=== PATIENT | female | born 1965 | race Caucasian/White ===

== ENCOUNTER 2019-12-19 21:11 | Emergency (ER) | payer OTHER, SELFPAY ==
[2019-12-19 21:19] VITALS: BP 116/69; PULSE 107; RESP 16; TEMP 36.9; O2SAT 98; BMI 31.2
--- NOTE | 2019-12-19 21:39 | CT_ITS ---
EXAMINATION: CT ABDOMEN AND PELVIS WITH CONTRAST CLINICAL INFORMATION: Diffuse abdominal pain, history of laparoscopic cholecystectomy and bariatric surgery COMPARISON: 08/03/2019 TECHNIQUE: Multidetector volumetric images were obtained from the superior aspect of the liver through the pubic symphysis following administration 85 mL of Omnipaque 350 intravenous contrast. Sagittal and coronal reformatted images were obtained on the technologist's workstation. Oral contrast: No This CT examination was performed using dose optimization techniques as appropriate, variously including the following: *Automated exposure control *Adjustment of mA and/or kV according to patient size (this includes techniques or standardized protocols for targeted exams where dose is matched to indication/reason for exam; i.e. extremities or head) *Use of iterative reconstruction technique DLP: 658 mGy-cm FINDINGS: LUNG BASES: The visualized lung bases demonstrate mild atelectasis. LIVER, GALLBLADDER, AND BILIARY TREE: The liver is normal in size, shape, and attenuation. No focal hepatic lesion identified. Patient is status post cholecystectomy. There is mild hepatic biliary ductal prominence which may be physiologic in this setting. Small amount of perihepatic fluid. PANCREAS: Unremarkable. SPLEEN: Trace perisplenic fluid. ADRENAL GLANDS: Unremarkable. KIDNEYS AND URETERS: The kidneys are normal in size, shape, and attenuation. A few tiny bilateral renal hypodensities are most suggestive of cysts. No hydronephrosis, hydroureter, or nonobstructing calculi seen. No perinephric stranding. BLADDER: Unremarkable. GASTROINTESTINAL TRACT: Suture line is present along the stomach. There is a thick-walled appearance of several small bowel loops in the left abdomen with adjacent fluid and mesenteric edema, most suspicious for an enteritis. No evidence of bowel obstruction. Much of the colon is collapsed which limits evaluation. The appendix is unremarkable. No free air is seen. ABDOMINAL WALL: No significant hernia is appreciated. LYMPH NODES: Normal. VASCULAR: Unremarkable. PELVIC VISCERA: Pessary is noted. Trace pelvic free fluid. OSSEOUS STRUCTURES: Mild scattered degenerative changes in the spine. IMPRESSION: 1. Thick-walled small bowel loops in the left abdomen with adjacent free fluid and mesenteric edema, most suspicious for an enteritis. 2. Small amount of additional free fluid in the abdomen and pelvis. 3. Status post cholecystectomy. Mild biliary ductal dilatation may be physiologic in this setting.
--- NOTE | 2019-12-19 21:41 | ED_ITS ---
HPI - Abdominal Pain General Chief Complaint: Abdominal Pain Stated Complaint: abdominal pain Time Seen by Provider: 12/19/19 21:31 Source: patient Mode of arrival: ambulatory Limitations: no limitations History of Present Illness HPI narrative: Patient comes to emergency room complaining of diffuse abdominal pain that started this morning. Patient also complaining of nausea vomiting, no diarrhea. Patient states she is in too much pain and can not talk MD elicited complaint: abdominal pain Related Data Previous Rx's Medication Instructions Recorded hyoscyamine sulfate 0.25 mg PO QID PRN #14 tab 12/20/19 ondansetron HCl [Zofran] 4 mg PO Q6H PRN #14 tab 12/20/19 Allergies Allergy/AdvReac Type Severity Reaction Status Date / Time aspirin [ASA] Allergy Intermediate RASH Unverified 11/17/19 17:24 Penicillins [PENICILLINS] Allergy Intermediate RASH Unverified 11/17/19 17:24 penicillin V AdvReac Unknown rash Verified 06/16/18 00:00 Penicillin Allergy Unknown Uncoded 10/27/19 00:00 Review of Systems Review of Systems Constitutional : No Weight loss, No Fever, No Chills, No Night Sweats, No Fatigue, No Malaise ENT/Mouth : No Hearing loss, No Ear Pain, No Nasal Congestion, No Sinus Pain, No Hoarseness, No sore throat, No Rhinorrhea, No Swallowing Difficulty Eyes: No Eye Pain, No Swelling, No Redness, No Foreign Body, No Discharge, No Vision Changes Cardiovascular : No Chest Pain, No SOB, No Dyspnea on Exertion, No Orthopnea, No Edema, No Palpitations Respiratory : No Cough, No Sputum, No Wheezing, No Smoke Exposure, No Dyspnea Gastrointestinal : complaining of nausea, vomiting, and diffuse abdominal pain, No Diarrhea, No Constipation Genitourinary : no irregular bleeding, No Dysuria, No Urinary Frequency, No Hematuria, No Urinary Incontinence, No Urgency, No Flank Pain, No Urinary Flow Changes, No Hesitancy Musculoskeletal : No joint pain, No Myalgias, No Joint Swelling Skin : No Skin Lesions, No rash Neuro : No Weakness, No Numbness, No Paresthesias, No Loss of Consciousness, No Dizziness, No Headache Psych : No Anxiety/Panic, No Depression, No SI/HI/AH/VH, No Social Issues, Heme/Lymph: No Bruising, No Bleeding,No Lymphadenopathy Endocrine : No Polyuria, No Polydipsia, No Temperature Intolerance Physical Exam Vital Signs: Vital Signs: Vital Signs Temp Pulse Resp BP Pulse Ox 12/20/19 01:02 98 16 117/71 97 12/19/19 22:00 98.4 F 110 H 18 102/69 12/19/19 21:19 98.4 F 107 H 16 116/69 98 Body Mass Index 31.2 Appearance: Alert. Oriented X3. moderate distress, actively vomiting Eyes: Pupils equal, round and reactive to light. ENT: Pharynx normal. Neck: Normal inspection. Neck supple. No lymph nodes noted. No crepitus CVS: Normal heart rate and rhythm. Pulses normal. Normal S1 and S2 Respiratory: No respiratory distress. Breath sounds normal. No Wheezing. No rales Abdomen: Soft , No rigidity. No distention. good BS x4 Skin: Skin warm , clammy Extremities: No lower extremity edema. No lower extremity edema. No Lacerations. No Rash Neuro: Oriented X 3. No motor deficit. No sensory deficit. Moving all extermities. No slurred speech. Course Course Course Narrative: patient feeling better, still nauseous but the pain improved. I discussed with the patient her labs and imaging. Patient likely having enteritis. White blood cell count within normal limits MDM - Abdominal Pain MDM Narrative Medical decision making narrative: patient's symptoms likely enteritis, most likely from viral etiology. Antibiotics are not recommended at this time Differential Diagnosis Differential diagnosis: Likely abdominal pain, diverticulitis, gastroenteritis and ovarian cyst Lab Data Result diagrams: 12/19/19 22:15 12/19/19 22:19 Labs: Lab Results 12/19/19 12/19/19 Range/Units 22:15 22:19 WBC 7.4 (4.8-10.8) X10*3/uL RBC 4.55 (4.20-5.50) X10*6/uL Hgb 14.1 (12.0-16.0) g/dl Hct 43.6 (37-47) % MCV 95.8 (80-98) fL MCH 31.0 (27.0-33.0) pg MCHC 32.3 (31.0-35.0) g/dl RDW 12.9 (11.0-16.0) % Plt Count 275 (160-400) X10*3/uL MPV 10.5 (9.4-12.3) fL Immature Gran % (Auto) 0.3 (0.0-0.4) % Neut % (Auto) 65.3 (45-73) % Lymph % (Auto) 28.8 (20-40) % [place] % (Auto) 3.9 (2-11) % Eos % (Auto) 1.6 (0-4) % Baso % (Auto) 0.1 (0-2) % Lymph # (Auto) 2.1 (1.2-4.9) X10*3/uL [place] # (Auto) 0.3 (0.1-1.2) X10*3/uL Eos # (Auto) 0.1 (0.0-0.4) X10*3/uL Baso # (Auto) 0.0 (0.0-0.2) X10*3/uL Abs Immat Gran (auto) 0.02 (0.00-0.03) X10*3/uL Absolute Neuts (auto) 4.8 (2.0-8.3) X10*3/uL Absolute Nucleated RBC 0.000 (0.0-0.012) X10*3/uL Nucleated RBC % (auto) 0.0 (0.0-0.2) /100WBC Sodium 140 (135-145) mmol/L Potassium 4.0 (3.3-5.1) mmol/l Chloride 106 (96-108) mmol/L Carbon Dioxide 22 (22-29) mmol/L Anion Gap 16 (12-20) BUN 17 H (9-16) mg/dL Creatinine 0.87 (0.5-1.4) mg/dL Estim Creat Clear Calc 74.0 Estimated GFR > 60 Random Glucose 183 H (60-115) mg/dL Calcium 8.8 (8.4-10.2) mg/dL Total Bilirubin 0.3 (0.0-1.0) mg/dL Direct Bilirubin 0.2 (0.0-0.5) mg/dL AST 19 (5-31) U/L ALT 20 (0-31) U/L Alkaline Phosphatase 79 (39-117) U/L Total Protein 6.7 (6.5-8.0) g/dL Albumin 4.1 (3.5-5.0) g/dL Lipase 41 (8-78) U/L Imaging Data CT scan - abdomen: Radiologist's impression: 1. Thick-walled small bowel loops in the left abdomen with adjacent free fluid and mesenteric edema, most suspicious for an enteritis. 2. Small amount of additional free fluid in the abdomen and pelvis. 3. Status post cholecystectomy. Mild biliary ductal dilatation may be physiologic in this setting. Discharge Plan Discharge Clinical Impression: Enteritis Abdominal pain Qualifiers: Abdominal location: generalized Qualified Code(s): R10.84 - Generalized abdomi nal pain Patient Disposition: Home, Self-Care Instructions: Colitis (ED) Additional Instructions: please drink plenty of fluids. Please follow-up with your primary care physician tomorrow. If you have any worsening or new symptoms, please return to the emergency room or call 911 Prescriptions: New hyoscyamine sulfate 0.125 mg tablet 0.25 mg PO QID PRN (Reason: abdominal pain) Qty: 14 RF: 0 ondansetron HCl [Zofran] 4 mg tablet 4 mg PO Q6H PRN (Reason: nausea and vomiting) Qty: 14 RF: 0 PMFSH Past Medical History Medical History (Updated 12/20/19 @ 01:22 by Susan Tirado MD) Bariatric surg stat-del Surgical History (Updated 12/19/19 @ 21:42 by Susan Tirado MD) History of cholecystectomy Social History Social History Smoked in Last 30 Days: No Use of substances other than those prescribed or required for medical reasons: No Advance Directives: No Advance Directives Information Provided: Yes
[2019-12-19 22:00] VITALS: BP 102/69; PULSE 110; RESP 18; TEMP 36.9
[2019-12-19] MEDS: Morphine Sulfate 4 MG/ML CARTRIDGE IVPUSH (22:13)
[2019-12-19] MEDS: ondansetron HCL 4 MG/2 ML VIAL IVPUSH (22:13)
[2019-12-19] MEDS: 0.9 % Sodium Chloride 1,000 ML 999 ML IVCONT (22:14)
[2019-12-19 22:23] LABS: Basophils Percent Auto 0.1 % (0-2); Eosinophils Absolute Auto 0.1 X10*3/uL (0.0-0.4); Eosinophils Percent Auto 1.6 % (0-4); Hematocrit 43.6 % (37-47); Hemoglobin 14.1 g/dl (12.0-16.0); Imm Gran Abs Auto 0.02 X10*3/uL (0.00-0.03); Imm Gran Pct Auto 0.3 % (0.0-0.4); Lymphocytes Absolute Auto 2.1 X10*3/uL (1.2-4.9); Lymphocytes Percent Auto 28.8 % (20-40); Mean Corpuscular HGB Conc 32.3 g/dl (31.0-35.0); Mean Corpuscular Volume 95.8 fL (80-98); Mean Platelet Volume 10.5 fL (9.4-12.3); Monocytes Absolute Auto 0.3 X10*3/uL (0.1-1.2); Monocytes Percent Auto 3.9 % (2-11); Neutrophils Absolute Auto 4.8 X10*3/uL (2.0-8.3); Neutrophils Percent Auto 65.3 % (45-73); Platelet Count 275 X10*3/uL (160-400); Red Blood Count 4.55 X10*6/uL (4.20-5.50); Red Cell Distribution Width 12.9 % (11.0-16.0); White Blood Count 7.4 X10*3/uL (4.8-10.8)
[2019-12-19 22:24] LABS: MANUAL DIFF FLAG NO
--- NOTE | 2019-12-19 22:47 | PC.NURSE ---
Pt c/o mid abd pain which started this afternoon. pt crying in pain and is nauseated w/o active vomiting. HL placed to RAC, labs drawn to lab. Pt medicated as per orders for pain and nausea. Pt A&Ox3, skin warm and diaphoretic. respirations easy, n/l. Pt awaiting for lab results.
[2019-12-19 23:03] LABS: Alanine Aminotransferase 20 U/L (0-31); Albumin Level 4.1 g/dL (3.5-5.0); Alkaline Phosphatase 79 U/L (39-117); Anion Gap 16 (12-20); Aspartate Amino Transferase 19 U/L (5-31); Bilirubin Direct 0.2 mg/dL (0.0-0.5); Bilirubin Total 0.3 mg/dL (0.0-1.0); Blood Urea Nitrogen 17 mg/dL (9-16); Calcium 8.8 mg/dL (8.4-10.2); Carbon Dioxide 22 mmol/L (22-29); Chloride 106 mmol/L (96-108); Estimated Glomerular Filt Rate > 60; Glucose Random 183 mg/dL (60-115); Lipase 41 U/L (8-78); Sodium 140 mmol/L (135-145); Total Protein 6.7 g/dL (6.5-8.0)
[2019-12-20] MEDS: iohexoL 350 MG/ML 100 ML INFUS..BTL 85 ML IV (00:01)
[2019-12-20] MEDS: Ketorolac Tromethamine 30 MG/ML VIAL IVPUSH (00:20)
[2019-12-20 01:02] VITALS: BP 117/71; PULSE 98; RESP 16; O2SAT 97
[2019-12-20] MEDS: Prochlorperazine Edisylate 10 MG/2 ML VIAL IVPUSH (02:01)
== END 2019-12-20 02:51 | disposition home or self-care (01) ==
PROVIDERS: Emergency Provider Emergency Medicine
DX: R10.84 Generalized abdominal pain (principal); K52.9 Noninfective gastroenteritis and colitis, unspecified; Z79.899 Other long term (current) drug therapy
CPT/HCPCS: 36415; 74177; 80048; 80076; 83690; 85025; 96361; 96374; 96375; 99284; J1885; J2270; J2405

== ENCOUNTER 2020-01-11 13:51 | Outpatient (REF) | payer OTHER, SELFPAY ==
--- NOTE | 2020-01-11 | MM_ITS ---
EXAMINATION: MM SCREENING DIGITAL BREAST TOMOSYNTHESIS, BILATERAL CLINICAL INFORMATION: Screening. Asymptomatic. The lifetime risk of breast cancer based on the Tyrer-Cuzick Model is 7%. COMPARISON: Mammography: 08/30/2018, outside mammography 08/03/2017, 07/25/2016 ([facility]) TECHNIQUE: Digital breast tomosynthesis is performed in both the craniocaudal and mediolateral oblique views along with computer-aided detection (CAD). Synthesized 2D images are generated from the tomosynthesis. FINDINGS: The breasts are heterogeneously dense, which may obscure small masses (ACR BI-RADS breast composition Category c). There are no significant masses, abnormal calcifications, or other abnormalities. No significant changes. MM/MM tomosynthesis screening BI IMPRESSION: No significant changes from prior studies. ASSESSMENT: BI-RADS 1: Negative RECOMMENDATION: Routine annual mammography screening. This patient's information was entered into a reminder system with a target due date for their next mammogram.
== END 2020-01-11 13:52 | disposition home or self-care (01) ==
LOC: HO.MAMMO 13:51
PROVIDERS: PCP Internal Medicine; Visit Provider Internal Medicine
DX: Z12.31 Encounter for screening mammogram for malignant neoplasm of breast (principal)
CPT/HCPCS: 77063; 77067

== ENCOUNTER → 2020-05-03 07:44 | Outpatient (BNVA) | payer OTHER, SELFPAY | PROVIDERS: PCP Internal Medicine; Visit Provider Internal Medicine Gastroenterology | DX: K29.60 Other gastritis without bleeding (principal); K29.80 Duodenitis without bleeding; K63.89 Other specified diseases of intestine | CPT/HCPCS: 91110 ==

== ENCOUNTER → 2020-05-17 13:29 | Outpatient (BNVA) | payer OTHER, SELFPAY | PROVIDERS: PCP Internal Medicine; Visit Provider Nurse Practitioner Gerontology | DX: Z13.89 Encounter for screening for other disorder (principal) | CPT/HCPCS: Q3014 ==

== ENCOUNTER 2020-05-30 10:49 | Outpatient (REF) | payer OTHER, SELFPAY ==
[2020-05-30 14:41] LABS: Estimated Average Glucose 114 mg/dL; Hemoglobin A1c % 5.6 %
[2020-05-30 14:46] LABS: Alanine Aminotransferase 22 U/L (0-31); Albumin Level 4.1 g/dL (3.5-5.0); Alkaline Phosphatase 67 U/L (39-117); Anion Gap 15 (12-20); Aspartate Amino Transferase 22 U/L (5-31); Bilirubin Total 0.3 mg/dL (0.0-1.0); Blood Urea Nitrogen 13 mg/dL (9-16); Calcium 8.6 mg/dL (8.4-10.2); Carbon Dioxide 25 mmol/L (22-29); Chloride 104 mmol/L (96-108); Cholesterol 169 mg/dL; Estimated Glomerular Filt Rate > 60; Glucose Fasting 102 mg/dL (60-99); HDL Cholesterol 65 mg/dL; LDL Cholesterol Calculated 85 mg/dl; Potassium 4.5 mmol/L (3.3-5.1); Sodium 139 mmol/L (135-145); Total Protein 6.6 g/dL (6.5-8.0); Triglycerides 96 mg/dL
[2020-05-30 14:57] LABS: Creatinine Urine 133.38 mg/dL; Microalbumin Urine < 5.0 mg/L
[2020-05-31 05:01] LABS: LDL Cholesterol Direct 83 mg/dL (<100)
== END 2020-05-30 10:50 | disposition home or self-care (01) ==
LOC: HO.10HDL 10:49
PROVIDERS: Visit Provider Nurse Practitioner Gerontology
DX: E11.65 Type 2 diabetes mellitus with hyperglycemia (principal)
CPT/HCPCS: 36415; 80053; 80061; 82043; 83036; 83721

== ENCOUNTER → 2020-06-05 14:49 | Outpatient (BNVA) | payer OTHER, SELFPAY | PROVIDERS: PCP Internal Medicine; Visit Provider Internal Medicine Gastroenterology | DX: R10.11 Right upper quadrant pain (principal); K59.00 Constipation, unspecified; T78.3XXA Angioneurotic edema, initial encounter; E11.9 Type 2 diabetes mellitus without complications; I10 Essential (primary) hypertension; E78.00 Pure hypercholesterolemia, unspecified; E78.5 Hyperlipidemia, unspecified; E66.01 Morbid (severe) obesity due to excess calories; Z88.6 Allergy status to analgesic agent; Z88.0 Allergy status to penicillin; Z90.3 Acquired absence of stomach [part of] | CPT/HCPCS: Q3014 ==

== ENCOUNTER → 2020-08-23 13:43 | Outpatient (BNVA) | payer OTHER, SELFPAY | PROVIDERS: PCP Internal Medicine; Visit Provider Nurse Practitioner Gerontology | DX: E11.42 Type 2 diabetes mellitus with diabetic polyneuropathy (principal); E78.5 Hyperlipidemia, unspecified; E66.09 Other obesity due to excess calories; I10 Essential (primary) hypertension; R00.0 Tachycardia, unspecified; Z68.30 Body mass index [BMI] 30.0-30.9, adult | CPT/HCPCS: 82947; 99212 ==

== ENCOUNTER → 2020-11-01 10:42 | Outpatient (BNVA) | payer OTHER, SELFPAY | PROVIDERS: PCP Internal Medicine; Visit Provider Internal Medicine | DX: R00.0 Tachycardia, unspecified (principal); E11.8 Type 2 diabetes mellitus with unspecified complications | CPT/HCPCS: 93005; 99212 ==

== ENCOUNTER → 2021-01-22 14:27 | Outpatient (BNVA) | payer OTHER, SELFPAY | PROVIDERS: PCP Internal Medicine; Visit Provider Internal Medicine Gastroenterology | DX: Z13.89 Encounter for screening for other disorder (principal) | CPT/HCPCS: Q3014 ==

== ENCOUNTER 2022-02-13 07:34 | Emergency (ER) | payer OTHER, SELFPAY ==
[2022-02-13 07:45] VITALS: BP 126/105; PULSE 94; RESP 14; TEMP 36.4; O2SAT 100; BMI 31.7
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
[2022-02-13 09:00] VITALS: BP 109/72; PULSE 91; RESP 12; TEMP 36.7; O2SAT 98
== END 2022-02-13 09:19 | disposition home or self-care (01) ==
PROVIDERS: Emergency Provider Student in an Organized Health Care Education/Training Program; PCP Internal Medicine
DX: T25.121A Burn of first degree of right foot, initial encounter (principal); T31.0 Burns involving less than 10% of body surface; X12.XXXA Contact with other hot fluids, initial encounter; Y93.9 Activity, unspecified; Y92.009 Unspecified place in unspecified non-institutional (private) residence as the place of occurrence of the external cause; Y99.9 Unspecified external cause status
CPT/HCPCS: 16020; 99283

== ENCOUNTER 2022-04-14 14:21 | Inpatient (IN) | payer OTHER, SELFPAY ==
--- NOTE | 2022-04-14 | ECG_ITS ---
Test Reason : MED CLEARANCE Blood Pressure : / mmHG Vent. Rate : 085 BPM Atrial Rate : 085 BPM P-R Int : 174 ms QRS Dur : 082 ms QT Int : 372 ms P-R-T Axes : 034 021 027 degrees QTc Int : 442 ms Normal sinus rhythm Normal ECG When compared with ECG of 15-JUL-2009 11:17, No significant change was found Referred By: Susan Tirado Electronically Signed By:Mike Serrato
[2022-04-14 14:43] VITALS: BP 127/85; PULSE 94; RESP 18; TEMP 36.8; O2SAT 96; BMI 28.3
[2022-04-14 15:20] LABS: UPreg QC Valid YES; Urine Pregnancy NEGATIVE (NEGATIVE)
[2022-04-14 15:27] LABS: COVID-19 Test Negative (Negative); IDNOW Serial# 16C4AD1C
[2022-04-14 15:36] LABS: MANUAL DIFF FLAG NO
[2022-04-14 15:43] LABS: Basophils Percent Auto 0.8 % (0-2); Eosinophils Absolute Auto 0.2 X10*3/uL (0.0-0.4); Eosinophils Percent Auto 4.3 % (0-4); Hematocrit 37.2 % (37.0-47.0); Hemoglobin 11.9 g/dl (12.0-16.0); Lymphocytes Absolute Auto 2.1 X10*3/uL (1.2-4.9); Mean Corpuscular Hemoglobin 30.7 pg (27.0-33.0); Mean Corpuscular Volume 96.1 fL (80.0-98.0); Mean Platelet Volume 10.1 fL (9.4-12.3); Monocytes Absolute Auto 0.3 X10*3/uL (0.1-1.2); Monocytes Percent Auto 7.8 % (2-11); Neutrophils Absolute Auto 1.3 x10*3/uL (2.0-8.3); Neutrophils Percent Auto 33.1 % (45-73); Platelet Count 243 X10*3/uL (160-400); Red Blood Count 3.87 X10*6/uL (4.20-5.50); Red Cell Distribution Width 13.5 % (11.0-16.0)
[2022-04-14 16:00] LABS: Alanine Aminotransferase 38 U/L (0-31); Alkaline Phosphatase 81 U/L (39-117); Anion Gap 13 (12-20); Aspartate Amino Transferase 27 U/L (5-31); Bilirubin Total 0.2 mg/dL (0.0-1.0); Blood Urea Nitrogen 10 mg/dL (9-16); Calcium 8.9 mg/dL (8.4-10.2); Carbon Dioxide 27 mmol/L (22-29); Chloride 108 mmol/L (96-108); Estimated Glomerular Filt Rate > 60; Glucose Fasting 80 mg/dL (60-99); Potassium 4.4 mmol/L (3.3-5.1); Sodium 144 mmol/L (135-145); Total Protein 6.2 g/dL (6.5-8.0)
[2022-04-14 16:46] LABS: Amphetamine Screen Urine Not Detected (Not Detect); Barbiturates, Urine Not Detected (Not Detect); Benzodiazepines Screen Urine POSITIVE (Not Detect); Cannabinoid Screen Urine POSITIVE (Not Detect); Cocaine Screen Urine Not Detected (Not Detect); Opiate Screen Urine Not Detected (Not Detect); Phencyclidine Screen Urine Not Detected (Not Detect)
[2022-04-14 17:03] LABS: Fentanyl, urine Not Detected (Not Detect)
--- NOTE | 2022-04-14 21:37 | ED.PSYCH ---
HPI - Psych General Chief Complaint: Psychiatric Symptoms Stated Complaint: SI w/ plan, SEC 12 per EMS Time Seen by Provider: 04/14/22 14:26 Source: patient and EMS Mode of arrival: EMS Limitations: no limitations History of Present Illness HPI Narrative: Patient comes in the emergency room from behavioral at work. Patient states that her clinician convince her to come to the emergency room. Patient states that if her clinician wound have insisted to come to the hospital, she would have hunger self. Patient history of 2 suicide attempts. Years ago, patient attempted suicide by ingesting pills. Patient states that she ingested the pills, went to sleep, woke up 24 hours later. Patient also states that she has had multiple lacerations to her forearms. This time, patient was contemplating hanging herself. Patient denies drug use. Patient states that she hears voices daily telling her to hurt herself. Patient states that she is chronically depressed. Patient denies suicidal ideation the patient came on a Section 12 from the community. Related Data Home Medications Medication Instructions Recorded Confirmed atorvastatin 20 mg tablet 20 mg PO DAILY 06/05/20 04/14/22 albuterol sulfate 90 mcg/actuation 2 puff inhalation Q4-6H PRN 04/14/22 04/14/22 aerosol inhaler Shortness Of Breath Or Wheezing amitriptyline 75 mg tablet 1 tab PO BEDTIME 04/14/22 04/14/22 bupropion HCl 300 mg 24 hr tablet, 1 tab PO DAILY 04/14/22 04/14/22 extended release cholecalciferol (vitamin D3) 25 1 cap PO DAILY 04/14/22 04/14/22 mcg (1,000 unit) capsule (Vitamin D3) clonazepam 0.5 mg tablet 1 tab PO TID 04/14/22 04/14/22 docusate sodium 100 mg capsule 1 cap PO BID 04/14/22 04/14/22 dulaglutide 1.5 mg/0.5 mL 1.5 mg subcut QWEEK 04/14/22 04/14/22 subcutaneous pen injector (Trulicity) duloxetine 60 mg capsule,delayed 1 cap PO BID 04/14/22 04/14/22 release haloperidol 0.5 mg tablet 1 tab PO QPM 04/14/22 04/14/22 lisinopril 5 mg tablet 1 tab PO QAM 04/14/22 04/14/22 loratadine 10 mg tablet 1 tab PO DAILY 04/14/22 04/14/22 metformin 500 mg tablet 1 tab PO BID 04/14/22 04/14/22 omeprazole 20 mg capsule,delayed 1 cap PO DAILY 04/14/22 04/14/22 release pioglitazone 15 mg tablet 1 tab PO DAILY 04/14/22 04/14/22 quetiapine 400 mg tablet,extended 1 tab PO BEDTIME 04/14/22 04/14/22 release 24 hr sennosides 8.6 mg tablet (senna) 2 tab DAILY PRN constipation 04/14/22 04/14/22 Allergies Allergy/AdvReac Type Severity Reaction Status Date / Time aspirin [ASA] Allergy Intermediate RASH Verified 11/01/20 10:57 Penicillins [PENICILLINS] Allergy Intermediate RASH Verified 11/01/20 10:57 Review of Systems Review of Systems: Constitutional : No Weight loss, No Fever, No Chills, No Night Sweats, No Fatigue, No Malaise ENT/Mouth : No Hearing loss, No Ear Pain, No Nasal Congestion, No Sinus Pain, No Hoarseness, No sore throat, No Rhinorrhea, No Swallowing Difficulty Eyes: No Eye Pain, No Swelling, No Redness, No Foreign Body, No Discharge, No Vision Changes Cardiovascular : No Chest Pain, No SOB, No Dyspnea on Exertion, No Orthopnea, No Edema, No Palpitations Respiratory : No Cough, No Sputum, No Wheezing, No Smoke Exposure, No Dyspnea Gastrointestinal : No Nausea, No Vomiting, No Diarrhea, No Constipation, No abdominal Pain, No Hematochezia, No Melena Genitourinary : no irregular bleeding, No Dysuria, No Urinary Frequency, No Hematuria, No Urinary Incontinence, No Urgency, No Flank Pain, No Urinary Flow Changes, No Hesitancy Musculoskeletal : No joint pain, No Myalgias, No Joint Swelling Skin : No Skin Lesions, No rash Neuro : No Weakness, No Numbness, No Paresthesias, No Loss of Consciousness, No Dizziness, No Headache Psych : Patient complaining of depression, suicidal ideation, no homicidal ideation Heme/Lymph: No Bruising, No Bleeding,No Lymphadenopathy Endocrine : No Polyuria, No Polydipsia, No Temperature Intolerance PMFSH Past Medical History Medical History Anxiety Bariatric surg stat-del Depression Diabetes type 2, uncontrolled DM2 (diabetes mellitus, type 2) Essential hypertension Hyperlipidemia LDL goal <100 Obesity due to excess calories Schizophrenia Tachycardia Type 2 diabetes mellitus without complications Surgical History H/O: History of cholecystectomy Family History Family History Family/Other Breast cancer Social History Social History Household Members: None Alcohol intake: current Alcohol intake frequency: does not drink Patient Tobacco Use Status: Never used Tobacco Advance Directives: No Advance Directives Information Provided: No Physical Exam Vital Signs: Vital Signs: Last Vital Signs Temp 98.2 F 04/14/22 14:43 Pulse 94 04/14/22 14:43 Resp 18 04/14/22 14:43 BP 127/85 04/14/22 14:43 Pulse Ox 96 04/14/22 14:43 O2 Del Method 04/14/22 14:43 BMI result Body Mass Index 28.3 Const: Other: Appearance: Alert. Oriented X3. No acute distress. Eyes: Pupils equal, round and reactive to light. ENT: Pharynx normal. Neck: Normal inspection. Neck supple. No lymph nodes noted. No crepitus CVS: Normal heart rate and rhythm. Pulses normal. Normal S1 and S2 Respiratory: No respiratory distress. Breath sounds normal. No Wheezing. No rales Abdomen: Soft and nontender. No rigidity. No distention. Skin: Skin warm and dry. Normal skin color. Normal skin turgor. Extremities: No lower extremity edema. No Lacerations. No Rash Neuro: Oriented X 3. No motor deficit. No sensory deficit. Moving all extremities. No slurred speech. CN 2 through 12 grossly intact Psych: calm, cooperative, normal affect -basic labs obtained -acute and consult obtained Medical Decision Making Medical Decision Making [facility] Narrative: -patient's labs positive for benzodiazepines and marijuana -patient was accepted to 3 Differential Diagnosis Differential Diagnoses: The differential diagnosis associated with the presentation includes (Anxiety, depression, schizophrenia) Admission/Observation Consideration of admission/observation: Escalation of care including admission/observation considered Lab Data [facility] Lab Attestation statement: I reviewed the patient's lab results. 04/14/22 15:28 04/14/22 15:28 Labs: Lab Results 04/14/22 04/14/22 04/14/22 Range/Units 15:01 15:01 15:01 WBC (4.8-10.8) X10*3/uL RBC (4.20-5.50) X10*6/uL Hgb (12.0-16.0) g/dl Hct (37.0-47.0) % MCV (80.0-98.0) fL MCH (27.0-33.0) pg MCHC (31.0-35.0) g/dl RDW (11.0-16.0) % Plt Count (160-400) X10*3/uL MPV (9.4-12.3) fL Immature Gran % (Auto) (0.0-0.4) % Neut % (Auto) (45-73) % Lymph % (Auto) (20-40) % [place] % (Auto) (2-11) % Eos % (Auto) (0-4) % Baso % (Auto) (0-2) % Lymph # (Auto) (1.2-4.9) X10*3/uL [place] # (Auto) (0.1-1.2) X10*3/uL Eos # (Auto) (0.0-0.4) X10*3/uL Baso # (Auto) (0.0-0.2) X10*3/uL Abs Immat Gran (auto) (0.00-0.03) X10*3/uL Absolute Neuts (auto) (2.0-8.3) x10*3/uL Absolute Nucleated RBC (0.0-0.012) X10*3/uL Nucleated RBC % (auto) (0.0-0.2) /100WBC Sodium (135-145) mmol/L Potassium (3.3-5.1) mmol/L Chloride (96-108) mmol/L Carbon Dioxide (22-29) mmol/L Anion Gap (12-20) BUN (9-16) mg/dL Creatinine (0.5-1.4) mg/dL Estim Creat Clear Calc Estimated GFR Fasting Glucose (60-99) mg/dL Calcium (8.4-10.2) mg/dL Total Bilirubin (0.0-1.0) mg/dL AST (5-31) U/L ALT (0-31) U/L Alkaline Phosphatase (39-117) U/L Total Protein (6.5-8.0) g/dL Albumin (3.5-5.0) g/dL Urine Test NEGATIVE (NEGATIVE) Urine Opiates Screen Not Detected (Not Detect) Urine Fentanyl Screen Not Detected (Not Detect) Ur Barbiturates Screen Not Detected (Not Detect) Ur Phencyclidine Scrn Not Detected (Not Detect) Ur Amphetamines Screen Not Detected (Not Detect) U Benzodiazepines Scrn POSITIVE H (Not Detect) Urine Cocaine Screen Not Detected (Not Detect) U Marijuana (THC) Screen POSITIVE H (Not Detect) COVID-19 (DUNG) Negative (Negative) COVID-19 Clin Com See Note 04/14/22 04/14/22 Range/Units 15:28 15:28 WBC 4.0 L (4.8-10.8) X10*3/uL RBC 3.87 L (4.20-5.50) X10*6/uL Hgb 11.9 L (12.0-16.0) g/dl Hct 37.2 (37.0-47.0) % MCV 96.1 (80.0-98.0) fL MCH 30.7 (27.0-33.0) pg MCHC 32.0 (31.0-35.0) g/dl RDW 13.5 (11.0-16.0) % Plt Count 243 (160-400) X10*3/uL MPV 10.1 (9.4-12.3) fL Immature Gran % (Auto) 0.0 (0.0-0.4) % Neut % (Auto) 33.1 L (45-73) % Lymph % (Auto) 54.0 H (20-40) % [place] % (Auto) 7.8 (2-11) % Eos % (Auto) 4.3 H (0-4) % Baso % (Auto) 0.8 (0-2) % Lymph # (Auto) 2.1 (1.2-4.9) X10*3/uL [place] # (Auto) 0.3 (0.1-1.2) X10*3/uL Eos # (Auto) 0.2 (0.0-0.4) X10*3/uL Baso # (Auto) 0.0 (0.0-0.2) X10*3/uL Abs Immat Gran (auto) 0.00 (0.00-0.03) X10*3/uL Absolute Neuts (auto) 1.3 L (2.0-8.3) x10*3/uL Absolute Nucleated RBC 0.000 (0.0-0.012) X10*3/uL Nucleated RBC % (auto) 0.0 (0.0-0.2) /100WBC Sodium 144 (135-145) mmol/L Potassium 4.4 (3.3-5.1) mmol/L Chloride 108 (96-108) mmol/L Carbon Dioxide 27 (22-29) mmol/L Anion Gap 13 (12-20) BUN 10 (9-16) mg/dL Creatinine 0.81 (0.5-1.4) mg/dL Estim Creat Clear Calc 74.0 Estimated GFR > 60 Fasting Glucose 80 (60-99) mg/dL Calcium 8.9 (8.4-10.2) mg/dL Total Bilirubin 0.2 (0.0-1.0) mg/dL AST 27 (5-31) U/L ALT 38 H (0-31) U/L Alkaline Phosphatase 81 (39-117) U/L Total Protein 6.2 L (6.5-8.0) g/dL Albumin 4.0 (3.5-5.0) g/dL Urine Test (NEGATIVE) Urine Opiates Screen (Not Detect) Urine Fentanyl Screen (Not Detect) Ur Barbiturates Screen (Not Detect) Ur Phencyclidine Scrn (Not Detect) Ur Amphetamines Screen (Not Detect) U Benzodiazepines Scrn (Not Detect) Urine Cocaine Screen (Not Detect) U Marijuana (THC) Screen (Not Detect) COVID-19 (DUNG) (Negative) COVID-19 Clin Com Discharge Plan Discharge Clinical Impression: Auditory hallucination, Suicidal ideation, Depression Patient Disposition: Admitted As Inpatient
[2022-04-14] MEDS: HaloperidoL 0.5 MG TABLET PO (23:47)
[2022-04-14] MEDS: DULoxetine HCl 60 MG CAPSULE.DR PO (23:47)
[2022-04-14] MEDS: clonazePAM 0.5 MG TABLET PO (23:47)
[2022-04-14] MEDS: QUEtiapine Fumarate 200 MG TABLET PO (23:47)
[2022-04-14] MEDS: Docusate Sodium 100 MG CAPSULE PO (23:48)
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
[2022-04-15 08:30] VITALS: BP 108/77; PULSE 96; RESP 18; TEMP 36.7; O2SAT 97
[2022-04-15] MEDS: QUEtiapine Fumarate 200 MG TABLET PO ×2 (08:47→20:55)
[2022-04-15] MEDS: buPROPion HCl XL 300 MG TAB.ER.24H PO (08:47)
[2022-04-15] MEDS: Docusate Sodium 100 MG CAPSULE PO ×2 (08:48→20:54)
[2022-04-15] MEDS: Cholecalciferol (Vitamin D3) 25 MCG TABLET PO (08:48)
[2022-04-15] MEDS: DULoxetine HCl 60 MG CAPSULE.DR PO (08:48)
[2022-04-15] MEDS: Loratadine 10 MG TABLET PO (08:48)
[2022-04-15] MEDS: Atorvastatin Calcium 20 MG TABLET PO (08:48)
[2022-04-15] MEDS: Omeprazole 20 MG CAPSULE.DR PO (08:48)
[2022-04-15] MEDS: metFORMIN HCl 500 MG TABLET PO ×2 (08:48→18:01)
[2022-04-15] MEDS: clonazePAM 0.5 MG TABLET PO ×3 (08:49→20:55)
[2022-04-15] MEDS: lisinopriL 5 MG TABLET PO (08:49)
[2022-04-15] MEDS: Milk of Magnesia 30 ML ORAL.SUSP PO (08:52)
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
[2022-04-15 08:56] LABS: Glucose, Whole Blood 82 mg/dL (60-115)
[2022-04-15 09:36] LABS: Alanine Aminotransferase 45 U/L (0-31); Albumin Level 4.7 g/dL (3.5-5.0); Alkaline Phosphatase 90 U/L (39-117); Anion Gap 15 (12-20); Aspartate Amino Transferase 34 U/L (5-31); Bilirubin Total 0.5 mg/dL (0.0-1.0); Blood Urea Nitrogen 8 mg/dL (9-16); Carbon Dioxide 28 mmol/L (22-29); Chloride 103 mmol/L (96-108); Cholesterol 145 mg/dL; Creatinine Clr Calc Pharmacy 65.9; Estimated Glomerular Filt Rate > 60; Glucose Fasting 95 mg/dL (60-99); HDL Cholesterol 61 mg/dL; LDL Cholesterol Calculated 65 mg/dl; Potassium 4.8 mmol/L (3.3-5.1); Sodium 141 mmol/L (135-145); Total Protein 7.3 g/dL (6.5-8.0); Triglycerides 98 mg/dL
[2022-04-15 09:44] LABS: Calcium 9.9 mg/dL (8.4-10.2)
[2022-04-15] MEDS: Sennosides 8.6 MG TABLET 17.2 MG PO (12:34)
[2022-04-15 20:49] VITALS: BP 105/66; PULSE 104; RESP 18; TEMP 36.6; O2SAT 98
[2022-04-15] MEDS: HaloperidoL 0.5 MG TABLET PO (20:54)
[2022-04-15] MEDS: Amitriptyline HCl 25 MG TABLET 75 MG PO (20:55)
[2022-04-16] MEDS: QUEtiapine Fumarate 200 MG TABLET PO ×2 (08:57→20:53)
[2022-04-16] MEDS: buPROPion HCl XL 300 MG TAB.ER.24H PO (08:57)
[2022-04-16] MEDS: Cholecalciferol (Vitamin D3) 25 MCG TABLET PO (08:57)
[2022-04-16] MEDS: Atorvastatin Calcium 20 MG TABLET PO (08:57)
[2022-04-16 08:58] VITALS: BP 151/102; PULSE 97; RESP 18; TEMP 36.6; O2SAT 97
[2022-04-16] MEDS: lisinopriL 5 MG TABLET PO (08:58)
[2022-04-16] MEDS: clonazePAM 0.5 MG TABLET PO ×3 (08:58→20:53)
[2022-04-16] MEDS: Sennosides 8.6 MG TABLET 17.2 MG PO (08:58)
[2022-04-16] MEDS: Loratadine 10 MG TABLET PO (08:59)
[2022-04-16] MEDS: metFORMIN HCl 500 MG TABLET PO ×2 (08:59→16:46)
[2022-04-16] MEDS: DULoxetine HCl 60 MG CAPSULE.DR PO (08:59)
[2022-04-16] MEDS: Omeprazole 20 MG CAPSULE.DR PO (08:59)
[2022-04-16] MEDS: Docusate Sodium 100 MG CAPSULE PO ×2 (09:00→20:54)
--- NOTE | 2022-04-16 09:09 | HO.PSYCHPN ---
Subjective Subjective Date of Service: 04/16/22 Reason For Visit: Psychosis, SI Subjective Notes: Conditional Voluntary Interim History: Pt reports feeling less depressed, less overwhelmed. She reports intermittent suicidal ideation but no plan or intent. Pt sleeping through the night, visible and social with select peers. No behavioral concerns. Medication Compliance: Yes Review of Systems Review of Systems Constitutional : No Weight loss, No Fever, No Chills, No Night Sweats, No Fatigue, No Malaise ENT/Mouth : No Hearing loss, No Ear Pain, No Nasal Congestion, No Sinus Pain, No Hoarseness, No sore throat, No Rhinorrhea, No Swallowing Difficulty Eyes: No Eye Pain, No Swelling, No Redness, No Foreign Body, No Discharge, No Vision Changes Cardiovascular : No Chest Pain, No SOB, No Dyspnea on Exertion, No Orthopnea, No Edema, No Palpitations Respiratory : No Cough, No Sputum, No Wheezing, No Smoke Exposure, No Dyspnea Gastrointestinal : No Nausea, No Vomiting, No Diarrhea, No Constipation, No abdominal Pain, No Hematochezia, No Melena Genitourinary : no irregular bleeding, No Dysuria, No Urinary Frequency, No Hematuria, No Urinary Incontinence, No Urgency, No Flank Pain, No Urinary Flow Changes, No Hesitancy Musculoskeletal : No joint pain, No Myalgias, No Joint Swelling Skin : No Skin Lesions, No rash Neuro : No Weakness, No Numbness, No Paresthesias, No Loss of Consciousness, No Dizziness, No Headache Psych : Patient complaining of depression, suicidal ideation, no homicidal ideation Heme/Lymph: No Bruising, No Bleeding,No Lymphadenopathy Endocrine : No Polyuria, No Polydipsia, No Temperature Intolerance Mental Status Exam Mental Status Exam Narrative: Appearance: casually groomed, fair hygiene, in NAD Behavior: cooperative Speech: clear, normal rate/rhythm/volume, spontaneous TP: linear TC: no overt psychosis, feeling depressed Mood: better Affect: congruent SI: passive, chronic in nature, no plan or intent VH/AH: less AH derogatory comments Delusions: none Insight/judgment: fair x 2. Memory/cog: alert, oriented x 3. seems to have difficulty recalling information, may benefit from MOCA. Diagnostics Vital Signs (24Hr): Vital Signs - 24 hr 04/17/22 18:00 04/18/22 09:00 Temperature 97.8 F 98.4 F Pulse Rate 100 76 Respiratory Rate 18 16 Blood Pressure 103/65 138/73 Pulse Oximetry 96 99 Oxygen Delivery Method Room Air Room Air BMI result Body Mass Index 27.6 Labs 04/14/22 15:28 04/15/22 08:54 Labs: Laboratory Results - last 48 hr 04/16/22 04/17/22 04/18/22 09:32 08:48 08:55 POC Glucose 91 84 76 Medications Medications Current Medications Acetaminophen (Acetaminophen 325 Mg Tablet) 650 mg PO Q6H PRN PRN Reason: Headache/Pain Mild Scale (1-3) Last Admin: 04/17/22 08:41 Dose: 650 mg Al Hydroxide/Mg Hydroxide (Magnesium Hydrox/Alum Hydrox 30 Ml Oral.Susp) 30 ml PO Q6H PRN PRN Reason: Heartburn/Nausea Albuterol Sulfate (Albuterol Sulfate 90 Mcg 8 Gm Inhaler) 2 puff INHALE Q4H PRN PRN Reason: Shortness Of Breath Or Wheezing Amitriptyline HCl (Amitriptyline Hcl 25 Mg Tablet) 75 mg PO BEDTIME [facility] Last Admin: 04/17/22 21:23 Dose: 75 mg Atorvastatin Calcium (Atorvastatin Calcium 20 Mg Tablet) 20 mg PO DAILY [facility] Last Admin: 04/17/22 08:30 Dose: 20 mg Bupropion HCl (Bupropion Hcl Xl 300 Mg Tab.Er.24h) 300 mg PO DAILY [facility] Last Admin: 04/17/22 08:30 Dose: 300 mg Clonazepam (Clonazepam 0.5 Mg Tablet) 0.5 mg PO TID [facility] Last Admin: 04/17/22 21:22 Dose: 0.5 mg Docusate Sodium (Docusate Sodium 100 Mg Capsule) 100 mg PO BID [facility] Last Admin: 04/17/22 21:22 Dose: 100 mg Duloxetine HCl (Duloxetine Hcl 60 Mg Capsule.Dr) 60 mg PO DAILY [facility] Last Admin: 04/17/22 08:32 Dose: 60 mg Haloperidol (Haloperidol 0.5 Mg Tablet) 0.5 mg PO BEDTIME [facility] Last Admin: 04/17/22 21:22 Dose: 0.5 mg Hydroxyzine HCl (Hydroxyzine Hcl 25 Mg Tablet) 25 mg PO Q6H PRN PRN Reason: Anxiety Last Admin: 04/16/22 17:37 Dose: 25 mg Lisinopril (Lisinopril 5 Mg Tablet) 5 mg PO DAILY [facility]; Protocol Last Admin: 04/17/22 08:31 Dose: 5 mg Loratadine (Loratadine 10 Mg Tablet) 10 mg PO DAILY [facility] Last Admin: 04/17/22 08:32 Dose: 10 mg Magnesium Hydroxide (Milk Of Magnesia 30 Ml Oral.Susp) 30 ml PO DAILY PRN PRN Reason: Constipation Last Admin: 04/17/22 08:41 Dose: 30 ml Metformin HCl (Metformin Hcl 500 Mg Tablet) 500 mg PO BIDWM [facility] Last Admin: 04/17/22 18:23 Dose: 500 mg Non-Formulary Medication (Dulaglutide [Trulicity]) 1.5 mg SUBCUT Q7D [facility] Omeprazole (Omeprazole 20 Mg Capsule.Dr) 20 mg PO DAILY [facility] Last Admin: 04/17/22 08:30 Dose: 20 mg Pioglitazone HCl (Pioglitazone Hcl 15 Mg Tablet) 15 mg PO DAILY [facility] Last Admin: 04/17/22 08:31 Dose: 15 mg Quetiapine Fumarate (Quetiapine Fumarate 200 Mg Tablet) 200 mg PO BID [facility] Last Admin: 04/17/22 21:22 Dose: 200 mg Senna (Sennosides 8.6 Mg Tablet) 17.2 mg PO DAILY [facility] Last Admin: 04/17/22 08:32 Dose: 17.2 mg Trazodone HCl (Trazodone Hcl 50 Mg Tablet) 50 mg PO BEDTIME PRN PRN Reason: Insomnia Last Admin: 04/17/22 21:23 Dose: 50 mg Vitamin D (Cholecalciferol (Vitamin D3) 25 Mcg Tablet) 25 mcg PO DAILY [facility] Last Admin: 04/17/22 08:31 Dose: 25 mcg Allergies Allergies Allergy/AdvReac Type Severity Reaction Status Date / Time aspirin [ASA] Allergy Intermediate RASH Verified 11/01/20 10:57 Penicillins [PENICILLINS] Allergy Intermediate RASH Verified 11/01/20 10:57 Assessment & Plan Assessment & Plan (1) MDD (major depressive disorder), recurrent, severe, with psychosis: Status: Acute Code(s): F33.3 - Major depressive disorder, recurrent, severe with psychotic symptoms Plan Mrs. Wall is a 56 year-old woman with hx of MDD with psychosis. She self presented to [facility] reporting increased depression, SI with plan to hang herself. She reports no specific trigger. She reports SI has been chronic with or without plan. She reports AH get worse when she is depressed and they do tend to go down. Pt seemed to have some memory problems. Will complete MOCA once mood more stable. We discussed risks, benefits and alternative treatment options. Pt on 3 different antidepressant including amitriptyline, wellbutrin and cymbalta. Both cyambalta and amitriptyline offer neuropathic pain along with antidepressant effect. However, combination of both may be polypharmacy. We discussed tapering off cymbalta, considering increasing amitriptyline. continue wellbutrin. Continue seroquel. PLAN 1. Admit to M3, CV, 15 minutes checks for safety 2. lower cymbalta from 60mg po BID to 60mg po daily, increase amitrityline from 75mg po to 100mg po qhs. 3. aftercare planning. 04/16 continue tx. will plan to taper off cymbalta Reason for contiued inpatient stay Substantial Risk for: harm to self Time Spent With Patient Time: Total time managing care of this patient today ____ minutes.
[2022-04-16 09:37] LABS: Glucose, Whole Blood 91 mg/dL (60-115)
[2022-04-16 10:39] VITALS: BP 97/51; PULSE 117
--- NOTE | 2022-04-16 14:23 | MHC.CLN ---
RE: CONSULT HT 63 WT 160# IBW 115#+/-10% PT IS 139% IBW INDICATES OBESE FOR HT PREVIOUS WT HX: 72.6KG (04/14/22) 81.2KG (01/2022) 81.8KG (11/01/20) 75.8KG (05/03/20) 80KG (12/19/2019) PT'S WT TENDS TO FLUCTUATE. PT WITH 10% SIGNIFICANT WT LOSS X 2 MONTHS (JAN TO APR) ENN: 1353KCALS, 60G PROTEIN, 1770ML FLUID DIET RX: 1800DM-APPROPRIATE LABS UNREMARKABLE RECOMMEND ADDING GLUCERNA BID TO INCREASE CALORIES SUPP TO PROVIDE 474KCALS, 20G PROTEIN MONITOR PO INTAKE CLOSELY
[2022-04-16] MEDS: hydrOXYzine HCL 25 MG TABLET PO (17:37)
[2022-04-16 20:50] VITALS: BP 106/64; PULSE 95; TEMP 36.4; O2SAT 97
[2022-04-16] MEDS: Amitriptyline HCl 25 MG TABLET 75 MG PO (20:53)
[2022-04-16] MEDS: HaloperidoL 0.5 MG TABLET PO (20:54)
[2022-04-16] MEDS: Milk of Magnesia 30 ML ORAL.SUSP PO (20:54)
[2022-04-16] MEDS: traZODone HCL 50 MG TABLET PO ×2 (22:18→23:24)
[2022-04-17 07:00] VITALS: BMI 27.6
[2022-04-17] MEDS: metFORMIN HCl 500 MG TABLET PO ×2 (08:29→18:23)
[2022-04-17] MEDS: buPROPion HCl XL 300 MG TAB.ER.24H PO (08:30)
[2022-04-17] MEDS: Omeprazole 20 MG CAPSULE.DR PO (08:30)
[2022-04-17] MEDS: Atorvastatin Calcium 20 MG TABLET PO (08:30)
[2022-04-17] MEDS: clonazePAM 0.5 MG TABLET PO ×3 (08:30→21:22)
[2022-04-17] MEDS: QUEtiapine Fumarate 200 MG TABLET PO ×2 (08:30→21:22)
[2022-04-17] MEDS: Cholecalciferol (Vitamin D3) 25 MCG TABLET PO (08:31)
[2022-04-17] MEDS: lisinopriL 5 MG TABLET PO (08:31)
[2022-04-17] MEDS: Loratadine 10 MG TABLET PO (08:32)
[2022-04-17] MEDS: Sennosides 8.6 MG TABLET 17.2 MG PO (08:32)
[2022-04-17] MEDS: DULoxetine HCl 60 MG CAPSULE.DR PO (08:32)
[2022-04-17] MEDS: Docusate Sodium 100 MG CAPSULE PO ×2 (08:32→21:22)
[2022-04-17 08:40] VITALS: BP 98/67; PULSE 92; RESP 16; TEMP 36.6; O2SAT 95
[2022-04-17] MEDS: Milk of Magnesia 30 ML ORAL.SUSP PO (08:41)
[2022-04-17] MEDS: Acetaminophen 325 MG TABLET 650 MG PO (08:41)
[2022-04-17 08:52] LABS: Glucose, Whole Blood 84 mg/dL (60-115)
--- NOTE | 2022-04-17 13:11 | P.PNPSI_ITS ---
Subjective Subjective Date of Service: 04/17/22 Reason For Visit: Psychosis, SI Subjective Notes: Conditional Voluntary Interim History: Pt continues to report feeling less depressed, less overwhelmed. She reports less intermittent suicidal ideation but no plan or intent. Pt sleeping through the night, visible and social with select peers. No behavioral concerns. She asks about discharge. Medication Compliance: Yes Review of Systems Review of Systems Constitutional : No Weight loss, No Fever, No Chills, No Night Sweats, No Fatigue, No Malaise ENT/Mouth : No Hearing loss, No Ear Pain, No Nasal Congestion, No Sinus Pain, No Hoarseness, No sore throat, No Rhinorrhea, No Swallowing Difficulty Eyes: No Eye Pain, No Swelling, No Redness, No Foreign Body, No Discharge, No Vision Changes Cardiovascular : No Chest Pain, No SOB, No Dyspnea on Exertion, No Orthopnea, No Edema, No Palpitations Respiratory : No Cough, No Sputum, No Wheezing, No Smoke Exposure, No Dyspnea Gastrointestinal : No Nausea, No Vomiting, No Diarrhea, No Constipation, No abdominal Pain, No Hematochezia, No Melena Genitourinary : no irregular bleeding, No Dysuria, No Urinary Frequency, No Hematuria, No Urinary Incontinence, No Urgency, No Flank Pain, No Urinary Flow Changes, No Hesitancy Musculoskeletal : No joint pain, No Myalgias, No Joint Swelling Skin : No Skin Lesions, No rash Neuro : No Weakness, No Numbness, No Paresthesias, No Loss of Consciousness, No Dizziness, No Headache Psych : Patient complaining of depression, suicidal ideation, no homicidal ideation Heme/Lymph: No Bruising, No Bleeding,No Lymphadenopathy Endocrine : No Polyuria, No Polydipsia, No Temperature Intolerance Mental Status Exam Mental Status Exam Narrative: Appearance: casually groomed, fair hygiene, in NAD Behavior: cooperative Speech: clear, normal rate/rhythm/volume, spontaneous TP: linear TC: no overt psychosis, feeling depressed Mood: better Affect: congruent SI: passive, chronic in nature, no plan or intent VH/AH: less AH derogatory comments Delusions: none Insight/judgment: fair x 2. Memory/cog: alert, oriented x 3. seems to have difficulty recalling information, may benefit from MOCA. Diagnostics Vital Signs (24Hr): Vital Signs - 24 hr 04/17/22 18:00 04/18/22 09:00 Temperature 97.8 F 98.4 F Pulse Rate 100 76 Respiratory Rate 18 16 Blood Pressure 103/65 138/73 Pulse Oximetry 96 99 Oxygen Delivery Method Room Air Room Air BMI result Body Mass Index 27.6 Labs 04/14/22 15:28 04/15/22 08:54 Labs: Laboratory Results - last 48 hr 04/16/22 04/17/22 04/18/22 09:32 08:48 08:55 POC Glucose 91 84 76 Medications Medications Current Medications Acetaminophen (Acetaminophen 325 Mg Tablet) 650 mg PO Q6H PRN PRN Reason: Headache/Pain Mild Scale (1-3) Last Admin: 04/17/22 08:41 Dose: 650 mg Al Hydroxide/Mg Hydroxide (Magnesium Hydrox/Alum Hydrox 30 Ml Oral.Susp) 30 ml PO Q6H PRN PRN Reason: Heartburn/Nausea Albuterol Sulfate (Albuterol Sulfate 90 Mcg 8 Gm Inhaler) 2 puff INHALE Q4H PRN PRN Reason: Shortness Of Breath Or Wheezing Amitriptyline HCl (Amitriptyline Hcl 25 Mg Tablet) 75 mg PO BEDTIME [facility] Last Admin: 04/17/22 21:23 Dose: 75 mg Atorvastatin Calcium (Atorvastatin Calcium 20 Mg Tablet) 20 mg PO DAILY [facility] Last Admin: 04/17/22 08:30 Dose: 20 mg Bupropion HCl (Bupropion Hcl Xl 300 Mg Tab.Er.24h) 300 mg PO DAILY [facility] Last Admin: 04/17/22 08:30 Dose: 300 mg Clonazepam (Clonazepam 0.5 Mg Tablet) 0.5 mg PO TID [facility] Last Admin: 04/17/22 21:22 Dose: 0.5 mg Docusate Sodium (Docusate Sodium 100 Mg Capsule) 100 mg PO BID [facility] Last Admin: 04/17/22 21:22 Dose: 100 mg Duloxetine HCl (Duloxetine Hcl 60 Mg Capsule.Dr) 60 mg PO DAILY [facility] Last Admin: 04/17/22 08:32 Dose: 60 mg Haloperidol (Haloperidol 0.5 Mg Tablet) 0.5 mg PO BEDTIME [facility] Last Admin: 04/17/22 21:22 Dose: 0.5 mg Hydroxyzine HCl (Hydroxyzine Hcl 25 Mg Tablet) 25 mg PO Q6H PRN PRN Reason: Anxiety Last Admin: 04/16/22 17:37 Dose: 25 mg Lisinopril (Lisinopril 5 Mg Tablet) 5 mg PO DAILY [facility]; Protocol Last Admin: 04/17/22 08:31 Dose: 5 mg Loratadine (Loratadine 10 Mg Tablet) 10 mg PO DAILY [facility] Last Admin: 04/17/22 08:32 Dose: 10 mg Magnesium Hydroxide (Milk Of Magnesia 30 Ml Oral.Susp) 30 ml PO DAILY PRN PRN Reason: Constipation Last Admin: 04/17/22 08:41 Dose: 30 ml Metformin HCl (Metformin Hcl 500 Mg Tablet) 500 mg PO BIDWM [facility] Last Admin: 04/17/22 18:23 Dose: 500 mg Non-Formulary Medication (Dulaglutide [Trulicity]) 1.5 mg SUBCUT Q7D [facility] Omeprazole (Omeprazole 20 Mg Capsule.Dr) 20 mg PO DAILY [facility] Last Admin: 04/17/22 08:30 Dose: 20 mg Pioglitazone HCl (Pioglitazone Hcl 15 Mg Tablet) 15 mg PO DAILY [facility] Last Admin: 04/17/22 08:31 Dose: 15 mg Quetiapine Fumarate (Quetiapine Fumarate 200 Mg Tablet) 200 mg PO BID [facility] Last Admin: 04/17/22 21:22 Dose: 200 mg Senna (Sennosides 8.6 Mg Tablet) 17.2 mg PO DAILY [facility] Last Admin: 04/17/22 08:32 Dose: 17.2 mg Trazodone HCl (Trazodone Hcl 50 Mg Tablet) 50 mg PO BEDTIME PRN PRN Reason: Insomnia Last Admin: 04/17/22 21:23 Dose: 50 mg Vitamin D (Cholecalciferol (Vitamin D3) 25 Mcg Tablet) 25 mcg PO DAILY [facility] Last Admin: 04/17/22 08:31 Dose: 25 mcg Allergies Allergies Allergy/AdvReac Type Severity Reaction Status Date / Time aspirin [ASA] Allergy Intermediate RASH Verified 11/01/20 10:57 Penicillins [PENICILLINS] Allergy Intermediate RASH Verified 11/01/20 10:57 Assessment & Plan Assessment & Plan (1) MDD (major depressive disorder), recurrent, severe, with psychosis: Status: Acute Code(s): F33.3 - Major depressive disorder, recurrent, severe with psychotic symptoms Plan Mrs. Wlal is a 56 year-old woman with hx of MDD with psychosis. She self presented to [facility] reporting increased depression, SI with plan to hang herself. She reports no specific trigger. She reports SI has been chronic with or without plan. She reports AH get worse when she is depressed and they do tend to go down. Pt seemed to have some memory problems. Will complete MOCA once mood more stable. We discussed risks, benefits and alternative treatment options. Pt on 3 different antidepressant including amitriptyline, wellbutrin and cymbalta. Both cyambalta and amitriptyline offer neuropathic pain along with antidepressant effect. However, combination of both may be polypharmacy. We discussed tapering off cymbalta, considering increasing amitriptyline. continue wellbutrin. Continue seroquel. PLAN 1. Admit to M3, CV, 15 minutes checks for safety 2. lower cymbalta from 60mg po BID to 60mg po daily, increase amitrityline from 75mg po to 100mg po qhs. 3. aftercare planning. 04/16 continue tx. will plan to taper off cymbalta 04/17 continue tx. Reason for contiued inpatient stay Substantial Risk for: inability to function Time Spent With Patient Time: Total time managing care of this patient today ____ minutes.
[2022-04-17 18:00] VITALS: BP 103/65; PULSE 100; RESP 18; TEMP 36.6; O2SAT 96
[2022-04-17] MEDS: HaloperidoL 0.5 MG TABLET PO (21:22)
[2022-04-17] MEDS: Amitriptyline HCl 25 MG TABLET 75 MG PO (21:23)
[2022-04-17] MEDS: traZODone HCL 50 MG TABLET PO (21:23)
[2022-04-18 08:59] LABS: Glucose, Whole Blood 76 mg/dL (60-115)
[2022-04-18 09:00] VITALS: BP 138/73; PULSE 76; RESP 16; TEMP 36.9; O2SAT 99
[2022-04-18] MEDS: lisinopriL 5 MG TABLET PO (09:44)
[2022-04-18] MEDS: DULoxetine HCl 60 MG CAPSULE.DR PO (09:44)
[2022-04-18] MEDS: Sennosides 8.6 MG TABLET 17.2 MG PO (09:44)
[2022-04-18] MEDS: Atorvastatin Calcium 20 MG TABLET PO (09:44)
[2022-04-18] MEDS: metFORMIN HCl 500 MG TABLET PO ×2 (09:44→18:12)
[2022-04-18] MEDS: clonazePAM 0.5 MG TABLET PO ×3 (09:44→21:48)
[2022-04-18] MEDS: Omeprazole 20 MG CAPSULE.DR PO (09:44)
[2022-04-18] MEDS: buPROPion HCl XL 300 MG TAB.ER.24H PO (09:44)
[2022-04-18] MEDS: Loratadine 10 MG TABLET PO (09:44)
[2022-04-18] MEDS: Docusate Sodium 100 MG CAPSULE PO ×2 (09:45→21:49)
[2022-04-18] MEDS: Cholecalciferol (Vitamin D3) 25 MCG TABLET PO (09:45)
[2022-04-18] MEDS: QUEtiapine Fumarate 200 MG TABLET PO ×2 (09:45→21:48)
--- NOTE | 2022-04-18 11:32 | HO.PSYCHPN ---
Subjective Subjective Date of Service: 04/18/22 Reason For Visit: Psychosis, SI Subjective Notes: Conditional Voluntary Interim History: Pt with improved hygiene and brighter affect. She reports feeling much better, less depressed, no voices. She denies SI/HI. She reports sleep better but feels cold in the night. No behavioral concerns. visible on the unit and social with select peers. d/c Thursday at 10am. Medication Compliance: Yes Review of Systems Review of Systems Constitutional : No Weight loss, No Fever, No Chills, No Night Sweats, No Fatigue, No Malaise ENT/Mouth : No Hearing loss, No Ear Pain, No Nasal Congestion, No Sinus Pain, No Hoarseness, No sore throat, No Rhinorrhea, No Swallowing Difficulty Eyes: No Eye Pain, No Swelling, No Redness, No Foreign Body, No Discharge, No Vision Changes Cardiovascular : No Chest Pain, No SOB, No Dyspnea on Exertion, No Orthopnea, No Edema, No Palpitations Respiratory : No Cough, No Sputum, No Wheezing, No Smoke Exposure, No Dyspnea Gastrointestinal : No Nausea, No Vomiting, No Diarrhea, No Constipation, No abdominal Pain, No Hematochezia, No Melena Genitourinary : no irregular bleeding, No Dysuria, No Urinary Frequency, No Hematuria, No Urinary Incontinence, No Urgency, No Flank Pain, No Urinary Flow Changes, No Hesitancy Musculoskeletal : No joint pain, No Myalgias, No Joint Swelling Skin : No Skin Lesions, No rash Neuro : No Weakness, No Numbness, No Paresthesias, No Loss of Consciousness, No Dizziness, No Headache Psych : Patient complaining of depression, suicidal ideation, no homicidal ideation Heme/Lymph: No Bruising, No Bleeding,No Lymphadenopathy Endocrine : No Polyuria, No Polydipsia, No Temperature Intolerance Mental Status Exam Mental Status Exam Narrative: Appearance: casually groomed, fair hygiene, in NAD Behavior: cooperative Speech: clear, normal rate/rhythm/volume, spontaneous TP: linear TC: no overt psychosis, feeling depressed Mood: better Affect: congruent SI: passive, chronic in nature, no plan or intent VH/AH: less AH derogatory comments Delusions: none Insight/judgment: fair x 2. Memory/cog: alert, oriented x 3. seems to have difficulty recalling information, may benefit from MOCA. Diagnostics Vital Signs (24Hr): Vital Signs - 24 hr 04/17/22 18:00 04/18/22 09:00 Temperature 97.8 F 98.4 F Pulse Rate 100 76 Respiratory Rate 18 16 Blood Pressure 103/65 138/73 Pulse Oximetry 96 99 Oxygen Delivery Method Room Air Room Air BMI result Body Mass Index 27.6 Labs 04/14/22 15:28 04/15/22 08:54 Labs: Laboratory Results - last 48 hr 04/17/22 04/18/22 08:48 08:55 POC Glucose 84 76 Medications Medications Current Medications Acetaminophen (Acetaminophen 325 Mg Tablet) 650 mg PO Q6H PRN PRN Reason: Headache/Pain Mild Scale (1-3) Last Admin: 04/17/22 08:41 Dose: 650 mg Al Hydroxide/Mg Hydroxide (Magnesium Hydrox/Alum Hydrox 30 Ml Oral.Susp) 30 ml PO Q6H PRN PRN Reason: Heartburn/Nausea Albuterol Sulfate (Albuterol Sulfate 90 Mcg 8 Gm Inhaler) 2 puff INHALE Q4H PRN PRN Reason: Shortness Of Breath Or Wheezing Amitriptyline HCl (Amitriptyline Hcl 50 Mg Tablet) 100 mg PO BEDTIME [facility] Atorvastatin Calcium (Atorvastatin Calcium 20 Mg Tablet) 20 mg PO DAILY [facility] Last Admin: 04/18/22 09:44 Dose: 20 mg Bupropion HCl (Bupropion Hcl Xl 300 Mg Tab.Er.24h) 300 mg PO DAILY [facility] Last Admin: 04/18/22 09:44 Dose: 300 mg Clonazepam (Clonazepam 0.5 Mg Tablet) 0.5 mg PO TID [facility] Last Admin: 04/18/22 09:44 Dose: 0.5 mg Docusate Sodium (Docusate Sodium 100 Mg Capsule) 100 mg PO BID [facility] Last Admin: 04/18/22 09:45 Dose: 100 mg Duloxetine HCl (Duloxetine Hcl 30 Mg Capsule.Dr) 30 mg PO DAILY [facility] Haloperidol (Haloperidol 0.5 Mg Tablet) 0.5 mg PO BEDTIME [facility] Last Admin: 04/17/22 21:22 Dose: 0.5 mg Hydroxyzine HCl (Hydroxyzine Hcl 25 Mg Tablet) 25 mg PO Q6H PRN PRN Reason: Anxiety Last Admin: 04/16/22 17:37 Dose: 25 mg Lisinopril (Lisinopril 5 Mg Tablet) 5 mg PO DAILY [facility]; Protocol Last Admin: 04/18/22 09:44 Dose: 5 mg Loratadine (Loratadine 10 Mg Tablet) 10 mg PO DAILY [facility] Last Admin: 04/18/22 09:44 Dose: 10 mg Magnesium Hydroxide (Milk Of Magnesia 30 Ml Oral.Susp) 30 ml PO DAILY PRN PRN Reason: Constipation Last Admin: 04/18/22 12:19 Dose: 30 ml Metformin HCl (Metformin Hcl 500 Mg Tablet) 500 mg PO BIDWM [facility] Last Admin: 04/18/22 09:44 Dose: 500 mg Non-Formulary Medication (Dulaglutide [Trulicity]) 1.5 mg SUBCUT Q7D [facility] Omeprazole (Omeprazole 20 Mg Capsule.Dr) 20 mg PO DAILY [facility] Last Admin: 04/18/22 09:44 Dose: 20 mg Pioglitazone HCl (Pioglitazone Hcl 15 Mg Tablet) 15 mg PO DAILY [facility] Last Admin: 04/18/22 09:45 Dose: 15 mg Quetiapine Fumarate (Quetiapine Fumarate 200 Mg Tablet) 200 mg PO BID [facility] Last Admin: 04/18/22 09:45 Dose: 200 mg Senna (Sennosides 8.6 Mg Tablet) 17.2 mg PO DAILY [facility] Last Admin: 04/18/22 09:44 Dose: 17.2 mg Trazodone HCl (Trazodone Hcl 50 Mg Tablet) 50 mg PO BEDTIME PRN PRN Reason: Insomnia Last Admin: 04/17/22 21:23 Dose: 50 mg Vitamin D (Cholecalciferol (Vitamin D3) 25 Mcg Tablet) 25 mcg PO DAILY [facility] Last Admin: 04/18/22 09:45 Dose: 25 mcg Allergies Allergies Allergy/AdvReac Type Severity Reaction Status Date / Time aspirin [ASA] Allergy Intermediate RASH Verified 11/01/20 10:57 Penicillins [PENICILLINS] Allergy Intermediate RASH Verified 11/01/20 10:57 Assessment & Plan Assessment & Plan (1) MDD (major depressive disorder), recurrent, severe, with psychosis: Status: Acute Code(s): F33.3 - Major depressive disorder, recurrent, severe with psychotic symptoms Plan Mrs. Wall is a 56 year-old woman with hx of MDD with psychosis. She self presented to [facility] [facility] reporting increased depression, SI with plan to hang herself. She reports no specific trigger. She reports SI has been chronic with or without plan. She reports AH get worse when she is depressed and they do tend to go down. Pt seemed to have some memory problems. Will complete MOCA once mood more stable. We discussed risks, benefits and alternative treatment options. Pt on 3 different antidepressant including amitriptyline, wellbutrin and cymbalta. Both cyambalta and amitriptyline offer neuropathic pain along with antidepressant effect. However, combination of both may be polypharmacy. We discussed tapering off cymbalta, considering increasing amitriptyline. continue wellbutrin. Continue seroquel. PLAN 1. Admit to M3, CV, 15 minutes checks for safety 2. lower cymbalta from 60mg po BID to 60mg po daily, increase amitrityline from 75mg po to 100mg po qhs. 3. aftercare planning. 04/16 continue tx. will plan to taper off cymbalta 04/17 continue tx. 04/18 continue tx. Patient educated on: diagnosis Informed Consent: understands Reason for contiued inpatient stay Substantial Risk for: stable for discharge Time Spent With Patient Time: Total time managing care of this patient today ____ minutes.
--- NOTE | 2022-04-18 11:56 | MHC.CLN ---
F/U PATIENT REPORTS THAT EATING WELL. GLUCERNA BID DISCONTINUED PER CONVERSATION WITH PATIENT.
[2022-04-18] MEDS: Milk of Magnesia 30 ML ORAL.SUSP PO (12:19)
[2022-04-18] MEDS: Magnesium Hydrox/Alum Hydrox 30 ML ORAL.SUSP PO (15:03)
[2022-04-18 21:48] VITALS: BP 125/72; PULSE 103; RESP 18; TEMP 36.2; O2SAT 97
[2022-04-18] MEDS: traZODone HCL 50 MG TABLET PO (21:48)
[2022-04-18] MEDS: hydrOXYzine HCL 25 MG TABLET PO (21:48)
[2022-04-18] MEDS: HaloperidoL 0.5 MG TABLET PO (21:48)
[2022-04-18] MEDS: Acetaminophen 325 MG TABLET 650 MG PO (21:48)
[2022-04-18] MEDS: Amitriptyline HCl 50 MG TABLET 100 MG PO (21:49)
[2022-04-19 06:00] VITALS: BP 118/68; PULSE 107; RESP 17; TEMP 36.8; O2SAT 98
[2022-04-19 09:08] LABS: Glucose, Whole Blood 90 mg/dL (60-115)
[2022-04-19] MEDS: Cholecalciferol (Vitamin D3) 25 MCG TABLET PO (09:36)
[2022-04-19] MEDS: metFORMIN HCl 500 MG TABLET PO ×2 (09:36→17:20)
[2022-04-19] MEDS: lisinopriL 5 MG TABLET PO (09:36)
[2022-04-19] MEDS: Sennosides 8.6 MG TABLET 17.2 MG PO ×2 (09:36→21:34)
[2022-04-19] MEDS: Atorvastatin Calcium 20 MG TABLET PO (09:36)
[2022-04-19] MEDS: DULoxetine HCl 30 MG CAPSULE.DR PO (09:36)
[2022-04-19] MEDS: clonazePAM 0.5 MG TABLET PO ×3 (09:37→21:33)
[2022-04-19] MEDS: QUEtiapine Fumarate 200 MG TABLET PO ×2 (09:37→21:33)
[2022-04-19] MEDS: Loratadine 10 MG TABLET PO (09:37)
[2022-04-19] MEDS: Omeprazole 20 MG CAPSULE.DR PO (09:37)
[2022-04-19] MEDS: buPROPion HCl XL 300 MG TAB.ER.24H PO (09:37)
[2022-04-19] MEDS: Docusate Sodium 100 MG CAPSULE PO ×2 (09:38→21:33)
--- NOTE | 2022-04-19 11:20 | P.PNPSI_ITS ---
Subjective Subjective Date of Service: 04/19/22 Reason For Visit: Psychosis, SI Subjective Notes: Conditional Voluntary Interim History: Pt continues to report feeling less depressed. No SI/HI. No VH/AH. She reports constipation, received dulcolax with good effect. No behavioral concerns. Medication Compliance: Yes Review of Systems Review of Systems Constitutional : No Weight loss, No Fever, No Chills, No Night Sweats, No Fatigue, No Malaise ENT/Mouth : No Hearing loss, No Ear Pain, No Nasal Congestion, No Sinus Pain, No Hoarseness, No sore throat, No Rhinorrhea, No Swallowing Difficulty Eyes: No Eye Pain, No Swelling, No Redness, No Foreign Body, No Discharge, No Vision Changes Cardiovascular : No Chest Pain, No SOB, No Dyspnea on Exertion, No Orthopnea, No Edema, No Palpitations Respiratory : No Cough, No Sputum, No Wheezing, No Smoke Exposure, No Dyspnea Gastrointestinal : No Nausea, No Vomiting, No Diarrhea, No Constipation, No abdominal Pain, No Hematochezia, No Melena Genitourinary : no irregular bleeding, No Dysuria, No Urinary Frequency, No Hematuria, No Urinary Incontinence, No Urgency, No Flank Pain, No Urinary Flow Changes, No Hesitancy Musculoskeletal : No joint pain, No Myalgias, No Joint Swelling Skin : No Skin Lesions, No rash Neuro : No Weakness, No Numbness, No Paresthesias, No Loss of Consciousness, No Dizziness, No Headache Psych : Patient complaining of depression, suicidal ideation, no homicidal ideation Heme/Lymph: No Bruising, No Bleeding,No Lymphadenopathy Endocrine : No Polyuria, No Polydipsia, No Temperature Intolerance Mental Status Exam Mental Status Exam Narrative: Appearance: casually groomed, fair hygiene, in NAD Behavior: cooperative Speech: clear, normal rate/rhythm/volume, spontaneous TP: linear TC: no overt psychosis, feeling depressed Mood: better Affect: congruent SI: passive, chronic in nature, no plan or intent VH/AH: less AH derogatory comments Delusions: none Insight/judgment: fair x 2. Memory/cog: alert, oriented x 3. seems to have difficulty recalling information, may benefit from MOCA. Diagnostics Vital Signs (24Hr): Vital Signs - 24 hr 04/20/22 08:57 04/20/22 20:55 Temperature 98.3 F 97.5 F Pulse Rate 104 H 88 Respiratory Rate 16 18 Blood Pressure 125/72 100/64 Pulse Oximetry 97 94 Oxygen Delivery Method Room Air Room Air BMI result Body Mass Index 27.6 Labs 04/14/22 15:28 04/15/22 08:54 Labs: Laboratory Results - last 48 hr 04/19/22 04/20/22 09:05 08:46 POC Glucose 90 98 Medications Medications Current Medications Acetaminophen (Acetaminophen 325 Mg Tablet) 650 mg PO Q6H PRN PRN Reason: Headache/Pain Mild Scale (1-3) Last Admin: 04/20/22 21:00 Dose: 650 mg Al Hydroxide/Mg Hydroxide (Magnesium Hydrox/Alum Hydrox 30 Ml Oral.Susp) 30 ml PO Q6H PRN PRN Reason: Heartburn/Nausea Last Admin: 04/20/22 19:25 Dose: 30 ml Albuterol Sulfate (Albuterol Sulfate 90 Mcg 8 Gm Inhaler) 2 puff INHALE Q4H PRN PRN Reason: Shortness Of Breath Or Wheezing Amitriptyline HCl (Amitriptyline Hcl 50 Mg Tablet) 100 mg PO BEDTIME [facility] Last Admin: 04/20/22 20:59 Dose: 100 mg Atorvastatin Calcium (Atorvastatin Calcium 20 Mg Tablet) 20 mg PO DAILY [facility] Last Admin: 04/20/22 09:51 Dose: 20 mg Bupropion HCl (Bupropion Hcl Xl 300 Mg Tab.Er.24h) 300 mg PO DAILY [facility] Last Admin: 04/20/22 09:49 Dose: 300 mg Clonazepam (Clonazepam 0.5 Mg Tablet) 0.5 mg PO TID [facility] Last Admin: 04/20/22 20:59 Dose: 0.5 mg Docusate Sodium (Docusate Sodium 100 Mg Capsule) 100 mg PO BID [facility] Last Admin: 04/20/22 21:00 Dose: 100 mg Duloxetine HCl (Duloxetine Hcl 30 Mg Capsule.Dr) 30 mg PO DAILY [facility] Last Admin: 04/20/22 09:49 Dose: 30 mg Haloperidol (Haloperidol 0.5 Mg Tablet) 0.5 mg PO BEDTIME [facility] Last Admin: 04/20/22 20:59 Dose: 0.5 mg Hydroxyzine HCl (Hydroxyzine Hcl 25 Mg Tablet) 25 mg PO Q6H PRN PRN Reason: Anxiety Last Admin: 04/20/22 20:59 Dose: 25 mg Lisinopril (Lisinopril 5 Mg Tablet) 5 mg PO DAILY [facility]; Protocol Last Admin: 04/20/22 09:51 Dose: 5 mg Loratadine (Loratadine 10 Mg Tablet) 10 mg PO DAILY [facility] Last Admin: 04/20/22 09:51 Dose: 10 mg Magnesium Hydroxide (Milk Of Magnesia 30 Ml Oral.Susp) 30 ml PO DAILY PRN PRN Reason: Constipation Last Admin: 04/18/22 12:19 Dose: 30 ml Metformin HCl (Metformin Hcl 500 Mg Tablet) 500 mg PO BIDWM [facility] Last Admin: 04/20/22 17:11 Dose: 500 mg Omeprazole (Omeprazole 20 Mg Capsule.Dr) 20 mg PO DAILY [facility] Last Admin: 04/20/22 09:51 Dose: 20 mg Pioglitazone HCl (Pioglitazone Hcl 15 Mg Tablet) 15 mg PO DAILY [facility] Last Admin: 04/20/22 09:50 Dose: 15 mg Polyethylene Glycol (Polyethylene Glycol 3350 17 Gm Powd.Pack) 17 gm PO DAILY [facility] Last Admin: 04/20/22 09:55 Dose: Not Given Quetiapine Fumarate (Quetiapine Fumarate 200 Mg Tablet) 200 mg PO BID [facility] Last Admin: 04/20/22 20:59 Dose: 200 mg Senna (Sennosides 8.6 Mg Tablet) 17.2 mg PO BID [facility] Last Admin: 04/20/22 20:59 Dose: 17.2 mg Trazodone HCl (Trazodone Hcl 50 Mg Tablet) 50 mg PO BEDTIME PRN PRN Reason: Insomnia Last Admin: 04/21/22 00:01 Dose: 50 mg Vitamin D (Cholecalciferol (Vitamin D3) 25 Mcg Tablet) 25 mcg PO DAILY [facility] Last Admin: 04/20/22 09:51 Dose: 25 mcg Allergies Allergies Allergy/AdvReac Type Severity Reaction Status Date / Time aspirin [ASA] Allergy Intermediate RASH Verified 11/01/20 10:57 Penicillins [PENICILLINS] Allergy Intermediate RASH Verified 11/01/20 10:57 Assessment & Plan Assessment & Plan (1) MDD (major depressive disorder), recurrent, severe, with psychosis: Status: Acute Code(s): F33.3 - Major depressive disorder, recurrent, severe with psychotic symptoms Plan Mrs. Wall is a 56 year-old woman with hx of MDD with psychosis. She self presented to [facility] reporting increased depression, SI with plan to hang herself. She reports no specific trigger. She reports SI has been chronic with or without plan. She reports AH get worse when she is depressed and they do tend to go down. Pt seemed to have some memory problems. Will complete MOCA once mo od more stable. We discussed risks, benefits and alternative treatment options. Pt on 3 different antidepressant including amitriptyline, wellbutrin and cymbalta. Both cyambalta and amitriptyline offer neuropathic pain along with antidepressant effect. However, combination of both may be polypharmacy. We discussed tapering off cymbalta, considering increasing amitriptyline. continue wellbutrin. Continue seroquel. PLAN 1. Admit to M3, CV, 15 minutes checks for safety 2. lower cymbalta from 60mg po BID to 60mg po daily, increase amitrityline from 75mg po to 100mg po qhs. 3. aftercare planning. 04/16 continue tx. will plan to taper off cymbalta 04/17 continue tx. 04/18 continue tx. 04/19 continue tx. Reason for contiued inpatient stay Substantial Risk for: stable for discharge Time Spent With Patient Time: Total time managing care of this patient today ____ minutes.
[2022-04-19] MEDS: bisacodyL 5 MG TABLET.DR 10 MG PO (15:29)
[2022-04-19 21:30] VITALS: BP 97/62; PULSE 91; RESP 18; TEMP 36.6; O2SAT 95
[2022-04-19] MEDS: traZODone HCL 50 MG TABLET PO (21:33)
[2022-04-19] MEDS: hydrOXYzine HCL 25 MG TABLET PO (21:33)
[2022-04-19] MEDS: HaloperidoL 0.5 MG TABLET PO (21:33)
[2022-04-19] MEDS: Amitriptyline HCl 50 MG TABLET 100 MG PO (21:33)
[2022-04-19] MEDS: Acetaminophen 325 MG TABLET 650 MG PO (21:34)
[2022-04-20 08:53] LABS: Glucose, Whole Blood 98 mg/dL (60-115)
[2022-04-20 08:57] VITALS: BP 125/72; PULSE 104; RESP 16; TEMP 36.8; O2SAT 97
[2022-04-20] MEDS: DULoxetine HCl 30 MG CAPSULE.DR PO (09:49)
[2022-04-20] MEDS: QUEtiapine Fumarate 200 MG TABLET PO ×2 (09:49→20:59)
[2022-04-20] MEDS: buPROPion HCl XL 300 MG TAB.ER.24H PO (09:49)
[2022-04-20] MEDS: metFORMIN HCl 500 MG TABLET PO ×2 (09:50→17:11)
[2022-04-20] MEDS: Sennosides 8.6 MG TABLET 17.2 MG PO ×2 (09:50→20:59)
[2022-04-20] MEDS: Docusate Sodium 100 MG CAPSULE PO ×2 (09:50→21:00)
[2022-04-20] MEDS: Cholecalciferol (Vitamin D3) 25 MCG TABLET PO (09:51)
[2022-04-20] MEDS: lisinopriL 5 MG TABLET PO (09:51)
[2022-04-20] MEDS: Omeprazole 20 MG CAPSULE.DR PO (09:51)
[2022-04-20] MEDS: Loratadine 10 MG TABLET PO (09:51)
[2022-04-20] MEDS: Atorvastatin Calcium 20 MG TABLET PO (09:51)
[2022-04-20] MEDS: clonazePAM 0.5 MG TABLET PO ×3 (10:23→20:59)
--- NOTE | 2022-04-20 12:22 | P.PNPSI_ITS ---
Subjective Subjective Date of Service: 04/20/22 Reason For Visit: Psychosis, SI Subjective Notes: Conditional Voluntary Interim History: Pt continues to report feeling less depressed. No SI/HI. No VH/AH. She reports constipation, received dulcolax with good effect. No behavioral concerns. Looking forward to d/c tomorrow. Medication Compliance: Yes Side effects from medications: No Review of Systems Review of Systems Constitutional : No Weight loss, No Fever, No Chills, No Night Sweats, No Fatigue, No Malaise ENT/Mouth : No Hearing loss, No Ear Pain, No Nasal Congestion, No Sinus Pain, No Hoarseness, No sore throat, No Rhinorrhea, No Swallowing Difficulty Eyes: No Eye Pain, No Swelling, No Redness, No Foreign Body, No Discharge, No V ision Changes Cardiovascular : No Chest Pain, No SOB, No Dyspnea on Exertion, No Orthopnea, No Edema, No Palpitations Respiratory : No Cough, No Sputum, No Wheezing, No Smoke Exposure, No Dyspnea Gastrointestinal : No Nausea, No Vomiting, No Diarrhea, No Constipation, No abdominal Pain, No Hematochezia, No Melena Genitourinary : no irregular bleeding, No Dysuria, No Urinary Frequency, No Hematuria, No Urinary Incontinence, No Urgency, No Flank Pain, No Urinary Flow Changes, No Hesitancy Musculoskeletal : No joint pain, No Myalgias, No Joint Swelling Skin : No Skin Lesions, No rash Neuro : No Weakness, No Numbness, No Paresthesias, No Loss of Consciousness, No Dizziness, No Headache Psych : Patient complaining of depression, suicidal ideation, no homicidal ideation Heme/Lymph: No Bruising, No Bleeding,No Lymphadenopathy Endocrine : No Polyuria, No Polydipsia, No Temperature Intolerance Mental Status Exam Mental Status Exam Narrative: Appearance: casually groomed, fair hygiene, in NAD Behavior: cooperative Speech: clear, normal rate/rhythm/volume, spontaneous TP: linear TC: no overt psychosis, feeling depressed Mood: better Affect: congruent SI: passive, chronic in nature, no plan or intent VH/AH: less AH derogatory comments Delusions: none Insight/judgment: fair x 2. Memory/cog: alert, oriented x 3. seems to have difficulty recalling information, may benefit from MOCA. Diagnostics Vital Signs (24Hr): Vital Signs - 24 hr 04/20/22 08:57 04/20/22 20:55 Temperature 98.3 F 97.5 F Pulse Rate 104 H 88 Respiratory Rate 16 18 Blood Pressure 125/72 100/64 Pulse Oximetry 97 94 Oxygen Delivery Method Room Air Room Air BMI result Body Mass Index 27.6 Labs 04/14/22 15:28 04/15/22 08:54 Labs: Laboratory Results - last 48 hr 04/19/22 04/20/22 09:05 08:46 POC Glucose 90 98 Medications Medications Current Medications Acetaminophen (Acetaminophen 325 Mg Tablet) 650 mg PO Q6H PRN PRN Reason: Headache/Pain Mild Scale (1-3) Last Admin: 04/20/22 21:00 Dose: 650 mg Al Hydroxide/Mg Hydroxide (Magnesium Hydrox/Alum Hydrox 30 Ml Oral.Susp) 30 ml PO Q6H PRN PRN Reason: Heartburn/Nausea Last Admin: 04/20/22 19:25 Dose: 30 ml Albuterol Sulfate (Albuterol Sulfate 90 Mcg 8 Gm Inhaler) 2 puff INHALE Q4H PRN PRN Reason: Shortness Of Breath Or Wheezing Amitriptyline HCl (Amitriptyline Hcl 50 Mg Tablet) 100 mg PO BEDTIME [facility] Last Admin: 04/20/22 20:59 Dose: 100 mg Atorvastatin Calcium (Atorvastatin Calcium 20 Mg Tablet) 20 mg PO DAILY [facility] Last Admin: 04/20/22 09:51 Dose: 20 mg Bupropion HCl (Bupropion Hcl Xl 300 Mg Tab.Er.24h) 300 mg PO DAILY [facility] Last Admin: 04/20/22 09:49 Dose: 300 mg Clonazepam (Clonazepam 0.5 Mg Tablet) 0.5 mg PO TID [facility] Last Admin: 04/20/22 20:59 Dose: 0.5 mg Docusate Sodium (Docusate Sodium 100 Mg Capsule) 100 mg PO BID [facility] Last Admin: 04/20/22 21:00 Dose: 100 mg Duloxetine HCl (Duloxetine Hcl 30 Mg Capsule.Dr) 30 mg PO DAILY [facility] Last Admin: 04/20/22 09:49 Dose: 30 mg Haloperidol (Haloperidol 0.5 Mg Tablet) 0.5 mg PO BEDTIME [facility] Last Admin: 04/20/22 20:59 Dose: 0.5 mg Hydroxyzine HCl (Hydroxyzine Hcl 25 Mg Tablet) 25 mg PO Q6H PRN PRN Reason: Anxiety Last Admin: 04/20/22 20:59 Dose: 25 mg Lisinopril (Lisinopril 5 Mg Tablet) 5 mg PO DAILY [facility]; Protocol Last Admin: 04/20/22 09:51 Dose: 5 mg Loratadine (Loratadine 10 Mg Tablet) 10 mg PO DAILY [facility] Last Admin: 04/20/22 09:51 Dose: 10 mg Magnesium Hydroxide (Milk Of Magnesia 30 Ml Oral.Susp) 30 ml PO DAILY PRN PRN Reason: Constipation Last Admin: 04/18/22 12:19 Dose: 30 ml Metformin HCl (Metformin Hcl 500 Mg Tablet) 500 mg PO BIDWM [facility] Last Admin: 04/20/22 17:11 Dose: 500 mg Omeprazole (Omeprazole 20 Mg Capsule.Dr) 20 mg PO DAILY [facility] Last Admin: 04/20/22 09:51 Dose: 20 mg Pioglitazone HCl (Pioglitazone Hcl 15 Mg Tablet) 15 mg PO DAILY [facility] Last Admin: 04/20/22 09:50 Dose: 15 mg Polyethylene Glycol (Polyethylene Glycol 3350 17 Gm Powd.Pack) 17 gm PO DAILY [facility] Last Admin: 04/20/22 09:55 Dose: Not Given Quetiapine Fumarate (Quetiapine Fumarate 200 Mg Tablet) 200 mg PO BID [facility] Last Admin: 04/20/22 20:59 Dose: 200 mg Senna (Sennosides 8.6 Mg Tablet) 17.2 mg PO BID [facility] Last Admin: 04/20/22 20:59 Dose: 17.2 mg Trazodone HCl (Trazodone Hcl 50 Mg Tablet) 50 mg PO BEDTIME PRN PRN Reason: Insomnia Last Admin: 04/21/22 00:01 Dose: 50 mg Vitamin D (Cholecalciferol (Vitamin D3) 25 Mcg Tablet) 25 mcg PO DAILY [facility] Last Admin: 04/20/22 09:51 Dose: 25 mcg Allergies Allergies Allergy/AdvReac Type Severity Reaction Status Date / Time aspirin [ASA] Allergy Intermediate RASH Verified 11/01/20 10:57 Penicillins [PENICILLINS] Allergy Intermediate RASH Verified 11/01/20 10:57 Assessment & Plan Assessment & Plan (1) MDD (major depressive disorder), recurrent, severe, with psychosis: Status: Acute Code(s): F33.3 - Major depressive disorder, recurrent, severe with psychotic symptoms Plan Mrs. Wall is a 56 year-old woman with hx of MDD with psychosis. She self presented to [facility] ED reporting increased depression, SI with plan to hang herself. She reports no specific trigger. She reports SI has been chronic with or without plan. She reports AH get worse when she is depressed and they do tend to go down. Pt seemed to have some memory problems. Will complete MOCA once mood more stable. We discussed risks, benefits and alternative treatment options. Pt on 3 different antidepressant including amitriptyline, wellbutrin and cymbalta. Both cyambalta and amitriptyline offer neuropathic pain along with antidepressant effect. However, combination of both may be polypharmacy. We dis cussed tapering off cymbalta, considering increasing amitriptyline. continue wellbutrin. Continue seroquel. PLAN 1. Admit to M3, CV, 15 minutes checks for safety 2. lower cymbalta from 60mg po BID to 60mg po daily, increase amitrityline from 75mg po to 100mg po qhs. 3. aftercare planning. 04/16 continue tx. will plan to taper off cymbalta 04/17 continue tx. 04/18 continue tx. 04/19 continue tx. 04/20 continue tx Reason for contiued inpatient stay Substantial Risk for: stable for discharge Time Spent With Patient Time: Total time managing care of this patient today ____ minutes.
[2022-04-20] MEDS: Magnesium Hydrox/Alum Hydrox 30 ML ORAL.SUSP PO (19:25)
[2022-04-20 20:55] VITALS: BP 100/64; PULSE 88; RESP 18; TEMP 36.4; O2SAT 94
[2022-04-20] MEDS: Amitriptyline HCl 50 MG TABLET 100 MG PO (20:59)
[2022-04-20] MEDS: hydrOXYzine HCL 25 MG TABLET PO (20:59)
[2022-04-20] MEDS: traZODone HCL 50 MG TABLET PO (20:59)
[2022-04-20] MEDS: HaloperidoL 0.5 MG TABLET PO (20:59)
[2022-04-20] MEDS: Acetaminophen 325 MG TABLET 650 MG PO (21:00)
[2022-04-21] MEDS: traZODone HCL 50 MG TABLET PO (00:01)
--- NOTE | 2022-04-21 08:38 | P.DS_ITS ---
DS: Providers Provider Date of Service: 04/21/22 Date of admission: 04/14/22 18:25 Primary care physician: Bere Dolan MD DS: Diagnosis Discharge Diagnosis (1) MDD (major depressive disorder), recurrent, severe, with psychosis: Status: Acute DS: Medications Discharge Medications Home Medications: Home Medications Medication Instructions Recorded Confirmed cholecalciferol (vitamin D3) 25 1 cap PO DAILY 04/14/22 04/14/22 mcg (1,000 unit) capsule (Vitamin D3) dulaglutide 1.5 mg/0.5 mL 1.5 mg subcut QWEEK 04/14/22 04/14/22 subcutaneous pen injector (Trulicity) metformin 500 mg tablet 1 tab PO BID 04/14/22 04/14/22 pioglitazone 15 mg tablet 1 tab PO DAILY 04/14/22 04/14/22 Previous Rx's Medication Instructions Recorded albuterol sulfate 90 mcg/actuation 2 puff inhalation Q4H PRN 04/21/22 aerosol inhaler (Ventolin HFA) Shortness Of Breath Or Wheezing #6.7 grams amitriptyline 100 mg tablet 100 mg PO BEDTIME #30 tabs 04/21/22 atorvastatin 20 mg tablet 20 mg PO DAILY #30 tabs 04/21/22 bupropion HCl 300 mg 24 hr tablet, 300 mg PO DAILY #30 tabs 04/21/22 extended release clonazepam 0.5 mg tablet 0.5 mg PO TID #90 tabs 04/21/22 docusate sodium 100 mg capsule 100 mg PO BID #60 caps 04/21/22 haloperidol 0.5 mg tablet 0.5 mg PO BEDTIME #30 tabs 04/21/22 lisinopril 5 mg tablet 5 mg PO DAILY #30 tabs 04/21/22 loratadine 10 mg tablet 10 mg PO DAILY #30 tabs 04/21/22 omeprazole 20 mg capsule,delayed 20 mg PO DAILY #30 caps 04/21/22 release quetiapine 200 mg tablet 200 mg PO BID #60 tabs 04/21/22 sennosides 8.6 mg tablet (Senna 17.2 mg PO BID #60 tabs 04/21/22 Lax) trazodone 50 mg tablet 50 mg PO BEDTIME PRN Insomnia #30 04/21/22 tabs Mental Status Exam Mental Status Exam Narrative: Appearance: casually groomed, fair hygiene, in NAD Behavior: cooperative Speech: clear, normal rate/rhythm/volume, spontaneous TP: linear TC: no overt psychosis, feeling depressed Mood: better Affect: congruent SI: passive, chronic in nature, no plan or intent VH/AH: less AH derogatory comments Delusions: none Insight/judgment: fair x 2. Memory/cog: alert, oriented x 3. seems to have difficulty recalling information, may benefit from MOCA. Data Data Completed and Pending Completed studies during hospitalization [Text1]: 04/14/22 04/14/22 04/14/22 15:01 15:01 15:01 WBC RBC Hgb Hct MCV MCH MCHC RDW Plt Count MPV Immature Gran % (Auto) Neut % (Auto) Lymph % (Auto) Collier % (Auto) Eos % (Auto) Baso % (Auto) Lymph # (Auto) Collier # (Auto) Eos # (Auto) Baso # (Auto) Abs Immat Gran (auto) Absolute Neuts (auto) Absolute Nucleated RBC Nucleated RBC % (auto) Sodium Potassium Chloride Carbon Dioxide Anion Gap BUN Creatinine Estim Creat Clear Calc Estimated GFR POC Glucose Fasting Glucose Calcium Total Bilirubin AST ALT Alkaline Phosphatase Total Protein Albumin Triglycerides Cholesterol LDL Cholesterol, Calc HDL Cholesterol Urine Test NEGATIVE Urine Opiates Screen Not Detected Urine Fentanyl Screen Not Detected Ur Barbiturates Screen Not Detected Ur Phencyclidine Scrn Not Detected Ur Amphetamines Screen Not Detected U Benzodiazepines Scrn POSITIVE H Urine Cocaine Screen Not Detected U Marijuana (THC) Screen POSITIVE H COVID-19 (DUNG) Negative COVID-19 Clin Com See Note 04/14/22 04/14/22 04/15/22 15:28 15:28 08:52 WBC 4.0 L RBC 3.87 L Hgb 11.9 L Hct 37.2 MCV 96.1 MCH 30.7 MCHC 32.0 RDW 13.5 Plt Count 243 MPV 10.1 Immature Gran % (Auto) 0.0 Neut % (Auto) 33.1 L Lymph % (Auto) 54.0 H Collier % (Auto) 7.8 Eos % (Auto) 4.3 H Baso % (Auto) 0.8 Lymph # (Auto) 2.1 Collier # (Auto) 0.3 Eos # (Auto) 0.2 Baso # (Auto) 0.0 Abs Immat Gran (auto) 0.00 Absolute Neuts (auto) 1.3 L Absolute Nucleated RBC 0.000 Nucleated RBC % (auto) 0.0 Sodium 144 Potassium 4.4 Chloride 108 Carbon Dioxide 27 Anion Gap 13 BUN 10 Creatinine 0.81 Estim Creat Clear Calc 74.0 Estimated GFR > 60 POC Glucose 82 Fasting Glucose 80 Calcium 8.9 Total Bilirubin 0.2 AST 27 ALT 38 H Alkaline Phosphatase 81 Total Protein 6.2 L Albumin 4.0 Triglycerides Cholesterol LDL Cholesterol, Calc HDL Cholesterol Urine Test Urine Opiates Screen Urine Fentanyl Screen Ur Barbiturates Screen Ur Phencyclidine Scrn Ur Amphetamines Screen U Benzodiazepines Scrn Urine Cocaine Screen U Marijuana (THC) Screen COVID-19 (DUNG) COVID-19 iiko 04/15/22 04/16/22 04/17/22 08:54 09:32 08:48 WBC RBC Hgb Hct MCV MCH MCHC RDW Plt Count MPV Immature Gran % (Auto) Neut % (Auto) Lymph % (Auto) Collier % (Auto) Eos % (Auto) Baso % (Auto) Lymph # (Auto) Collier # (Auto) Eos # (Auto) Baso # (Auto) Abs Immat Gran (auto) Absolute Neuts (auto) Absolute Nucleated RBC Nucleated RBC % (auto) Sodium 141 Potassium 4.8 Chloride 103 Carbon Dioxide 28 Anion Gap 15 BUN 8 L Creatinine 0.91 Estim Creat Clear Calc 65.9 Estimated GFR > 60 POC Glucose 91 84 Fasting Glucose 95 Calcium 9.9 D Total Bilirubin 0.5 AST 34 H ALT 45 H Alkaline Phosphatase 90 Total Protein 7.3 Albumin 4.7 Triglycerides 98 Cholesterol 145 LDL Cholesterol, Calc 65 HDL Cholesterol 61 Urine Test Urine Opiates Screen Urine Fentanyl Screen Ur Barbiturates Screen Ur Phencyclidine Scrn Ur Amphetamines Screen U Benzodiazepines Scrn Urine Cocaine Screen U Marijuana (THC) Screen COVID-19 (DUNG) COVID-19 iiko 04/18/22 04/19/22 04/20/22 08:55 09:05 08:46 WBC RBC Hgb Hct MCV MCH MCHC RDW Plt Count MPV Immature Gran % (Auto) Neut % (Auto) Lymph % (Auto) Collier % (Auto) Eos % (Auto) Baso % (Auto) Lymph # (Auto) Collier # (Auto) Eos # (Auto) Baso # (Auto) Abs Immat Gran (auto) Absolute Neuts (auto) Absolute Nucleated RBC Nucleated RBC % (auto) Sodium Potassium Chloride Carbon Dioxide Anion Gap BUN Creatinine Estim Creat Clear Calc Estimated GFR POC Glucose 76 90 98 Fasting Glucose Calcium Total Bilirubin AST ALT Alkaline Phosphatase Total Protein Albumin Triglycerides Cholesterol LDL Cholesterol, Calc HDL Cholesterol Urine Test Urine Opiates Screen Urine Fentanyl Screen Ur Barbiturates Screen Ur Phencyclidine Scrn Ur Amphetamines Screen U Benzodiazepines Scrn Urine Cocaine Screen U Marijuana (THC) Screen COVID-19 (DUNG) COVID-19 Clin Com DS: Summary Hospital Course Hospital Course: HPI: Mrs. Wall is a 56 year-old woman with hx of MDD with psychosis and PTSD. Pt self presented to [facility] reporting increase suicidal ideation, AH, depressed mood. No clear trigger as pt reports such symptoms have been chronic since she was a teen. IN the ED, utox positive for cannabinoids, benzodiazepines which she is prescribed. On the unit, pt reports feeling more depressed in the past 2 weeks. She reports on and off hearing voices telling her derogatory things. She reports feeling less overwhelmed today and with less SI. She reports fair sleep. She reports she lives alone. She reports hx of 2 prior suicide attempts 7 years ago- one she OD and the other she cut her wrist. She appeared to have some memory problems recalling medications she states she has been for years. Past Psychiatric History: Inpt: one previous one about 2-3 years ago in [place] OP: [facility] Dr. Moises Cortes. Past medication trial: cymbalta, amitriptyline, clonazepam, wellbutrin Medical Evaluation Reviewed: Yes HOSPITAL COURSE On the unit, pt was admitted on a CV and placed on 15 minutes checks for safety. Pt reported increased depression, AH, suicidal ideation without clear trigger. We discussed risks, benefits and alternative treatment options. Pt agreed to taper off cymbalta, continue amitriptyline for both neuropathic pain and depression, and continue wellbutrin. She was continued on low dose of haldol. Her affect gradually presented as brighter. She reported less depression and denied SI/HI. She reported no VH/AH. She was visible on the unit, future idalia fitzgerald. There were no incidences of disruptive behaviors nor need for discharge. Status at Discharge Cognitive/behavioral status at discharge: Pt with brighter affect. NO SI/HI. No VH/AH. Sleeping through the night. No signs of aggression towards self or others. She is future oriented. Functional status at discharge: independent ambulation Overall status at discharge: patient is progressing back to baseline Time Spent with Patient Time attestation: Total time managing care of this patient today _30___ minutes. Discharge Plan Discharge Anticipated Discharge Date/Time: 04/21/22 08:25 Patient Disposition: Home, Self-Care Discharge Diagnosis: MDD with psychosis Referrals: Maura Billings (Therapy) [Other] - 04/25/22 3:00 pm (Your appointment will take place over the phone) Moises Cortes (Psychiatry) [Other] - 04/30/22 2:20 pm (Your appointment will take place over the phone) A services - [facility] [Other] - 1 Week (Fax - [phone]. Services t to resume Thursday04.22.22.) [facility] [Provider Group] - 1 Week Bere Dolan MD [Primary Care Provider] - 1 Week Discharge Medications: New loratadine 10 mg Tablet 10 mg PO DAILY Qty: 30 0RF atorvastatin 20 mg Tablet 20 mg PO DAILY Qty: 30 0RF lisinopril 5 mg Tablet 5 mg PO DAILY Qty: 30 0RF Protocol: Hold for SBP< HOLD for SBP < : 90 albuterol sulfate [Ventolin HFA] 90 mcg/actuation Hfa Aerosol Inhaler 2 puff inhalation Q4H PRN (Reason: Shortness Of Breath Or Wheezing) Qty: 6.7 0RF amitriptyline 100 mg tablet 100 mg PO BEDTIME Qty: 30 0RF haloperidol 0.5 mg Tablet 0.5 mg PO BEDTIME Qty: 30 0RF trazodone 50 mg Tablet 50 mg PO BEDTIME PRN (Reason: Insomnia) Qty: 30 0RF clonazepam 0.5 mg Tablet 0.5 mg PO TID Qty: 90 0RF quetiapine 200 mg Tablet 200 mg PO BID Qty: 60 0RF docusate sodium 100 mg Capsule 100 mg PO BID Qty: 60 0RF bupropion HCl 300 mg Tablet Extended Release 24 Hr 300 mg PO DAILY Qty: 30 0RF sennosides [Senna Lax] 8.6 mg Tablet 17.2 mg PO BID Qty: 60 0RF omeprazole 20 mg Capsule,Delayed Release(Dr/Ec) 20 mg PO DAILY Qty: 30 0RF Continued metformin 500 mg tablet 1 tab PO BID pioglitazone 15 mg tablet 1 tab PO DAILY cholecalciferol (vitamin D3) [Vitamin D3] 25 mcg (1,000 unit) capsule 1 cap PO DAILY Trulicity 1.5 mg/0.5 mL pen injector 1.5 mg subcut QWEEK Discontinued omeprazole 20 mg capsule,delayed release(DR/EC) 1 cap PO DAILY haloperidol 0.5 mg tablet 1 tab PO QPM duloxetine 60 mg capsule,delayed release(DR/EC) 1 cap PO BID docusate sodium 100 mg capsule 1 cap PO BID amitriptyline 75 mg tablet 1 tab PO BEDTIME clonazepam 0.5 mg tablet 1 tab PO TID albuterol sulfate 90 mcg/actuation HFA aerosol inhaler 2 puff inhalation Q4-6H PRN (Reason: Shortness Of Breath Or Wheezing) bupropion HCl 300 mg tablet extended release 24 hr 1 tab PO DAILY sennosides [senna] 8.6 mg tablet 2 tab DAILY PRN (Reason: constipation) lisinopril 5 mg tablet 1 tab PO QAM loratadine 10 mg tablet 1 tab PO DAILY quetiapine 400 mg tablet extended release 24 hr 1 tab PO BEDTIME atorvastatin 20 mg tablet 20 mg PO DAILY Discharge Orders: Discharge Order (Routine); Ordered 04/21/22 Ordered By: Danica Mota Diet: Regular diet Activity on Discharge: As tolerated Stand Alone Forms: Patient Portal Discharge page Care Plan Goals: 1. Maintain mood 2. No SI/HI 3. Less AH Health Concerns: Follow up with PCP Plan of Treatment: 1. Take medications as prescribed 2. Go to nearest ED or call 911 in event of emergency Assessment: Pt with brighter affect. No SI/HI. No VH/AH. Future oriented. No signs of aggression towards self or others.
[2022-04-21 09:25] VITALS: BP 110/66; PULSE 106; RESP 16; TEMP 36.4; O2SAT 98
[2022-04-21] MEDS: Sennosides 8.6 MG TABLET 17.2 MG PO (09:27)
[2022-04-21] MEDS: Loratadine 10 MG TABLET PO (09:27)
[2022-04-21] MEDS: DULoxetine HCl 30 MG CAPSULE.DR PO (09:28)
[2022-04-21] MEDS: Docusate Sodium 100 MG CAPSULE PO (09:28)
[2022-04-21] MEDS: Atorvastatin Calcium 20 MG TABLET PO (09:28)
[2022-04-21] MEDS: Cholecalciferol (Vitamin D3) 25 MCG TABLET PO (09:28)
[2022-04-21] MEDS: lisinopriL 5 MG TABLET PO (09:28)
[2022-04-21] MEDS: Omeprazole 20 MG CAPSULE.DR PO (09:28)
[2022-04-21] MEDS: QUEtiapine Fumarate 200 MG TABLET PO (09:28)
[2022-04-21] MEDS: buPROPion HCl XL 300 MG TAB.ER.24H PO (09:28)
[2022-04-21] MEDS: clonazePAM 0.5 MG TABLET PO (09:28)
[2022-04-21] MEDS: metFORMIN HCl 500 MG TABLET PO (09:28)
[2022-04-22 01:31] LABS: Glucose, Whole Blood 84 mg/dL (60-115)
== END 2022-04-21 10:45 | disposition home or self-care (01) | DRG 885 ==
LOC: HO.ED 15:07 → HO.PADLT16 18:36
PROVIDERS: Admitting Provider Psychiatry & Neurology Psychiatry; Emergency Provider Emergency Medicine; PCP Internal Medicine; Visit Provider Psychiatry & Neurology Psychiatry
DX: F33.3 Major depressive disorder, recurrent, severe with psychotic symptoms (principal); R45.851 Suicidal ideations; E78.5 Hyperlipidemia, unspecified; Z20.822 Contact with and (suspected) exposure to COVID-19; Z87.891 Personal history of nicotine dependence; Z91.51 Personal history of suicidal behavior; Z88.0 Allergy status to penicillin; Z88.6 Allergy status to analgesic agent; Z79.84 Long term (current) use of oral hypoglycemic drugs; Z79.899 Other long term (current) drug therapy
CPT/HCPCS: 36415; 80053; 80061; 80307; 81025; 82947; 85025; 87635; 93005; 99285

== ENCOUNTER → 2022-05-01 11:06 | Outpatient (BNVA) | payer OTHER, SELFPAY | PROVIDERS: PCP Internal Medicine; Visit Provider Internal Medicine | DX: R00.0 Tachycardia, unspecified (principal); E11.8 Type 2 diabetes mellitus with unspecified complications | CPT/HCPCS: 93005; 99212 ==

== ENCOUNTER 2022-06-02 10:28 | Outpatient (REF) | payer OTHER, SELFPAY ==
[2022-06-02 11:51] LABS: MANUAL DIFF FLAG NO
[2022-06-02 12:05] LABS: Basophils Percent Auto 0.7 % (0-2); Eosinophils Absolute Auto 0.1 X10*3/uL (0.0-0.4); Eosinophils Percent Auto 2.3 % (0-4); Hemoglobin 11.8 g/dl (12.0-16.0); Imm Gran Abs Auto 0.01 X10*3/uL (0.00-0.03); Imm Gran Pct Auto 0.2 % (0.0-0.4); Lymphocytes Absolute Auto 1.8 X10*3/uL (1.2-4.9); Lymphocytes Percent Auto 40.5 % (20-40); Mean Corpuscular HGB Conc 31.9 g/dl (31.0-35.0); Mean Corpuscular Hemoglobin 31.1 pg (27.0-33.0); Mean Corpuscular Volume 97.6 fL (80.0-98.0); Monocytes Absolute Auto 0.2 X10*3/uL (0.1-1.2); Monocytes Percent Auto 4.8 % (2-11); Neutrophils Absolute Auto 2.3 x10*3/uL (2.0-8.3); Neutrophils Percent Auto 51.5 % (45-73); Platelet Count 262 X10*3/uL (160-400); Red Blood Count 3.79 X10*6/uL (4.20-5.50); Red Cell Distribution Width 13.5 % (11.0-16.0); White Blood Count 4.4 X10*3/uL (4.8-10.8)
[2022-06-02 12:55] LABS: Erythrocyte Sedimentation Rate 16 MM/HR (0-20)
[2022-06-02 14:49] LABS: Alanine Aminotransferase 32 U/L (0-31); Albumin Level 4.4 g/dL (3.5-5.0); Alkaline Phosphatase 69 U/L (39-117); Anion Gap 16 (12-20); Aspartate Amino Transferase 26 U/L (5-31); Bilirubin Total 0.3 mg/dL (0.0-1.0); Blood Urea Nitrogen 15 mg/dL (9-16); C Reactive Protein < 0.10 mg/dL (< or = 0.50); Calcium 9.1 mg/dL (8.4-10.2); Carbon Dioxide 24 mmol/L (22-29); Chloride 105 mmol/L (96-108); Estimated Glomerular Filt Rate > 60; Glucose Random 74 mg/dL (60-115); Magnesium 1.7 mg/dL (1.6-2.6); Potassium 4.1 mmol/L (3.3-5.1); Sodium 141 mmol/L (135-145); Total Protein 6.6 g/dL (6.5-8.0)
[2022-06-02 14:59] LABS: Ferritin 14 ng/mL (10-250); Folate 10.3 ng/mL (> or = 4.0); Vitamin B12 613 pg/mL (200-900); Vitamin D 25-OH Total 52.5 ng/mL (>30)
[2022-06-03 15:18] LABS: Immunoglobulin G 784 mg/dL (600-1640)
[2022-06-03 19:48] LABS: Transglutaminase Ab IgG <1.0 U/mL; Transglutaminase IgA <1.0 U/mL
[2022-06-04 07:39] LABS: HBS Num1 187.47 mIU/mL (0-7.99); HBc Num1 0.03 S/CO (0.00-0.79); HBsAGNum1 0.32 S/CO (0.00-0.99); Hepatitis A Antibody IgM 0.19 Index (0-0.79); Hepatitis B Core Antibody Nonreactive (Nonreactive); Hepatitis B Surface Antigen Negative (Negative); ~HepC Num1 0.06 S/CO (0.00-0.79); ~Hepatitis A Antibody IgM Nonreactive (Nonreactive); ~Hepatitis B Surface Antibody REACTIVE (Nonreactive); ~Hepatitis C Antibody Nonreactive (Nonreactive)
[2022-06-05 06:13] LABS: Zinc 87 mcg/dL (60-130)
[2022-06-06 17:44] LABS: Alpha-Tocopherol 7.6 mg/L (5.7-19.9); Beta-Gamma Tocopherol <1.0 mg/L (<=4.3)
[2022-06-07 17:07] LABS: Vitamin A 67 mcg/dL (38-98)
[2022-06-07 20:14] LABS: C1 Esterase Inhibitor >100 % (>=68)
[2022-06-07 22:48] LABS: Nicotinamide <20 ng/mL; Vit B3 - Nicotinic Acid <20 ng/mL; Vitamin B5 (Pantothenic Acid) <40 ng/mL (<275)
[2022-06-08 16:03] LABS: Vitamin B6 7.3 ng/mL (2.1-21.7)
[2022-06-08 21:03] LABS: Complement Total CH50 >60 U/mL (31-60)
[2022-06-09 17:13] LABS: Vitamin C 0.8 mg/dL (0.3-2.7)
[2022-06-11 05:59] LABS: Vitamin B1 <6 nmol/L (8-30)
[2022-06-11 18:04] LABS: C1Q Complement Component 5.1 mg/dL (5.0-8.6)
[2022-06-13 15:54] LABS: Vitamin K1 115 pg/mL (130-1500)
== END 2022-06-02 10:29 | disposition home or self-care (01) ==
LOC: HO.LAB 10:28
PROVIDERS: PCP Internal Medicine; Visit Provider Internal Medicine Gastroenterology
DX: R10.33 Periumbilical pain (principal); K52.839 Microscopic colitis, unspecified; K75.81 Nonalcoholic steatohepatitis (NASH); R19.7 Diarrhea, unspecified; T78.3XXA Angioneurotic edema, initial encounter; R10.84 Generalized abdominal pain
CPT/HCPCS: 36415; 80053; 82180; 82306; 82607; 82728; 82746; 82784; 83520; 83735; 84207; 84425; 84446; 84590; 84591; 84597; 84630; 85025; 85652; 86140; 86160; 86161; 86162; 86364; 86704; 86706; 86709; 86803; 87340; 99212

== ENCOUNTER 2022-06-23 10:11 | Outpatient (REF) | payer OTHER, SELFPAY ==
[2022-06-25 14:43] LABS: H Pylori Breath Test Negative (Negative)
== END 2022-06-23 10:12 | disposition home or self-care (01) ==
LOC: HO.LNP 10:11
PROVIDERS: PCP Internal Medicine; Visit Provider Internal Medicine Gastroenterology
DX: R10.9 Unspecified abdominal pain (principal); T78.3XXA Angioneurotic edema, initial encounter
CPT/HCPCS: 83013; 99211

== ENCOUNTER 2022-06-24 12:35 | Outpatient (REF) | payer OTHER, SELFPAY ==
[2022-07-05 17:18] LABS: Lactoferrin, Fecal, Quant. <6.25 mcg/mL (<7.25)
== END 2022-06-24 12:36 | disposition home or self-care (01) ==
LOC: HO.LNP 12:35
PROVIDERS: Visit Provider Internal Medicine Gastroenterology
DX: R10.9 Unspecified abdominal pain (principal); K51.50 Left sided colitis without complications; T78.3XXA Angioneurotic edema, initial encounter
CPT/HCPCS: 83631

== ENCOUNTER 2022-06-26 10:15 | Outpatient (REF) | payer OTHER, SELFPAY ==
--- NOTE | ~2022-06-26 | US_ITS ---
EXAMINATION: US COMPLETE ABDOMEN WITH LIVER ELASTOGRAPHY CLINICAL INFORMATION: Upper abdominal pain COMPARISON: Previous CT of the abdomen and pelvis December 2019 and abdominal ultrasound November 2015 TECHNIQUE: Real-time imaging of the abdominal viscera. Noninvasive ultrasound liver fibrosis assessment is performed using Clint ElastPQ point quantification shear wave elastography (2D-SWE) with a C5-2 MHz transducer. Multiple elastography samples are obtained. FINDINGS: PANCREAS: Normal. ABDOMINAL AORTA: The proximal, middle, and distal aortic segments are normal in caliber. INFERIOR VENA CAVA: Visualized portions are normal. LIVER: Liver echotexture is slightly increased. The liver is normal in size and contour. There is mild intrahepatic biliary duct dilatation. No focal lesion The right lobe measures 13 cm in length. The left lobe measures 6 cm in length. Portal flow is normal/hepatopedal Shear wave liver elastography median stiffness is 2 m/s (reference: normal median stiffness is 1.3 m/s or less). IQR/median stiffness to assess sampling precision is 0.1 (reference: good quality data set is IQR/median stiffness of 0.15 or less). GALLBLADDER: Surgically removed COMMON BILE DUCT: Slightly dilated measuring 1.2 cm in diameter. RIGHT KIDNEY: 1 cm cyst in the lower pole. No hydronephrosis. No renal calculi or mass. The kidney measures 10 cm in maximum dimension. LEFT KIDNEY: Normal. No hydronephrosis. No renal calculi or focal parenchymal lesions. The kidney measures 10 cm in maximum dimension. SPLEEN: Normal. The spleen measures 9.2 cm in maximum dimension. FREE FLUID: None. US/US abdomen comp w elastography IMPRESSION: 1. Impression: Slightly echogenic liver. Mild intrahepatic and extrahepatic biliary duct dilatation. The common bile duct measures 1.2 cm. This may be normal postcholecystectomy. Small right renal cyst. 2. Liver elastography: Adequate liver sampling. Increased liver stiffness suggestive of compensated advanced chronic liver disease but need further test for confirmation. REFERENCE: Society of Radiologists in Ultrasound Liver Stiffness Thresholds (2019): LIVER STIFFNESS THRESHOLDS: *Liver Stiffness equal or less than 1.3 m/s: High probability of being normal. *Liver Stiffness less than 1.7 m/s: In the absence of other known clinical signs, rules out compensated advanced chronic liver disease. *Liver Stiffness 1.7-2.1 m/s: Suggestive of compensated advanced chronic liver disease but need further test for confirmation. *Liver Stiffness over 2.1 m/s: Rules in compensated advanced chronic liver disease. *Liver Stiffness over 2.4 m/s: Suggestive of clinically significant portal hypertension. QUALITY OF DATA SET: *IQR/Median value equal or less than 0.15 implies a quality data set. *IQR/Median value over 0.15 implies a poor quality data set. SIGNIFICANT CHANGE FROM PRIOR EXAM: Significant change if liver stiffness measurement is 10% or greater from prior exam. OTHER CONSIDERATIONS: The stage of liver fibrosis may be overestimated in the setting of acute hepatitis, liver inflammation, elevated liver function tests, hepatic vascular congestion, obstructive cholestasis, non-fasting state, and infiltrative diseases such as amyloidosis and lymphoma. In some patients with NAFLD, the liver stiffness thresholds for compensated advanced chronic liver disease may be lower. In causes other than viral hepatitis and NAFLD, liver stiffness thresholds are not well established.
== END 2022-06-26 10:16 | disposition home or self-care (01) ==
LOC: HO.US 10:15
PROVIDERS: PCP Internal Medicine; Visit Provider Internal Medicine Gastroenterology
DX: R10.10 Upper abdominal pain, unspecified (principal); R79.89 Other specified abnormal findings of blood chemistry
CPT/HCPCS: 76705; 76981

== ENCOUNTER 2022-10-13 09:34 | Outpatient (AMB) | payer OTHER, SELFPAY ==
[2022-10-13 10:14] VITALS: BP 95/56; PULSE 89; BMI 24.2
--- NOTE | 2022-10-13 10:14 | A.OFFVIS_ITS ---
Intake Vital Signs 10/13/22 10:14 Height 5 ft 3 in Weight 136 lb 10.986 oz BMI 24.2 BP 95/56 L Blood Pressure Location Lt brachial Position Sitting Pulse 89 Intake Visit Reasons: 4 month follow up Intake Note: Lindy presents in office as a est.patient for a 4month f/u PT CC: pt reports having abdominal pain , w/ GAS pt denies any other GI Issues Director Of Speech Pathology Required: Yes Director Of Speech Pathology Language: Iraqi Accompanied by: Self / Same As Patient Allergies aspirin [ASA] Allergy (Intermediate, Verified 10/13/22 10:15) RASH Penicillins [PENICILLINS] Allergy (Intermediate, Verified 10/13/22 10:15) RASH HPI 4 month follow up 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 Ct imaging with inflammed loops of jejunum, circumferential thickening and mild ascites ? she was d/c'ed home on PPI ? LABS: ? nml CBC, BMP, LFT ? ? ? Push enteroscopy and colonoscopy-10/2019-nml, adenoma removed She had further assessment in Ed for abdo pain 12/2019--again labs nml and CT imaging with enteritis, thick walled small bowel loops capsule endo 2020---erosive gastritis, duodenitis, melanosis coli she gets the attacks 10-12 times a year thinks attacks on and off for 3-4 yrs no swollen tongue or lips I ordered tests for c1 estersae--normal I ordered an US due to post prandial pain, and revealed dilated CBD 12 mm, no stones seen , GB absent --fatty liver Labs with anemia, low nml ferritin, ?INTERIM: she has more issues with gas in the stomach, she still has episodes of upper abdominal pain after food she is unsure if she is getting omeprazole, given to her by a visiting nurse? appetite is good sometimes nausea or vomiting denies rectal bleeding, or melena she is taking laxatives for constipation which helps she takes ibuprofen few times/week for headaches EXAM: GENERAL: The patient is well developed and nontoxic. VITAL SIGNS:see workflow HEENT: Nonicteric sclerae, PERRLA, EOMI. Oropharynx clear. Moist mucous membranes. Conjunctivae appear well perfused. No thyroid mass. CHEST: Chest wall is nontender. HEART: Regular rate and rhythm without murmurs. LUNGS: Clear to auscultation bilaterally. ABDOMEN: Soft, positive bowel sounds, tender upper abdomen and jessica umbilical area, no organomegaly.no flank tenderness SKIN: No rash, no excessive bruising, petechiae, or purpura. NEUROLOGIC: Cranial nerves II-XII intact without motor/sensory deficit. ? Assessments ? 1. Enteritis - episodic attacks, possible crohns maybe worse due to nsaid use 2/ dilated CBD -no stones seen, likely due to post cholecystectomy state ?3/ anemia, maybe related to 1/ above 4/ thiamine def plan: 1/ labs incl repeat b1 level 2/ CT enterogram, if poss then budeosnide trial may need biologics, if neg then MRCP to r/o retained stones 3/ check with pharmacy if on omeprazole or not ? PFSH Medical History Anxiety Bariatric surg stat-del Depression Diabetes type 2, uncontrolled DM2 (diabetes mellitus, type 2) Essential hypertension Hyperlipidemia LDL goal <100 Obesity due to excess calories Schizophrenia Tachycardia Type 2 diabetes mellitus without complications Surgical History H/O: History of cholecystectomy Family History Family/Other Breast cancer Social History Household Members: None Housing: Apartment Do you presently have visiting nurse or other home services: Yes Alcohol intake: current Alcohol intake frequency: does not drink Patient Tobacco Use Status: Former Tobacco user e-Cigarette/Vaping Use: Never Used Second Hand Smoke Exposure: No Substance Use Type: Marijuana service: No Sexual orientation: Straight/Heterosexual Physical Exam Vital Signs: Last Vital Signs Pulse 89 10/13/22 10:14 BP 95/56 L 10/13/22 10:14 BMI result Body Mass Index 24.2 Assessment & Plan Assessment & Plan (1) Upper abdominal pain: Code(s): R10.10 - Upper abdominal pain, unspecified (2) Enteritis: Code(s): K52.9 - Noninfective gastroenteritis and colitis, unspecified Orders: Orders Vitamin B12 and Folate Today K52.9 - Noninfective gastroenteritis and colitis, unspecified, R10.10 - Upper abdominal pain, unspecified Comprehensive Met. Panel Today K52.9 - Noninfective gastroenteritis and colitis, unspecified, K75.81 - Nonalcoholic steatohepatitis (CORDOVA), R10.10 - Upper abdominal pain, unspecified C Reactive Protein Today K52.9 - Noninfective gastroenteritis and colitis, unspecified, R10.10 - Upper abdominal pain, unspecified Vitamin B1 Today K52.9 - Noninfective gastroenteritis and colitis, unspecified, R10.10 - Upper abdominal pain, unspecified CT enterography Today K52.9 - Noninfective gastroenteritis and colitis, unspecified, R10.10 - Upper abdominal pain, unspecified, R10.33 - Periumbilical pain Complete Blood Count Auto Diff Today K52.9 - Noninfective gastroenteritis and colitis, unspecified, R10.10 - Upper abdominal pain, unspecified Coding Level of Care Code Est Pt Level 3 (87973) Diagnoses Upper abdominal pain R10.10 Enteritis K52.9
== END 2022-10-13 10:51 | disposition home or self-care (01) ==
PROVIDERS: Visit Provider Internal Medicine Gastroenterology
DX: R10.10 Upper abdominal pain, unspecified (principal); K52.9 Noninfective gastroenteritis and colitis, unspecified
CPT/HCPCS: 99213

== ENCOUNTER → 2022-10-13 09:34 | Outpatient (BNVA) | payer OTHER, SELFPAY | PROVIDERS: Visit Provider Internal Medicine Gastroenterology | DX: R10.10 Upper abdominal pain, unspecified (principal); K52.9 Noninfective gastroenteritis and colitis, unspecified | CPT/HCPCS: 99212 ==

== ENCOUNTER 2022-12-01 22:44 | Inpatient (IN) | payer OTHER, SELFPAY ==
[2022-12-01 23:15] VITALS: BP 134/78; PULSE 74; RESP 18; TEMP 36.7; O2SAT 98
[2022-12-02 00:24] VITALS: BMI 21.8
--- NOTE | 2022-12-02 02:04 | PC.ADMIT ---
Patient admitted to [facility] from [facility] on 12/01/2022 on a CV for SI with plan to stab herself. Patient was admitted to [facility] on 11/28/22 for increased abdominal pain and nausea/vomiting.? As discharge approached, patient began reporting increased SI with plan to stab herself when she went home. 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 Upon admission, patient is alert and oriented x 4, reporting abdominal pain and nausea. Skin/contraband check completed and patient oriented to unit. She endorses passive SI, reports that she feels better knowing that she is here. She feels comfortable coming to staff if needed. Denies HI/AH/VH. She reports having inpatient hospitalizations in the past, she reports that she was admitted at [facility] a few years ago. She also reports having attempted suicide in the past but declined to elaborate further. Patient has a history of anxiety, depression, diabetes mellitus, HTN and GERD. She also has a history of gastric sleeve surgery. Patient denies tobacco use and drinking alcohol. She reports the only substance that she uses is marijuana weekly. Her toxicology report came back positive for opiates, benzo?s and cannabinoids. Patient was drowsy, but participated in admission process, releases of information signed. She asked to go to sleep prior to safety tool being completed.
[2022-12-02 08:31] LABS: Glucose, Whole Blood 145 mg/dL (60-115)
[2022-12-02 08:45] VITALS: BP 124/80; PULSE 56; RESP 16; TEMP 36.7; O2SAT 95
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
[2022-12-02 09:36] LABS: Cholesterol 217 mg/dL (<200); HDL Cholesterol 43 mg/dL (>40); LDL Cholesterol Calculated 153 mg/dL (<100); Triglycerides 108 mg/dL (<150)
[2022-12-02 09:40] LABS: Estimated Average Glucose 105 mg/dL; Hemoglobin A1c % 5.3 % (<6.0)
[2022-12-02] MEDS: metFORMIN HCl 500 MG TABLET PO ×2 (10:16→20:11)
[2022-12-02] MEDS: lisinopriL 5 MG TABLET PO (10:16)
[2022-12-02] MEDS: Docusate Sodium 100 MG CAPSULE PO ×2 (10:16→20:12)
[2022-12-02] MEDS: Loratadine 10 MG TABLET PO (10:17)
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
[2022-12-02] MEDS: clonazePAM 0.5 MG TABLET PO ×3 (12:54→20:12)
[2022-12-02] MEDS: Thiamine HCL 100 MG TABLET PO (12:54)
[2022-12-02] MEDS: Magnesium Hydrox/Alum Hydrox 30 ML ORAL.SUSP PO (14:21)
[2022-12-02] MEDS: Metoclopramide HCl 10 MG TABLET PO (16:22)
[2022-12-02] MEDS: Acetaminophen 325 MG TABLET 650 MG PO (16:52)
[2022-12-02] MEDS: Ondansetron ODT 4 MG TAB.RAPDIS TRANSLINGU ×2 (16:53→20:51)
[2022-12-02] MEDS: Omeprazole 20 MG CAPSULE.DR PO (16:53)
[2022-12-02] MEDS: Lidocaine 4 % Patch ADH..PATCH 1 PATCH TRANSDERMA (16:54)
[2022-12-02] MEDS: HaloperidoL 0.5 MG TABLET PO (20:11)
[2022-12-02] MEDS: QUEtiapine Fumarate 400 MG TABLET PO (20:11)
[2022-12-02 20:12] VITALS: BP 162/78; PULSE 92; RESP 16; TEMP 37.8; O2SAT 100
[2022-12-02] MEDS: hydrOXYzine HCL 25 MG TABLET PO (20:51)
[2022-12-03] MEDS: Omeprazole 20 MG CAPSULE.DR PO ×2 (06:47→17:51)
[2022-12-03 07:26] VITALS: BP 135/86; PULSE 120; RESP 16; TEMP 36.7; O2SAT 98
[2022-12-03 08:18] LABS: Glucose, Whole Blood 111 mg/dL (60-115)
[2022-12-03] MEDS: clonazePAM 0.5 MG TABLET PO ×3 (08:30→20:40)
[2022-12-03] MEDS: Docusate Sodium 100 MG CAPSULE PO ×2 (08:30→20:39)
[2022-12-03] MEDS: Cholecalciferol (Vitamin D3) 25 MCG TABLET PO (08:31)
[2022-12-03] MEDS: Multivitamin TABLET 1 TAB PO (08:31)
[2022-12-03] MEDS: lisinopriL 5 MG TABLET PO (08:31)
[2022-12-03] MEDS: metFORMIN HCl 500 MG TABLET PO (08:31)
[2022-12-03] MEDS: Loratadine 10 MG TABLET PO (08:31)
[2022-12-03] MEDS: Magnesium Hydrox/Alum Hydrox 30 ML ORAL.SUSP PO (08:39)
[2022-12-03 09:04] LABS: Creatinine Clr Calc Pharmacy 75.4; Estimated Glomerular Filt Rate > 60
--- NOTE | 2022-12-03 09:25 | HO.PSYCHPN ---
Subjective Subjective Date of Service: 12/03/22 Reason For Visit: Major Depressive Disorder Interim History: met with patient; discussed with team pt seen with spanish interpreter/translator Pt focused on chronic abdominal pain and little else discussed; reviewed hospitalist PA notes. Pt agrees abdominal discomfort is chronic but says it continues to feel worse than usual. She says she feels gassy but that Zofran helped her and is asking for it again. Pt had pen and paper with her and asked if typewriter aligner could write it down but became upset when typewriter aligner offered to spell it for her and walked out of the room. She came back and accepted apology. Mental Status Exam Mental Status Exam Narrative: Appearance: casually groomed, fair hygiene, in NAD Behavior: cooperative Speech: clear, normal rate/rhythm/volume, spontaneous TP: linear TC: focused on abdominal discomfort; feeling depressed Mood: depressed. Affect: congruent, downcast SI: denies VH/AH: CAH to hurt self. VH of shadows. Delusions: none Insight/judgment: impaired x 2. Memory/cog: alert, oriented x 3. seems to have difficulty recalling information, may benefit from MOCA. Diagnostics Vital Signs (24Hr): Vital Signs - 24 hr 12/02/22 20:12 12/03/22 07:26 Temperature 100.0 F 98.1 F Pulse Rate 92 120 H Respiratory Rate 16 16 Blood Pressure 162/78 H 135/86 Pulse Oximetry 100 98 Oxygen Delivery Method Room Air BMI result Body Mass Index 21.8 Labs 12/03/22 08:18 Labs: Laboratory Results - last 48 hr 12/02/22 12/02/22 12/03/22 08:27 08:31 08:12 Creatinine Estim Creat Clear Calc Estimated GFR POC Glucose 145 H 111 Estimat Average Glucose 105 Hemoglobin A1c % 5.3 Triglycerides 108 Cholesterol 217 H LDL Cholesterol, Calc 153 H HDL Cholesterol 43 12/03/22 08:18 Creatinine 0.77 Estim Creat Clear Calc 75.4 Estimated GFR > 60 POC Glucose Estimat Average Glucose Hemoglobin A1c % Triglycerides Cholesterol LDL Cholesterol, Calc HDL Cholesterol Medications Medications Current Medications Acetaminophen (Acetaminophen 325 Mg Tablet) 650 mg PO Q6H PRN PRN Reason: Headache/Pain Mild Scale (1-3) Last Admin: 12/02/22 16:52 Dose: 650 mg Al Hydroxide/Mg Hydroxide (Magnesium Hydrox/Alum Hydrox 30 Ml Oral.Susp) 30 ml PO Q6H PRN PRN Reason: Heartburn/Nausea Last Admin: 12/03/22 08:39 Dose: 30 ml Albuterol Sulfate (Albuterol Sulfate 90 Mcg 8 Gm Inhaler) 2 puff INHALE RQ4H PRN PRN Reason: shortness of breath or wheeze Clonazepam (Clonazepam 0.5 Mg Tablet) 0.5 mg PO TID [facility] Last Admin: 12/03/22 08:30 Dose: 0.5 mg Docusate Sodium (Docusate Sodium 100 Mg Capsule) 100 mg PO BID [facility] Last Admin: 12/03/22 08:30 Dose: 100 mg Haloperidol (Haloperidol 0.5 Mg Tablet) 0.5 mg PO BEDTIME [facility] Last Admin: 12/02/22 20:11 Dose: 0.5 mg Hydroxyzine HCl (Hydroxyzine Hcl 25 Mg Tablet) 25 mg PO Q6H PRN PRN Reason: Anxiety Last Admin: 12/02/22 20:51 Dose: 25 mg Lidocaine (Lidocaine 4 % Patch Adh..Patch) 1 patch TRANSDERMA DAILY PRN; Protocol PRN Reason: Pain, Moderate(Pain Scale 4-6) Last Admin: 12/02/22 16:54 Dose: 1 patch Lisinopril (Lisinopril 5 Mg Tablet) 5 mg PO DAILY [facility]; Protocol Last Admin: 12/03/22 08:31 Dose: 5 mg Loratadine (Loratadine 10 Mg Tablet) 10 mg PO DAILY [facility] Last Admin: 12/03/22 08:31 Dose: 10 mg Magnesium Hydroxide (Milk Of Magnesia 30 Ml Oral.Susp) 30 ml PO DAILY PRN PRN Reason: Constipation Metformin HCl (Metformin Hcl 500 Mg Tablet) 500 mg PO BID [facility] Last Admin: 12/03/22 08:31 Dose: 500 mg Metoclopramide HCl (Metoclopramide Hcl 10 Mg Tablet) 10 mg PO Q4H PRN PRN Reason: nausea Last Admin: 12/02/22 16:22 Dose: 10 mg Multivitamins/Vitamin C (Multivitamin Tablet) 1 tab PO DAILY [facility] Last Admin: 12/03/22 08:31 Dose: 1 tab Nicotine Polacrilex (Nicotine Polacrilex 2 Mg Gum) 4 mg BUCCAL Q2H PRN PRN Reason: Nicotine Cravings Non-Formulary Medication (Dulaglutide [Trulicity]) 1.5 mg SUBCUT QWEEK [facility] Olanzapine (Olanzapine 5 Mg Tablet) 5 mg PO TID PRN PRN Reason: agitation Omeprazole (Omeprazole 20 Mg Hardik.) 20 mg PO BID@0630,1630 [facility] Last Admin: 12/03/22 06:47 Dose: 20 mg Ondansetron HCl (Ondansetron Odt 4 Mg Tab.Rapdis) 4 mg TRANSLINGU Q6H PRN PRN Reason: Nausea And Vomiting Last Admin: 12/02/22 20:51 Dose: 4 mg Quetiapine Fumarate (Quetiapine Fumarate 400 Mg Tablet) 400 mg PO BEDTIME [facility] Last Admin: 12/02/22 20:11 Dose: 400 mg Trazodone HCl (Trazodone Hcl 50 Mg Tablet) 50 mg PO BEDTIME MRX1 PRN PRN Reason: Insomnia Vitamin D (Cholecalciferol (Vitamin D3) 25 Mcg Tablet) 25 mcg PO DAILY [facility] Last Admin: 12/03/22 08:31 Dose: 25 mcg Allergies Allergies Allergy/AdvReac Type Severity Reaction Status Date / Time aspirin [ASA] Allergy Intermediate RASH Verified 10/13/22 10:15 Penicillins [PENICILLINS] Allergy Intermediate RASH Verified 10/13/22 10:15 Assessment & Plan Assessment & Plan (1) Medical clearance for psychiatric admission: Status: Acute Code(s): Z00.8 - Encounter for other general examination Plan Pt is a Azeri speaking 57-year-old female with a PMH significant for?recurrent gastritis, HTN, [id number] diabetes type 2, GERD, and anxiety and depression who is admitted to psychiatry unit for increasing depression and SI with plan to stab herself. Patient initially presented to [facility] ED complaining of abdominal pain that began 3-4 days ago. Patient reported associated symptoms of fatigue, generalized weakness, decreased appetite with poor p.o. intake, SOB, and constipation. Workup at [facility] included CT of abdomen and pelvis that was negative for acute abdomen. Psychiatric Plan CV Q 15 minute checks Continue outpatient medication regimen Gave now dose of Zofran which continues to remain as p.r.n. Defer abdominal pain issues to hospitalist EPIFANIO exam; will monitor and If patient's symptoms persist, please consult GI, patient is followed by Dr. Wills Hospitalist PA: Epigastric pain Abdominal exam relatively benign, abd nontender, CT of abd/pelvis at [facility] negative for acute abdomen Associated with nausea/vomiting/gassiness/bloating Appears likely related to GERD Patient apparently has not been taking her PPI or metoclopramide for the past few days Will increase her PPI to omeprazole 20 mg p.o. b.i.d. Continue metoclopramide Ondansetron and for nausea If patient's symptoms persist, please consult GI, patient is followed by Dr. Wills Recurrent gastritis Patient with a hx of gastritis attacks with severe abdominal pain on and off for the past 3-4 years States attacks occur 10-12 times each year Patient has had extensive workup by GI in the past Patient does not appear to be undergoing an acute exacerbation at this time: CT of abdomen and pelvis negative for acute abdomen Continue omeprazole, ondansetron [id number] diabetes type 2 Diet-controlled Continue metformin Diabetic diet HTN Continue lisinopril Thank you for allowing us to participate in the care of this patient. Signing off at this time. If pt's GI symptoms persist or worsen, please consult GI. Please let us know if there are any other acute complaints or questions. Patient educated on: diagnosis and medication risk/benefits Informed Consent: understands and further education needed Reason for continued inpatient stay Substantial Risk for: rapid decompensation Time Spent With Patient Time: Total time managing care of this patient today ____ minutes.
[2022-12-03] MEDS: Ondansetron ODT 4 MG TAB.RAPDIS TRANSLINGU ×2 (14:31→20:04)
[2022-12-03 20:05] VITALS: BP 167/91; PULSE 94; RESP 18; TEMP 36.5; O2SAT 100
[2022-12-03] MEDS: HaloperidoL 0.5 MG TABLET PO (20:40)
[2022-12-03] MEDS: QUEtiapine Fumarate 400 MG TABLET PO (20:40)
[2022-12-03] MEDS: Acetaminophen 325 MG TABLET 650 MG PO (20:40)
[2022-12-03] MEDS: hydrOXYzine HCL 25 MG TABLET PO (20:40)
[2022-12-04] MEDS: Omeprazole 20 MG CAPSULE.DR PO (06:29)
[2022-12-04 07:00] VITALS: BMI 20.8
[2022-12-04] MEDS: Ondansetron ODT 4 MG TAB.RAPDIS TRANSLINGU (08:01)
[2022-12-04] MEDS: Acetaminophen 325 MG TABLET 650 MG PO (08:14)
[2022-12-04] MEDS: clonazePAM 0.5 MG TABLET PO ×3 (08:15→21:30)
[2022-12-04] MEDS: Cholecalciferol (Vitamin D3) 25 MCG TABLET PO (08:15)
[2022-12-04] MEDS: Multivitamin TABLET 1 TAB PO (08:15)
[2022-12-04 08:20] VITALS: BP 118/73; PULSE 120; RESP 18; TEMP 38; O2SAT 96
[2022-12-04 10:52] VITALS: PULSE 86; RESP 16; TEMP 36.9; O2SAT 98
--- NOTE | 2022-12-04 15:04 | HO.PSYCHPN ---
Subjective Subjective Date of Service: 12/04/22 Reason For Visit: Major Depressive Disorder Interim History: calm, cooperative. seen with cartography technician. c/o nausea and vomiting. talking about wanting to go home soon. asking about her antidepressant medication. says she has a lot to do at home, considering discharge tomorrow if she is feeling OK and if aftercare has been scheduled. per staff, calm, cooperative, pleasant. vomited overnight. refusing metformin. COVID/flu NEG. Mental Status Exam Mental Status Exam Narrative: Appearance: casually groomed, fair hygiene, in NAD Behavior: cooperative Speech: clear, normal rate/rhythm/volume, spontaneous TP: linear TC: focused on abdominal discomfort Mood: not assessed Affect: congruent, downcast SI: none expressed VH/AH: none expressed Delusions: none expressed Insight/judgment: impaired x 2. Memory/cog: alert, oriented x 3. seems to have difficulty recalling information, may benefit from MOCA. Diagnostics Vital Signs (24Hr): Vital Signs - 24 hr 12/03/22 20:05 12/04/22 08:20 12/04/22 10:52 Temperature 97.7 F 100.4 F 98.4 F Pulse Rate 94 120 H 86 Respiratory Rate 18 18 16 Blood Pressure 167/91 H 118/73 Pulse Oximetry 100 96 98 Oxygen Delivery Method Room Air Room Air Room Air BMI result Body Mass Index 20.8 Labs 12/03/22 08:18 Labs: Laboratory Results - last 48 hr 12/03/22 12/03/22 12/04/22 08:12 08:18 08:03 Creatinine 0.77 Estim Creat Clear Calc 75.4 Estimated GFR > 60 POC Glucose 111 113 COVID-19 (DUNG) COVID-19 Clin Com Influenza Type A (MARTÍNEZ) Influenza Type B (MARTÍNEZ) Influenza A & B Note 12/04/22 08:35 Creatinine Estim Creat Clear Calc Estimated GFR POC Glucose COVID-19 (DUNG) Negative COVID-19 Clin Com See Note Influenza Type A (MARTÍNEZ) Negative Influenza Type B (MARTÍNEZ) Negative Influenza A & B Note See Note Medications Medications Current Medications Acetaminophen (Acetaminophen 325 Mg Tablet) 650 mg PO Q6H PRN PRN Reason: Pain, Mild (Pain Scale 1-3) Last Admin: 12/04/22 08:14 Dose: 650 mg Al Hydroxide/Mg Hydroxide (Magnesium Hydrox/Alum Hydrox 30 Ml Oral.Susp) 30 ml PO Q6H PRN PRN Reason: Heartburn/Nausea Last Admin: 12/03/22 08:39 Dose: 30 ml Albuterol Sulfate (Albuterol Sulfate 90 Mcg 8 Gm Inhaler) 2 puff INHALE RQ4H PRN PRN Reason: shortness of breath or wheeze Bupropion HCl (Bupropion Hcl Xl 150 Mg Tab.Er.24h) 150 mg PO DAILY [facility] Clonazepam (Clonazepam 0.5 Mg Tablet) 0.5 mg PO TID [facility] Last Admin: 12/04/22 08:15 Dose: 0.5 mg Docusate Sodium (Docusate Sodium 100 Mg Capsule) 100 mg PO BID [facility] Last Admin: 12/04/22 08:14 Dose: 100 mg Haloperidol (Haloperidol 0.5 Mg Tablet) 0.5 mg PO BEDTIME [facility] Last Admin: 12/03/22 20:40 Dose: 0.5 mg Hydroxyzine HCl (Hydroxyzine Hcl 25 Mg Tablet) 25 mg PO Q6H PRN PRN Reason: Anxiety Last Admin: 12/03/22 20:40 Dose: 25 mg Lidocaine (Lidocaine 4 % Patch Adh..Patch) 1 patch TRANSDERMA DAILY PRN; Protocol PRN Reason: Pain, Moderate(Pain Scale 4-6) Last Admin: 12/02/22 16:54 Dose: 1 patch Lisinopril (Lisinopril 5 Mg Tablet) 5 mg PO DAILY [facility]; Protocol Last Admin: 12/04/22 08:15 Dose: 5 mg Loratadine (Loratadine 10 Mg Tablet) 10 mg PO DAILY [facility] Last Admin: 12/04/22 08:15 Dose: 10 mg Magnesium Hydroxide (Milk Of Magnesia 30 Ml Oral.Susp) 30 ml PO DAILY PRN PRN Reason: Constipation Metformin HCl (Metformin Hcl 500 Mg Tablet) 500 mg PO BID [facility] Last Admin: 12/04/22 08:15 Dose: 500 mg Metoclopramide HCl (Metoclopramide Hcl 10 Mg Tablet) 10 mg PO Q4H PRN PRN Reason: nausea Last Admin: 12/02/22 16:22 Dose: 10 mg Multivitamins/Vitamin C (Multivitamin Tablet) 1 tab PO DAILY [facility] Last Admin: 12/04/22 08:15 Dose: 1 tab Nicotine Polacrilex (Nicotine Polacrilex 2 Mg Gum) 4 mg BUCCAL Q2H PRN PRN Reason: Nicotine Cravings Non-Formulary Medication (Dulaglutide [Trulicity]) 1.5 mg SUBCUT QWEEK [facility] Olanzapine (Olanzapine 5 Mg Tablet) 5 mg PO TID PRN PRN Reason: agitation Omeprazole (Omeprazole 20 Mg Capsule.Dr) 20 mg PO BID@0630,1630 [facility] Last Admin: 12/04/22 06:29 Dose: 20 mg Ondansetron HCl (Ondansetron Odt 4 Mg Tab.Rapdis) 4 mg TRANSLINGU Q6H PRN PRN Reason: Nausea And Vomiting Last Admin: 12/04/22 08:01 Dose: 4 mg Quetiapine Fumarate (Quetiapine Fumarate 400 Mg Tablet) 400 mg PO BEDTIME [facility] Last Admin: 12/03/22 20:40 Dose: 400 mg Trazodone HCl (Trazodone Hcl 50 Mg Tablet) 50 mg PO BEDTIME MRX1 PRN PRN Reason: Insomnia Vitamin D (Cholecalciferol (Vitamin D3) 25 Mcg Tablet) 25 mcg PO DAILY [facility] Last Admin: 12/04/22 08:15 Dose: 25 mcg Allergies Allergies Allergy/AdvReac Type Severity Reaction Status Date / Time aspirin [ASA] Allergy Intermediate RASH Verified 10/13/22 10:15 Penicillins [PENICILLINS] Allergy Intermediate RASH Verified 10/13/22 10:15 Assessment & Plan Assessment & Plan (1) Medical clearance for psychiatric admission: Status: Acute Code(s): Z00.8 - Encounter for other general examination (2) Schizophrenia: Status: Acute Code(s): F20.9 - Schizophrenia, unspecified Assessment and Plan: continue outpt regimen and observe for stability. Plan Pt is a Swiss speaking 57-year-old female with a PMH significant for?recurrent gastritis, HTN, [id number] diabetes type 2, GERD, and anxiety and depression who is admitted to psychiatry unit for increasing depression and SI with plan to stab herself. Patient initially presented to [facility] ED complaining of abdominal pain that began 3-4 days ago. Patient reported associated symptoms of fatigue, generalized weakness, decreased appetite with poor p.o. intake, SOB, and constipation. Workup at [facility] included CT of abdomen and pelvis that was negative for acute abdomen. Psychiatric Plan CV Q 15 minute checks Continue outpatient medication regimen Gave now dose of Zofran which continues to remain as p.r.n. Defer abdominal pain issues to hospitalist PA exam; will monitor and If patient's symptoms persist, please consult GI, patient is followed by Dr. Wills Hospitalist PA: Epigastric pain Abdominal exam relatively benign, abd nontender, CT of abd/pelvis at [facility] negative for acute abdomen Associated with nausea/vomiting/gassiness/bloating Appears likely related to GERD Patient apparently has not been taking her PPI or metoclopramide for the past few days Will increase her PPI to omeprazole 20 mg p.o. b.i.d. Continue metoclopramide Ondansetron and for nausea If patient's symptoms persist, please consult GI, patient is followed by Dr. Wills Recurrent gastritis Patient with a hx of gastritis attacks with severe abdominal pain on and off for the past 3-4 years States attacks occur 10-12 times each year Patient has had extensive workup by GI in the past Patient does not appear to be undergoing an acute exacerbation at this time: CT of abdomen and pelvis negative for acute abdomen Continue omeprazole, ondansetron Eza-xyapshw-auvjqwxhd diabetes type 2 Diet-controlled Continue metformin Diabetic diet HTN Continue lisinopril Thank you for allowing us to participate in the care of this patient. Signing off at this time. If pt's GI symptoms persist or worsen, please consult GI. Please let us know if there are any other acute complaints or questions. Reason for continued inpatient stay Substantial Risk for: inability to function and rapid decompensation Time Spent With Patient Time: Total time managing care of this patient today _25___ minutes.
[2022-12-04 20:15] VITALS: BP 154/104; PULSE 103; TEMP 37.6; O2SAT 94
[2022-12-04] MEDS: Metoclopramide HCl 10 MG TABLET PO (20:26)
[2022-12-04] MEDS: HaloperidoL 0.5 MG TABLET PO (21:30)
[2022-12-05 06:00] VITALS: BP 110/60; PULSE 90; RESP 18; TEMP 37.5; O2SAT 96
[2022-12-05] MEDS: Acetaminophen 325 MG TABLET 650 MG PO (09:20)
[2022-12-05] MEDS: Cholecalciferol (Vitamin D3) 25 MCG TABLET PO (09:20)
[2022-12-05] MEDS: Multivitamin TABLET 1 TAB PO (09:20)
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
== END 2022-12-05 11:55 | disposition home or self-care (01) | DRG 885 ==
PROVIDERS: Psychiatry & Neurology Psychiatry; Admitting Provider Psychiatry & Neurology Psychiatry; Visit Provider Psychiatry & Neurology Psychiatry
DX: F20.9 Schizophrenia, unspecified (principal); R45.851 Suicidal ideations; K29.70 Gastritis, unspecified, without bleeding; E11.9 Type 2 diabetes mellitus without complications; Z20.822 Contact with and (suspected) exposure to COVID-19; Z91.52 Personal history of nonsuicidal self-harm; Z91.51 Personal history of suicidal behavior; Z23 Encounter for immunization; Z79.84 Long term (current) use of oral hypoglycemic drugs; Z79.899 Other long term (current) drug therapy
CPT/HCPCS: 36415; 80048; 80061; 82565; 82947; 83036; 87502; 87635; 90686

== ENCOUNTER → 2022-12-01 22:44 | Outpatient (BNV) | payer OTHER, SELFPAY | PROVIDERS: Admitting Provider Psychiatry & Neurology Psychiatry; Visit Provider Psychiatry & Neurology Psychiatry | DX: F20.89 Other schizophrenia (principal) | CPT/HCPCS: 90792; 99231; 99232; 99239 ==

== ENCOUNTER → 2022-12-01 22:44 | Outpatient (BNV) | payer OTHER, SELFPAY | PROVIDERS: Admitting Provider Psychiatry & Neurology Psychiatry; Visit Provider Student in an Organized Health Care Education/Training Program | DX: R10.13 Epigastric pain (principal); E11.9 Type 2 diabetes mellitus without complications; I10 Essential (primary) hypertension | CPT/HCPCS: 99222 ==

== ENCOUNTER 2023-01-05 09:39 | Outpatient (REF) | payer OTHER, SELFPAY ==
[2023-01-05 10:53] LABS: Eosinophils Absolute Auto 0.1 X10*3/uL (0.0-0.4); Eosinophils Percent Auto 2.4 % (0-4); Hematocrit 35.7 % (37.0-47.0); Hemoglobin 11.4 g/dl (12.0-16.0); Imm Gran Abs Auto 0.01 X10*3/uL (0.00-0.03); Imm Gran Pct Auto 0.3 % (0.0-0.4); Lymphocytes Absolute Auto 1.7 X10*3/uL (1.2-4.9); Lymphocytes Percent Auto 60.8 % (20-40); MANUAL DIFF FLAG SCAN; Mean Corpuscular HGB Conc 31.9 g/dl (31.0-35.0); Mean Corpuscular Hemoglobin 31.1 pg (27.0-33.0); Mean Corpuscular Volume 97.5 fL (80.0-98.0); Mean Platelet Volume 10.2 fL (9.4-12.3); Monocytes Absolute Auto 0.2 X10*3/uL (0.1-1.2); Neutrophils Absolute Auto 0.8 x10*3/uL (2.0-8.3); Neutrophils Percent Auto 28.5 % (45-73); Platelet Count 294 X10*3/uL (160-400); Red Blood Count 3.66 X10*6/uL (4.20-5.50); Red Cell Distribution Width 13.7 % (11.0-16.0); SCAN SMEAR FLAG 1; White Blood Count 2.9 X10*3/uL (4.8-10.8)
[2023-01-05 11:21] LABS: SLIDE REVIEW VERIFIED
[2023-01-05 11:25] LABS: Alanine Aminotransferase 17 U/L (0-31); Alkaline Phosphatase 58 U/L (39-117); Anion Gap 12 (12-20); Aspartate Amino Transferase 20 U/L (5-31); Bilirubin Total 0.3 mg/dL (0.0-1.0); Blood Urea Nitrogen 15 mg/dL (9-16); C Reactive Protein < 0.10 mg/dL (< or = 0.50); Carbon Dioxide 29 mmol/L (22-29); Chloride 104 mmol/L (96-108); Estimated Glomerular Filt Rate > 60; Glucose Random 84 mg/dL (60-115); Potassium 4.7 mmol/L (3.3-5.1); Sodium 140 mmol/L (135-145); Total Protein 6.5 g/dL (6.5-8.0)
[2023-01-05 11:50] LABS: Folate 12.2 ng/mL (> or = 4.0); Vitamin B12 677 pg/mL (200-900)
[2023-01-05 13:42] LABS: Appearance Urine Clear; Color Urine Yellow; Glucose Urine UA Negative (Negative); Leukocyte Esterase Urine Negative (Negative); Nitrite Urine Negative (Negative); PH 6.5 (5.0-9.0); Specific Gravity - Urine 1.025 (1.005-1.025); Urine Blood Negative (Negative); Urine Ketones Negative (Negative); Urine Protein Negative (Neg-Trace)
[2023-01-10 16:54] LABS: Vitamin B1 190 nmol/L (8-30)
== END 2023-01-05 09:40 | disposition home or self-care (01) ==
LOC: HO.LAB 09:39
PROVIDERS: PCP Internal Medicine; Visit Provider Internal Medicine Gastroenterology
DX: R10.10 Upper abdominal pain, unspecified (principal); K52.9 Noninfective gastroenteritis and colitis, unspecified; K75.81 Nonalcoholic steatohepatitis (NASH); R30.0 Dysuria
CPT/HCPCS: 36415; 80053; 81003; 82607; 82746; 84425; 85025; 86140; 99212

== ENCOUNTER 2023-01-05 09:39 | Outpatient (AMB) | payer OTHER, SELFPAY ==
--- NOTE | 2023-01-05 09:43 | MHC.OFFVIS ---
Intake Vital Signs 01/05/23 09:45 Height 5 ft 3 in Weight 127 lb 13.89 oz BMI 22.6 BP 97/56 L Blood Pressure Location Lt brachial Position Sitting Pulse 90 Intake Visit Reasons: 3 month follow up Intake Note: Lindy presents in the office as a 3 month follow up. CC: She states that a nurse does her meds so she is not sure what she takes. She states that she has lots of gas in her stomach with pains. She states her bowels have been okay. Operations Staff Specialist Security Required: Yes Operations Staff Specialist Security Name: [id number] Jed Allergies aspirin [ASA] Allergy (Intermediate, Verified 01/05/23 09:45) RASH Penicillins [PENICILLINS] Allergy (Intermediate, Verified 01/05/23 09:45) RASH HPI 3 month follow up HPI Details 57 yr old f here for f/u RECAP She presented to the ED with epigastric and RUQ pain 08/03/2019 ? Ct imaging with inflammed loops of jejunum, circumferential thickening and mild ascites ? she was d/c'ed home on PPI ? LABS: ? nml CBC, BMP, LFT ? ? ? Push enteroscopy and colonoscopy-10/2019-nml, adenoma removed She had further assessment in Ed for abdo pain 12/2019--again labs nml and CT imaging with enteritis, thick walled small bowel loops capsule endo 2020---erosive gastritis, duodenitis, melanosis coli she gets the attacks 10-12 times a year thinks attacks on and off for 3-4 yrs no swollen tongue or lips I ordered tests for c1 estersae--normal I ordered an US due to post prandial pain, and revealed dilated CBD 12 mm, no stones seen , GB absent --fatty liver Labs with anemia, low nml ferritin, ?INTERIM: I ordered CTe and labs for her but not done these yet symptoms are the same as last time gas, epigastric pain and nausea at times burning urine as well now appetite is good EXAM: GENERAL: The patient is well developed and nontoxic. VITAL SIGNS:see workflow HEENT: Nonicteric sclerae, PERRLA, EOMI. Oropharynx clear. Moist mucous membranes. Conjunctivae appear well perfused. No thyroid mass. CHEST: Chest wall is nontender. HEART: Regular rate and rhythm without murmurs. LUNGS: Clear to auscultation bilaterally. ABDOMEN: Soft, positive bowel sounds, tender upper abdomen and jessica umbilical area, no organomegaly.no flank tenderness SKIN: No rash, no excessive bruising, petechiae, or purpura. NEUROLOGIC: Cranial nerves II-XII intact without motor/sensory deficit. ? Assessments ? 1. Enteritis - episodic attacks, possible crohns maybe worse due to nsaid use 2/ dilated CBD -no stones seen, likely due to post cholecystectomy state ?3/ anemia, maybe related to 1/ above 4/ thiamine def plan: 1/ get labs incl repeat b1 level as ordered last time as well as UA 2/ CT enterogram as ordered last time, if poss then budeosnide trial may need biologics, if neg then MRCP to r/o retained stones 3/ ctrial of simethcione [facility] Medical History Tachycardia Obesity due to excess calories DM2 (diabetes mellitus, type 2) Anxiety Depression Schizophrenia Diabetes type 2, uncontrolled Essential hypertension Hyperlipidemia LDL goal <100 Type 2 diabetes mellitus without complications Bariatric surg stat-del Surgical History H/O: History of cholecystectomy Family History Family/Other Breast cancer Social History Household Members: None Housing: Apartment Do you presently have visiting nurse or other home services: Yes Alcohol intake: current Alcohol intake frequency: does not drink Patient Tobacco Use Status: Former Tobacco user e-Cigarette/Vaping Use: Never Used Second Hand Smoke Exposure: No Substance Use Type: Marijuana service: No Sexual orientation: Straight/Heterosexual Physical Exam Vital Signs: Last Vital Signs Pulse 90 01/05/23 09:45 BP 97/56 L 01/05/23 09:45 BMI result Body Mass Index 22.6 Assessment & Plan Assessment & Plan (1) Upper abdominal pain: Code(s): R10.10 - Upper abdominal pain, unspecified Orders: Orders UA CC w/rflx Micro + Cult Today R30.0 - Dysuria Medications: New simethicone (Gas Relief (simethicone)) 125 mg PO TID PRN 90 tabs 2RF abdominal distention Coding Level of Care Code Est Pt Level 3 (17636) Diagnoses Upper abdominal pain R10.10
[2023-01-05 09:45] VITALS: BP 97/56; PULSE 90; BMI 22.6
== END 2023-01-05 10:02 | disposition home or self-care (01) ==
PROVIDERS: PCP Internal Medicine; Visit Provider Internal Medicine Gastroenterology
DX: R10.10 Upper abdominal pain, unspecified (principal)
CPT/HCPCS: 99213

== ENCOUNTER 2023-01-29 11:28 | Outpatient (REF) | payer OTHER, SELFPAY ==
[2023-01-29 15:06] LABS: Creatinine Urine 130.46 mg/dL; Microalbum/Creatinine Ratio Ur 4.5 ug/mg cr (<30)
== END 2023-01-29 11:29 | disposition home or self-care (01) ==
LOC: HO.CHCLNP 11:28
PROVIDERS: Visit Provider Internal Medicine
DX: E11.9 Type 2 diabetes mellitus without complications (principal)
CPT/HCPCS: 82043; 82570

== ENCOUNTER 2023-02-18 13:59 | Outpatient (REF) | payer OTHER, SELFPAY ==
[2023-02-18] MEDS: Sorbitol/Mannit/Xanth Imaging 500 ML LIQUID 1500 ML PO (15:17)
[2023-02-18] MEDS: iohexoL 350 MG/ML 100 ML INFUS..BTL IV (15:18)
[2023-02-20 06:20] LABS: Creatinine POC 0.9 mg/dL (0.5-1.4); GFR POC 60
== END 2023-02-18 14:00 | disposition home or self-care (01) ==
LOC: HO.CT 13:59
PROVIDERS: PCP Internal Medicine; Visit Provider Internal Medicine Gastroenterology
DX: R10.33 Periumbilical pain (principal); R10.10 Upper abdominal pain, unspecified; K52.9 Noninfective gastroenteritis and colitis, unspecified
CPT/HCPCS: 74177; 82565; Q9967

== ENCOUNTER 2023-06-29 12:21 | Outpatient (AMB) | payer OTHER, SELFPAY ==
--- NOTE | 2023-06-29 12:30 | MHC.OFFVIS ---
Vital Signs 06/29/23 12:34 Height 5 ft 3 in Weight 138 lb 14.259 oz BMI 24.6 BP 109/69 Blood Pressure Location Lt brachial Position Sitting Pulse 100 Intake Visit Reasons: 4 MONTH FOLLOW UP Intake Note: Lindy presents in the office as a 4 month follow up CC: She states that she is having lots of gas. Pains in the stomach due to the gas, no irregular bowel movements. Merchandise Flow Manager Required: Yes Merchandise Flow Manager Name: [id number] Jessica Allergies aspirin [ASA] Allergy (Intermediate, Verified 06/29/23 12:31) RASH Penicillins [PENICILLINS] Allergy (Intermediate, Verified 06/29/23 12:31) RASH HPI HPI 4 MONTH FOLLOW UP: Details: 57 yr old f here for f/u RECAP She presented to the ED with epigastric and RUQ pain 08/03/2019 Ct imaging with inflammed loops of jejunum, circumferential thickening and mild ascites she was d/c'ed home on PPI LABS: nml CBC, BMP, LFT Push enteroscopy and colonoscopy-10/2019-nml, adenoma removed She had further assessment in Ed for abdo pain 12/2019--again labs nml and CT imaging with enteritis, thick walled small bowel loops capsule endo 2020---erosive gastritis, duodenitis, melanosis coli she gets the attacks 10-12 times a year thinks attacks on and off for 3-4 yrs no swollen tongue or lips I ordered tests for c1 estersae--normal I ordered an US due to post prandial pain, and revealed dilated CBD 12 mm, no stones seen , GB absent --fatty liver Labs with anemia, low nml ferritin, CTe: 02/21-- no acute findings, no evidence of IBD INTERIM: gas, epigastric pain and nausea feels like something twisting, stabbing notes distention sometimes food can make sx worse, rice and beans and salad appetite is variable EXAM: GENERAL: The patient is well developed and nontoxic. VITAL SIGNS:see workflow HEENT: Nonicteric sclerae, PERRLA, EOMI. Oropharynx clear. Moist mucous membranes. Conjunctivae appear well perfused. No thyroid mass. CHEST: Chest wall is nontender. HEART: Regular rate and rhythm without murmurs. LUNGS: Clear to auscultation bilaterally. ABDOMEN: Soft, positive bowel sounds, tender upper abdomen and jessica umbilical area, no organomegaly.no flank tenderness SKIN: No rash, no excessive bruising, petechiae, or purpura. NEUROLOGIC: Cranial nerves II-XII intact without motor/sensory deficit. Assessments 1. EPigastric pain and nausea, dilated CBD on imaging, neg CTe, ddx: retained stone in CBD< mesenteric insuff, fn dyspepsia plan: 1/ MRCP for further analysis, might need HIDA 2/ if neg then maybe mesenteric doppler vs capsule 3/ bentyl trial PFSH Medical History Medical clearance for psychiatric admission Tachycardia Obesity due to excess calories DM2 (diabetes mellitus, type 2) Anxiety Depression Schizophrenia Diabetes type 2, uncontrolled Essential hypertension Hyperlipidemia LDL goal <100 Type 2 diabetes mellitus without complications Bariatric surg stat-del Surgical History H/O: History of cholecystectomy Family History Family/Other Breast cancer Social History Household Members: None Housing: Apartment Do you presently have visiting nurse or other home services: Yes Alcohol intake: current Alcohol intake frequency: does not drink Patient Tobacco Use Status: Former Tobacco user e-Cigarette/Vaping Use: Never Used Second Hand Smoke Exposure: No Substance Use Type: Marijuana service: No Sexual orientation: Straight/Heterosexual Physical Exam Vital Signs: Last Vital Signs Pulse 100 06/29/23 12:34 BP 109/69 06/29/23 12:34 BMI result Body Mass Index 24.6 Assessment & Plan Assessment & Plan (1) Upper abdominal pain: Code(s): R10.10 - Upper abdominal pain, unspecified Category: Medical Plan: see above Orders: Orders MR MRCP Today R10.10 - Upper abdominal pain, unspecified Medications: New hyoscyamine sulfate (Levsin/SL) 0.125 mg sublingual BID-QID PRN 30 tabs 0RF dyspepsia Coding Level of Care Code Est Pt Level 3 (05149) Diagnoses Upper abdominal pain R10.10
[2023-06-29 12:34] VITALS: BP 109/69; PULSE 100; BMI 24.6
== END 2023-06-29 13:16 | disposition home or self-care (01) ==
PROVIDERS: PCP Internal Medicine; Visit Provider Internal Medicine Gastroenterology
DX: R10.10 Upper abdominal pain, unspecified (principal)
CPT/HCPCS: 99213

== ENCOUNTER → 2023-06-29 12:21 | Outpatient (BNVA) | payer OTHER, SELFPAY | PROVIDERS: PCP Internal Medicine; Visit Provider Internal Medicine Gastroenterology | DX: R10.10 Upper abdominal pain, unspecified (principal) | CPT/HCPCS: 99212 ==

== ENCOUNTER 2023-09-28 07:49 | Outpatient (REF) | payer OTHER, SELFPAY ==
--- NOTE | ~2023-09-28 | MR_ITS ---
EXAMINATION: MR ABDOMEN WITHOUT CONTRAST CLINICAL INFORMATION: Upper abdominal pain, dilated CBD COMPARISON: CT enterography 02/18/2023, and 12/19/2019 TECHNIQUE: MRI of the abdomen without contrast was obtained using routine sequences. Heavily T2 weighted MRCP sequences were also obtained. FINDINGS: LUNG BASES: The visualized lung bases are unremarkable. KIDNEYS AND URETERS: Bosniak 1 cysts, no follow-up imaging recommended. GALLBLADDER: Status post cholecystectomy. LIVER AND BILIARY TREE: The liver is normal in signal and morphology. Common bile duct measures 1 cm which is within upper limits of normal for the postcholecystectomy state. There is mild intrahepatic biliary duct dilatation possibly related to the postcholecystectomy state, unchanged from 2019. No intraluminal filling defect to suggest choledocholithiasis. PANCREAS: Unremarkable SPLEEN: Unremarkable ADRENAL GLANDS: Unremarkable GASTROINTESTINAL TRACT: Unremarkable. LYMPH NODES: No lymphadenopathy. VASCULAR: Unremarkable ABDOMINAL WALL: Unremarkable. OSSEOUS STRUCTURES: Unremarkable. MR/MR MRCP IMPRESSION: Common bile duct measures 1 cm which is within upper limits of normal for the postcholecystectomy state. There is mild intrahepatic biliary duct dilatation possibly related to the postcholecystectomy state, unchanged from 2020. No intraluminal filling defect to suggest choledocholithiasis. Electronically signed by: Domitila Blevins MD 10/22/2023 11:26 AM EDT
== END 2023-09-28 07:50 | disposition home or self-care (01) ==
LOC: HO.MRI 07:49
PROVIDERS: PCP Internal Medicine; Visit Provider Internal Medicine Gastroenterology
DX: R10.10 Upper abdominal pain, unspecified (principal)
CPT/HCPCS: 74181

== ENCOUNTER 2024-07-28 13:38 | Outpatient (REF) | payer OTHER, SELFPAY ==
--- OUTSIDE RECORDS SUMMARY | 2024-07-28 13:44 | XMS_ITS | Encounter Summary ---
Author Organization [employer] Address [address] [address] [place] [address] Care Team Providers Care Manager Net Name Role Phone Bere Dolan MD Primary Care Provider [phone] Reason for Visit * Reason Comments Med Change Request Encounter Details Date Type Department Care Team (Late st Contact Info) Description 11/14/2022 Refill [facility] [address], [place] [phone] Bere Dolan MD [address], [place] [phone] Social History Tobacco Use Types Packs/Day Years Used Date Smoking Tobacco: Never Passive Smoke Exposure: Never Smokeless Tobacco: Never Alcohol Use Standard Drinks/Week Comments Never 0 (1 standard drink = 0.6 oz pur e alcohol) PHQ-2 Answer Date Recorded Patient Health Questionnaire-2 Score 6 10/23/2022 Depression Answer Date Recorded Patient Health Questionnaire-9 Score 18 10/23/2022 Comments Unknown Sex and Gender Information Value Date Recorded Sex Assigned at Female 12/30/2021 10:17 AM EDT Legal Sex Female 10:17 AM EDT Gender Identity Female 12/30/2021 10:17 AM EDT Sexual Orientation Straight 12/30/2021 10 :17 AM EDT documented as of this encounter Plan of Treatment Upcoming Encounters Date Type Department Care Team (Late st Contact Info) Description 09/15/2024 11:00 AM EDT Office Visit [facility] [address], [place] [phone] Maddie Abbasi, RODDY [address] [place], [place] [phone] 01/20/2025 10:00 AM EST Office Visit [facility] [address] [place] [address] Jimena Nielson documented as of this encounter Visit Diagnoses Not on filedocumented in this encounter Additional Health Concerns Assessment Noted Time PHQ-9 Depression Total Score: 18 10/23/ 023 1:28 PM EDT documented as of this encounter Care Teams Manager Net Relationship Specialty Start Date End Date Bere Dolan MD [address] [place] [address] PCP - General Internal Medicine 04/01/13 [facility] 10/30/14 documented as of this encounter
[2024-07-28 14:18] LABS: MANUAL DIFF FLAG NO
[2024-07-28 14:24] LABS: Basophils Absolute Auto 0.1 X10*3/uL (0.0-0.2); Basophils Percent Auto 0.9 % (0-2); Eosinophils Absolute Auto 0.3 X10*3/uL (0.0-0.4); Eosinophils Percent Auto 4.4 % (0-4); Hematocrit 38.9 % (37.0-47.0); Hemoglobin 12.7 g/dl (12.0-16.0); Imm Gran Abs Auto 0.01 X10*3/uL (0.00-0.03); Imm Gran Pct Auto 0.2 % (0.0-0.4); Lymphocytes Absolute Auto 2.5 X10*3/uL (1.2-4.9); Lymphocytes Percent Auto 43.4 % (20-40); Mean Corpuscular HGB Conc 32.6 g/dl (31.0-35.0); Mean Corpuscular Hemoglobin 31.2 pg (27.0-33.0); Mean Corpuscular Volume 95.6 fL (80.0-98.0); Mean Platelet Volume 10.2 fL (9.4-12.3); Monocytes Absolute Auto 0.4 X10*3/uL (0.1-1.2); Monocytes Percent Auto 6.1 % (2-11); Neutrophils Absolute Auto 2.6 x10*3/uL (2.0-8.3); Platelet Count 311 X10*3/uL (160-400); Red Blood Count 4.07 X10*6/uL (4.20-5.50); Red Cell Distribution Width 14.7 % (11.0-16.0); White Blood Count 5.7 X10*3/uL (4.8-10.8)
[2024-07-28 14:55] LABS: Creatinine Urine 163.23 mg/dL; Microalbum/Creatinine Ratio Ur 4.2 ug/mg cr (<30)
[2024-07-28 15:01] LABS: Alanine Aminotransferase 12 U/L (0-31); Albumin Level 4.3 g/dL (3.5-5.0); Alkaline Phosphatase 74 U/L (39-117); Anion Gap 10 (12-20); Aspartate Amino Transferase 20 U/L (5-31); Bilirubin Total 0.1 mg/dL (0.0-1.0); Blood Urea Nitrogen 10 mg/dL (9-16); Calcium 8.9 mg/dL (8.4-10.2); Carbon Dioxide 28 mmol/L (22-29); Chloride 107 mmol/L (96-108); Cholesterol 212 mg/dL (<200); Estimated Glomerular Filt Rate > 60; Glucose Random 74 mg/dL (60-115); HDL Cholesterol 52 mg/dL (>40); LDL Cholesterol Calculated 130 mg/dL (<100); Potassium 4.2 mmol/L (3.3-5.1); Sodium 141 mmol/L (135-145); Total Protein 6.9 g/dL (6.5-8.0); Triglycerides 150 mg/dL (<150)
[2024-07-28 15:15] LABS: TSH reflex Free T4 1.13 uIU/mL (0.32-4.0)
[2024-07-29 08:16] LABS: ~HepC Num1 0.08 S/CO (0.00-0.79); ~Hepatitis C Antibody Nonreactive (Nonreactive)
== END 2024-07-28 13:39 | disposition home or self-care (01) ==
LOC: HO.CHCLDS 13:38
PROVIDERS: Visit Provider Internal Medicine
DX: E11.9 Type 2 diabetes mellitus without complications (principal); E78.00 Pure hypercholesterolemia, unspecified
CPT/HCPCS: 36415; 80053; 80061; 82043; 82570; 84443; 85025; 86803

== ENCOUNTER 2024-11-03 14:27 | Inpatient (IN) | payer OTHER, SELFPAY ==
--- OUTSIDE RECORDS SUMMARY | 2024-11-02 17:00 | XMS_ITS | Encounter Summary ---
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 daily with meals, First dose on Thu11/03/24 at 0800 Given 11/03/2024 8:22 AM EDT 500 mg pantoprazole (PROTONIX) EC tablet 40 mg 40 mg, oral, Every morning before breakfast, First dose on Thu11/03/24 at 0700, Do not crush, chew, or split. Given 11/03/2024 6:35 AM EDT 40 mg QUEtiapine (SEROquel) tablet 200 mg 200 mg, oral, 2 times daily, First dose on Thu11/02/24 at 2148 Given 11/03/2024 8:21 AM EDT 200 mg Given 11/02/2024 9:53 PM EDT 200 mg venlafaxine XR (EFFEXOR-XR) 24 hr capsule 37.5 mg 37.5 mg, oral, Daily with breakfast, First dose on Danelle 11/03/24 at 0800, Do not crush or chew. Given 11/03/2024 8:44 AM EDT 37.5 mg documented in this encounter Historical Medications * This list may reflect changes made after this encounter. Gas Relief Extra Strength 125 mg chewable tablet Chew 1 tablet (125 mg total) 3 (three) times a day if needed. dicyclomine (BENTYL) 10 mg capsule take 1 tablet orally 3 times a day losartan (COZAAR) 25 mg tablet take 1 tablet (25 mg) by mouth once per day. diclofenac (VOLTAREN) 1 % topical gel APPLY TO AFFECTED AREA ON LOWER BACK 4 TIMES A DAY 06/23/2024 thiamine 100 mg tablet take 1/2 tablet by mouth once per day. 10/18/2024 desvenlafaxine succinate (PRISTIQ) 50 mg 24 hr tablet Take 1 tablet (50 mg total) by mouth 1 (one) time each day. Vitamin D3 25 mcg (1,000 unit) capsule Take 1 capsule (1,000 Units total) by mouth 1 (one) time each day. clonazePAM (KlonoPIN) 0.5 mg tablet Take 1 tablet (0.5 mg total) by mouth. atorvastatin (LIPITOR) 40 mg tablet take 1 tablet (40 mg) by mouth once per day. loratadine (CLARITIN) 10 mg tablet Take 1 tablet (10 mg total) by mouth 1 (one) time each day. 10/17/2024 metFORMIN (GLUCOPHAGE) 500 mg tablet TAKE 1 TABLET (500 MG) BY MOUTH WITH BREAKFAST AND WITH EVENING MEAL QUEtiapine (SEROquel) 200 mg tablet Take 1 tablet (200 mg total) by mouth 2 (two) times a day. 10/14/2024 omeprazole (PriLOSEC) [address] capsule Take 1 capsule (20 mg total) by mouth 1 (one) time each day. haloperidoL (HALDOL) 0.5 mg tablet Take 1 tablet (0.5 mg total) by mouth 1 (one) time each day in the evening. dulaglutide (Trulicity) 1.5 mg/0.5 mL pen injector injection INJECT 1 PEN SUBCUTANEOUSLY ONCE WEEKLY IN ABDOMEN, THIGH OR UPPER ARM. ROTATE SITES 09/25/2022 buPROPion XL (WELLBUTRIN XL) 150 mg 24 hr tablet Take 1 tablet (150 mg total) by mouth 1 (one) time each day in the morning. added in this encounter Active and Recently Administered Medications Times are shown in EDT. Scheduled Medication Order 11/01/2024 11/02/2024 11/03/2024 atorvastatin (LIPITOR) tablet 40 mg 40 mg, oral, Nightly, First dose on Thu11/02/24 at 2148 2153 (Given - Provider: Marine Mcbride RN) 2100 (Due) buPROPion XL (WELLBUTRIN XL) 24 hr tablet 150 mg 150 mg, oral, Every morning, First dose on Thu11/03/24 at 0700, Do not crush, chew, or split. 0635 (Given - Provid er: Ally Baez RN) dicyclomine (BENTYL) capsule 10 mg 10 mg, oral, 4 times daily before meals and nightly, First dose on Thu11/02/24 at 2148 2153 (Given - Provider: Marine Mcbride RN) 0822 (Given - Provider: Kayce Gonzalez RN)1207 (Given - Provider: Kayce Gonzalez RN)1630 (Due)2100 (Due) haloperidoL (HALDOL) tablet 0.5 mg 0.5 mg, oral, Every evening, First dose on Thu11/02/24 at 2148 2153 (Given - Provider: Marine Mcbride RN) 1800 (Due) loratadine (CLARITIN) tablet 10 mg 10 mg, oral, Daily, First dose on Thu11/03/24 at 0900 0822 (Given - Provid er: Kayce Gonzalez RN) losartan (COZAAR) tablet 25 mg 25 mg, oral, Daily, First dose on Thu11/03/24 at 0900 0822 (Given - Provid er: Kayce Gonzalez RN) metFORMIN (GLUCOPHAGE) tablet 500 mg 500 mg, oral, 2 times daily with meals, First dose on Thu11/03/24 at 0800 0822 (Given - Provid er: Kayce Gonzalez RN)1700 (Due) pantoprazole (PROTONIX) EC tablet 40 mg 40 mg, oral, Every morning before breakfast, First dose on Thu11/03/24 at 0700, Do not crush, chew, or split. 0635 (Given - Provid er: Ally Baez RN) QUEtiapine (SEROquel) tablet 200 mg 200 mg, oral, 2 times daily, First dose on Thu11/02/24 at 2148 2153 (Given - Provider: Marine Mcbride RN) 0821 (Given - Provider: Kayce Gonzalez RN)2100 (Due) venlafaxine XR (EFFEXOR-XR) 24 hr capsule 37.5 mg 37.5 mg, oral, Daily with breakfast, First dose on Thu11/03/24 at 0800, Do not crush or chew. 0844 (Given - Provid er: Kayce Gonzalez RN) PRN Medication Order 11/01/2024 11/02/2024 11/03/2024 clonazePAM (KlonoPIN) tablet 0.5 mg 0.5 mg, oral, Daily PRN, seizures, Starting on Thu11/02/24 at 2144, Hazardous Medication Intact: - Single pair of ASTM standard D6978 certified gloves - Eye/face protection if vomit or potential to spit up Manipulated: - Double pair of ASTM standard D6978 certified gloves - Eye/face protection if vomit or potential to spit up - Staff at reproductive risk must also wear a hazardous gown - Crushing must be performed in sealed closed pouch - Splitting/cutting should be performed by pharmacy, if possible documented in this encounter Orders Medications Ordered That Romero ht Not Have Been Administered Count Last Ordered Date First Ordered Date clonazePAM (KlonoPIN) tablet 0.5 mg 1 11/02 Diet Count Last Ordered Date First Orde red Date ADULT DIET 1 11/03/2024 Consult Count Last Ordered Date First Orde red Date IP CONSULT TO INTERNET SALES MANAGER 1 11/02/2024 Precaution Count Last Ordered Date First Orde red Date SUICIDE PRECAUTIONS 1 11/02/2024 Privilege Level Count Last Ordered Date First O rdered Date PATIENT VIDEO GAME SCRIPT WRITER 1 11/02/2024 documented in this encounter Care Teams Boiler Welder Relationship Specialty Start Date End Date Bere Dolan MD [address] [place] [address] PCP - General Internal Medicine 05/17/24 documented as of this encounter
[2024-11-03 14:56] VITALS: BP 112/68; PULSE 88; RESP 15; TEMP 36.9; O2SAT 99
[2024-11-03 15:03] VITALS: BMI 25.3
--- OUTSIDE RECORDS SUMMARY | 2024-11-03 15:48 | XMS_ITS | Encounter Summary ---
Author Organization [employer] Address [address] [facility] 7[address] [place] [address] Care Team Providers Care Software Applications Specialist Name Role Phone Bere Dolan MD Primary Care Provider [phone] Reason for Visit * Reason Onset Date Comments FYI 12/10/2022 Encounter Details Date Type Department Care Team ([facility] Contact Info) Description 12/10/2022 Telephone [facility] MED & PEDS [address] [place] [address] Bere Dolan MD [address] [place] [address] FYI Social History Tobacco Use Types Packs/Day Years Used Date Smoking Tobacco: Never Passive Smoke Exposure: Never Smokeless Tobacco: Never Alcohol Use Standard Drinks/Week Comments Never 0 (1 standard drink = 0.6 oz pur e alcohol) PHQ-2 Answer Date Recorded Patient Health Questionnaire-2 Score 6 10/23/2022 Depression Answer Date Recorded Patient Health Questionnaire-9 Score 18 10/23/2022 Housing Stability Answer Date Recorded What is your housing situation today? I have gus boyd 12/09/[address] you li ve. Do you have problems with any of the following? None of the above 12/09/2022 Food Insecurity Answer Date Recorded Within the past 12 months, y ou worried that your food would run out before you got money to buy more: Never True 12/09/2022 Within the past 12 months,th e food you bought just didn't last and you didn't have enough money to get more: Never True 11/2022 Transportation Answer Date Recorded In the past 12 months, has l ack of transportation kept you from medical appts, meetings, work or from getting things needed for daily living? No 12/09/2022 Utilities Answer Date Recorded In the past 12 months, has t he electric, gas, oil or water company threatened to shut off services in your home? No 12/09/2022 Comments Unknown Sex and Gender Information Value Date Recorded Sex Assigned at Female 12/30/2021 10:17 AM EDT Legal Sex Female 10:17 AM EDT Gender Identity Female 12/30/2021 10:17 AM EDT Sexual Orientation Straight 12/30/2021 10 :17 AM EDT documented as of this encounter Miscellaneous Notes * Telephone Encounter - Taylor Tellez - 12/10/2022 10:02 AM EDT Tc from Leah at [facility] calling to inform provider pt was admitted at [facility] but is unsure of dates and diagnosis. Leah will see patient within 48 hours. If any question contact Leah at [phone] documented in this encounter Plan of Treatment Upcoming Encounters Date Type Department Care Team (Late st Contact Info) Description 11/29/2024 1:30 PM EDT Office Visit [facility] MED & PEDS [address] [place] [address] Bere Dolan MD [address] [place] [address] 01/20/2025 10:00 AM EST Office Visit [facility] ADULT DENTAL [address] [place] [address] Jimena Nielson documented as of this encounter Visit Diagnoses Not on filedocumented in this encounter Additional Health Concerns Assessment Noted Time PHQ-9 Depression Total Score: 18 10/23/2 023 1:28 PM EDT documented as of this encounter Care Teams Software Applications Specialist Relationship Specialty Start Date End Date Bere Dolan MD [address] [place] [address] PCP - General Internal Medicine 04/01/13 [facility] 10/30/14 documented as of this encounter
--- OUTSIDE RECORDS SUMMARY | 2024-11-03 15:48 | XMS_ITS | Encounter Summary ---
Author Organization [employer] Address [address] [place] [address] Care Team Providers Care Air Traffic Controller Center Name Role Phone Bere Dolan MD Primary Care Provider [phone] Encounter Details Date Type Department Care Team (Late st Contact Info) Description 12/26/2022 Abstract [facility] MEDICINE [address] [place] [address] Bere Dolan MD [address] [place] [address] Social History Tobacco Use Types Packs/Day Years Used Date Smoking Tobacco: Never Passive Smoke Exposure: Never Smokeless Tobacco: Never Alcohol Use Standard Drinks/Week Comments Never 0 (1 standard drink = 0.6 oz pur e alcohol) Depression Answer Date Recorded Patient Health Questionnaire-9 Score 13 12/15/2022 Patient Health Questionnaire-9 Score 13 12/15/2022 Last PHQ-9: Questionnaire Data Not on file 1 Housing Stability Answer Date Recorded What is your housing situation today? I have gus boyd 12/15/[address] you li ve. Do you have problems with any of the following? None of the above 12/15/2022 Food Insecurity Answer Date Recorded Within the past 12 months, y ou worried that your food would run out before you got money to buy more: Never True 12/15/2022 Within the past 12 months,th e food you bought just didn't last and you didn't have enough money to get more: Never True Transportation Answer Date Recorded In the past 12 months, has l ack of transportation kept you from medical appts, meetings, work or from getting things needed for daily living? No 12/15/2022 Utilities Answer Date Recorded In the past 12 months, has t he electric, gas, oil or water company threatened to shut off services in your home? No 12/15/2022 Depression Answer Date Recorded Patient Health Questionnaire-2 Score 4 12/15/2022 Comments Unknown Sex and Gender Information Value [...] Description 11/29/2024 1:30 PM EDT Office Visit [facility] MED & PEDS [address] [place] [address] Bere Dolan MD [address] [place] [address] 01/20/2025 10:00 AM EST Office Visit [facility] ADULT DENTAL [address] [place] [address] Jimena Nielson documented as of this encounter Visit Diagnoses Not on filedocumented in this encounter Additional Health Concerns Assessment Noted Time PHQ-9 Depression Total Score: 13 023 9:35 AM EDT documented as of this encounter Care Teams Air Traffic Controller Center Relationship Specialty Start Date End Date Bere Dolan MD [address] [place] [address] PCP - General Internal Medicine 04/01/13 [facility] 10/30/14 documented as of this encounter
--- OUTSIDE RECORDS SUMMARY | 2024-11-03 15:48 | XMS_ITS | Encounter Summary ---
Author Organization [employer] Address [address] [facility] [address] [place] [address] Care Team Providers Care Manager Social Responsibility Name Role Phone Bere Dolan MD Primary Care Provider [phone] Reason for Visit * Reason Comments Med Change Request Encounter Details Date Type Department Care Team ([facility] Contact Info) Description 11/14/2022 Refill [facility] MED & PEDS [address] [place] [address] Bere Dolan MD [address] [place] [address] Social History Tobacco Use Types Packs/Day Years [...] Upcoming Encounters Date Type Department Care Team ([facility] Contact Info) Description 11/29/2024 1:30 PM EDT Office Visit [facility] CHC MED & PEDS [address] [place] [address] Bere Dolan MD [address] [place] [address] 01/20/2025 10:00 AM EST Office Visit [facility] CHC ADULT DENTAL [address] [place] [address] Jimena Nielson documented as of this encounter Visit Diagnoses Not on filedocumented in this encounter Additional Health Concerns Assessment Noted Time PHQ-9 Depression Total Score: 18 023 1:28 PM EDT documented as of this encounter Care Teams Manager Social Responsibility Relationship Specialty Start Date End Date Bere Dolan MD [address] [place] [address] PCP - General Internal Medicine 04/01/13 [facility] 10/30/14 documented as of this encounter
--- OUTSIDE RECORDS SUMMARY | 2024-11-03 15:49 | XMS_ITS | Encounter Summary ---
Author Organization [employer] Address [address] [facility] [address] [place] [address] Care Team Providers Care Intensive Care Ambulance Paramedic Name Role Phone Bere Dolan MD Primary Care Provider [phone] Encounter Details Date Type Department Care Team (Late st Contact Info) Description 08/11/2024 Orders Only [facility] [address] [place] [address] ProviderRasheed MD Social History Tobacco Use Types Packs/Day Years Used Date Smoking Tobacco: Never Passive Smoke Exposure: Never Smokeless Tobacco: Never Alcohol Use Standard Drinks/Week Comments Never 0 (1 standard drink = 0.6 oz pur e alcohol) Alcohol Answer Date Recorded Frequency of Alcohol Consumption Not on file 04/09/2023 Average Number of Drinks Not on file 024 Frequency of Binge Drinking Not on file 10/2023 Score 0 04/09/2023 Depression Answer Date Recorded Patient Health Questionnaire-9 Score 18 04/28/2024 Patient Health Questionnaire-9 Score 18 04/28/2024 Last PHQ-9: Questionnaire Data Not on file 0 04/28/2024 Housing Stability Answer Date Recorded What is your housing situation today? I have gus boyd 04/28/[address] you li ve. Do you have problems with any of the following? None of the above 04/28/2024 Food Insecurity Answer Date Recorded Within the past 12 months, y ou worried that your food would run out before you got money to buy more: Sometimes True 2024 Within the past 12 months,th e food you bought just didn't last and you didn't have enough money to get more: Sometimes True 04/28/2024 Transportation Answer Date Recorded In the past 12 months, has l ack of transportation kept you from medical appts, meetings, work or from getting things needed for daily living? No 12/15/2022 Utilities Answer Date Recorded In the past 12 months, has t he electric, gas, oil or water company threatened to shut off services in your home? No 04/28/2024 Depression Answer Date Recorded Patient Health Questionnaire-2 Score 4 04/28/2024 Internet Access Answer Date Recorded Internet Access Q1 Yes 04/28/2024 Internet Access Q2 Not on file 04/28/2024 Comments Unknown Sex and Gender Information Value [...] Description 11/29/2024 1:30 PM EDT Office Visit [facility] MED & PEDS [address] [place] [address] Bere Dolan MD [address] [place] [address] 01/20/2025 10:00 AM EST Office Visit [facility] ADULT DENTAL [address] [place] [address] Jimena Nielson documented as of this encounter Procedures Procedure Name Priority Date/Time Associated Diagnosis Comments XR SHOULDER 2 OR MORE VIEWS LEFT Routine 08/11/2024 2:09 PM EDT documented in this encounter Results * XR SHOULDER 2 OR MORE VIEWS LEFT (08/11/2024 2:09 PM EDT) Anatomical Region Laterality Modality Radiographic Lilia ging us Historical Provider MD [facility] XR PROCEDURES Final R esult documented in this encounter Visit Diagnoses Not on filedocumented in this encounter Additional Health Concerns Assessment Noted Time PHQ-9 Depression Total Score: 18 025 1:50 PM EST documented as of this encounter Care Teams Intensive Care Ambulance Paramedic Relationship Specialty Start Date End Date Bere Dolan MD [address] [place] [address] PCP - General Internal Medicine 04/01/13 [facility] 10/30/14 documented as of this encounter
--- OUTSIDE RECORDS SUMMARY | 2024-11-03 15:49 | XMS_ITS | Clinical Summary ---
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 Trichomonas vaginalis, QL, TMA, PAP Vial NOT DETECTED NOT DETECTED [facility] [place] [facility] Comment: The analytical performance characteristics of this assay have been determined by [facility]. The modifications have not been cleared or approved by the FDA. This assay has been validated pursuant to the CLIA regulations and is used for clinical purposes. For additional information, please refer to http://DotAlign.Watch-Sites/ faq/Trichomonastma (This link is being provided for information/ educational purposes only.) 04/08/2022 04/09/2022 9:4 5 AM EST Narrative [facility] - 04/16/2022 1:14 PM EST FASTING: UNKNOWN us Katerina Lund [facility] LAB CYTOLOGY ORDERABLES F inal Result [facility] [address], [place] [address] [facility] [place] [id number] [facility], [address] [place] [phone] [facility] [place] [facility] 200 [facility], (Nl2) [place] [address] * HIV 1/2 ANTIGEN/ANTIBODY,FOURTH GENERATION W/RFL (12/26/2021 9:21 AM EDT) HIV-1/2 ANTIGEN AND ANTIBODIES, 4TH GENERATION W/ REFLEX NON-REACT AUBRIE NON-REACT AUBRIE CONVERTED LEGACY LABS Comment: HIV-1 antigen and HIV-1/HIV-2 antibodies were not detected. There is no laboratory evidence of HIV infection. PLEASE NOTE: This information has been disclosed to you from records whose confidentiality may be protected by state law. If your state requires such protection, then the state law prohibits you from making any further disclosure of the information without the specific written consent of the person to whom it pertains, or as otherwise permitted by law. A general authorization for the release of medical or other information is NOT sufficient for this purpose. For additional information please refer to http://education.Watch-Sites/faq/YEJ110 (This link is being provided for informational/ educational purposes only.) The performance of this assay has not been clinically validated in patients less than 2 years old. 12/26/2021 9:21 AM EDT us Vane iLu MD LAB BLOOD ORDERABLES Final Resul t CONVERTED LEGACY LABS from Last 3 Months or Most Recently Relevant to Health Maintenance Insurance [facility] ONE CARE < 65 EP[place]IO SALAZAR [id number] DENTAL - [facility] Care Teams Airplane Pilot Supervisor Relationship Specialty Start Date End Date Bere Dolan MD [address] [place] [id number] PCP - General Internal Medicine 04/01/13 [facility] 10/30/14
--- OUTSIDE RECORDS SUMMARY | 2024-11-03 15:49 | XMS_ITS | Encounter Summary ---
Author Organization [employer] Address 75 [facility] 7t [place] [address] Care Team Providers Care Film Examiner Name Role Phone Bere Dolan MD Primary Care Provider [phone] Reason for Visit * Reason Comments Med Refill Encounter Details Date Type Department Care Team ([facility] st Contact Info) Description 08/28/2023 Refill [facility] MED & PEDS [address] [place], [place] [phone] Bere Dolan MD [address] [place] [address] Pruritus of vulva Social History Tobacco Use Types Packs/Day Years [...] Date Recorded Patient Health Questionnaire-9 Score 18 04/09/2023 Patient Health Questionnaire-9 Score 18 04/09/2023 Last PHQ-9: Questionnaire Data Not on file 0 04/09/2023 Housing Stability Answer Date Recorded What is [...] Date Recorded Patient Health Questionnaire-2 Score 4 04/09/2023 Comments Unknown Sex and Gender Information Value Date Recorded Sex Assigned at Female 12/30/2021 10:17 AM EDT Legal Sex Female 10:17 AM EDT Gender Identity Female 12/30/2021 10:17 AM EDT Sexual Orientation Straight 12/30/2021 10 :17 AM EDT documented as of this encounter Miscellaneous Notes * Telephone Encounter - Bere Dolan MD - 08/28/2023 3:45 PM EDT Approving, but needs appt for additional refills. documented in this encounter Plan of Treatment Upcoming Encounters Date Type Department Care Team (Late st Contact Info) Description 11/29/2024 1:30 PM EDT Office Visit [facility] MED & PEDS [address] [place] [address] Bere Dolan MD [address] [place] [address] 01/20/2025 10:00 AM EST Office Visit [facility] ADULT DENTAL [address] [place] [address] Jimena Nielson documented as of this encounter Visit Diagnoses Diagnosis Pruritus of vulva Pruritus of genital organs documented in this encounter Additional Health Concerns Assessment Noted Time PHQ-9 Depression Total Score: 18 024 1:23 PM EST documented as of this encounter Care Teams Film Examiner Relationship Specialty Start Date End Date Bere Dolan MD [address] [place] [address] [place] [address] PCP - General Internal Medicine 04/01/13 [facility] 10/30/14 documented as of this encounter
--- OUTSIDE RECORDS SUMMARY | 2024-11-03 15:49 | XMS_ITS | Encounter Summary ---
Author Organization [employer] Address 75 [facility] 7t [place] [address] Care Team Providers Care Sports Management Professor Name Role Phone Bere Dolan MD Primary Care Provider [phone] Reason for Visit * Reason Onset Date Comments Med Refill 07/26/2024 Encounter Details Date Type Department Care Team ([facility] st Contact Info) Description 07/26/2024 Telephone [facility] MED[facility]INE [address] [place] [address] Bere Dolan MD [address] [place] [address] Med Refill Social History Tobacco Use Types Packs/Day Years [...] encounter Miscellaneous Notes * Telephone Encounter - Pam Turpin LPN - 07/26/2024 1:54 PM EDT Medications not prescribed by PCP. * Telephone Encounter - Donta Bob - 07/26/2024 1:45 PM EDT TC from pt requesting medication refill. Medications needing refill : thiamine (Vitamin B-1) 100 MG tablet eszopiclone (Lunesta) 1 MG tablet To be sent to: [facility]/pharmacy #[id number] documented in this encounter Plan of Treatment Upcoming Encounters Date Type Department Care Team (Late st Contact Info) Description 11/29/2024 1:30 PM EDT Office Visit [facility] MED & PEDS [address] [place] [address] Bere Dloan MD [address] [place] [address] 01/20/2025 10:00 AM EST Office Visit [facility] ADULT DENTAL [address] [place] [address] Jimena Nielson documented as of this encounter Visit Diagnoses Not on filedocumented in this encounter Additional Health Concerns Assessment Noted Time PHQ-9 Depression Total Score: 18 025 1:50 PM EST documented as of this encounter Care Teams Sports Management Professor Relationship Specialty Start Date End Date Bere Dolan MD [address] [place] [address] PCP - General Internal Medicine 04/01/13 [facility] 10/30/14 documented as of this encounter
--- OUTSIDE RECORDS SUMMARY | 2024-11-03 15:49 | XMS_ITS | Encounter Summary ---
Author Organization [employer] Address 75 [facility] 7t [place] [address] Care Team Providers Care Automation Clerk Name Role Phone Bere Dolan MD Primary Care Provider [phone] Encounter Details Date Type Department Care Team (Late Contact Info) Description 04/14/2022 Orders Only [facility] MEDICINE [address] [place], [place] [phone] Bere Dolan MD [address] [place], [place] [phone] Social History Tobacco Use Types Packs/Day Years Used Date Smoking Tobacco: Never Passive Smoke Exposure: Never Smokeless Tobacco: Never Alcohol Use Standard Drinks/Week Comments Never 0 (1 standard drink = 0.6 oz pur e alcohol) PHQ-2 Answer Date Recorded Patient Health Questionnaire-2 Score 2 02/20/2022 Comments Unknown Sex and Gender Information Value Date Recorded Sex Assigned at Female 12/30/2021 10:17 AM EDT Legal Sex Female 10:17 AM EDT Gender Identity Female 12/30/2021 10:17 AM EDT Sexual Orientation Straight 12/30/2021 10 :17 AM EDT COVID-19 Exposure Response Date Recorded In the last 10 days, have yo u been in contact with someone who was confirmed or suspected to have Coronavirus/COVID-19? No / Unsure 04/07/2022 2:34 PM EST documented as of this encounter Plan of Treatment Upcoming Encounters Date Type Department Care Team (Late Contact Info) Description 11/29/2024 1:30 PM EDT Office Visit [facility] MED & PEDS [address] [place], [place] [phone] Bere Dolan MD [address] [place] [address] 01/20/2025 10:00 AM EST Office Visit [facility] ADULT DENTAL [address] [place] [address] Jimena Nielson documented as of this encounter Visit Diagnoses Not on filedocumented in this encounter Additional Health Concerns Assessment Noted Time PHQ-9 Depression Total Score: 9 02/21/20 22 1:59 PM EST documented as of this encounter Care Teams Automation Clerk Relationship Specialty Start Date End Date Bere Dolan MD [address] [place] [address] PCP - General Internal Medicine 04/01/13 [facility] 10/30/14 documented as of this encounter
--- OUTSIDE RECORDS SUMMARY | 2024-11-03 15:49 | XMS_ITS | Encounter Summary ---
Author Organization [employer] Address 75 [facility] 7t [place] [address] Care Team Providers Care Special Agent Secret Service Name Role Phone Bere Dolan MD Primary Care Provider [phone] Reason for Visit * Reason Comments Med Refill Encounter Details Date Type Department Care Team (Late Contact Info) Description 03/31/2022 Refill [facility] MED & PEDS [address] [place] [address] Bere Dolan MD [address] [place] [address] Seasonal allergic rhinitis due to other allergic trigger (Primary Dx) Social History Tobacco Use Types Packs/Day Years Used Date Smoking Tobacco: Never Smokeless Tobacco: Never PHQ-2 Answer Date Recorded Patient Health Questionnaire-2 [...] Description 11/29/2024 1:30 PM EDT Office Visit [facility] MED & PEDS [address] [place] [address] Bere Dolan MD [address] [place] [address] 01/20/2025 10:00 AM EST Office Visit [facility] ADULT DENTAL [address] [place] [address] Jimena Nielson documented as of this encounter Visit Diagnoses Diagnosis Seasonal allergic rhinitis due to other allergic trigger- Primary documented in this encounter Additional Health Concerns Assessment Noted Time PHQ-9 Depression Total Score: 9 02/20/ 22 1:59 PM EST documented as of this encounter Care Teams Special Agent Secret Service Relationship Specialty Start Date End Date Bere Dolan MD [address] [place] [address] PCP - General Internal Medicine 04/01/13 [facility] 10/30/14 documented as of this encounter
--- OUTSIDE RECORDS SUMMARY | 2024-11-03 15:49 | XMS_ITS | Encounter Summary ---
Author Organization [employer] Address 75 [facility] 7t [place] [address] Care Team Providers Care Strategic Planning Director Name Role Phone Bere Dolan MD Primary Care Provider [phone] Encounter Details Date Type Department Care Team (Latest Contact Info) Description 07/29/2024 Orders Only [facility] MED & PEDS [address] [place], [place] [phone] Bere Dolan MD [address] [place] [address] Hypercholesterolemia (Primary Dx); Primary hypertension Social History Tobacco Use Types Packs/Day Years [...] Description 11/29/2024 1:30 PM EDT Office Visit [facility] MED & PEDS [address] [place] [address] Bere Dolan MD [address] [place] [address] 01/20/2025 10:00 AM EST Office Visit [facility] ADULT D[facility]AL [address] [place] [address] Jimena Nielson documented as of this encounter Visit Diagnoses Diagnosis Hypercholesterolemia- Primary Pure hypercholesterolemia Primary hypertension Unspecified essential hypertension documented in this encounter Additional Health Concerns Assessment Noted Time PHQ-9 Depression Total Score: 18 025 1:50 PM EST documented as of this encounter Care Teams Strategic Planning Director Relationship Specialty Start Date End Date Bere Dolan MD [address] [place] [address] PCP - General Internal Medicine 04/01/13 [facility] 10/30/14 documented as of this encounter
--- OUTSIDE RECORDS SUMMARY | 2024-11-03 15:49 | XMS_ITS | Encounter Summary ---
Author Organization [employer] Address 75 [facility] 7t [place] [address] Care Team Providers Care Mushroom Picker Name Role Phone Bere Dolan MD Primary Care Provider [phone] Reason for Visit * Reason Comments Med Refill Encounter Details Date Type Department Care Team ([facility] st Contact Info) Description 08/27/2023 Refill [facility] [address] [place], [place] [phone] Bere Dolan MD [address] [place] [address] Social History Tobacco Use Types Packs/Day Years [...] 1:30 PM EDT Office Visit [facility] MED & PEDS [address] [place] [address] Bere Dolan MD [address] [place] [address] 01/20/2025 10:00 AM EST Office Visit [facility] ADULT DENTAL [address] [place] [address] Jimena Nielson documented as of this encounter Visit Diagnoses Not on filedocumented in this encounter Additional Health Concerns Assessment Noted Time PHQ-9 Depression Total Score: 18 024 1:23 PM EST documented as of this encounter Care Teams Mushroom Picker Relationship Specialty Start Date End Date Bere Dolan MD [address] [place] [id number] PCP - General Internal Medicine 04/01/13 [facility] 10/30/14 documented as of this encounter
--- OUTSIDE RECORDS SUMMARY | 2024-11-03 15:49 | XMS_ITS | Clinical Summary ---
Author Organization [facility] Address [address] [place] [address] Phone Care Team Providers Care Bereavement Coordinator Name Role Phone Bere Dolan MD Primary Care Pr ovider Allergies Active Allergy Reactions Criticality Noted Date Comments Aspirin 08/09/2015 Penicillins Rash Low 11/21/2014 Medications SENNA 8.6 mg tablet 10/16/19 23 Active phenazopyridine (PYRIDIUM) 100 MG tablet 100 mg 3 times a day x 2 days 02/21/20 22 Active clonazePAM (KLONOPIN) 0.5 MG tablet Take 0.5 mg by mouth 3 (three) times a day. 10/12/19 23 Active omeprazole (PRILOSEC) 20 MG capsule Take 1 capsule by mouth every morning. 10/07/19 23 Active QUEtiapine (SEROQUEL) 200 MG tablet Take 1 tablet by mouth 2 (two) times a day. 09/28/19 23 Active amitriptyline (ELAVIL) 100 MG tablet Take 100 mg by mouth. 09/29/19 23 Active TRULICITY 1.5 mg/0.5 mL subcutaneous injection INJECT 1 PEN SUBCUTANEOUSLY ONCE WEEKLY IN ABDOMEN, THIGH OR UPPER ARM. ROTATE SITES 09/26/19 23 Active metFORMIN (GLUCOPHAGE) 500 MG tablet TAKE 1 TABLET BY MOUTH TWICE A DAY WITH MORNING AND EVENING MEALS 09/24/19 23 Active buPROPion (WELLBUTRIN XL) 300 MG ER 24 hr tablet TAKE 1 TABLET ONCE A DAY TAKE WITH 150MG TABLET. TOTAL DOSE 450MG. 04/21/19 23 Active albuterol 90 mcg/actuation inhaler INHALE 2 PUFF BY INHALATION ROUTE EVERY 4 TO 6 HOURS NEEDED Active cholecalciferol, vitamin D3, 25 mcg (1,000 unit) capsule Take 1 tablet by mouth daily. 08/26/19 Active desvenlafaxine succinate (PRISTIQ) 50 MG 24 hr tablet Take 1 tablet by mouth every morning. 10/02/19 Active docusate sodium (COLACE) 100 MG capsule Take 1 capsule by mouth 2 (two) times a day. 10/06/19 Active lisinopril (PRINIVIL,ZESTRI L) 5 MG tablet Take 5 mg by mouth every morning. 10/07/19 Active loratadine (CLARITIN) 10 mg tablet Take 1 tablet by mouth every morning. 09/21/19 Active DAILY-GIOVANNI, WITH FOLIC ACID, 400 mcg tablet Take 1 tablet by mouth every morning. 09/09/19 Active traZODone (DESYREL) 50 MG tablet Take 50 mg by mouth nightly at bedtime as needed. 09/22/19 Active thiamine (VITAMIN B-1) 100 MG tablet Take 100 mg by mouth 3 (three) times a day. 10/14/19 Active Active Problems Problem Noted Date Diagnosed Date Suicidal ideation 10/18/2022 Social History Tobacco Use Types Packs/Day Years Used Date Smoking Tobacco: Never Assessed Education Answer Date Recorded Are you interested in more education? Not on rama e 10/18/2022 Are you concerned about learning? Not on file 10/18/2022 No 10/18/2022 No 10/18/2022 Digital Access Answer Date Recorded No 10/18/2022 No 10/18/2022 Reliable internet access at home? Not on file 10/18/2022 Device with a working camera? Not on file Intimate Partner Violence Answer Date R ecorded Are you denied basic needs s uch as food, clothing, or medical care? No 10/18/2022 In the past 12 months have y ou been in a relationship with a person who hurts, threatens, or tries to control you? No 10/18/2022 Are you denied basic needs s uch as food, clothing, or medical care? No 10/18/2022 In the past 12 months have y ou been in a relationship with a person who hurts, threatens, or tries to control you? No 10/18/2022 Comments Unknown Sex and Gender Information Value Date Recorded Sex Assigned at Not on file Legal Sex Female 12:13 PM EDT Gender Identity Not on file Sexual Orientation Not on file Last Filed Vital Signs Vital Sign Reading Time Taken Comments Blood Pressure 109/68 10/19/2022 11:54 AM EDT Pulse 76 10/19/2022 11:54 AM EDT Temperature 37 C (98.6 F) 10/19/2022 11:54 AM EDT Respiratory Rate 18 10/19/2022 11:54 AM EDT Oxygen Saturation 99% 10/19/2022 11:54 AM EDT Inhaled Oxygen Concentration - - Weight 61.7 kg (136 lb) 10/19/2022 10:34 AM EDT Height 160 cm (5' 3 ) 10/19/2022 10:34 AM EDT Body Mass Index 24.09 10/19/2022 10:34 AM EDT Plan of Treatment Health Maintenance Due Date Last Done Comments LIPID PANEL 1965 DEPRESSION SCREENING 1977 SMOKING Hx and SMOKELESS TOBACCO SCREENING 1978 HEPATITIS C SCREENING 05/07/1983 HIV ONE-TIME SCREENING (18-6 5 YEARS) 05/07/1983 PAP SMEAR 1986 COLOGUARD 2010 COLONOSCOPY 2010 COLORECTAL CANCER SCREENING 2010 FIT TEST 2010 FOBT 2010 SIGMOIDOSCOPY 2010 VIRTUAL COLONOSCOPY 2010 ZOSTER VACCINES (1 of 2) 05/07/2015 PNEUMOCOCCAL VACCINES (50+ years) (2 of 2 - PCV) 04/29/2020 04/29/2019 MAMMOGRAM 08/31/2020 08/31/2018, 03/23/2018 CREATININE LEVEL 10/19/2023 10/18/2022 POTASSIUM LEVEL 10/19/2023 10/18/2022 INFLUENZA VACCINE (#1) 2024 COVID-19 VACCINE (1 - 2023-2 5 season) 2024 Adult Td,Tdap Booster 12/10/2025 12/11/2015 HEPATITIS A VACCINES Aged Out No long er eligible based on patient's age to complete this topic HIB VACCINES Aged Out No longer eligi ble based on patient's age to complete this topic MENINGOCOCCAL VACCINES (ACWY) Aged Out No longer eligible based on patient's age to complete this topic MENINGOCOCCAL VACCINES (B) Aged Out N o longer eligible based on patient's age to complete this topic Medical Devices Not on file Procedures Procedure Name Priority Date/Time Associated Diagnosis Comments BASIC METABOLIC PANEL STAT 10/18/2022 1:57 PM EDT from Last 3 Months or Most Recently Relevant to Health Maintenance Results * Basic metabolic panel (10/18/2022 1:57 PM EDT) SODIUM 144 133 - 146 mmol/L [facility] CHLORIDE 108 96 - 108 mmol/L [facility] POTASSIUM 4.0 3.3 - 5.1 mmol/L [facility] CO2 27 21 - 35 mmol/L [facility] BUN 9 6 - 19 mg/dL [facility] CREATININE 0.80 0.5 - 1.5 mg/dL [facility] GLUCOSE 98 70 - 99 mg/dL [facility] CALCIUM 9.4 8.4 - 10.3 mg/dL [facility] EGFR 86 >59 mL/min/1.7 3m2 [facility] Comment:Estimated glomerular filtration rate calculated using the CKD-EPI refit equation. ANION GAP 13 10 - 20 mmol/L [facility] Blood 10/18/2022 1:57 PM EDT 10/18/2022 2:01 PM EDT Connie Zayas PA-C LAB BLOOD ORDERABLES Final Result [facility] [address] [place] [address] from Last 3 Months or Most Recently Relevant to Health Maintenance Insurance [facility] ONE CARE MEDICARE REPLACEMENT [facility] MEDICARE REPLACEMENT [facility] [place] [place] [id number] [facility] ONE CARE MEDICARE REPLACEMENT [place] [address] ONE CARE MEDICARE [place] [place] [address] CARE MEDICARE REPLACEMENT Care Teams Bereavement Coordinator Relationship Specialty Start Date End Date Bere Dolan MD PCP - General Internal Medicine 10/18/22 Additional Source Comments The information contained in this document represents components of the legal health record. It is not the complete legal health record.[facility]
--- OUTSIDE RECORDS SUMMARY | 2024-11-03 15:49 | XMS_ITS | Encounter Summary ---
Author Organization [employer] Address 75 [facility] 7t [place] [address] Care Team Providers Care Commissioner Of Internal Revenue Name Role Phone Bere Dolan MD Primary Care Provider [phone] Encounter Details Date Type Department Care Team (Latest Contact Info) Description 03/22/2020 Abstract [facility] CONVERSIONS Dental, Provider, DDS Social History Tobacco Use Types Packs/Day Years [...] 11/29/2024 1:30 PM EDT Office Visit [facility] & [facility]EDS [address] [place] [address] Bere Dolan MD [address] [place] [address] 01/20/2025 10:00 AM EST Office Visit [facility] [address] [place] [address] Jimena Nielson documented as of this encounter Visit Diagnoses Not on filedocumented in this encounter Care Teams Commissioner Of Internal Revenue Relationship Specialty Start Date End Date Bere Dolan MD [address] [place] [address] PCP - General Internal Medicine 04/01/13 [facility] 10/30/14 documented as of this encounter
--- OUTSIDE RECORDS SUMMARY | 2024-11-03 15:49 | XMS_ITS | Encounter Summary ---
Author Organization [employer] Address [address] [facility] [address] [place] [address] Care Team Providers Care Regional Cra Name Role Phone Bere Dolan MD Primary Care Provider [phone] Encounter Details Date Type Department Care Team (Late st Contact Info) Description 03/20/2022 Orders Only [facility] [address] [place] [address] Pam Turpin LPN Social History Tobacco Use Types Packs/Day Years [...] suspected to have Coronavirus/COVID-19? No / Unsure 02/20/2022 1:36 PM EST documented as of this encounter Plan of Treatment Upcoming Encounters Date Type Department Care Team (Late st Contact Info) Description 11/29/2024 1:30 PM EDT Office Visit [facility] [address] [place] [address] Bere Dolan MD [address] [place] [address] 01/20/2025 10:00 AM EST Office Visit [facility] [address] [place] [address] Jimena Nielson documented as of this encounter Visit Diagnoses Not on filedocumented in this encounter Additional Health Concerns Assessment Noted Time PHQ-9 Depression Total Score: 9 02/21/20 22 1:59 PM EST documented as of this encounter Care Teams Regional Cra Relationship Specialty Start Date End Date Bere Dolan MD [address] [place] [address] PCP - General Internal Medicine 04/01/13 [facility] 10/30/14 documented as of this encounter
--- OUTSIDE RECORDS SUMMARY | 2024-11-03 15:49 | XMS_ITS | Clinical Summary ---
Author Organization [address] [facility] Address [address] [place] [address] Phone Care Team Providers Care Healthcare Associate Name Role Phone Bere Dolan MD Primary Care Provider [phone] Allergies Active Allergy Reactions Criticality Noted Date Comments Aspirin 08/02/2024 Penicillins 08/02/2024 Medications buPROPion XL (WELLBUTRIN XL) 150 mg 24 hr tablet Take 1 tablet (150 mg total) by mouth 1 (one) time each day in the morning. Active dulaglutide (Trulicity) 1.5 mg/0.5 mL pen injector injection INJECT 1 PEN SUBCUTANEOUSLY ONCE WEEKLY IN ABDOMEN, THIGH OR UPPER ARM. ROTATE SITES 09/26/19 23 Active haloperidoL (HALDOL) 0.5 mg tablet Take 1 tablet (0.5 mg total) by mouth 1 (one) time each day in the evening. Active omeprazole (PriLOSEC) [address] capsule Take 1 capsule (20 mg total) by mouth 1 (one) time each day. Active QUEtiapine (SEROquel) 200 mg tablet Take 1 tablet (200 mg total) by mouth 2 (two) times a day. 10/15/19 25 Active metFORMIN (GLUCOPHAGE) 500 mg tablet TAKE 1 TABLET (500 MG) BY MOUTH WITH BREAKFAST AND WITH EVENING MEAL Active loratadine (CLARITIN) 10 mg tablet Take 1 tablet (10 mg total) by mouth 1 (one) time each day. 10/18/19 25 Active atorvastatin (LIPITOR) 40 mg tablet take 1 tablet (40 mg) by mouth once per day. Active clonazePAM (KlonoPIN) 0.5 mg tablet Take 1 tablet (0.5 mg total) by mouth. Active Vitamin D3 25 mcg (1,000 unit) capsule Take 1 capsule (1,000 Units total) by mouth 1 (one) time each day. Active desvenlafaxine succinate (PRISTIQ) 50 mg 24 hr tablet Take 1 tablet (50 mg total) by mouth 1 (one) time each day. Active thiamine 100 mg tablet take 1/2 tablet by mouth once per day. 10/19/19 25 Active diclofenac (VOLTAREN) 1 % topical gel APPLY TO AFFECTED AREA ON LOWER BACK 4 TIMES A DAY 06/24/19 25 Active losartan (COZAAR) 25 mg tablet take 1 tablet (25 mg) by mouth once per day. Active dicyclomine (BENTYL) 10 mg capsule take 1 tablet orally 3 times a day Active Gas Relief Extra Strength 125 mg chewable tablet Chew 1 tablet (125 mg total) 3 (three) times a day if needed. Active ammonium lactate (AMLACTIN) 12 % cream Apply topically if needed for dry skin. 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 ([facility] V24, [facility] V28) 11/03/2024 per [facility] report PTSD (post-traumatic stress disorder) per N report Hyperlipidemia GERD (gastroesophageal reflux disease) per EMR BILL (generalized anxiety disorder) per EMR Schizophrenia ([facility] V24, [facility] V28) per EMR on [facility] visit Irritable bowel syndrome H/O gastric sleeve per record bs , pt unsure date many years Social History Tobacco Use Types Packs/Day Years Used Date Smoking Tobacco: Never Assessed Comments Unknown Sex and Gender Information Value Date Recorded Sex Assigned at Not on file Legal Sex Female 3:49 AM EST Gender Identity Not on file Sexual Orientation Not on file Obstetrics History Last Filed Vital Signs Vital Sign Reading [...] Mass Index 25.69 11/02/2024 5:14 PM EDT Plan of Treatment Health Maintenance Due Date Last Done Comments Breast Cancer Screening 1965 Diabetes: Annual Foot Exam 05/07/1975 Diabetes: Annual Retina Eye Exam 05/07/1975 Cervical Cancer Screening: Pap Smear 1986 Medicare Annual Wellness Visit 03/31/2023 Social Influencers of Health Screening 03/31/2023 Depression Screening 03/02/2024 Diabetes: Annual Urine Albumin-Creatinine Ratio (uACR) 05/17/2024 COVID-19 Vaccine ( season) 2024 09/19/2020, 08/30/2020 Influenza Vaccine (#1) 2024 , 11/28/2021, 12/27/2019, Additional history exists Diabetes: Blood Sugar Control Test (HGBA1C) 01/28/2025 07/28/2024, 04/28/2024 Diabetes: Annual GFR (Glomerular Filtration Rate) 11/02/2025 11/02/2024, 07/28/2024 Hypertension/CHF/CAD Annual BMP Blood Test 11/02/2025 11/02/2024, 07/28/2024 DTaP,Tdap,and Td Vaccines (2 - Td or Tdap) 12/10/2025 12/11/2015 Colorectal Cancer Screening: FIT-DNA (Cologuard) 12/22/2025 12/22/2022 Cholesterol Screening (Lipid Panel) 07/28/2029 07/28/2024 RSV Immunization Adult Patients (1 - 1-dose 75+ series) 2040 Hepatitis B Vaccines Completed 12/21/2017, 12/11/2015, 11/06/2015 HIV Screening Completed 12/26/2021 Zoster Vaccines Completed 12/16/2022, 08/04/2018 Pneumococcal Vaccine: 50+ Years Completed 04/09/2023, 04/29/2019 Hepatitis C Screening Completed 07/28/2024 HIB Vaccines Aged Out No longer eligi [...] on patient's age to complete this topic MMR Vaccines Aged Out No longer eligi ble based on patient's age to complete this topic Meningococcal ACWY Vaccine Aged Out N o longer eligible based on patient's age to complete this topic Meningococcal B Vaccine Aged Out No l onger eligible based on patient's age to complete this topic RSV Immunization Patients Under 20 months Aged Out No longer eligible based on patient's age to complete this topic Varicella Vaccines Aged Out No longer eligible based on patient's age to complete this topic Procedures Procedure Name Priority Date/Time Associated Diagnosis Comments ECG 12-LEAD STAT 11/03/2024 10:03 AM EDT POCT GLUCOSE BLOOD Routine 11/03/2024 8: 14 AM EDT METHADONE SCREEN, URINE STAT 11/02/2024 6:40 PM EDT PHENCYCLIDINE, URINE STAT 11/02/2024 6:40 PM EDT BUPRENORPHINE SCREEN, URINE STAT 11/02/2024 6:40 PM EDT DRUG ABUSE SCREEN 8A PANEL, URINE STAT 11/02/2024 6:40 PM EDT CBC WITH AUTO DIFFERENTIAL STAT 11/02/2024 6:32 PM EDT SALICYLATE LEVEL STAT 11/02/2024 6:32 PM EDT ACETAMINOPHEN LEVEL STAT 11/02/2024 6 :32 PM EDT ETHANOL STAT 11/02/2024 6:32 PM EDT COMPREHENSIVE METABOLIC PANEL STAT 11/02/2024 6:32 PM EDT CBC AND DIFFERENTIAL STAT 11/02/2024 6:32 PM EDT from Last 3 Months Results * ECG 12 lead (11/03/2024 10:03 AM EDT) Ventricular Rate ECG 90 BPM GEMUSE Atrial Rate 90 BPM GEMUSE P-R Interval 144 ms GEMUSE QRS Duration 78 ms GEMUSE Q-T Interval 370 ms GEMUSE QTc 452 ms GEMUSE P Wave [place] 44 degrees GEMUSE R [place] 31 degrees GEMUSE T [place] 36 degrees GEMUSE ECG Interpretation Normal sinus rhythm Normal ECG When compared with ECG of 28-NOV-2022 11:59, No significant change was found Confirmed by Sis CAVANAUGH JAMES ([id number]) on 11/03/2024 12:53:02 PM GEMUSE 11/03/2024 10:0 3 AM EDT 11/03/2024 12:53 PM EDT us Genevieve Dotson DO ECG ORDERABLES Final Result Performing Organization Address City/[facility]/ZIP Co de Phone Number GEMUSE * POCT Glucose, blood (11/03/2024 8:14 AM EDT) Pathologist [facility] Glucose POCT 87 70 - 100 mg/dL 11/03/2024 8:15 AM EDT [facility] Blood Capillary blood specimen / Unknown 11/03/2024 8:14 AM EDT 11/03/2024 8:16 AM EDT Danica Medina MD LAB POINT OF CARE TE ST DOCKED DEVICE UNSOLICITED RESULTS Final Result [facility] [address] [place] [address], * (ABNORMAL) Drug abuse screen 8a panel, urine (11/02/2024 6:40 PM EDT) Amphetamine Screen, Ur Negative Negative LAB CHEMISTRY METHOD 5 7:20 PM EDT [facility] Comment:Certain OTC medicati ons containing ephedrine, phenylephrine, pseudoephedrine and phenylpropanolamine can cause false positive results. Barbiturate Screen, Ur Negative Negative LAB CHEMISTRY METHOD 5 7:20 PM EDT [facility] Benzodiazepine Screen, Ur Negative Negative LAB CHEMISTRY METHOD 5 7:20 PM EDT [facility] Cocaine Screen, Ur Negative Negative LAB CHEMISTRY METHOD 5 7:20 PM EDT [facility] Opiate Screen, Ur Negative Negative LAB CHEMISTRY METHOD 5 7:20 PM EDT [facility] Cannabinoid (THC) Screen, Ur Positive(A ) Negative LAB CHEMISTRY METHOD 5 7:20 PM EDT [facility] Comment:Specimens from patie nts taking pantoprazole sodium (Protonix) have been shown to produce false positive results. Oxycodone Screen, Ur Negative Negative LAB CHEMISTRY METHOD 5 7:20 PM EDT [facility] Fentanyl, Ur Negative Negative LAB CHEMISTRY METHOD 5 7:20 PM EDT [facility] Urine Urine specimen obtained by clean catch procedure / Unknown Non-blood Collection / Unknown 11/02/2024 6:40 PM EDT 11/02/2024 6:43 PM EDT Narrative [facility] - 11/02/2024 7:20 PM EDT Assay cutoffs: Amphetamines 1000 ng/mL Barbiturates 200 ng/mL Benzodiazepines 200 ng/mL Cocaine 300 ng/mL Fentanyl 1 ng/mL Opiates 300 ng/mL Oxycodone 100 ng/mL THC 50 ng/mL Semi-quantitative assay for screening purposes only. Unconfirmed screening result should not be used for non-medical purposes. *ALTERNATE METHOD CONFIRMATION DONE UPON REQUEST ONLY* Kassandra Lorenz MD LAB URINE ORDERABLES Final Res ult Performing Organization Address [place]/[facility]/ZIP Co de Phone Number [facility] [address] [place] [address], [place] [phone] * Buprenorphine screen, urine (11/02/2024 6:40 PM EDT) Buprenorphine Screen Urine Negative Negative LAB CHEMISTRY METHOD 11/02/2024 7:15 PM EDT [facility] Urine Urine specimen obtained by clean catch procedure / Unknown Non-blood Collection / Unknown 11/02/2024 6:40 PM EDT 11/02/2024 6:43 PM EDT Narrative [facility] - 11/02/2024 7:15 PM EDT Assay cutoff 5 ng/mL Semi-quantitative assay for screening purposes only. Unconfirmed screening result should not be used for non-medical purposes. *ALTERNATE METHOD CONFIRMATION DONE UPON REQUEST ONLY* Kassandra Lorenz MD LAB URINE ORDERABLES Final Res ult Performing Organization Address [place]/[facility]/ZIP Co de Phone Number [facility] [address] [place] [address], [place] [phone] * Methadone, urine (11/02/2024 6:40 PM EDT) Methadone Screen, Urine Negative Negative LAB CHEMISTRY METHOD 11/02/2024 7:15 PM EDT [facility] Comment: Assay cutoff 300 ng/mL Semi-quantitative [...] ORDERABLES Final Res ult Performing Organization Address [place]/[facility] Co de Phone Number [facility] [address] [place] [address], [place] [phone] * Phencyclidine, urine (11/02/2024 6:40 PM EDT) Pathologist [facility] PCP Scrn, Ur Negative Negative LAB CHEMISTRY METHOD 11/02/2024 7:15 PM EDT [facility] Comment: Assay cutoff 25 ng/mL Semi-quantitative [...] ORDERABLES Final Res ult Performing Organization Address [place]/[facility] Co de Phone Number [facility] [address] [place] [address], [place] [phone] * CBC auto differential (11/02/2024 6:32 PM EDT) WBC 6.4 4.8 - 10.8 K/mcL LAB HEMETOLOGY METHOD 11/02/2024 6:55 PM EDT [facility] RBC 3.80 3.80 - 4.80 M/mcL LAB HEMETOLOGY METHOD 11/02/2024 6:55 PM EDT [facility] Hemoglobin 12.1 11.5 - 16.0 g/dL LAB HEMETOLOGY METHOD 11/02/2024 6:55 PM EDT [facility] Hematocrit 36.8 35.0 - 47.0 % LAB HEMETOLOGY METHOD 11/02/2024 6:55 PM EDT [facility] MCV 96.1 79.0 - 98.0 FL LAB HEMETOLOGY METHOD 11/02/2024 6:55 PM EDT [facility] MCH 31.6 27.0 - 32.0 pcg LAB HEMETOLOGY METHOD 11/02/2024 6:55 PM EDT [facility] MCHC 32.9 32.0 - 37.0 g/dL LAB HEMETOLOGY METHOD 11/02/2024 6:55 PM EDT [facility] RDW 14.2 11.0 - 15.0 % LAB HEMETOLOGY METHOD 11/02/2024 6:55 PM EDT [facility] Platelets 263 130 - 400 K/mcL LAB HEMETOLOGY METHOD 11/02/2024 6:55 PM EDT [facility] MPV 10.0 7.0 - 11.0 FL LAB HEMETOLOGY METHOD 11/02/2024 6:55 PM EDT [facility] NRBC 0.0 <1.0 % LAB HEMETOLOGY METHOD 11/02/2024 6[facility] NR[facility] Absolute 0.00 <0.10 K/mcL LAB HEMETOLOGY METHOD 11/02/2024 6:55 [facility] Neutrophils Relative 53.0 % LAB HEMETOLOGY METHOD 11/02/2024 6:55 PM EDT [facility] Lymphocytes Relative 36.4 % LAB HEMETOLOGY METHOD 11/02/2024 6:55 PM EDT [facility] Monocytes Relative 5.6 % LAB HEMETOLOGY METHOD 11/02/2024 6:55 [facility] Eosinophils Relative 4.2 % LAB HEMETOLOGY METHOD 11/02/2024 6:55 PM EDT [facility] Basophils Relative 0.5 % LAB HEMETOLOGY METHOD 11/02/2024 6:55 PM EDT [facility] Immature Granulocytes Relative 0.3 % LAB HEMETOLOGY METHOD 11/02/2024 6:55 PM EDT [facility] Neutrophils Absolute 3.39 1.50 - 7.00 K/mcL LAB HEMETOLOGY METHOD 11/02/2024 6:55 PM EDT [facility] Lymphocytes Absolute 2.33 1.00 - 5.00 K/mcL LAB HEMETOLOGY METHOD 11/02/2024 6:55 PM EDT [facility] Monocytes Absolute 0.36 0.20 - 1.00 K/mcL LAB HEMETOLOGY METHOD 11/02/2024 6:55 PM EDT [facility] Eosinophils Absolute 0.27 0.00 - 0.50 K/mcL LAB HEMETOLOGY METHOD 11/02/2024 6:55 PM EDT [facility] Basophils Absolute 0.03 0.00 - 0.20 K/mcL LAB HEMETOLOGY METHOD 11/02/2024 6:55 PM EDT [facility] Immature Granulocytes Absolute 0.02 0.00 - 0.03 K/mcL LAB HEMETOLOGY METHOD 11/02/2024 6:55 PM EDT [facility] Blood Venous blood specimen / Unknown Venipuncture / Unknown 11/02/2024 6:32 PM EDT 11/02/2024 6:43 PM EDT us Kassandra Lorenz MD LAB BLOOD ORDERABLES Final Res ult [facility] [address] [place] [address], * Ethanol (11/02/2024 6:32 PM EDT) Ethanol Level 5 0 - 10 mg/dL LAB CHEMISTRY METHOD 11/02/2024 7:10 PM EDT [facility] Blood Venous blood specimen / Unknown Venipuncture / Unknown 11/02/2024 6:32 PM EDT 11/02/2024 6:43 PM EDT us Kassandra Lorenz MD LAB BLOOD ORDERABLES Final Res ult Performing Organization Address [place]/[facility]/ZIP Co de Phone Number [facility] [address] [place] [address], [place] [phone] * (ABNORMAL) Acetaminophen level (11/02/2024 6:32 PM EDT) Acetaminophen Level <2.0(L) 10.0 - 30.0 mcg/mL LAB CHEMISTRY METHOD 11/02/2024 7:10 PM EDT [facility] Blood Venous blood specimen / Unknown Venipuncture / Unknown 11/02/2024 6:32 PM EDT 11/02/2024 6:43 PM EDT us Kassandra Lorenz MD LAB BLOOD ORDERABLES Final Res ult Performing Organization Address [place]/[facility] Co de Phone Number [facility] [address] [place] [address], [place] [phone] * Salicylate level (11/02/2024 6:32 PM EDT) Salicylate Level 4.3 2.0 - 29.0 mg/dL LAB CHEMISTRY METHOD 11/02/2024 7:10 PM EDT [facility] Blood Venous blood specimen / Unknown Venipuncture / Unknown 11/02/2024 6:32 PM EDT 11/02/2024 6:43 PM EDT us Kassandra Lorenz MD LAB BLOOD ORDERABLES Final Res ult Performing Organization Address City/[facility]/ZIP Co de Phone Number [facility] [address] [place] [address], * (ABNORMAL) Comprehensive metabolic panel (11/02/2024 6:32 PM EDT) Sodium 140 133 - 145 mmol/L LAB CHEMISTRY METHOD 11/02/2024 7:55 PM [facility] Potassium 4.4 3.5 - 5.5 mmol/L LAB CHEMISTRY METHOD 11/02/2024 7:55 PM [facility] Chloride 109 96 - 110 mmol/L LAB CHEMISTRY METHOD 11/02/2024 7:55 PM [facility] CO2 28 21 - 32 mmol/L LAB CHEMISTRY METHOD 11/02/2024 7:55 PM [facility] Anion Gap 3 3 - 11 LAB CHEMISTRY METHOD 11/02/2024 7:55 PM [facility] Glucose 107(H) 70 - 100 mg/dL LAB CHEMISTRY METHOD 11/02/2024 7:55 PM [facility] BUN 11 5 - 25 mg/dL LAB CHEMISTRY METHOD 11/02/2024 7:55 PM [facility] Creatinine 0.94 0.50 - 1.10 mg/dL LAB CHEMISTRY METHOD 11/02/2024 7:55 PM [facility] eGFR 70 >=60 mL/min/1. 73m2 LAB CHEMISTRY METHOD 11/02/2024 7:55 PM [facility] Comment:Calculation based on the Chronic Kidney Disease Epidemiology Collaboration (CKD-EPI) equation refit without adjustment for race. BUN/Creatinine Ratio 11.7 LAB CHEMISTRY METHOD 11/02/2024 7:55 PM [facility] Calcium 8.8 8.5 - 10.5 mg/dL LAB CHEMISTRY METHOD 11/02/2024 7:55 PM [facility] AST (SGOT) 31 10 - 42 unit/L LAB CHEMISTRY METHOD 11/02/2024 7:55 PM [facility] ALT (SGPT) 40 10 - 60 unit/L LAB CHEMISTRY METHOD 11/02/2024 7:55 PM EDT [facility] Alkaline Phosphatase 85 42 - 121 unit/L LAB CHEMISTRY METHOD 11/02/2024 7:55 PM EDT [facility] Total Protein 6.6 6.0 - 8.0 g/dL LAB CHEMISTRY METHOD 11/02/2024 7:55 PM EDT [facility] Albumin 3.8 3.2 - 5.0 g/dL LAB CHEMISTRY METHOD 11/02/2024 7:55 PM EDT [facility] Total Bilirubin 0.3 0.0 - 1.4 mg/dL LAB CHEMISTRY METHOD 11/02/2024 7:55 PM EDT [facility] Blood Venous blood specimen / Unknown Venipuncture / Unknown 11/02/2024 6:32 PM EDT 11/02/2024 6:43 PM EDT us Kassandra Lorenz MD LAB BLOOD ORDERABLES Final Res ult [facility] [address] [place] [address], from Last 3 Months Insurance [facility] MEDICARE Member Subscriber Plan / Payer (Ef fective 2013-Present) Name:BINU WALL Relation to Subscriber:Self Name:Binu Wall Payer ID:[id number] Group ID:[id number] Type:Not on file Address: [place] [address] [address] [id number] Care Teams Healthcare Associate Relationship Specialty Start Date End Date Bere Dolan MD [address] [place] [address] PCP - General Internal Medicine 05/17/24
--- OUTSIDE RECORDS SUMMARY | 2024-11-03 15:49 | XMS_ITS | Encounter Summary ---
Author Organization [employer] Address [address] [facility] [address] [place] [address] Care Team Providers Care Transmission Repairer Name Role Phone Bere Dolan MD Primary Care Provider [phone] Encounter Details Date Type Department Care Team (Late st Contact Info) Description 06/29/2024 Orders Only [facility] [address] [place] [address] ProviderRasheed MD Social History Tobacco Use Types [...] 1:30 PM EDT Office Visit [facility] [address] [place] [address] Bere Dolan MD [address] [place] [address] 01/20/2025 10:00 AM EST Office Visit [facility] ADULT DENTAL [address] [place] [address] Jimnea Nielson documented as of this encounter Procedures Procedure Name Priority Date/Time Associated Diagnosis Comments HM MAMMOGRAPHY Routine 06/29/2024 12:44 PM EDT documented in this encounter Results * Hm Mammography (06/29/2024 12:44 PM EDT) Anatomical Region Laterality Modality Other us Historical Provider HEALTH MAINTENANCE Final Result documented in this encounter Visit Diagnoses Not on filedocumented in this encounter Additional Health Concerns Assessment Noted Time PHQ-9 Depression Total Score: 18 025 1:50 PM EST documented as of this encounter Care Teams Transmission Repairer Relationship Specialty Start Date End Date Bere Dolan MD [address] [place] [address] PCP - General Internal Medicine 04/01/13 [facility] 10/30/14 documented as of this encounter
--- OUTSIDE RECORDS SUMMARY | 2024-11-03 15:49 | XMS_ITS | Encounter Summary ---
Author Organization [employer] Address [address] [place] [address] Care Team Providers Care Latex Spooler Name Role Phone Bere Dolan MD Primary Care Provider [phone] Encounter Details Date Type Department Care Team ([facility] st Contact Info) Description 11/13/2023 Orders Only [facility] [address] [place] [address] ProviderRasheed MD Social History Tobacco Use Types [...] Description 11/29/2024 1:30 PM EDT Office Visit [facility] PED[facility] [address] [place] [address] Bere Dolan MD [address] [place] [address] 01/20/2025 10:00 AM EST Office Visit [facility] ADULT DENTAL [address] [place] [address] Jimena Nielson documented as of this encounter Procedures Procedure Name Priority Date/Time Associated Diagnosis Comments HM MAMMOGRAPHY Routine 06/19/2022 2:26 PM EDT documented in this encounter Results * Hm Mammography (06/19/2022 2:26 PM EDT) Anatomical Region Laterality Modality Other Historical Provider HEALTH MAINTENANCE Final Result documented in this encounter Visit Diagnoses Not on filedocumented in this encounter Additional Health Concerns Assessment Noted Time PHQ-9 Depression Total Score: 18 024 1:23 PM EST documented as of this encounter Care Teams Latex Spooler Relationship Specialty Start Date End Date Bere Dolan MD [address] [place] [address] PCP - General Internal Medicine 04/01/13 [facility] 8/31/15 documented as of this encounter
--- OUTSIDE RECORDS SUMMARY | 2024-11-03 15:49 | XMS_ITS | Encounter Summary ---
Author Organization [employer] Address 75 [facility] 7t [place] [address] Care Team Providers Care Nutritional Services Cook Name Role Phone Bere Dolan MD Primary Care Provider [phone] Encounter Details Date Type Department Care Team ([facility] st Contact Info) Description 09/30/2023 Orders Only [facility] CHC MED & PEDS [address] [place], [place] [phone] Bere Dolan MD [address] [place] [address] Social History Tobacco Use Types Packs/Day Years [...] [facility] MED & PEDS [address] [place] [address] Bere Dolan MD [address] [place] [address] 01/20/2025 10:00 AM EST Office Visit [facility] ADULT DENTAL [address] [place] [address] Jimena Nielson documented as of this encounter Visit Diagnoses Not on filedocumented in this encounter Additional Health Concerns Assessment Noted Time PHQ-9 Depression Total Score: 18 024 1:23 PM EST documented as of this encounter Care Teams Nutritional Services Cook Relationship Specialty Start Date End Date Bere Dolan MD [address] [place] [address] PCP - General Internal Medicine 04/01/13 [facility] 10/30/14 documented as of this encounter
--- OUTSIDE RECORDS SUMMARY | 2024-11-03 15:49 | XMS_ITS | Encounter Summary ---
Author Organization [employer] Address 75 [facility] 7t [place] [address] Care Team Providers Care Crop Farmers Name Role Phone Bere Dolan MD Primary Care Provider [phone] Reason for Visit * Reason Onset Date Comments Re fax order 08/11/2024 Encounter Details Date Type Department Care Team (Late st Contact Info) Description 08/11/2024 Telephone [facility] MEDICINE [address] [place] [address] Bere Dolan MD [address] [place] [phone] Re fax order Social History Tobacco Use Types Packs/Day Years [...] encounter Miscellaneous Notes * Telephone Encounter - Mer Castillo - 08/11/2024 11:22 AM EDT Tc from pt stating she's at [facility] right know doing a Shoulder CT. Pt states needs to be added for an evaluation: humerus and forearm. F. [phone] * Telephone Encounter - Za Engel - 08/11/2024 10:04 AM EDT Tc from pt stating that XR was send wrong and need to be fax again with new information listed below. - Shoulder pain - humerus - Forearm Pt is in the clinic at the moment and the nurse is asking to fax it over at the moment, if possible. documented in this encounter Plan of Treatment Upcoming Encounters Date Type Department Care Team (Late st Contact Info) Description 11/29/2024 1:30 PM EDT Office Visit [facility] MED & PEDS [address] [place] [address] Bere Dolan MD [address] [place] [address] 01/20/2025 10:00 AM EST Office Visit [facility] ADULT DENTAL [address] [place] [address] Jimena Nielson documented as of this encounter Visit Diagnoses Not on filedocumented in this encounter Additional Health Concerns Assessment Noted Time PHQ-9 Depression Total Score: 18 025 1:50 PM EST documented as of this encounter Care Teams Crop Farmers Relationship Specialty Start Date End Date Bere Dolan MD [address] [place] [address] PCP - General Internal Medicine 04/01/13 [facility] 10/30/14 documented as of this encounter
--- OUTSIDE RECORDS SUMMARY | 2024-11-03 15:49 | XMS_ITS | Encounter Summary ---
Author Organization [employer] Address 75 [facility] 7t [place] [address] Care Team Providers Care Crm Technical Lead Name Role Phone Bere Dolan MD Primary Care Provider [phone] Encounter Details Date Type Department Care Team (Latest Contact Info) Description 09/21/2018 Abstract [facility] CONVERSIONS Dental, Provider, DDS Social History Tobacco [...] PM EDT Office Visit [facility] MED & PEDS [address] [place] [address] Bere Dolan MD [address] [place] [address] 01/20/2025 10:00 AM EST Office Visit [facility] ADULT DENTAL [address] [place] [address] Jimena Nielson documented as of this encounter Visit Diagnoses Not on filedocumented in this encounter Care Teams Crm Technical Lead Relationship Specialty Start Date End Date Bere Dolan MD [address] [place] [address] PCP - General Internal Medicine 1/31/14 [facility] 10/30/14 documented as of this encounter
--- OUTSIDE RECORDS SUMMARY | 2024-11-03 15:49 | XMS_ITS | Encounter Summary ---
Author Organization [employer] Address [address] [facility] 7t [place] [address] Care Team Providers Care Cutter Grinder Name Role Phone Bere Dolan MD Primary Care Provider [phone] Reason for Visit * Reason Comments Med Change Request Encounter Details Date Type Department Care Team (Late Contact Info) Description 06/25/2022 Refill [facility] MEDICINE [address] [place], [place] [phone] Bere Dolan MD [address] [place] [address] Type 2 diabetes mellitus without complications (CMS/[facility]) Social History Tobacco Use Types Packs/Day Years Used Date Smoking Tobacco: Never Passive Smoke Exposure: Never Smokeless Tobacco: Never Alcohol Use Standard Drinks/Week Comments Never 0 (1 standard drink = 0.6 oz pur e alcohol) PHQ-2 Answer Date Recorded Patient Health Questionnaire-2 Score 6 2022 Comments Unknown Sex and Gender Information Value Date Recorded Sex Assigned at Female 12/30/2021 10:17 AM EDT Legal Sex Female 10:17 AM EDT Gender Identity Female 12/30/2021 10:17 AM EDT Sexual Orientation Straight 12/30/2021 10 :17 AM EDT documented as of this encounter Plan of Treatment Upcoming Encounters Date Type Department Care Team (Late Contact Info) Description 11/29/2024 1:30 PM EDT Office Visit [facility] CHC MED & PEDS [address] [place] [address] Bere Dolan MD [address] [place] [address] 01/20/2025 10:00 AM EST Office Visit [facility] ADULT DENTAL [address] [place] [address] Jimena Nielson documented as of this encounter Visit Diagnoses Diagnosis Type 2 diabetes mellitus without complications (CMS/HCC) documented in this encounter Additional Health Concerns Assessment Noted Time PHQ-9 Depression Total Score: 17 03/2 023 1:12 PM EST documented as of this encounter Care Teams Cutter Grinder Relationship Specialty Start Date End Date Bere Dolan MD [address] [place] [address] PCP - General Internal Medicine 04/01/13 [facility] 10/30/14 documented as of this encounter
--- OUTSIDE RECORDS SUMMARY | 2024-11-03 15:49 | XMS_ITS | Encounter Summary ---
Author Organization [employer] Address 75 [facility] 7t [place] [address] Care Team Providers Care Information Security Systems Instructor Name Role Phone Bere Dolan MD Primary Care Provider [phone] Encounter Details Date Type Department Care Team (Latest Contact Info) Description 05/09/2021 Abstract [facility] CONVERSIONS Dental, Provider, DDS Social History Tobacco [...] Description 11/29/2024 1:30 PM EDT Office Visit [facility] MED & PEDS [address] [place] [address] Bere Dolan MD [address] [place] [address] 01/20/2025 10:00 AM EST Office Visit [facility] ADULT DENTAL [address] [place] [address] Jimena Nielson documented as of this encounter Visit Diagnoses Not on filedocumented in this encounter Care Teams Information Security Systems Instructor Relationship Specialty Start Date End Date Bere Dolan MD [address] [place] [address] PCP - General Internal Medicine 04/01/13 [facility] 10/30/14 documented as of this encounter
--- OUTSIDE RECORDS SUMMARY | 2024-11-03 15:49 | XMS_ITS | Encounter Summary ---
Author Organization [employer] Address 75 [facility] 7t [place] [address] Care Team Providers Care Decision Analyst Name Role Phone Bere Dolan MD Primary Care Provider [phone] Encounter Details Date Type Department Care Team ([facility] Contact Info) Description 02/02/2023 Telephone [facility] CHC MED & PEDS [address] [place], [place] [phone] Bere Dolan MD [address] [place] [address] Social History Tobacco Use Types Packs/Day Years [...] encounter Miscellaneous Notes * Telephone Encounter - Jaci Cordero RN - 02/03/2023 3:02 PM EST Placed call to pt regarding message below and advised on OTC eye drops and return call if no improvement. Pt verbalized understanding and agrees with plan. * Telephone Encounter - Jaci Cordero RN - 02/02/2023 12:52 PM EST Please review message below and advise. No mention of this on last OV note. * Telephone Encounter - Karo Phillips - 02/02/2023 11:23 AM EST Tc from pt requesting status on eye drops for irritation. States she discussed with provider on 01/29 and was told will be prescribed eye drops. Customer Success Director does not see any documentation. Please contact pt at [phone] (Lao) documented in this encounter Plan of Treatment Upcoming Encounters Date Type Department Care Team ([facility] st Contact Info) Description 11/29/2024 1:30 PM EDT Office Visit [facility] MED & PEDS [address] [place] [address] Bere Dolan MD [address] [place], [place] [phone] 01/20/2025 10:00 AM EST Office Visit [facility] ADULT DENTAL [address] [place] [address] Jimena Nielson documented as of this encounter Visit Diagnoses Not on filedocumented in this encounter Additional Health Concerns Assessment Noted Time PHQ-9 Depression Total Score: 13 10 023 9:35 AM EDT documented as of this encounter Care Teams Decision Analyst Relationship Specialty Start Date End Date Bere Dolan MD [address] [place] [address] PCP - General Internal Medicine 04/01/13 [facility] 10/30/14 documented as of this encounter
--- OUTSIDE RECORDS SUMMARY | 2024-11-03 15:49 | XMS_ITS | Encounter Summary ---
Author Organization [employer] Address 75 [facility] 7t [place] [address] Care Team Providers Care Rinkman Name Role Phone Bere Dolan MD Primary Care Provider [phone] Reason for Visit * Reason Onset Date Comments Hospital Follow-up 04/22/2022 Encounter Details Date Type Department Care Team ([facility] st Contact Info) Description 04/22/2022 Telephone [facility] CHC MED & PEDS [address] [place], [place] [phone] Bere Dolan MD [address] [place] [address] Hospital Follow-up Social History Tobacco Use Types Packs/Day Years [...] PM EST documented as of this encounter Miscellaneous Notes * Telephone Encounter - Natalia Stubbs - 04/22/2022 1:12 PM EST Patient calling for HDF follow up appointment. Patient hospitalized at [facility] crisis 04/14/22 and discharged on 04/21/22. Patient advised will forward to team nurse for follow up and appointment scheduling. Pt would also like to speak about new medications. documented in this encounter Plan of Treatment Upcoming Encounters Date Type Department Care Team (Late st Contact Info) Description 11/29/2024 1:30 PM EDT Office Visit [facility] MED & PEDS [address] [place] [address] Bere Dolna MD [address] [place] [address] 01/20/2025 10:00 AM EST Office Visit [facility] ADULT DENTAL [address] [place] [address] Jimena Nielson documented as of this encounter Visit Diagnoses Not on filedocumented in this encounter Additional Health Concerns Assessment Noted Time PHQ-9 Depression Total Score: 9 02/21/20 22 1:59 PM EST documented as of this encounter Care Teams Rinkman Relationship Specialty Start Date End Date Bere Dolan MD [address] [place] [address] PCP - General Internal Medicine 04/01/13 [facility] 10/30/14 documented as of this encounter
--- OUTSIDE RECORDS SUMMARY | 2024-11-03 15:49 | XMS_ITS | Encounter Summary ---
Author Organization [email or web address] Address 75 [facility] 7t [place] [address] Care Team Providers Care Frame Runner Name Role Phone Bere Dolan MD Primary Care Provider [phone] Reason for Visit * Reason Comments Med Change Request Encounter Details Date Type Department Care Team ([facility] st Contact Info) Description 07/09/2023 Refill C CHC MED & PEDS [address] [place], [place] [phone] Bere Dolan MD [address] [place] [address] Dry skin Social History Tobacco Use Types Packs/Day Years [...] 1:30 PM EDT Office Visit [facility] MED & PEDS [address] [place] [address] Bere Dolan MD [address] [place] [address] 01/20/2025 10:00 AM EST Office Visit [facility] ADULT DENTAL [address] [place] [address] Jimena Nielson documented as of this encounter Visit Diagnoses Diagnosis Dry skin Other symptoms involving skin and integumentary tissues documented in this encounter Additional Health Concerns Assessment Noted Time PHQ-9 Depression Total Score: 18 024 1:23 PM EST documented as of this encounter Care Teams Frame Runner Relationship Specialty Start Date End Date Bere Dolan MD [address] [place] [address] PCP - General Internal Medicine 04/01/13 [facility] 10/30/14 documented as of this encounter
--- OUTSIDE RECORDS SUMMARY | 2024-11-03 15:50 | XMS_ITS | Encounter Summary ---
Author Organization [employer] Address 75 [facility] 7t [place] [address] Care Team Providers Care Fire Sprinkler Installer Name Role Phone Bere Dolan MD Primary Care Provider [phone] Encounter Details Date Type Department Care Team ([facility] st Contact Info) Description 08/30/2024 Orders Only [facility] CHC MED & PEDS [address] [place], [place] [phone] Bere Dolan MD [address] [place] [address] Social History Tobacco Use Types Packs/Day Years [...] Description 11/29/2024 1:30 PM EDT Office Visit [facility] MED & PEDS [address] [place] [address] Bere Dolan MD [address] [place] [address] 01/20/2025 10:00 AM EST Office Visit [facility] ADULT DENTAL [address] [place] [address] Jimena Nielson documented as of this encounter Visit Diagnoses Not on filedocumented in this encounter Additional Health Concerns Assessment Noted Time PHQ-9 Depression Total Score: 18 025 1:50 PM EST documented as of this encounter Care Teams Fire Sprinkler Installer Relationship Specialty Start Date End Date Bere Dolan MD [address] [place] [address] PCP - General Internal Medicine 04/01/13 [facility] 10/30/14 documented as of this encounter
--- OUTSIDE RECORDS SUMMARY | 2024-11-03 15:50 | XMS_ITS | Encounter Summary ---
Author Organization [employer] Address [address] [facility] 7t [place] [address] Care Team Providers Care Defensive Driving Instructor Name Role Phone Bere Dolan MD Primary Care Provider [phone] Reason for Visit * Reason Onset Date Comments Medication Question 08/26/2024 Encounter Details Date Type Department Care Team ([facility] Contact Info) Description 08/26/2024 Telephone [facility] CHC MED & PEDS [address] [place] [address] Bere Dolan MD [address] [place] [address] Medication Question Social History Tobacco Use Types Packs/Day Years [...] encounter Miscellaneous Notes * Telephone Encounter - Kayce Cantrell RN - 08/29/2024 12:22 PM EDT TC call to patient via childcare director. NO answer x2. Voicemail left for patient to return callto office. * Telephone Encounter - Donta Bob - 08/26/2024 2:09 PM EDT Tc from pt requesting a call back to discuss medication question. Contact pt at [phone] (ivorian) documented in this encounter Plan of Treatment Upcoming Encounters Date Type Department Care Team ([facility] st Contact Info) Description 11/29/2024 1:30 PM EDT Office Visit [facility] MED & PEDS [address] [place] [address] Bere Dolan MD [address] [place] [address] 01/20/2025 10:00 AM EST Office Visit [facility] CHC ADULT DENTAL [address] [place] [address] Jimena Nielson documented as of this encounter Visit Diagnoses Not on filedocumented in this encounter Additional Health Concerns Assessment Noted Time PHQ-9 Depression Total Score: 18 04/28/ 025 1:50 PM EST documented as of this encounter Care Teams Defensive Driving Instructor Relationship Specialty Start Date End Date Bere Dolan MD [address] [place] [address] PCP - General Internal Medicine 04/01/13 [facility] 10/30/14 documented as of this encounter
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
[2024-11-03 20:00] VITALS: BP 116/67; PULSE 87; RESP 16; TEMP 36.9; O2SAT 96
[2024-11-04 08:21] VITALS: BP 100/59; PULSE 79; TEMP 36.8; O2SAT 94
[2024-11-04 08:23] LABS: Hemoglobin A1C 140.3844 umol/L; Total Hemoglobin (HGBA1C) 3265.1644 umol/L
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
[2024-11-04 08:41] LABS: Glucose, Whole Blood 118 mg/dL (60-115)
[2024-11-04] MEDS: Venlafaxine HCl ER 75 MG CAP.ER.24H PO (10:34)
--- NOTE | 2024-11-04 10:35 | HO.PSYCHPN ---
Subjective Subjective Date of Service: 11/04/24 Reason For Visit: major depressive d/o Subjective Notes: Conditional Voluntary Healthcare Proxy: No Guardianship: No Medical Problems Affecting Mental Status: No Interim History: Met with pt and [facility] business specialist. Pt reports she is feeling improved. She presents in a calm manner without agitation. She denies CAH, paranoia, SI,HI. She declined diagnostics on admit and continues to decline. When asked how we may be helpful- she identifies wanting to work with the group program to work on self esteem and prepare for out pt counseling. She does ask for med changes for her sleep- Rx Lunesta which is not available. Trazodone by history she reports as ineffective. She is worried that her residence and team will accept her return after current hospital precipitants occurred. She ends our discussion with a statement about Q2- they don't know what is going on, I am going to prove it to them She declined to elaborate on this statement. Medication Compliance: Yes Side effects from medications: No Attending Groups: No Review of Systems Acute medical concerns: No Medical Review of Systems: unchanged Review of Systems Review of Systems Denies Mental Status Exam Mental Status Exam Patient Appearance: Fatigued Patient Orientation: Person, Place, Time and Situation Level of Consciousness: Alert Patient Behavior: Talkative and Good Eye Contact Mood Description: Constricted Affect Description: Constricted Patient Cognition Impaired: No Ability to Follow Directions: Good Speech Pattern: Spontaneous Speech Memory Description: Intact Hallucinations: None Delusions: Paranoid Ideation (??) Thought Process: Goal Oriented Thought Content: positive for Goal Oriented and positive for Suicidal Ideation (denies) Depressive Symptoms: Difficulty Sleeping Judgement: Fair Diagnostics Vital Signs (24Hr): Vital Signs - 24 hr 11/03/24 14:56 11/03/24 20:00 11/04/24 08:21 Temperature 98.5 F 98.4 F 98.2 F Pulse Rate 88 87 79 Respiratory Rate 15 16 Blood Pressure 112/68 116/67 100/59 L Pulse Oximetry 99 96 94 Oxygen Delivery Method Room Air Room Air Room Air BMI result Body Mass Index 25.3 Labs 11/05/24 16:22 Labs: Laboratory Results - last 48 hr 11/04/24 11/04/24 07:53 08:36 POC Glucose 118 H Estimat Average Glucose 128 Hemoglobin A1c % 6.1 H Medications Medications Current Medications Acetaminophen (Acetaminophen 325 Mg Tablet) 650 mg PO Q6H PRN PRN Reason: Headache/Pain, Scale 1-10 Last Admin: 11/03/24 23:32 Dose: 650 mg Al Hydroxide/Mg Hydroxide (Magnesium Hydrox/Alum Hydrox 30 Ml Oral.Susp) 30 ml PO Q6H PRN PRN Reason: Heartburn/Nausea Albuterol Sulfate (Albuterol Sulfate 90 Mcg 8 Gm Inhaler) 2 puff INHALE RQ4H PRN PRN Reason: Shortness Of Breath Or Wheezing Amitriptyline HCl (Amitriptyline Hcl 50 Mg Tablet) 100 mg PO BEDTIME [facility] Last Admin: 11/03/24 21:01 Dose: 100 mg Bupropion HCl (Bupropion Hcl Xl 150 Mg Tab.Er.24h) 150 mg PO DAILY [facility] On Hold: 11/04/24 09:00 Clonazepam (Clonazepam 0.5 Mg Tablet) 0.5 mg PO TID [facility] Last Admin: 11/04/24 09:32 Dose: 0.5 mg Dextrose (Dextrose 50 % 25 Gm/50 Ml Syringe) 25 gm IVPUSH Q15M PRN; Protocol PRN Reason: per Hypoglycemia Standing Ord. Dicyclomine HCl (Dicyclomine Hcl 10 Mg Capsule) 10 mg PO TID [facility] Last Admin: 11/04/24 09:32 Dose: 10 mg Docusate Sodium (Docusate Sodium 100 Mg Capsule) 100 mg PO BID [facility] Last Admin: 11/04/24 09:31 Dose: 100 mg Glucose (Glucose Gel 15 Gm Gel..Gram.) 15 gm PO Q15M PRN; Protocol PRN Reason: per Hypoglycemia Standing Ord. Haloperidol (Haloperidol 0.5 Mg Tablet) 0.5 mg PO BEDTIME [facility] Last Admin: 11/03/24 21:02 Dose: 0.5 mg Haloperidol (Haloperidol 1 Mg Tablet) 2 mg PO Q6H PRN PRN Reason: pyschosis/agitation Hydroxyzine HCl (Hydroxyzine Hcl 25 Mg Tablet) 25 mg PO Q6H PRN PRN Reason: mild anxiety Last Admin: 11/03/24 18:58 Dose: 25 mg Insulin Human Lispro (Insulin Lispro 100 Unit/Ml 3 Ml Vial) 0 unit SUBCUT QIDACHS [facility]; Protocol Last Admin: 11/04/24 09:30 Dose: Not Given Lidocaine HCl (Lidocaine 4 % Cream Kit) 1 appl TOPICAL DAILY PRN PRN Reason: Back Pain Loratadine (Loratadine 10 Mg Tablet) 10 mg PO DAILY [facility] Last Admin: 11/04/24 09:32 Dose: 10 mg Magnesium Hydroxide (Milk Of Magnesia 30 Ml Oral.Susp) 30 ml PO DAILY PRN PRN Reason: Constipation Metformin HCl (Metformin Hcl 500 Mg Tablet) 500 mg PO BID [facility] Last Admin: 11/04/24 09:32 Dose: 500 mg Nicotine Polacrilex (Nicotine Polacrilex 2 Mg Gum) 2 mg BUCCAL Q2H PRN PRN Reason: Nicotine Cravings Non-Formulary Medication (Eszopiclone) 1 mg PO BEDTIME [facility] Omeprazole (Omeprazole 20 Mg Capsule.Dr) 20 mg PO BID@0630,1630 [facility] Last Admin: 11/04/24 07:36 Dose: 20 mg Ondansetron HCl (Ondansetron Odt 8 Mg Tab.Rapdis) 8 mg TRANSLINGU Q6H PRN PRN Reason: Continued Nausea And Vomiting Quetiapine Fumarate (Quetiapine Fumarate 400 Mg Tablet) 400 mg PO BEDTIME [facility] Last Admin: 11/03/24 21:02 Dose: 400 mg Simethicone (Simethicone 80 Mg Tab.Chew) 80 mg PO TID PRN PRN Reason: bloating Thiamine HCl (Thiamine Hcl 100 Mg Tablet) 100 mg PO TID [facility] Last Admin: 11/04/24 09:31 Dose: 100 mg Trazodone HCl (Trazodone Hcl 50 Mg Tablet) 50 mg PO BEDTIME [facility] Last Admin: 11/03/24 21:02 Dose: 50 mg Trazodone HCl (Trazodone Hcl 50 Mg Tablet) 50 mg PO BEDTIME PRN PRN Reason: Insomnia Last Admin: 11/03/24 23:33 Dose: 50 mg Venlafaxine HCl (Venlafaxine Hcl Er 75 Mg Cap.Er.24h) 75 mg PO DAILY [facility] Last Admin: 11/04/24 10:34 Dose: 75 mg Vitamin D (Cholecalciferol (Vitamin D3) 25 Mcg Tablet) 25 mcg PO DAILY [facility] Last Admin: 11/04/24 09:31 Dose: 25 mcg Allergies Allergies Allergy/AdvReac Type Severity Reaction Status Date / Time aspirin (ASA) Allergy Intermediate RASH Verified 06/29/23 12:31 Penicillins (PENICILLINS) Allergy Intermediate RASH Verified 06/29/23 12:31 Assessment & Plan Assessment & Plan (1) Schizophrenia: Status: Acute Code(s): F20.9 - Schizophrenia, unspecified Assessment and Plan: 11/04: Reports poor sleep- Rx Lunesta which is not on formulary Ambien 5 mg HS prn As hypnotic may contribute to presenting sx. begin Haldol 1 mg HS in addition Encouraged milieu participation (2) Essential hypertension: Status: Acute Code(s): I10 - Essential (primary) hypertension (3) Type 2 diabetes mellitus without complications: Status: Acute Code(s): E11.9 - Type 2 diabetes mellitus without complications Plan Depression/anxiety/PTSD Treatment per psychiatric team Type 2 diabetes Continue with metformin and atorvastatin Recent A1c 6.1 Hypertension Previously taking lisinopril 5 mg daily Blood pressure stable If blood pressure is elevated restart lisinopril Reason for continued inpatient stay Substantial Risk for: rapid decompensation Time Spent With Patient Time: Total time managing care of this patient today ____ minutes.
[2024-11-04 12:27] LABS: Glucose, Whole Blood 80 mg/dL (60-115)
[2024-11-04 17:15] LABS: Glucose, Whole Blood 89 mg/dL (60-115)
[2024-11-04 20:00] VITALS: BP 132/73; PULSE 98; RESP 18; TEMP 37.2; O2SAT 96
[2024-11-04 20:12] LABS: Glucose, Whole Blood 108 mg/dL (60-115)
[2024-11-05 08:08] VITALS: BP 101/63; PULSE 84; TEMP 36.5; O2SAT 95
[2024-11-05 08:19] LABS: Glucose, Whole Blood 81 mg/dL (60-115)
--- NOTE | 2024-11-05 08:32 | P.PNPSI_ITS ---
Subjective Subjective Date of Service: 11/05/24 Reason For Visit: major depressive d/o Interim History: Met With patient; discussed with team; reviewed chart; patient seen with workers compensation administrator Fidel reports continued anxiety and depression with intermittent SI. No AH, which she says has resolved. Reviewed meds and she agrees to increase Venlafaxine -POC's stable, no hyperglycemia; if remains stable will dc POC's and continue w/ Metformin Mental Status Exam Mental Status Exam Narrative: Pt is alert and oriented; behavior is isolative; cooperative, friendly on approach; calm; patient is not in distress; dressed in casual attire with adequate hygiene and grooming; mood is described as anxious...depressed and affect congruent; eye contact appropriate; Speech is normal rate, volume and prosody and not pressured; some psychomotor retardation present; thought process is organized and goal directed; Thought content is on her anxiety, depressive symptoms; no delusional ideations expressed; intermittent SI; no HI; Denies AVH and there is no evidence of perceptual disturbance. Patients insight and judgment impaired. Diagnostics Vital Signs (24Hr): Vital Signs - 24 hr 11/04/24 20:00 11/05/24 08:08 Temperature 98.9 F 97.7 F Pulse Rate 98 84 Respiratory Rate 18 Blood Pressure 132/73 101/63 Pulse Oximetry 96 95 Oxygen Delivery Method Room Air Room Air BMI result Body Mass Index 25.3 Labs 11/05/24 16:22 Labs: Laboratory Results - last 48 hr 11/04/24 11/04/24 11/04/24 07:53 08:36 12:21 POC Glucose 118 H 80 Estimat Average Glucose 128 Hemoglobin A1c % 6.1 H 11/04/24 11/04/24 11/05/24 17:11 20:06 08:14 POC Glucose 89 108 81 Estimat Average Glucose Hemoglobin A1c % Medications Medications Current Medications Acetaminophen (Acetaminophen 325 Mg Tablet) 650 mg PO Q6H PRN PRN Reason: Headache/Pain, Scale 1-10 Last Admin: 11/04/24 21:05 Dose: 650 mg Al Hydroxide/Mg Hydroxide (Magnesium Hydrox/Alum Hydrox 30 Ml Oral.Susp) 30 ml PO Q6H PRN PRN Reason: Heartburn/Nausea Albuterol Sulfate (Albuterol Sulfate 90 Mcg 8 Gm Inhaler) 2 puff INHALE RQ4H PRN PRN Reason: Shortness Of Breath Or Wheezing Amitriptyline HCl (Amitriptyline Hcl 50 Mg Tablet) 100 mg PO BEDTIME [facility] Last Admin: 11/04/24 21:04 Dose: 100 mg Bupropion HCl (Bupropion Hcl Xl 150 Mg Tab.Er.24h) 150 mg PO DAILY [facility] On Hold: 11/04/24 09:00 Clonazepam (Clonazepam 0.5 Mg Tablet) 0.5 mg PO TID [facility] Last Admin: 11/04/24 21:04 Dose: 0.5 mg Dextrose (Dextrose 50 % 25 Gm/50 Ml Syringe) 25 gm IVPUSH Q15M PRN; Protocol PRN Reason: per Hypoglycemia Standing Ord. Dicyclomine HCl (Dicyclomine Hcl 10 Mg Capsule) 10 mg PO TID [facility] Last Admin: 11/04/24 21:04 Dose: 10 mg Docusate Sodium (Docusate Sodium 100 Mg Capsule) 100 mg PO BID [facility] Last Admin: 11/04/24 21:05 Dose: 100 mg Glucose (Glucose Gel 15 Gm Gel..Gram.) 15 gm PO Q15M PRN; Protocol PRN Reason: per Hypoglycemia Standing Ord. Haloperidol (Haloperidol 1 Mg Tablet) 2 mg PO Q6H PRN PRN Reason: pyschosis/agitation Haloperidol (Haloperidol 1 Mg Tablet) 1 mg PO BEDTIME [facility] Last Admin: 11/04/24 21:05 Dose: 1 mg Hydroxyzine HCl (Hydroxyzine Hcl 25 Mg Tablet) 25 mg PO Q6H PRN PRN Reason: mild anxiety Last Admin: 11/03/24 18:58 Dose: 25 mg Insulin Human Lispro (Insulin Lispro 100 Unit/Ml 3 Ml Vial) 0 unit SUBCUT QIDACHS [facility]; Protocol Last Admin: 11/05/24 08:24 Dose: Not Given Lidocaine HCl (Lidocaine 4 % Cream Kit) 1 appl TOPICAL DAILY PRN PRN Reason: Back Pain Loratadine (Loratadine 10 Mg Tablet) 10 mg PO DAILY [facility] Last Admin: 11/04/24 09:32 Dose: 10 mg Magnesium Hydroxide (Milk Of Magnesia 30 Ml Oral.Susp) 30 ml PO DAILY PRN PRN Reason: Constipation Metformin HCl (Metformin Hcl 500 Mg Tablet) 500 mg PO BID [facility] Last Admin: 11/04/24 21:04 Dose: 500 mg Nicotine Polacrilex (Nicotine Polacrilex 2 Mg Gum) 2 mg BUCCAL Q2H PRN PRN Reason: Nicotine Cravings Omeprazole (Omeprazole 20 Mg Capsule.Dr) 20 mg PO BID@0630,1630 [facility] Last Admin: 11/05/24 06:10 Dose: 20 mg Ondansetron HCl (Ondansetron Odt 8 Mg Tab.Rapdis) 8 mg TRANSLINGU Q6H PRN PRN Reason: Continued Nausea And Vomiting Quetiapine Fumarate (Quetiapine Fumarate 400 Mg Tablet) 400 mg PO BEDTIME [facility] Last Admin: 11/04/24 21:04 Dose: 400 mg Simethicone (Simethicone 80 Mg Tab.Chew) 80 mg PO TID PRN PRN Reason: bloating Thiamine HCl (Thiamine Hcl 100 Mg Tablet) 100 mg PO TID [facility] Last Admin: 11/04/24 21:04 Dose: 100 mg Trazodone HCl (Trazodone Hcl 50 Mg Tablet) 50 mg PO BEDTIME [facility] Last Admin: 11/04/24 21:04 Dose: 50 mg Trazodone HCl (Trazodone Hcl 50 Mg Tablet) 50 mg PO BEDTIME PRN PRN Reason: Insomnia Last Admin: 11/03/24 23:33 Dose: 50 mg Venlafaxine HCl (Venlafaxine Hcl Er 75 Mg Cap.Er.24h) 75 mg PO DAILY [facility] Last Admin: 11/04/24 10:34 Dose: 75 mg Vitamin D (Cholecalciferol (Vitamin D3) 25 Mcg Tablet) 25 mcg PO DAILY [facility] Last Admin: 11/04/24 09:31 Dose: 25 mcg Zolpidem Tartrate (Zolpidem Tartrate 5 Mg Tablet) 5 mg PO BEDTIME PRN PRN Reason: Insomnia Allergies Allergies Allergy/AdvReac Type Severity Reaction Status Date / Time aspirin (ASA) Allergy Intermediate RASH Verified 06/29/23 12:31 Penicillins (PENICILLINS) Allergy Intermediate RASH Verified 06/29/23 12:31 Assessment & Plan Assessment & Plan (1) Schizophrenia: Status: Acute Code(s): F20.9 - Schizophrenia, unspecified (2) MDD (major depressive disorder), recurrent, severe, with psychosis: Status: Acute Code(s): F33.3 - Major depressive disorder, recurrent, severe with psychotic symptoms (3) Type 2 diabetes mellitus without complications: Status: Acute Code(s): E11.9 - Type 2 diabetes mellitus without complications (4) Essential hypertension: Status: Acute Code(s): I10 - Essential (primary) hypertension Plan HPI: patient is a 59 y.o female Luxem[place] speaking mostly with PMH of depression,anxiety, and schizophrenia presented to the ED with SIs and depression. Experiencing thoughts telling her to commit suicide but denies a specific plan. She has been compliant with medication. Patient also was assessed by BHN from home: per [facility] record, report poor memory, decreased in sleep and appetite, increased in sadness and depression. Hospital course: 11/05 reports continued anxiety and depression with intermittent SI. No AH, which she says has resolved. Reviewed meds and she agrees to increase Venlafaxine -POC's stable, no hyperglycemia; if remains stable will dc POC's and continue w/ Metformin PLAN: CV q15 Increasing Venlafaxine to 112.5mg (up from 75mg) Type 2 diabetes Continue with metformin and atorvastatin Recent A1c 6.1 Hypertension Previously taking lisinopril 5 mg daily Blood pressure stable If blood pressure is elevated restart lisinopril Patient educated on: diagnosis, medication risk/benefits and therapeutic strategies Informed Consent: understands Reason for continued inpatient stay Substantial Risk for: rapid decompensation Time Spent With Patient Time: Total time managing care of this patient today ____ minutes.
[2024-11-05] MEDS: Venlafaxine HCl ER 75 MG CAP.ER.24H PO (09:24)
[2024-11-05 12:28] LABS: Glucose, Whole Blood 217 mg/dL (60-115)
[2024-11-05 17:22] LABS: Glucose, Whole Blood 82 mg/dL (60-115)
[2024-11-05 17:35] LABS: Alanine Aminotransferase 45 U/L (0-31); Albumin Level 4.5 g/dL (3.5-5.0); Alkaline Phosphatase 82 U/L (39-117); Anion Gap 16 (12-20); Aspartate Amino Transferase 39 U/L (5-31); Blood Urea Nitrogen 14 mg/dL (9-16); Calcium 9.2 mg/dL (8.4-10.2); Carbon Dioxide 25 mmol/L (22-29); Chloride 106 mmol/L (96-108); Cholesterol 136 mg/dL (<200); Creatinine Clr Calc Pharmacy 53.2; Estimated Glomerular Filt Rate 55; HDL Cholesterol 46 mg/dL (>40); Potassium 4.2 mmol/L (3.3-5.1); Sodium 143 mmol/L (135-145); Total Protein 7.1 g/dL (6.5-8.0); Triglycerides 96 mg/dL (<150)
[2024-11-05] MEDS: Venlafaxine HCl ER 37.5 MG CAP.ER.24H PO (18:19)
[2024-11-05 19:38] VITALS: BP 137/75; PULSE 97; RESP 14; TEMP 36.9; O2SAT 98
[2024-11-05 19:54] LABS: Glucose, Whole Blood 154 mg/dL (60-115)
[2024-11-05 21:19] LABS: Free T4 (Free Thyroxine) 0.89 ng/dL (0.71-1.85); Thyroid Stimulating Hormone 0.54 uIU/mL (0.32-4.0)
[2024-11-06 07:50] VITALS: BP 112/68; PULSE 91; TEMP 36.1; O2SAT 94
[2024-11-06 07:52] LABS: Glucose, Whole Blood 79 mg/dL (60-115)
[2024-11-06] MEDS: Venlafaxine HCl ER 37.5 MG CAP.ER.24H 112.5 MG PO (08:30)
--- NOTE | 2024-11-06 09:54 | P.PNPSI_ITS ---
Subjective Subjective Date of Service: 11/06/24 Reason For Visit: major depressive d/o Interim History: Met with patient; discussed with team; seen with clinical services director Yovany Patient says she is a little better... Because she has a returned to appetite and slept better; however she says she remains quite depressed and still has intermittent SI. She says no current active SI but afraid it will develop as soon as she leaves. Denies any AVH. Discussed medications and she agrees to continue titration Mental Status Exam Mental Status Exam Narrative: Pt is alert and oriented; behavior is isolative; cooperative, friendly on approach; calm; patient is not in distress; dressed in casual attire with adequate hygiene and grooming; mood is described as little better...[but] still anxious...depressed and affect congruent; eye contact appropriate; Speech is normal rate, volume and prosody and not pressured; some psychomotor retardation present; thought process is organized and goal directed; Thought content is on her anxiety, depressive symptoms; no delusional ideations expressed; intermittent SI; no HI; Denies AVH and there is no evidence of perceptual disturbance. Patients insight and judgment impaired. Diagnostics Vital Signs (24Hr): Vital Signs - 24 hr 11/05/24 19:38 11/06/24 07:50 Temperature 98.5 F 96.9 F Pulse Rate 97 91 Respiratory Rate 14 Blood Pressure 137/75 112/68 Pulse Oximetry 98 94 Oxygen Delivery Method Room Air Room Air BMI result Body Mass Index 25.3 Labs 11/05/24 16:22 Labs: Laboratory Results - last 48 hr 11/04/24 11/04/24 11/04/24 12:21 17:11 20:06 Sodium Potassium Chloride Carbon Dioxide Anion Gap BUN Creatinine Estim Creat Clear Calc Estimated GFR POC Glucose 80 89 108 Random Glucose Calcium Total Bilirubin AST ALT Alkaline Phosphatase Total Protein Albumin Triglycerides Cholesterol LDL Cholesterol, Calc HDL Cholesterol TSH Free T4 11/05/24 11/05/24 11/05/24 08:14 12:24 16:22 Sodium 143 Potassium 4.2 Chloride 106 Carbon Dioxide 25 Anion Gap 16 BUN 14 Creatinine 1.03 Estim Creat Clear Calc 53.2 Estimated GFR 55 POC Glucose 81 217 H Random Glucose 65 Calcium 9.2 Total Bilirubin 0.2 AST 39 H ALT 45 H Alkaline Phosphatase 82 Total Protein 7.1 Albumin 4.5 Triglycerides 96 Cholesterol 136 LDL Cholesterol, Calc 71 HDL Cholesterol 46 TSH 0.54 Free T4 0.89 11/05/24 11/05/24 11/06/24 17:18 19:44 07:47 Sodium Potassium Chloride Carbon Dioxide Anion Gap BUN Creatinine Estim Creat Clear Calc Estimated GFR POC Glucose 82 154 H 79 Random Glucose Calcium Total Bilirubin AST ALT Alkaline Phosphatase Total Protein Albumin Triglycerides Cholesterol LDL Cholesterol, Calc HDL Cholesterol TSH Free T4 Medications Medications Current Medications Acetaminophen (Acetaminophen 325 Mg Tablet) 650 mg PO Q6H PRN PRN Reason: Headache/Pain, Scale 1-10 Last Admin: 11/04/24 21:05 Dose: 650 mg Al Hydroxide/Mg Hydroxide (Magnesium Hydrox/Alum Hydrox 30 Ml Oral.Susp) 30 ml PO Q6H PRN PRN Reason: Heartburn/Nausea Albuterol Sulfate (Albuterol Sulfate 90 Mcg 8 Gm Inhaler) 2 puff INHALE RQ4H PRN PRN Reason: Shortness Of Breath Or Wheezing Amitriptyline HCl (Amitriptyline Hcl 50 Mg Tablet) 100 mg PO BEDTIME [facility] Last Admin: 11/05/24 21:13 Dose: 100 mg Bupropion HCl (Bupropion Hcl Xl 150 Mg Tab.Er.24h) 150 mg PO DAILY [facility] On Hold: 11/04/24 09:00 Clonazepam (Clonazepam 0.5 Mg Tablet) 0.5 mg PO TID [facility] Last Admin: 11/06/24 08:30 Dose: 0.5 mg Dextrose (Dextrose 50 % 25 Gm/50 Ml Syringe) 25 gm IVPUSH Q15M PRN; Protocol PRN Reason: per Hypoglycemia Standing Ord. Dicyclomine HCl (Dicyclomine Hcl 10 Mg Capsule) 10 mg PO TID [facility] Last Admin: 11/06/24 08:31 Dose: 10 mg Docusate Sodium (Docusate Sodium 100 Mg Capsule) 100 mg PO BID [facility] Last Admin: 11/06/24 08:30 Dose: 100 mg Glucose (Glucose Gel 15 Gm Gel..Gram.) 15 gm PO Q15M PRN; Protocol PRN Reason: per Hypoglycemia Standing Ord. Haloperidol (Haloperidol 1 Mg Tablet) 2 mg PO Q6H PRN PRN Reason: pyschosis/agitation Haloperidol (Haloperidol 1 Mg Tablet) 1 mg PO BEDTIME [facility] Last Admin: 11/05/24 21:13 Dose: 1 mg Hydroxyzine HCl (Hydroxyzine Hcl 25 Mg Tablet) 25 mg PO Q6H PRN PRN Reason: mild anxiety Last Admin: 11/03/24 18:58 Dose: 25 mg Insulin Human Lispro (Insulin Lispro 100 Unit/Ml 3 Ml Vial) 0 unit SUBCUT QIDACHS [facility]; Protocol Last Admin: 11/06/24 08:33 Dose: Not Given Lidocaine HCl (Lidocaine 4 % Cream Kit) 1 appl TOPICAL DAILY PRN PRN Reason: Back Pain Loratadine (Loratadine 10 Mg Tablet) 10 mg PO DAILY [facility] Last Admin: 11/06/24 08:30 Dose: 10 mg Magnesium Hydroxide (Milk Of Magnesia 30 Ml Oral.Susp) 30 ml PO DAILY PRN PRN Reason: Constipation Metformin HCl (Metformin Hcl 500 Mg Tablet) 500 mg PO BID [facility] Last Admin: 11/06/24 08:31 Dose: 500 mg Nicotine Polacrilex (Nicotine Polacrilex 2 Mg Gum) 2 mg BUCCAL Q2H PRN PRN Reason: Nicotine Cravings Omeprazole (Omeprazole 20 Mg Capsule.Dr) 20 mg PO BID@0630,1630 [facility] Last Admin: 11/06/24 06:05 Dose: 20 mg Ondansetron HCl (Ondansetron Odt 8 Mg Tab.Rapdis) 8 mg TRANSLINGU Q6H PRN PRN Reason: Continued Nausea And Vomiting Quetiapine Fumarate (Quetiapine Fumarate 400 Mg Tablet) 400 mg PO BEDTIME [facility] Last Admin: 11/05/24 21:13 Dose: 400 mg Simethicone (Simethicone 80 Mg Tab.Chew) 80 mg PO TID PRN PRN Reason: bloating Thiamine HCl (Thiamine Hcl 100 Mg Tablet) 100 mg PO TID [facility] Last Admin: 11/06/24 08:30 Dose: 100 mg Trazodone HCl (Trazodone Hcl 50 Mg Tablet) 50 mg PO BEDTIME [facility] Last Admin: 11/05/24 21:13 Dose: 50 mg Trazodone HCl (Trazodone Hcl 50 Mg Tablet) 50 mg PO BEDTIME PRN PRN Reason: Insomnia Last Admin: 11/03/24 23:33 Dose: 50 mg Venlafaxine HCl (Venlafaxine Hcl Er 37.5 Mg Cap.Er.24h) 112.5 mg PO DAILY [facility] Last Admin: 11/06/24 08:30 Dose: 112.5 mg Vitamin D (Cholecalciferol (Vitamin D3) 25 Mcg Tablet) 25 mcg PO DAILY [facility] Last Admin: 11/06/24 08:30 Dose: 25 mcg Zolpidem Tartrate (Zolpidem Tartrate 5 Mg Tablet) 5 mg PO BEDTIME PRN PRN Reason: Insomnia Last Admin: 11/05/24 21:14 Dose: 5 mg Allergies Allergies Allergy/AdvReac Type Severity Reaction Status Date / Time aspirin (ASA) Allergy Intermediate RASH Verified 06/29/23 12:31 Penicillins (PENICILLINS) Allergy Intermediate RASH Verified 06/29/23 12:31 Assessment & Plan Assessment & Plan (1) Schizophrenia: Status: Acute Code(s): F20.9 - Schizophrenia, unspecified (2) MDD (major depressive disorder), recurrent, severe, with psychosis: Status: Acute Code(s): F33.3 - Major depressive disorder, recurrent, severe with psychotic symptoms (3) Type 2 diabetes mellitus without complications: Status: Acute Code(s): E11.9 - Type 2 diabetes mellitus without complications (4) Essential hypertension: Status: Acute Code(s): I10 - Essential (primary) hypertension Plan HPI: patient is a 59 y.o female Maced[place] speaking mostly with PMH of depression,anxiety, and schizophrenia presented to the ED with SIs and depression. Experiencing thoughts telling her to commit suicide but denies a specific plan. She has been compliant with medication. Patient also was assessed by BHN from home: per N record, report poor memory, decreased in sleep and appetite, increased in sadness and depression. Hospital course: 11/05 reports continued anxiety and depression with intermittent SI. No AH, which she says has resolved. Reviewed meds and she agrees to increase Venlafaxine -POC's stable, no hyperglycemia; if remains stable will dc POC's and continue w/ Metformin 11/06 Patient says she is a little better... Because she has a returned to appetite and slept better; however she says she remains quite depressed and still has intermittent SI. She says no current active SI but afraid it will develop as soon as she leaves. Denies any AVH. Discussed medications and she agrees to continue titration PLAN: CV q15 Increasing Venlafaxine to 112.5mg (up from 75mg); will likely continue to titrate Type 2 diabetes Continue with metformin and atorvastatin Recent A1c 6.1 Hypertension Previously taking lisinopril 5 mg daily Blood pressure stable If blood pressure is elevated restart lisinopril Patient educated on: diagnosis and medication risk/benefits Informed Consent: understands Reason for continued inpatient stay Substantial Risk for: rapid decompensation Time Spent With Patient Time: Total time managing care of this patient today ____ minutes.
[2024-11-06 12:17] LABS: Glucose, Whole Blood 94 mg/dL (60-115)
[2024-11-06 17:11] LABS: Glucose, Whole Blood 95 mg/dL (60-115)
[2024-11-06 19:43] VITALS: BP 112/71; PULSE 93; RESP 20; TEMP 37.2; O2SAT 97
[2024-11-07 08:19] VITALS: BP 123/62; PULSE 51; TEMP 36.5; O2SAT 94
[2024-11-07 08:45] LABS: Glucose, Whole Blood 73 mg/dL (60-115)
[2024-11-07] MEDS: Venlafaxine HCl ER 37.5 MG CAP.ER.24H 112.5 MG PO (09:06)
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
[2024-11-07 12:38] LABS: Glucose, Whole Blood 84 mg/dL (60-115)
[2024-11-07 17:00] LABS: Glucose, Whole Blood 103 mg/dL (60-115)
[2024-11-07 20:00] VITALS: BP 126/67; PULSE 94; RESP 20; TEMP 36.6; O2SAT 97
[2024-11-08 08:00] VITALS: BP 107/61; PULSE 93; RESP 16; TEMP 36.6; O2SAT 98
[2024-11-08 08:02] LABS: Glucose, Whole Blood 72 mg/dL (60-115)
[2024-11-08] MEDS: Venlafaxine HCl ER 37.5 MG CAP.ER.24H 112.5 MG PO (09:15)
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
[2024-11-08 11:58] LABS: Glucose, Whole Blood 114 mg/dL (60-115)
[2024-11-08 20:00] VITALS: BP 119/70; PULSE 91; RESP 18; TEMP 37.2; O2SAT 98
[2024-11-09 07:58] LABS: Glucose, Whole Blood 68 mg/dL (60-115)
[2024-11-09 08:00] VITALS: BP 98/57; PULSE 96; RESP 16; TEMP 36.9; O2SAT 98
[2024-11-09] MEDS: Venlafaxine HCl ER 37.5 MG CAP.ER.24H 112.5 MG PO (08:34)
--- NOTE | 2024-11-09 11:37 | HO.PSYCHPN ---
Subjective Subjective Date of Service: 11/09/24 Reason For Visit: major depressive d/o Subjective Notes: Conditional Voluntary Interim History: Patient reports moderate anxiety and depression. She has been sleeping well, taking her medications as prescribed. He had and attending groups. She notes that the medications are helping. Medication Compliance: Yes Side effects from medications: No Attending Groups: Intermittent Review of Systems Acute medical concerns: Yes Respiratory: Reports intermittent productive cough with white phlegm for the past 1 month. She took [id number] regimen, including Robitussin without relief. Mental Status Exam Mental Status Exam Narrative: Appearance: Casually dressed, disheveled Behavior: Calm and cooperative throughout the interview. Eye contact is appropriate, and there are no signs of psychomotor agitation or retardation Speech: Normal volume and prosody Thought process: Logical and goal-directed Thought content: Future oriented no self-harming thoughts Mood: Depressed Affect: Constricted SI:denies HI:denies VH/AH:none Delusions: None Insight/judgment: Fair insight and judgment Memory/cog: Alert, oriented x 4. grossly intact to conversational testing Diagnostics Vital Signs (24Hr): Vital Signs - 24 hr 11/08/24 20:00 11/09/24 08:00 Temperature 99 F 98.4 F Pulse Rate 91 96 Respiratory Rate 18 16 Blood Pressure 119/70 98/57 L Pulse Oximetry 98 98 Oxygen Delivery Method Room Air Room Air BMI result Body Mass Index 25.3 Labs 11/05/24 16:22 Labs: Laboratory Results - last 48 hr 11/07/24 11/07/24 11/08/24 12:33 16:56 07:52 POC Glucose 84 103 72 11/08/24 11/09/24 11:53 07:54 POC Glucose 114 68 Medications Medications Current Medications Acetaminophen (Acetaminophen 325 Mg Tablet) 650 mg PO Q6H PRN PRN Reason: Headache/Pain, Scale 1-10 Last Admin: 11/08/24 09:22 Dose: 650 mg Al Hydroxide/Mg Hydroxide (Magnesium Hydrox/Alum Hydrox 30 Ml Oral.Susp) 30 ml PO Q6H PRN PRN Reason: Heartburn/Nausea Albuterol Sulfate (Albuterol Sulfate 90 Mcg 8 Gm Inhaler) 2 puff INHALE RQ4H PRN PRN Reason: Shortness Of Breath Or Wheezing Amitriptyline HCl (Amitriptyline Hcl 50 Mg Tablet) 100 mg PO BEDTIME [facility] Last Admin: 11/08/24 22:20 Dose: 100 mg Bupropion HCl (Bupropion Hcl Xl 150 Mg Tab.Er.24h) 150 mg PO DAILY [facility] On Hold: 11/04/24 09:00 Clonazepam (Clonazepam 0.5 Mg Tablet) 0.5 mg PO TID [facility] Last Admin: 11/09/24 08:34 Dose: 0.5 mg Dextrose (Dextrose 50 % 25 Gm/50 Ml Syringe) 25 gm IVPUSH Q15M PRN; Protocol PRN Reason: per Hypoglycemia Standing Ord. Dicyclomine HCl (Dicyclomine Hcl 10 Mg Capsule) 10 mg PO TID [facility] Last Admin: 11/09/24 08:35 Dose: 10 mg Docusate Sodium (Docusate Sodium 100 Mg Capsule) 100 mg PO BID [facility] Last Admin: 11/09/24 08:35 Dose: 100 mg Glucose (Glucose Gel 15 Gm Gel..Gram.) 15 gm PO Q15M PRN; Protocol PRN Reason: per Hypoglycemia Standing Ord. Haloperidol (Haloperidol 1 Mg Tablet) 2 mg PO Q6H PRN PRN Reason: pyschosis/agitation Haloperidol (Haloperidol 1 Mg Tablet) 1 mg PO BEDTIME [facility] Last Admin: 11/08/24 22:20 Dose: 1 mg Hydroxyzine HCl (Hydroxyzine Hcl 25 Mg Tablet) 25 mg PO Q6H PRN PRN Reason: mild anxiety Last Admin: 11/03/24 18:58 Dose: 25 mg Insulin Human Lispro (Insulin Lispro 100 Unit/Ml 3 Ml Vial) 0 unit SUBCUT QIDACHS [facility]; Protocol Last Admin: 11/09/24 08:10 Dose: Not Given Lidocaine HCl (Lidocaine 4 % Cream Kit) 1 appl TOPICAL DAILY PRN PRN Reason: Back Pain Loratadine (Loratadine 10 Mg Tablet) 10 mg PO DAILY [facility] Last Admin: 11/09/24 08:35 Dose: 10 mg Magnesium Hydroxide (Milk Of Magnesia 30 Ml Oral.Susp) 30 ml PO DAILY PRN PRN Reason: Constipation Metformin HCl (Metformin Hcl 500 Mg Tablet) 500 mg PO BID [facility] Last Admin: 11/09/24 08:34 Dose: 500 mg Nicotine Polacrilex (Nicotine Polacrilex 2 Mg Gum) 2 mg BUCCAL Q2H PRN PRN Reason: Nicotine Cravings Omeprazole (Omeprazole 20 Mg Capsule.Dr) 20 mg PO BID@0630,1630 [facility] Last Admin: 11/09/24 06:52 Dose: 20 mg Ondansetron HCl (Ondansetron Odt 8 Mg Tab.Rapdis) 8 mg TRANSLINGU Q6H PRN PRN Reason: Continued Nausea And Vomiting Quetiapine Fumarate (Quetiapine Fumarate 400 Mg Tablet) 400 mg PO BEDTIME [facility] Last Admin: 11/08/24 22:18 Dose: 400 mg Simethicone (Simethicone 80 Mg Tab.Chew) 80 mg PO TID PRN PRN Reason: bloating Last Admin: 11/06/24 22:01 Dose: 80 mg Thiamine HCl (Thiamine Hcl 100 Mg Tablet) 100 mg PO TID [facility] Last Admin: 11/09/24 08:34 Dose: 100 mg Trazodone HCl (Trazodone Hcl 50 Mg Tablet) 50 mg PO BEDTIME [facility] Last Admin: 11/08/24 22:18 Dose: 50 mg Trazodone HCl (Trazodone Hcl 50 Mg Tablet) 50 mg PO BEDTIME PRN PRN Reason: Insomnia Last Admin: 11/03/24 23:33 Dose: 50 mg Venlafaxine HCl (Venlafaxine Hcl Er 37.5 Mg Cap.Er.24h) 112.5 mg PO DAILY [facility] Last Admin: 11/09/24 08:34 Dose: 112.5 mg Vitamin D (Cholecalciferol (Vitamin D3) 25 Mcg Tablet) 25 mcg PO DAILY [facility] Last Admin: 11/09/24 08:34 Dose: 25 mcg Zolpidem Tartrate (Zolpidem Tartrate 5 Mg Tablet) 5 mg PO BEDTIME PRN PRN Reason: Insomnia Last Admin: 11/08/24 22:20 Dose: 5 mg Allergies Allergies Allergy/AdvReac Type Severity Reaction Status Date / Time aspirin (ASA) Allergy Intermediate RASH Verified 06/29/23 12:31 Penicillins (PENICILLINS) Allergy Intermediate RASH Verified 06/29/23 12:31 Assessment & Plan Assessment & Plan (1) Schizophrenia: Status: Acute Code(s): F20.9 - Schizophrenia, unspecified (2) MDD (major depressive disorder), recurrent, severe, with psychosis: Status: Acute Code(s): F33.3 - Major depressive disorder, recurrent, severe with psychotic symptoms (3) Type 2 diabetes mellitus without complications: Status: Acute Code(s): E11.9 - Type 2 diabetes mellitus without complications (4) Essential hypertension: Status: Acute Code(s): I10 - Essential (primary) hypertension Plan HPI: patient is a 59 y.o female [place] speaking mostly with PMH of depression,anxiety, and schizophrenia presented to the ED with SIs and depression. Experiencing thoughts telling her to commit suicide but denies a specific plan. She has been compliant with medication. Patient also was assessed by N from home: per N record, report poor memory, decreased in sleep and appetite, increased in sadness and depression. Hospital course: 11/05 reports continued anxiety and depression with intermittent SI. No AH, which she says has resolved. Reviewed meds and she agrees to increase Venlafaxine -POC's stable, no hyperglycemia; if remains stable will dc POC's and continue w/ Metformin 11/06 Patient says she is a little better... Because she has a returned to appetite and slept better; however she says she remains quite depressed and still has intermittent SI. She says no current active SI but afraid it will develop as soon as she leaves. Denies any AVH. Discussed medications and she agrees to continue titration 11/07 continue tx 11/09: Cepacol lozenges ordered for cough. Her blood sugar has been stable, therefore, will decrease POC to once daily and d/c Lispro s/s at this time. Continue current treatment regimen. PLAN: CV q15 Increasing Venlafaxine to 112.5mg (up from 75mg); will likely continue to titrate Type 2 diabetes Continue with metformin and atorvastatin Recent A1c 6.1 Hypertension Previously taking lisinopril 5 mg daily Blood pressure stable If blood pressure is elevated restart lisinopril Patient educated on: therapeutic strategies Reason for continued inpatient stay Substantial Risk for: rapid decompensation Time Spent With Patient Time: Total time managing care of this patient today ____ minutes.
[2024-11-09 12:20] LABS: Glucose, Whole Blood 86 mg/dL (60-115)
[2024-11-09 20:00] VITALS: BP 129/63; PULSE 100; RESP 16; TEMP 36.8; O2SAT 95
[2024-11-10 08:00] VITALS: BP 97/50; PULSE 89; RESP 20; TEMP 37.1
[2024-11-10] MEDS: Venlafaxine HCl ER 37.5 MG CAP.ER.24H 112.5 MG PO (08:02)
[2024-11-10 08:17] LABS: Glucose, Whole Blood 86 mg/dL (60-115)
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
[2024-11-10] MEDS: Throat Lozenge, Medicated LOZENGE 1 LOZENGE MUCOUS MEM ×2 (16:55→21:16)
[2024-11-10 20:00] VITALS: BP 120/71; PULSE 87; RESP 16; TEMP 37.7; O2SAT 95
[2024-11-11 08:03] LABS: Glucose, Whole Blood 76 mg/dL (60-115)
[2024-11-11 08:45] VITALS: BP 102/62; PULSE 86; RESP 16; TEMP 36.9; O2SAT 96
[2024-11-11] MEDS: Venlafaxine HCl ER 37.5 MG CAP.ER.24H 112.5 MG PO (08:47)
--- NOTE | 2024-11-11 10:17 | P.PNPSI_ITS ---
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 Pt anxious about what is happening at her day program. Team offered what information we had-she was pleased with these results. Visable in the milieu, yet worried about this issue-seems to have some relief after our meeting. Medication Compliance: Yes Side effects from medications: No Attending Groups: Intermittent Review of Systems Acute medical concerns: No Review of Systems Review of Systems Denies Mental Status Exam Mental Status Exam Patient Appearance: Fatigued Patient Orientation: Person, Place, Time and Situation Level of Consciousness: Alert Patient Behavior: Talkative and Good Eye Contact Mood Description: Constricted Affect Description: Constricted Patient Cognition Impaired: No Ability to Follow Directions: Good Speech Pattern: Spontaneous Speech Memory Description: Intact Hallucinations: None Delusions: Paranoid Ideation (??) Thought Process: Goal Oriented Thought Content: positive for Goal Oriented and positive for Suicidal Ideation (denies) Depressive Symptoms: Difficulty Sleeping Judgement: Fair Diagnostics Vital Signs (24Hr): Vital Signs - 24 hr 11/10/24 20:00 11/11/24 08:45 Temperature 99.9 F 98.4 F Pulse Rate 87 86 Respiratory Rate 16 Blood Pressure 120/71 102/62 Pulse Oximetry 95 Oxygen Delivery Method Room Air BMI result Body Mass Index 25.3 Labs 11/05/24 16:22 Labs: Laboratory Results - last 48 hr 11/09/24 11/10/24 11/11/24 12:15 08:12 07:55 POC Glucose 86 86 76 Medications Medications Current Medications Acetaminophen (Acetaminophen 325 Mg Tablet) 650 mg PO Q6H PRN PRN Reason: Headache/Pain, Scale 1-10 Last Admin: 11/08/24 09:22 Dose: 650 mg Al Hydroxide/Mg Hydroxide (Magnesium Hydrox/Alum Hydrox 30 Ml Oral.Susp) 30 ml PO Q6H PRN PRN Reason: Heartburn/Nausea Albuterol Sulfate (Albuterol Sulfate 90 Mcg 8 Gm Inhaler) 2 puff INHALE RQ4H PRN PRN Reason: Shortness Of Breath Or Wheezing Amitriptyline HCl (Amitriptyline Hcl 50 Mg Tablet) 100 mg PO BEDTIME [facility] Last Admin: 11/10/24 21:11 Dose: 100 mg Benzocaine (Throat Lozenge, Medicated Lozenge) 1 lozenge MUCOUS MEM Q2H PRN PRN Reason: Cough Last Admin: 11/10/24 21:16 Dose: 1 lozenge Bupropion HCl (Bupropion Hcl Xl 150 Mg Tab.Er.24h) 150 mg PO DAILY [facility] On Hold: 11/04/24 09:00 Clonazepam (Clonazepam 0.5 Mg Tablet) 0.5 mg PO TID [facility] Last Admin: 11/11/24 08:46 Dose: 0.5 mg Dextrose (Dextrose 50 % 25 Gm/50 Ml Syringe) 25 gm IVPUSH Q15M PRN; Protocol PRN Reason: per Hypoglycemia Standing Ord. Dicyclomine HCl (Dicyclomine Hcl 10 Mg Capsule) 10 mg PO TID [facility] Last Admin: 11/11/24 08:47 Dose: 10 mg Docusate Sodium (Docusate Sodium 100 Mg Capsule) 100 mg PO BID [facility] Last Admin: 11/11/24 08:47 Dose: 100 mg Glucose (Glucose Gel 15 Gm Gel..Gram.) 15 gm PO Q15M PRN; Protocol PRN Reason: per Hypoglycemia Standing Ord. Haloperidol (Haloperidol 1 Mg Tablet) 2 mg PO Q6H PRN PRN Reason: pyschosis/agitation Haloperidol (Haloperidol 1 Mg Tablet) 1 mg PO BEDTIME [facility] Last Admin: 11/10/24 21:11 Dose: 1 mg Hydroxyzine HCl (Hydroxyzine Hcl 25 Mg Tablet) 25 mg PO Q6H PRN PRN Reason: mild anxiety Last Admin: 11/03/24 18:58 Dose: 25 mg Lidocaine HCl (Lidocaine 4 % Cream Kit) 1 appl TOPICAL DAILY PRN PRN Reason: Back Pain Loratadine (Loratadine 10 Mg Tablet) 10 mg PO DAILY [facility] Last Admin: 11/11/24 08:47 Dose: 10 mg Magnesium Hydroxide (Milk Of Magnesia 30 Ml Oral.Susp) 30 ml PO DAILY PRN PRN Reason: Constipation Metformin HCl (Metformin Hcl 500 Mg Tablet) 500 mg PO BID [facility] Last Admin: 11/11/24 08:46 Dose: 500 mg Nicotine Polacrilex (Nicotine Polacrilex 2 Mg Gum) 2 mg BUCCAL Q2H PRN PRN Reason: Nicotine Cravings Omeprazole (Omeprazole 20 Mg Capsule.Dr) 20 mg PO BID@0630,1630 [facility] Last Admin: 11/11/24 07:36 Dose: 20 mg Ondansetron HCl (Ondansetron Odt 8 Mg Tab.Rapdis) 8 mg TRANSLINGU Q6H PRN PRN Reason: Continued Nausea And Vomiting Quetiapine Fumarate (Quetiapine Fumarate 400 Mg Tablet) 400 mg PO BEDTIME [facility] Last Admin: 11/10/24 21:11 Dose: 400 mg Simethicone (Simethicone 80 Mg Tab.Chew) 80 mg PO TID PRN PRN Reason: bloating Last Admin: 11/06/24 22:01 Dose: 80 mg Thiamine HCl (Thiamine Hcl 100 Mg Tablet) 100 mg PO TID [facility] Last Admin: 11/11/24 08:46 Dose: 100 mg Trazodone HCl (Trazodone Hcl 50 Mg Tablet) 50 mg PO BEDTIME [facility] Last Admin: 11/10/24 21:12 Dose: 50 mg Trazodone HCl (Trazodone Hcl 50 Mg Tablet) 50 mg PO BEDTIME PRN PRN Reason: Insomnia Last Admin: 11/03/24 23:33 Dose: 50 mg Venlafaxine HCl (Venlafaxine Hcl Er 37.5 Mg Cap.Er.24h) 112.5 mg PO DAILY [facility] Last Admin: 11/11/24 08:47 Dose: 112.5 mg Vitamin D (Cholecalciferol (Vitamin D3) 25 Mcg Tablet) 25 mcg PO DAILY [facility] Last Admin: 11/11/24 08:47 Dose: 25 mcg Zolpidem Tartrate (Zolpidem Tartrate 5 Mg Tablet) 5 mg PO BEDTIME PRN PRN Reason: Insomnia Last Admin: 11/10/24 21:12 Dose: 5 mg Allergies Allergies Allergy/AdvReac Type Severity Reaction Status Date / Time aspirin (ASA) Allergy Intermediate RASH Verified 06/29/23 12:31 Penicillins (PENICILLINS) Allergy Intermediate RASH Verified 06/29/23 12:31 Assessment & Plan Assessment & Plan (1) Schizophrenia: Status: Acute Code(s): F20.9 - Schizophrenia, unspecified (2) MDD (major depressive disorder), recurrent, severe, with psychosis: Status: Acute Code(s): F33.3 - Major depressive disorder, recurrent, severe with psychotic symptoms (3) Type 2 diabetes mellitus without complications: Status: Acute Code(s): E11.9 - Type 2 diabetes mellitus without complications (4) Essential hypertension: Status: Acute Code(s): I10 - Essential (primary) hypertension Plan HPI: patient is a 59 y.o female [place] speaking mostly with PMH of depression,anxiety, and schizophrenia presented to the ED with SIs and depression. Experiencing thoughts telling her to commit suicide but denies a specific plan. She has been compliant with medication. Patient also was assessed by N from home: per N record, report poor memory, decreased in sleep and appetite, increased in sadness and depression. Hospital course: 11/05 reports continued anxiety and depression with intermittent SI. No AH, which she says has resolved. Reviewed meds and she agrees to increase Venlafaxine -POC's stable, no hyperglycemia; if remains stable will dc POC's and continue w/ Metformin 11/06 Patient says she is a little better... Because she has a returned to appetite and slept better; however she says she remains quite depressed and still has intermittent SI. She says no current active SI but afraid it will develop as soon as she leaves. Denies any AVH. Discussed medications and she agrees to continue titration 11/07 continue tx 11/09: Cepacol lozenges ordered for cough. Her blood sugar has been stable, therefore, will decrease POC to once daily and d/c Lispro s/s at this time. Continue current treatment regimen. 11/10: Continue current treatment regimen. 11/11: Continue tx PLAN: CV q15 Increasing Venlafaxine to 112.5mg (up from 75mg); will likely continue to titrate Type 2 diabetes Continue with metformin and atorvastatin Recent A1c 6.1 Hypertension Previously taking lisinopril 5 mg daily Blood pressure stable If blood pressure is elevated restart lisinopril Reason for continued inpatient stay Substantial Risk for: rapid decompensation Time Spent With Patient Time: Total time managing care of this patient today ____ minutes.
[2024-11-11 20:00] VITALS: BP 118/64; PULSE 88; TEMP 37.1; O2SAT 96
[2024-11-12 08:21] LABS: Glucose, Whole Blood 75 mg/dL (60-115)
[2024-11-12 08:27] VITALS: BP 103/72; PULSE 91; RESP 20; TEMP 36.9; O2SAT 97
[2024-11-12] MEDS: Venlafaxine HCl ER 37.5 MG CAP.ER.24H 112.5 MG PO (08:29)
[2024-11-12 09:13] LABS: Creatinine Clr Calc Pharmacy 58.3; Estimated Glomerular Filt Rate > 60
--- NOTE | 2024-11-12 14:00 | P.PNPSI_ITS ---
Subjective Subjective Date of Service: 11/12/24 Reason For Visit: major depressive d/o Subjective Notes: Conditional Voluntary Healthcare Proxy: No Guardianship: No Medical Problems Affecting Mental Status: No Interim History: Patient seen in occupational therapy office, with edm operator present. She was cooperative, blunted in affect. She continues to endorse depressed mood. Those states that she is gradually feeling better. She states that she's having nightmares and asked about medication to help with this. She also endorsed auditory hallucinations, but states that these are improved since admission. Otherwise, she denies concerns about her care at this time. She denies SI/HI. Medication Compliance: Yes Side effects from medications: No Attending Groups: Intermittent Review of Systems Acute medical concerns: No Medical Review of Systems: unchanged Review of Systems Review of Systems Yes all other systems are reviewed and are negative Mental Status Exam Mental Status Exam Narrative: Patient Appearance: Fatigued Patient Orientation: Person, Place, Time and Situation Level of Consciousness: Alert Patient Behavior: Talkative and Good Eye Contact Mood Description: Constricted Affect Description: Constricted Patient Cognition Impaired: No Ability to Follow Directions: Good Speech Pattern: Spontaneous Speech, nonpressured Memory Description: Intact Hallucinations: None Delusions: none evinced today Thought Process: Goal Oriented Thought Content: treatment for nightmares; denies SI/HI Depressive Symptoms: Difficulty Sleeping Judgement: Fair Diagnostics Vital Signs (24Hr): Vital Signs - 24 hr 11/11/24 20:00 11/12/24 08:27 Temperature 98.8 F 98.4 F Pulse Rate 88 91 Respiratory Rate 20 Blood Pressure 118/64 103/72 Pulse Oximetry 96 97 Oxygen Delivery Method Room Air Room Air BMI result Body Mass Index 25.3 Labs 11/12/24 08:53 Labs: Laboratory Results - last 48 hr 11/11/24 11/12/24 11/12/24 07:55 08:16 08:53 Creatinine 0.94 Estim Creat Clear Calc 58.3 Estimated GFR > 60 POC Glucose 76 75 Medications Medications Current Medications Acetaminophen (Acetaminophen 325 Mg Tablet) 650 mg PO Q6H PRN PRN Reason: Headache/Pain, Scale 1-10 Last Admin: 11/12/24 09:25 Dose: 650 mg Al Hydroxide/Mg Hydroxide (Magnesium Hydrox/Alum Hydrox 30 Ml Oral.Susp) 30 ml PO Q6H PRN PRN Reason: Heartburn/Nausea Albuterol Sulfate (Albuterol Sulfate 90 Mcg 8 Gm Inhaler) 2 puff INHALE RQ4H PRN PRN Reason: Shortness Of Breath Or Wheezing Amitriptyline HCl (Amitriptyline Hcl 50 Mg Tablet) 100 mg PO BEDTIME [facility] Last Admin: 11/11/24 20:25 Dose: 100 mg Benzocaine (Throat Lozenge, Medicated Lozenge) 1 lozenge MUCOUS MEM Q2H PRN PRN Reason: Cough Last Admin: 11/10/24 21:16 Dose: 1 lozenge Bupropion HCl (Bupropion Hcl Xl 150 Mg Tab.Er.24h) 150 mg PO DAILY [facility] On Hold: 11/04/24 09:00 Clonazepam (Clonazepam 0.5 Mg Tablet) 0.5 mg PO TID [facility] Last Admin: 11/12/24 08:31 Dose: 0.5 mg Dextrose (Dextrose 50 % 25 Gm/50 Ml Syringe) 25 gm IVPUSH Q15M PRN; Protocol PRN Reason: per Hypoglycemia Standing Ord. Dicyclomine HCl (Dicyclomine Hcl 10 Mg Capsule) 10 mg PO TID [facility] Last Admin: 11/12/24 08:32 Dose: 10 mg Docusate Sodium (Docusate Sodium 100 Mg Capsule) 100 mg PO BID [facility] Last Admin: 11/12/24 08:31 Dose: 100 mg Glucose (Glucose Gel 15 Gm Gel..Gram.) 15 gm PO Q15M PRN; Protocol PRN Reason: per Hypoglycemia Standing Ord. Haloperidol (Haloperidol 1 Mg Tablet) 2 mg PO Q6H PRN PRN Reason: pyschosis/agitation Haloperidol (Haloperidol 1 Mg Tablet) 1 mg PO BEDTIME [facility] Last Admin: 11/11/24 20:26 Dose: 1 mg Hydroxyzine HCl (Hydroxyzine Hcl 25 Mg Tablet) 25 mg PO Q6H PRN PRN Reason: mild anxiety Last Admin: 11/03/24 18:58 Dose: 25 mg Lidocaine HCl (Lidocaine 4 % Cream Kit) 1 appl TOPICAL DAILY PRN PRN Reason: Back Pain Loratadine (Loratadine 10 Mg Tablet) 10 mg PO DAILY [facility] Last Admin: 11/12/24 08:30 Dose: 10 mg Magnesium Hydroxide (Milk Of Magnesia 30 Ml Oral.Susp) 30 ml PO DAILY PRN PRN Reason: Constipation Metformin HCl (Metformin Hcl 500 Mg Tablet) 500 mg PO BID [facility] Last Admin: 11/12/24 08:30 Dose: 500 mg Nicotine Polacrilex (Nicotine Polacrilex 2 Mg Gum) 2 mg BUCCAL Q2H PRN PRN Reason: Nicotine Cravings Omeprazole (Omeprazole 20 Mg Capsule.Dr) 20 mg PO BID@0630,1630 [facility] Last Admin: 11/12/24 06:45 Dose: 20 mg Ondansetron HCl (Ondansetron Odt 8 Mg Tab.Rapdis) 8 mg TRANSLINGU Q6H PRN PRN Reason: Continued Nausea And Vomiting Quetiapine Fumarate (Quetiapine Fumarate 400 Mg Tablet) 400 mg PO BEDTIME [facility] Last Admin: 11/11/24 20:26 Dose: 400 mg Simethicone (Simethicone 80 Mg Tab.Chew) 80 mg PO TID PRN PRN Reason: bloating Last Admin: 11/06/24 22:01 Dose: 80 mg Thiamine HCl (Thiamine Hcl 100 Mg Tablet) 100 mg PO TID [facility] Last Admin: 11/12/24 08:30 Dose: 100 mg Trazodone HCl (Trazodone Hcl 50 Mg Tablet) 50 mg PO BEDTIME [facility] Last Admin: 11/11/24 20:26 Dose: 50 mg Trazodone HCl (Trazodone Hcl 50 Mg Tablet) 50 mg PO BEDTIME PRN PRN Reason: Insomnia Last Admin: 11/03/24 23:33 Dose: 50 mg Venlafaxine HCl (Venlafaxine Hcl Er 37.5 Mg Cap.Er.24h) 112.5 mg PO DAILY [facility] Last Admin: 11/12/24 08:29 Dose: 112.5 mg Vitamin D (Cholecalciferol (Vitamin D3) 25 Mcg Tablet) 25 mcg PO DAILY [facility] Last Admin: 11/12/24 08:31 Dose: 25 mcg Zolpidem Tartrate (Zolpidem Tartrate 5 Mg Tablet) 5 mg PO BEDTIME PRN PRN Reason: Insomnia Last Admin: 11/11/24 20:26 Dose: 5 mg Allergies Allergies Allergy/AdvReac Type Severity Reaction Status Date / Time aspirin (ASA) Allergy Intermediate RASH Verified 06/29/23 12:31 Penicillins (PENICILLINS) Allergy Intermediate RASH Verified 06/29/23 12:31 Assessment & Plan Assessment & Plan (1) Schizophrenia: Status: Acute Code(s): F20.9 - Schizophrenia, unspecified (2) MDD (major depressive disorder), recurrent, severe, with psychosis: Status: Acute Code(s): F33.3 - Major depressive disorder, recurrent, severe with psychotic symptoms (3) Type 2 diabetes mellitus without complications: Status: Acute Code(s): E11.9 - Type 2 diabetes mellitus without complications (4) Essential hypertension: Status: Acute Code(s): I10 - Essential (primary) hypertension Plan HPI: patient is a 59 y.o female [place] speaking mostly with PMH of depression,anxiety, and schizophrenia presented to the ED with SIs and depression. Experiencing thoughts telling her to commit suicide but denies a specific plan. She has been compliant with medication. Patient also was assessed by [facility] from home: per [facility] record, report poor memory, decreased in sleep and appetite, increased in sadness and depression. Hospital course: 11/05 reports continued anxiety and depression with intermittent SI. No AH, which she says has resolved. Reviewed meds and she agrees to increase Venlafaxine -POC's stable, no hyperglycemia; if remains stable will dc POC's and continue w/ Metformin 11/06 Patient says she is a little better... Because she has a returned to appetite and slept better; however she says she remains quite depressed and still has intermittent SI. She says no current active SI but afraid it will develop as soon as she leaves. Denies any AVH. Discussed medications and she agrees to continue titration 11/07 continue tx 11/09: Cepacol lozenges ordered for cough. Her blood sugar has been stable, therefore, will decrease POC to once daily and d/c Lispro s/s at this time. Continue current treatment regimen. 11/10: Continue current treatment regimen. 11/11: Continue tx 11/12: will start Prazosin for nightmares continue on CV, q15 minutes safety checks q15 Increasing Venlafaxine to 112.5mg (up from 75mg); will likely continue to titrate Type 2 diabetes Continue with metformin and atorvastatin Recent A1c 6.1 Hypertension Previously taking lisinopril 5 mg daily Blood pressure stable If blood pressure is elevated restart lisinopril Patient educated on: diagnosis and medication risk/benefits Informed Consent: understands Reason for continued inpatient stay Substantial Risk for: harm to self, inability to function and rapid decompensation Time Spent With Patient Time: Total time managing care of this patient today __25__ minutes.
[2024-11-12 20:00] VITALS: BP 121/68; PULSE 91; TEMP 36.8; O2SAT 96
[2024-11-12 21:28] VITALS: BP 121/68
[2024-11-13 08:00] VITALS: BP 103/62; PULSE 88; RESP 18; TEMP 37.3; O2SAT 97
[2024-11-13 08:03] LABS: Glucose, Whole Blood 76 mg/dL (60-115)
[2024-11-13] MEDS: Venlafaxine HCl ER 37.5 MG CAP.ER.24H 112.5 MG PO (08:23)
--- NOTE | 2024-11-13 16:28 | P.PNPSI_ITS ---
Subjective Subjective Date of Service: 11/13/24 Reason For Visit: major depressive d/o Subjective Notes: Conditional Voluntary Healthcare Proxy: No Guardianship: No Medical Problems Affecting Mental Status: No Interim History: Patient seen in her room with foreign language interpreter present. She was cooperative, with slight blunting. She said that she's continued to feel a little bit better each day. She initially said she was sleeping well, then said that she continues to have middle of the night awakenings, and that she also feels tired today and not especially rested. She states that the voices are softer today and appear to be less intense. She denies suicidal ideation, homicidal ideation. She denies having any nightmares last night. No Current questions about her treatment regimen. Medication Compliance: Yes Side effects from medications: No Attending Groups: Intermittent Review of Systems Acute medical concerns: No Medical Review of Systems: unchanged Review of Systems Review of Systems Yes all other systems are reviewed and are negative Mental Status Exam Mental Status Exam Narrative: Patient Appearance: Well Groomed, adequate hygiene Patient Behavior: Appropriate Level of Consciousness: Awake, alert Patient Orientation: Person, Place and Time, situational context Memory: grossly intact to recent events Psychomotor: no agitation or slowing Speech: normal rate, tone, volume Mood: ?okay? Affect: blunting, mild Thought Process: Goal Oriented Thought Content: denies SI/HI; focused on treatment questions Hallucinations: endorses soft AH Delusions: None evinced Insight: mild impairment Judgment: mild impairment Impulsivity: low Diagnostics Vital Signs (24Hr): Vital Signs - 24 hr 11/12/24 20:00 11/12/24 21:28 11/13/24 08:00 Temperature 98.3 F 99.1 F Pulse Rate 91 88 Respiratory Rate 18 Blood Pressure 121/68 121/68 103/62 Pulse Oximetry 96 97 Oxygen Delivery Method Room Air Room Air BMI result Body Mass Index 25.3 Labs 11/12/24 08:53 Labs: Laboratory Results - last 48 hr 11/12/24 11/12/24 11/13/24 08:16 08:53 07:58 Creatinine 0.94 Estim Creat Clear Calc 58.3 Estimated GFR > 60 POC Glucose 75 76 Medications Medications Current Medications Acetaminophen (Acetaminophen 325 Mg Tablet) 650 mg PO Q6H PRN PRN Reason: Headache/Pain, Scale 1-10 Last Admin: 11/12/24 21:29 Dose: 650 mg Al Hydroxide/Mg Hydroxide (Magnesium Hydrox/Alum Hydrox 30 Ml Oral.Susp) 30 ml PO Q6H PRN PRN Reason: Heartburn/Nausea Albuterol Sulfate (Albuterol Sulfate 90 Mcg 8 Gm Inhaler) 2 puff INHALE RQ4H PRN PRN Reason: Shortness Of Breath Or Wheezing Amitriptyline HCl (Amitriptyline Hcl 50 Mg Tablet) 100 mg PO BEDTIME [facility] Last Admin: 11/12/24 21:28 Dose: 100 mg Benzocaine (Throat Lozenge, Medicated Lozenge) 1 lozenge MUCOUS MEM Q2H PRN PRN Reason: Cough Last Admin: 11/10/24 21:16 Dose: 1 lozenge Bupropion HCl (Bupropion Hcl Xl 150 Mg Tab.Er.24h) 150 mg PO DAILY [facility] On Hold: 11/04/24 09:00 Clonazepam (Clonazepam 0.5 Mg Tablet) 0.5 mg PO TID [facility] Last Admin: 11/13/24 14:46 Dose: 0.5 mg Dextrose (Dextrose 50 % 25 Gm/50 Ml Syringe) 25 gm IVPUSH Q15M PRN; Protocol PRN Reason: per Hypoglycemia Standing Ord. Dicyclomine HCl (Dicyclomine Hcl 10 Mg Capsule) 10 mg PO TID [facility] Last Admin: 11/13/24 14:46 Dose: 10 mg Docusate Sodium (Docusate Sodium 100 Mg Capsule) 100 mg PO BID [facility] Last Admin: 11/13/24 08:24 Dose: 100 mg Glucose (Glucose Gel 15 Gm Gel..Gram.) 15 gm PO Q15M PRN; Protocol PRN Reason: per Hypoglycemia Standing Ord. Haloperidol (Haloperidol 1 Mg Tablet) 2 mg PO Q6H PRN PRN Reason: pyschosis/agitation Haloperidol (Haloperidol 1 Mg Tablet) 1 mg PO BEDTIME [facility] Last Admin: 11/12/24 21:29 Dose: 1 mg Hydroxyzine HCl (Hydroxyzine Hcl 25 Mg Tablet) 25 mg PO Q6H PRN PRN Reason: mild anxiety Last Admin: 11/03/24 18:58 Dose: 25 mg Lidocaine HCl (Lidocaine 4 % Cream Kit) 1 appl TOPICAL DAILY PRN PRN Reason: Back Pain Loratadine (Loratadine 10 Mg Tablet) 10 mg PO DAILY [facility] Last Admin: 11/13/24 08:24 Dose: 10 mg Magnesium Hydroxide (Milk Of Magnesia 30 Ml Oral.Susp) 30 ml PO DAILY PRN PRN Reason: Constipation Metformin HCl (Metformin Hcl 500 Mg Tablet) 500 mg PO BID [facility] Last Admin: 11/13/24 08:24 Dose: 500 mg Nicotine Polacrilex (Nicotine Polacrilex 2 Mg Gum) 2 mg BUCCAL Q2H PRN PRN Reason: Nicotine Cravings Omeprazole (Omeprazole 20 Mg Capsule.Dr) 20 mg PO BID@0630,1630 [facility] Last Admin: 11/13/24 16:10 Dose: 20 mg Ondansetron HCl (Ondansetron Odt 8 Mg Tab.Rapdis) 8 mg TRANSLINGU Q6H PRN PRN Reason: Continued Nausea And Vomiting Prazosin HCl (Prazosin Hcl 1 Mg Capsule) 1 mg PO BEDTIME [facility]; Protocol Last Admin: 11/12/24 21:28 Dose: 1 mg Quetiapine Fumarate (Quetiapine Fumarate 400 Mg Tablet) 400 mg PO BEDTIME [facility] Last Admin: 11/12/24 21:29 Dose: 400 mg Simethicone (Simethicone 80 Mg Tab.Chew) 80 mg PO TID PRN PRN Reason: bloating Last Admin: 11/06/24 22:01 Dose: 80 mg Thiamine HCl (Thiamine Hcl 100 Mg Tablet) 100 mg PO TID [facility] Last Admin: 11/13/24 14:46 Dose: 100 mg Trazodone HCl (Trazodone Hcl 50 Mg Tablet) 50 mg PO BEDTIME [facility] Last Admin: 11/12/24 21:28 Dose: 50 mg Trazodone HCl (Trazodone Hcl 50 Mg Tablet) 50 mg PO BEDTIME PRN PRN Reason: Insomnia Last Admin: 11/13/24 00:15 Dose: 50 mg Venlafaxine HCl (Venlafaxine Hcl Er 37.5 Mg Cap.Er.24h) 112.5 mg PO DAILY [facility] Last Admin: 11/13/24 08:23 Dose: 112.5 mg Vitamin D (Cholecalciferol (Vitamin D3) 25 Mcg Tablet) 25 mcg PO DAILY [facility] Last Admin: 11/13/24 08:24 Dose: 25 mcg Zolpidem Tartrate (Zolpidem Tartrate 5 Mg Tablet) 5 mg PO BEDTIME PRN PRN Reason: Insomnia Last Admin: 11/12/24 21:31 Dose: 5 mg Allergies Allergies Allergy/AdvReac Type Severity Reaction Status Date / Time aspirin (ASA) Allergy Intermediate RASH Verified 06/29/23 12:31 Penicillins (PENICILLINS) Allergy Intermediate RASH Verified 06/29/23 12:31 Assessment & Plan Assessment & Plan (1) Schizophrenia: Status: Acute Code(s): F20.9 - Schizophrenia, unspecified (2) MDD (major depressive disorder), recurrent, severe, with psychosis: Status: Acute Code(s): F33.3 - Major depressive disorder, recurrent, severe with psychotic symptoms (3) Type 2 diabetes mellitus without complications: Status: Acute Code(s): E11.9 - Type 2 diabetes mellitus without complications (4) Essential hypertension: Status: Acute Code(s): I10 - Essential (primary) hypertension Plan HPI: patient is a 59 y.o female [place] speaking mostly with PMH of depression,anxiety, and schizophrenia presented to the ED with SIs and depression. Experiencing thoughts telling her to commit suicide but denies a specific plan. She has been compliant with medication. Patient also was assessed by N from home: per N record, report poor memory, decreased in sleep and appetite, increased in sadness and depression. Hospital course: 11/05 reports continued anxiety and depression with intermittent SI. No AH, which she says has resolved. Reviewed meds and she agrees to increase Venlafaxine -POC's stable, no hyperglycemia; if remains stable will dc POC's and continue w/ Metformin 11/06 Patient says she is a little better... Because she has a returned to appetite and slept better; however she says she remains quite depressed and still has intermittent SI. She says no current active SI but afraid it will develop as soon as she leaves. Denies any AVH. Discussed medications and she agrees to continue titration 11/07 continue tx 11/09: Cepacol lozenges ordered for cough. Her blood sugar has been stable, therefore, will decrease POC to once daily and d/c Lispro s/s at this time. Continue current treatment regimen. 11/10: Continue current treatment regimen. 11/11: Continue tx 11/12: will start Prazosin for nightmares 11/13: no changes today continue on CV, q15 minutes safety checks q15 Increasing Venlafaxine to 112.5mg (up from 75mg); will likely continue to titrate Type 2 diabetes Continue with metformin and atorvastatin Recent A1c 6.1 Hypertension Previously taking lisinopril 5 mg daily Blood pressure stable If blood pressure is elevated restart lisinopril Patient educated on: diagnosis and medication risk/benefits Informed Consent: understands Reason for continued inpatient stay Substantial Risk for: inability to function and rapid decompensation Time Spent With Patient Time: Total time managing care of this patient today _15___ minutes.
[2024-11-13 20:02] VITALS: BP 104/65; PULSE 97; RESP 16; TEMP 37.2; O2SAT 95
[2024-11-13 21:57] VITALS: BP 104/65
--- NOTE | 2024-11-14 07:33 | PC.NURSE ---
Late entry: November 09, 2024 at 2100, Lindy Wall was given Ambien 5 mg po as a prn for sleep.
[2024-11-14 07:51] LABS: Glucose, Whole Blood 78 mg/dL (60-115)
[2024-11-14 08:00] VITALS: BP 132/68; PULSE 100; RESP 18; TEMP 36.6; O2SAT 96
[2024-11-14] MEDS: Venlafaxine HCl ER 37.5 MG CAP.ER.24H 112.5 MG PO (08:30)
--- NOTE | 2024-11-14 16:46 | HO.PSYCHPN ---
Subjective Subjective Date of Service: 11/14/24 Reason For Visit: major depressive d/o Interim History: Met with patient; discussed with team; reviewed chart; patient seen with programmer Tiffany Patient reports that anxiety and depression remain but there overall better. AH is also better and consumer loan underwriter reviewed history and she says AH is only ever present when she is feeling depressed or upset. Discussed medication regimen and given that AH is resolved and only seems to be associated with mood, she agrees to discontinue that bedtime Haldol to lower side effect risks. She also agrees to further increase her venlafaxine. Patient continues to have trouble sleeping and asks if trazodone can be increased. Mental Status Exam Mental Status Exam Narrative: Patient Appearance: Well Groomed, adequate hygiene Patient Behavior: Appropriate Level of Consciousness: Awake, alert Patient Orientation: Person, Place and Time, situational context Memory: grossly intact to recent events Psychomotor: no agitation or slowing Speech: normal rate, tone, volume Mood: ?littel better? Affect: Brighter Thought Process: Goal Oriented Thought Content: denies SI/HI; focused on treatment questions Hallucinations: Denies AH Delusions: None evinced Insight/ Judgment: Improving Diagnostics Vital Signs (24Hr): Vital Signs - 24 hr 11/13/24 20:02 11/13/24 21:57 11/14/24 08:00 Temperature 98.9 F 97.8 F Pulse Rate 97 100 Respiratory Rate 16 18 Blood Pressure 104/65 104/65 132/68 Pulse Oximetry 95 96 Oxygen Delivery Method Room Air Room Air BMI result Body Mass Index 25.3 Labs 11/12/24 08:53 Labs: Laboratory Results - last 48 hr 11/13/24 11/14/24 07:58 07:42 POC Glucose 76 78 Medications Medications Current Medications Acetaminophen (Acetaminophen 325 Mg Tablet) 650 mg PO Q6H PRN PRN Reason: Headache/Pain, Scale 1-10 Last Admin: 11/12/24 21:29 Dose: 650 mg Al Hydroxide/Mg Hydroxide (Magnesium Hydrox/Alum Hydrox 30 Ml Oral.Susp) 30 ml PO Q6H PRN PRN Reason: Heartburn/Nausea Albuterol Sulfate (Albuterol Sulfate 90 Mcg 8 Gm Inhaler) 2 puff INHALE RQ4H PRN PRN Reason: Shortness Of Breath Or Wheezing Amitriptyline HCl (Amitriptyline Hcl 50 Mg Tablet) 100 mg PO BEDTIME [facility] Last Admin: 11/13/24 21:56 Dose: 100 mg Benzocaine (Throat Lozenge, Medicated Lozenge) 1 lozenge MUCOUS MEM Q2H PRN PRN Reason: Cough Last Admin: 11/10/24 21:16 Dose: 1 lozenge Bupropion HCl (Bupropion Hcl Xl 150 Mg Tab.Er.24h) 150 mg PO DAILY [facility] On Hold: 11/04/24 09:00 Clonazepam (Clonazepam 0.5 Mg Tablet) 0.5 mg PO TID [facility] Last Admin: 11/14/24 08:29 Dose: 0.5 mg Dextrose (Dextrose 50 % 25 Gm/50 Ml Syringe) 25 gm IVPUSH Q15M PRN; Protocol PRN Reason: per Hypoglycemia Standing Ord. Dicyclomine HCl (Dicyclomine Hcl 10 Mg Capsule) 10 mg PO TID [facility] Last Admin: 11/14/24 08:29 Dose: 10 mg Docusate Sodium (Docusate Sodium 100 Mg Capsule) 100 mg PO BID [facility] Last Admin: 11/14/24 08:29 Dose: 100 mg Glucose (Glucose Gel 15 Gm Gel..Gram.) 15 gm PO Q15M PRN; Protocol PRN Reason: per Hypoglycemia Standing Ord. Haloperidol (Haloperidol 1 Mg Tablet) 2 mg PO Q6H PRN PRN Reason: pyschosis/agitation Haloperidol (Haloperidol 1 Mg Tablet) 1 mg PO BEDTIME [facility] Last Admin: 11/13/24 21:57 Dose: 1 mg Hydroxyzine HCl (Hydroxyzine Hcl 25 Mg Tablet) 25 mg PO Q6H PRN PRN Reason: mild anxiety Last Admin: 11/03/24 18:58 Dose: 25 mg Lidocaine HCl (Lidocaine 4 % Cream Kit) 1 appl TOPICAL DAILY PRN PRN Reason: Back Pain Loratadine (Loratadine 10 Mg Tablet) 10 mg PO DAILY [facility] Last Admin: 11/14/24 08:29 Dose: 10 mg Magnesium Hydroxide (Milk Of Magnesia 30 Ml Oral.Susp) 30 ml PO DAILY PRN PRN Reason: Constipation Metformin HCl (Metformin Hcl 500 Mg Tablet) 500 mg PO BID [facility] Last Admin: 11/14/24 08:31 Dose: 500 mg Nicotine Polacrilex (Nicotine Polacrilex 2 Mg Gum) 2 mg BUCCAL Q2H PRN PRN Reason: Nicotine Cravings Omeprazole (Omeprazole 20 Mg Capsule.Dr) 20 mg PO BID@0630,1630 [facility] Last Admin: 11/14/24 06:03 Dose: 20 mg Ondansetron HCl (Ondansetron Odt 8 Mg Tab.Rapdis) 8 mg TRANSLINGU Q6H PRN PRN Reason: Continued Nausea And Vomiting Prazosin HCl (Prazosin Hcl 1 Mg Capsule) 1 mg PO BEDTIME [facility]; Protocol Last Admin: 11/13/24 21:57 Dose: 1 mg Quetiapine Fumarate (Quetiapine Fumarate 400 Mg Tablet) 400 mg PO BEDTIME [facility] Last Admin: 11/13/24 21:56 Dose: 400 mg Simethicone (Simethicone 80 Mg Tab.Chew) 80 mg PO TID PRN PRN Reason: bloating Last Admin: 11/06/24 22:01 Dose: 80 mg Thiamine HCl (Thiamine Hcl 100 Mg Tablet) 100 mg PO TID [facility] Last Admin: 11/14/24 08:30 Dose: 100 mg Trazodone HCl (Trazodone Hcl 50 Mg Tablet) 50 mg PO BEDTIME [facility] Last Admin: 11/13/24 21:56 Dose: 50 mg Trazodone HCl (Trazodone Hcl 50 Mg Tablet) 50 mg PO BEDTIME PRN PRN Reason: Insomnia Last Admin: 11/13/24 00:15 Dose: 50 mg Venlafaxine HCl (Venlafaxine Hcl Er 150 Mg Cap.Er.24h) 150 mg PO DAILY [facility] Vitamin D (Cholecalciferol (Vitamin D3) 25 Mcg Tablet) 25 mcg PO DAILY [facility] Last Admin: 11/14/24 08:30 Dose: 25 mcg Zolpidem Tartrate (Zolpidem Tartrate 5 Mg Tablet) 5 mg PO BEDTIME PRN PRN Reason: Insomnia Last Admin: 11/13/24 21:59 Dose: 5 mg Allergies Allergies Allergy/AdvReac Type Severity Reaction Status Date / Time aspirin (ASA) Allergy Intermediate RASH Verified 06/29/23 12:31 Penicillins (PENICILLINS) Allergy Intermediate RASH Verified 06/29/23 12:31 Assessment & Plan Assessment & Plan (1) Schizophrenia: Status: Acute Code(s): F20.9 - Schizophrenia, unspecified (2) MDD (major depressive disorder), recurrent, severe, with psychosis: Status: Acute Code(s): F33.3 - Major depressive disorder, recurrent, severe with psychotic symptoms (3) Type 2 diabetes mellitus without complications: Status: Acute Code(s): E11.9 - Type 2 diabetes mellitus without complications (4) Essential hypertension: Status: Acute Code(s): I10 - Essential (primary) hypertension Plan HPI: patient is a 59 y.o female Prydeinig speaking mostly with PMH of depression,anxiety, and schizophrenia presented to the ED with SIs and depression. Experiencing thoughts telling her to commit suicide but denies a specific plan. She has been compliant with medication. Patient also was assessed by N from home: per N record, report poor memory, decreased in sleep and appetite, increased in sadness and depression. Hospital course: 11/05 reports continued anxiety and depression with intermittent SI. No AH, which she says has resolved. Reviewed meds and she agrees to increase Venlafaxine -POC's stable, no hyperglycemia; if remains stable will dc POC's and continue w/ Metformin 11/06 Patient says she is a little better... Because she has a returned to appetite and slept better; however she says she remains quite depressed and still has intermittent SI. She says no current active SI but afraid it will develop as soon as she leaves. Denies any AVH. Discussed medications and she agrees to continue titration 11/07 continue tx 11/09: Cepacol lozenges ordered for cough. Her blood sugar has been stable, therefore, will decrease POC to once daily and d/c Lispro s/s at this time. Continue current treatment regimen. 11/10: Continue current treatment regimen. 11/11: Continue tx 11/12: will start Prazosin for nightmares 11/13: no changes today 11/14 Patient reports that anxiety and depression remain but there overall better. AH is also better and consumer loan underwriter reviewed history and she says AH is only ever present when she is feeling depressed or upset. Discussed medication regimen and given that AH is resolved and only seems to be associated with mood, she agrees to discontinue that bedtime Haldol to lower side effect risks. She also agrees to further increase her venlafaxine. Patient continues to have trouble sleeping and asks if trazodone can be increased. Nightmares have resolved since starting on prazosin -patient has a diagnosis of schizophrenia; not sure if her report of AH only present during depression/anxiety is accurate. However patient is already on Seroquel 400 mg and so discontinuing Haldol in effort to reduce polypharmacy and risks side effects continue on CV, q15 minutes safety checks q15 Increasing Venlafaxine to 150 mg (up from 75mg); will likely continue to titrate Discontinue Haldol 1 mg q.h.s.; patient already on solid dose of Seroquel and AH resolved; effort to mitigate side effect risks Continue Seroquel 400 mg q.h.s. Increase trazodone to 75 mg q.h.s. with 50 mg p.r.n. Continue prazosin 1 mg q.h.s.; patient says nightmares have resolved since Type 2 diabetes Continue with metformin and atorvastatin Recent A1c 6.1 Hypertension Previously taking lisinopril 5 mg daily Blood pressure stable If blood pressure is elevated restart lisinopril Patient educated on: diagnosis, medication risk/benefits and therapeutic strategies Informed Consent: understands Reason for continued inpatient stay Substantial Risk for: rapid decompensation and med/psych decompensation Time Spent With Patient Time: Total time managing care of this patient today ____ minutes.
[2024-11-14] MEDS: Milk of Magnesia 30 ML ORAL.SUSP PO (17:02)
[2024-11-14 21:41] VITALS: BP 122/77; PULSE 92; RESP 16; TEMP 36.9; O2SAT 95
[2024-11-14] MEDS: traZODone HCL 25 MG HALFTAB 75 MG PO (22:10)
[2024-11-14 22:11] VITALS: BP 122/77
[2024-11-15 08:00] VITALS: BP 99/62; PULSE 89; RESP 18; TEMP 36.6; O2SAT 95
[2024-11-15 08:16] LABS: Glucose, Whole Blood 95 mg/dL (60-115)
[2024-11-15] MEDS: Venlafaxine HCl ER 150 MG CAP.ER.24H PO (08:39)
[2024-11-15] MEDS: Milk of Magnesia 30 ML ORAL.SUSP PO (08:46)
--- NOTE | 2024-11-15 17:45 | P.PNPSI_ITS ---
Subjective Subjective Date of Service: 11/15/24 Reason For Visit: major depressive d/o Interim History: Met with patient; discussed with team; seen with financial coach Mela pt reports she is doing well, mood is good and no AH. Sleeping well and w/out nightmares. Pt feels medicaitons are helping and wants to continue w/ current regimen no BM for a few days and agrees to mirrilax Mental Status Exam Mental Status Exam Narrative: Patient Appearance: Well Groomed, adequate hygiene Patient Behavior: Appropriate Level of Consciousness: Awake, alert Patient Orientation: Person, Place and Time, situational context Memory: grossly intact to recent events Psychomotor: no agitation or slowing Speech: normal rate, tone, volume Mood: ?good? Affect: Brighter Thought Process: Goal Oriented Thought Content: denies SI/HI; focused on treatment questions Hallucinations: Denies AH Delusions: None evinced Insight/ Judgment: fair Diagnostics Vital Signs (24Hr): Vital Signs - 24 hr 11/14/24 21:41 11/14/24 22:11 11/15/24 08:00 Temperature 98.4 F 97.8 F Pulse Rate 92 89 Respiratory Rate 16 18 Blood Pressure 122/77 122/77 99/62 Pulse Oximetry 95 95 Oxygen Delivery Method Room Air Room Air BMI result Body Mass Index 25.3 Labs 11/12/24 08:53 Labs: Laboratory Results - last 48 hr 11/14/24 11/15/24 07:42 08:08 POC Glucose 78 95 Medications Medications Current Medications Acetaminophen (Acetaminophen 325 Mg Tablet) 650 mg PO Q6H PRN PRN Reason: Headache/Pain, Scale 1-10 Last Admin: 11/12/24 21:29 Dose: 650 mg Al Hydroxide/Mg Hydroxide (Magnesium Hydrox/Alum Hydrox 30 Ml Oral.Susp) 30 ml PO Q6H PRN PRN Reason: Heartburn/Nausea Albuterol Sulfate (Albuterol Sulfate 90 Mcg 8 Gm Inhaler) 2 puff INHALE RQ4H PRN PRN Reason: Shortness Of Breath Or Wheezing Amitriptyline HCl (Amitriptyline Hcl 50 Mg Tablet) 100 mg PO BEDTIME [facility] Last Admin: 11/14/24 22:10 Dose: 100 mg Benzocaine (Throat Lozenge, Medicated Lozenge) 1 lozenge MUCOUS MEM Q2H PRN PRN Reason: Cough Last Admin: 11/10/24 21:16 Dose: 1 lozenge Bupropion HCl (Bupropion Hcl Xl 150 Mg Tab.Er.24h) 150 mg PO DAILY [facility] On Hold: 11/04/24 09:00 Clonazepam (Clonazepam 0.5 Mg Tablet) 0.5 mg PO TID [facility] Last Admin: 11/15/24 15:25 Dose: 0.5 mg Dextrose (Dextrose 50 % 25 Gm/50 Ml Syringe) 25 gm IVPUSH Q15M PRN; Protocol PRN Reason: per Hypoglycemia Standing Ord. Dicyclomine HCl (Dicyclomine Hcl 10 Mg Capsule) 10 mg PO TID [facility] Last Admin: 11/15/24 15:25 Dose: 10 mg Docusate Sodium (Docusate Sodium 100 Mg Capsule) 100 mg PO BID [facility] Last Admin: 11/15/24 08:37 Dose: 100 mg Glucose (Glucose Gel 15 Gm Gel..Gram.) 15 gm PO Q15M PRN; Protocol PRN Reason: per Hypoglycemia Standing Ord. Haloperidol (Haloperidol 1 Mg Tablet) 2 mg PO Q6H PRN PRN Reason: pyschosis/agitation Haloperidol (Haloperidol 1 Mg Tablet) 1 mg PO BEDTIME [facility] On Hold: 11/14/24 16:44 Last Admin: 11/13/24 21:57 Dose: 1 mg Hydroxyzine HCl (Hydroxyzine Hcl 25 Mg Tablet) 25 mg PO Q6H PRN PRN Reason: mild anxiety Last Admin: 11/03/24 18:58 Dose: 25 mg Lidocaine HCl (Lidocaine 4 % Cream Kit) 1 appl TOPICAL DAILY PRN PRN Reason: Back Pain Loratadine (Loratadine 10 Mg Tablet) 10 mg PO DAILY [facility] Last Admin: 11/15/24 08:37 Dose: 10 mg Metformin HCl (Metformin Hcl 500 Mg Tablet) 500 mg PO BID [facility] Last Admin: 11/15/24 08:37 Dose: 500 mg Nicotine Polacrilex (Nicotine Polacrilex 2 Mg Gum) 2 mg BUCCAL Q2H PRN PRN Reason: Nicotine Cravings Omeprazole (Omeprazole 20 Mg Capsule.Dr) 20 mg PO BID@0630,1630 [facility] Last Admin: 11/15/24 16:51 Dose: 20 mg Ondansetron HCl (Ondansetron Odt 8 Mg Tab.Rapdis) 8 mg TRANSLINGU Q6H PRN PRN Reason: Continued Nausea And Vomiting Polyethylene Glycol (Polyethylene Glycol 3350 17 Gm Powd.Pack) 17 gm PO DAILY PRN PRN Reason: Constipation Prazosin HCl (Prazosin Hcl 1 Mg Capsule) 1 mg PO BEDTIME [facility]; Protocol Last Admin: 11/14/24 22:11 Dose: 1 mg Quetiapine Fumarate (Quetiapine Fumarate 400 Mg Tablet) 400 mg PO BEDTIME [facility] Last Admin: 11/14/24 22:09 Dose: 400 mg Simethicone (Simethicone 80 Mg Tab.Chew) 80 mg PO TID PRN PRN Reason: bloating Last Admin: 11/06/24 22:01 Dose: 80 mg Thiamine HCl (Thiamine Hcl 100 Mg Tablet) 100 mg PO TID [facility] Last Admin: 11/15/24 15:25 Dose: 100 mg Trazodone HCl (Trazodone Hcl 50 Mg Tablet) 50 mg PO BEDTIME PRN PRN Reason: Insomnia Last Admin: 11/13/24 00:15 Dose: 50 mg Trazodone HCl (Trazodone Hcl 25 Mg Halftab) 75 mg PO BEDTIME [facility] Last Admin: 11/14/24 22:10 Dose: 75 mg Venlafaxine HCl (Venlafaxine Hcl Er 150 Mg Cap.Er.24h) 150 mg PO DAILY [facility] Last Admin: 11/15/24 08:39 Dose: 150 mg Vitamin D (Cholecalciferol (Vitamin D3) 25 Mcg Tablet) 25 mcg PO DAILY [facility] Last Admin: 11/15/24 08:37 Dose: 25 mcg Zolpidem Tartrate (Zolpidem Tartrate 5 Mg Tablet) 5 mg PO BEDTIME PRN PRN Reason: Insomnia Last Admin: 11/14/24 22:07 Dose: 5 mg Allergies Allergies Allergy/AdvReac Type Severity Reaction Status Date / Time aspirin (ASA) Allergy Intermediate RASH Verified 06/29/23 12:31 Penicillins (PENICILLINS) Allergy Intermediate RASH Verified 06/29/23 12:31 Assessment & Plan Assessment & Plan (1) Schizophrenia: Status: Acute Code(s): F20.9 - Schizophrenia, unspecified (2) MDD (major depressive disorder), recurrent, severe, with psychosis: Status: Acute Code(s): F33.3 - Major depressive disorder, recurrent, severe with psychotic symptoms (3) Type 2 diabetes mellitus without complications: Status: Acute Code(s): E11.9 - Type 2 diabetes mellitus without complications (4) Essential hypertension: Status: Acute Code(s): I10 - Essential (primary) hypertension Plan HPI: patient is a 59 y.o female Kiswahili speaking mostly with PMH of depression,anxiety, and schizophrenia presented to the ED with SIs and depression. Experiencing thoughts telling her to commit suicide but denies a specific plan. She has been compliant with medication. Patient also was assessed by [facility] from home: per N record, report poor memory, decreased in sleep and appetite, increased in sadness and depression. Hospital course: 11/05 reports continued anxiety and depression with intermittent SI. No AH, which she says has resolved. Reviewed meds and she agrees to increase Venlafaxine -POC's stable, no hyperglycemia; if remains stable will dc POC's and continue w/ Metformin 11/06 Patient says she is a little better... Because she has a returned to appetite and slept better; however she says she remains quite depressed and still has intermittent SI. She says no current active SI but afraid it will develop as soon as she leaves. Denies any AVH. Discussed medications and she agrees to continue titration 11/07 continue tx 11/09: Cepacol lozenges ordered for cough. Her blood sugar has been stable, therefore, will decrease POC to once daily and d/c Lispro s/s at this time. Continue current treatment regimen. 11/10: Continue current treatment regimen. 11/11: Continue tx 11/12: will start Prazosin for nightmares 11/13: no changes today 11/14 Patient reports that anxiety and depression remain but there overall better. AH is also better and technical publications writer reviewed history and she says AH is only ever present when she is feeling depressed or upset. Discussed medication regimen and given that AH is resolved and only seems to be associated with mood, she agrees to discontinue that bedtime Haldol to lower side effect risks. She also agrees to further increase her venlafaxine. Patient continues to have trouble sleeping and asks if trazodone can be increased. Nightmares have resolved since starting on prazosin -patient has a diagnosis of schizophrenia; not sure if her report of AH only present during depression/anxiety is accurate. However patient is already on Seroquel 400 mg and so discontinuing Haldol in effort to reduce polypharmacy and risks side effects 11/15 pt reports she is doing well, mood is good and no AH. Sleeping well and w/out nightmares. Pt feels medicaitons are helping and wants to continue w/ current regimen -no BM for a few days and agrees to mirrilax PLAN continue on CV, q15 minutes safety checks q15 Increasing Venlafaxine to 150 mg (up from 75mg); will likely continue to titrate Discontinue Haldol 1 mg q.h.s.; patient already on solid dose of Seroquel and AH resolved; effort to mitigate side effect risks Continue Seroquel 400 mg q.h.s. Increase trazodone to 75 mg q.h.s. with 50 mg p.r.n. Continue prazosin 1 mg q.h.s.; patient says nightmares have resolved since Type 2 diabetes Continue with metformin and atorvastatin Recent A1c 6.1 Hypertension Previously taking lisinopril 5 mg daily Blood pressure stable If blood pressure is elevated restart lisinopril Patient educated on: diagnosis, medication risk/benefits and medical condition Informed Consent: understands Reason for continued inpatient stay Substantial Risk for: stable for discharge Time Spent With Patient Time: Total time managing care of this patient today ____ minutes.
[2024-11-15 20:00] VITALS: BP 126/74; PULSE 94; TEMP 37.2; O2SAT 95
[2024-11-15 21:22] VITALS: BP 124/74
[2024-11-15] MEDS: traZODone HCL 25 MG HALFTAB 75 MG PO (21:22)
[2024-11-16 07:42] LABS: Glucose, Whole Blood 84 mg/dL (60-115)
[2024-11-16] MEDS: Venlafaxine HCl ER 150 MG CAP.ER.24H PO (08:32)
[2024-11-16 08:43] VITALS: BP 103/58; PULSE 86; RESP 16; TEMP 36.9; O2SAT 94
--- NOTE | 2024-11-16 15:51 | HO.PSYCHPN ---
Subjective Subjective Date of Service: 11/16/24 Reason For Visit: major depressive d/o Interim History: met with patient; discussed with team; seen with Laina Hurtado pt mood is good and she denies psych symptoms. feels ready for discharge. Affect remains noticeably brighter Mental Status Exam Mental Status Exam Narrative: Patient Appearance: Well Groomed, adequate hygiene Patient Behavior: Appropriate Level of Consciousness: Awake, alert Patient Orientation: Person, Place and Time, situational context Memory: grossly intact to recent events Psychomotor: no agitation or slowing Speech: normal rate, tone, volume Mood: ?good? Affect: Brighter Thought Process: Goal Oriented Thought Content: denies SI/HI; focused on treatment questions Hallucinations: Denies AH Delusions: None evinced Insight/ Judgment: fair Diagnostics Vital Signs (24Hr): Vital Signs - 24 hr 11/15/24 20:00 11/15/24 21:22 11/16/24 08:43 Temperature 99.0 F 98.4 F Pulse Rate 94 86 Respiratory Rate 16 Blood Pressure 126/74 124/74 103/58 L Pulse Oximetry 95 94 Oxygen Delivery Method Room Air Room Air BMI result Body Mass Index 25.3 Labs 11/12/24 08:53 Labs: Laboratory Results - last 48 hr 11/15/24 11/16/24 08:08 07:35 POC Glucose 95 84 Medications Medications Current Medications Acetaminophen (Acetaminophen 325 Mg Tablet) 650 mg PO Q6H PRN PRN Reason: Headache/Pain, Scale 1-10 Last Admin: 11/12/24 21:29 Dose: 650 mg Al Hydroxide/Mg Hydroxide (Magnesium Hydrox/Alum Hydrox 30 Ml Oral.Susp) 30 ml PO Q6H PRN PRN Reason: Heartburn/Nausea Albuterol Sulfate (Albuterol Sulfate 90 Mcg 8 Gm Inhaler) 2 puff INHALE RQ4H PRN PRN Reason: Shortness Of Breath Or Wheezing Amitriptyline HCl (Amitriptyline Hcl 50 Mg Tablet) 100 mg PO BEDTIME ROBERT Last Admin: 11/15/24 21:21 Dose: 100 mg Benzocaine (Throat Lozenge, Medicated Lozenge) 1 lozenge MUCOUS MEM Q2H PRN PRN Reason: Cough Last Admin: 11/10/24 21:16 Dose: 1 lozenge Bupropion HCl (Bupropion Hcl Xl 150 Mg Tab.Er.24h) 150 mg PO DAILY ROBERT On Hold: 11/04/24 09:00 Clonazepam (Clonazepam 0.5 Mg Tablet) 0.5 mg PO TID [facility] Last Admin: 11/16/24 14:58 Dose: 0.5 mg Dextrose (Dextrose 50 % 25 Gm/50 Ml Syringe) 25 gm IVPUSH Q15M PRN; Protocol PRN Reason: per Hypoglycemia Standing Ord. Dicyclomine HCl (Dicyclomine Hcl 10 Mg Capsule) 10 mg PO TID [facility] Last Admin: 11/16/24 14:58 Dose: 10 mg Docusate Sodium (Docusate Sodium 100 Mg Capsule) 100 mg PO BID [facility] Last Admin: 11/16/24 08:32 Dose: 100 mg Glucose (Glucose Gel 15 Gm Gel..Gram.) 15 gm PO Q15M PRN; Protocol PRN Reason: per Hypoglycemia Standing Ord. Haloperidol (Haloperidol 1 Mg Tablet) 2 mg PO Q6H PRN PRN Reason: pyschosis/agitation Hydroxyzine HCl (Hydroxyzine Hcl 25 Mg Tablet) 25 mg PO Q6H PRN PRN Reason: mild anxiety Last Admin: 11/03/24 18:58 Dose: 25 mg Lidocaine HCl (Lidocaine 4 % Cream Kit) 1 appl TOPICAL DAILY PRN PRN Reason: Back Pain Loratadine (Loratadine 10 Mg Tablet) 10 mg PO DAILY [facility] Last Admin: 11/16/24 08:32 Dose: 10 mg Metformin HCl (Metformin Hcl 500 Mg Tablet) 500 mg PO BID [facility] Last Admin: 11/16/24 08:32 Dose: 500 mg Nicotine Polacrilex (Nicotine Polacrilex 2 Mg Gum) 2 mg BUCCAL Q2H PRN PRN Reason: Nicotine Cravings Omeprazole (Omeprazole 20 Mg Capsule.Dr) 20 mg PO BID@0630,1630 [facility] Last Admin: 11/16/24 06:34 Dose: 20 mg Ondansetron HCl (Ondansetron Odt 8 Mg Tab.Rapdis) 8 mg TRANSLINGU Q6H PRN PRN Reason: Continued Nausea And Vomiting Polyethylene Glycol (Polyethylene Glycol 3350 17 Gm Powd.Pack) 17 gm PO DAILY PRN PRN Reason: Constipation Last Admin: 11/16/24 08:40 Dose: 17 gm Prazosin HCl (Prazosin Hcl 1 Mg Capsule) 1 mg PO BEDTIME [facility]; Protocol Last Admin: 11/15/24 21:22 Dose: 1 mg Quetiapine Fumarate (Quetiapine Fumarate 400 Mg Tablet) 400 mg PO BEDTIME [facility] Last Admin: 11/15/24 21:21 Dose: 400 mg Simethicone (Simethicone 80 Mg Tab.Chew) 80 mg PO TID PRN PRN Reason: bloating Last Admin: 11/06/24 22:01 Dose: 80 mg Sodium Biphosphate/Sodium Phosphate (Sodium Phosphate,Mccone-Dibasic 133 Ml Enema) 133 ml ID ONCE PRN PRN Reason: continued constipation Thiamine HCl (Thiamine Hcl 100 Mg Tablet) 100 mg PO TID [facility] Last Admin: 11/16/24 14:58 Dose: 100 mg Trazodone HCl (Trazodone Hcl 50 Mg Tablet) 50 mg PO BEDTIME PRN PRN Reason: Insomnia Last Admin: 11/13/24 00:15 Dose: 50 mg Trazodone HCl (Trazodone Hcl 25 Mg Halftab) 75 mg PO BEDTIME [facility] Last Admin: 11/15/24 21:22 Dose: 75 mg Venlafaxine HCl (Venlafaxine Hcl Er 150 Mg Cap.Er.24h) 150 mg PO DAILY [facility] Last Admin: 11/16/24 08:32 Dose: 150 mg Vitamin D (Cholecalciferol (Vitamin D3) 25 Mcg Tablet) 25 mcg PO DAILY [facility] Last Admin: 11/16/24 08:32 Dose: 25 mcg Zolpidem Tartrate (Zolpidem Tartrate 5 Mg Tablet) 5 mg PO BEDTIME PRN PRN Reason: Insomnia Last Admin: 11/14/24 22:07 Dose: 5 mg Allergies Allergies Allergy/AdvReac Type Severity Reaction Status Date / Time aspirin (ASA) Allergy Intermediate RASH Verified 06/29/23 12:31 Penicillins (PENICILLINS) Allergy Intermediate RASH Verified 06/29/23 12:31 Assessment & Plan Assessment & Plan (1) Schizophrenia: Status: Acute Code(s): F20.9 - Schizophrenia, unspecified (2) MDD (major depressive disorder), recurrent, severe, with psychosis: Status: Acute Code(s): F33.3 - Major depressive disorder, recurrent, severe with psychotic symptoms (3) Type 2 diabetes mellitus without complications: Status: Acute Code(s): E11.9 - Type 2 diabetes mellitus without complications (4) Essential hypertension: Status: Acute Code(s): I10 - Essential (primary) hypertension Plan HPI: patient is a 59 y.o female Serbian speaking mostly with PMH of depression,anxiety, and schizophrenia presented to the ED with SIs and depression. Experiencing thoughts telling her to commit suicide but denies a specific plan. She has been compliant with medication. Patient also was assessed by [facility] from home: per [facility] record, report poor memory, decreased in sleep and appetite, increased in sadness and depression. Hospital course: 11/05 reports continued anxiety and depression with intermittent SI. No AH, which she says has resolved. Reviewed meds and she agrees to increase Venlafaxine -POC's stable, no hyperglycemia; if remains stable will dc POC's and continue w/ Metformin 11/06 Patient says she is a little better... Because she has a returned to appetite and slept better; however she says she remains quite depressed and still has intermittent SI. She says no current active SI but afraid it will develop as soon as she leaves. Denies any AVH. Discussed medications and she agrees to continue titration 11/07 continue tx 11/09: Cepacol lozenges ordered for cough. Her blood sugar has been stable, therefore, will decrease POC to once daily and d/c Lispro s/s at this time. Continue current treatment regimen. 11/10: Continue current treatment regimen. 11/11: Continue tx 11/12: will start Prazosin for nightmares 11/13: no changes today 11/14 Patient reports that anxiety and depression remain but there overall better. AH is also better and report writer reviewed history and she says AH is only ever present when she is feeling depressed or upset. Discussed medication regimen and given that AH is resolved and only seems to be associated with mood, she agrees to discontinue that bedtime Haldol to lower side effect risks. She also agrees to further increase her venlafaxine. Patient continues to have trouble sleeping and asks if trazodone can be increased. Nightmares have resolved since starting on prazosin -patient has a diagnosis of schizophrenia; not sure if her report of AH only present during depression/anxiety is accurate. However patient is already on Seroquel 400 mg and so discontinuing Haldol in effort to reduce polypharmacy and risks side effects 11/15 pt reports she is doing well, mood is good and no AH. Sleeping well and w/out nightmares. Pt feels medicaitons are helping and wants to continue w/ current regimen -no BM for a few days and agrees to mirrilax 11/16 remains doing well, good mood and feeling ready for discharge; denies psych symptoms; eating and sleeping well pt is not in imminent risk for harm to self/others and appropriate to return to community for tx PLAN continue on CV, q15 minutes safety checks q15 Increasing Venlafaxine to 150 mg (up from 75mg); will likely continue to titrate Discontinue Haldol 1 mg q.h.s.; patient already on solid dose of Seroquel and AH resolved; effort to mitigate side effect risks Continue Seroquel 400 mg q.h.s. Increase trazodone to 75 mg q.h.s. with 50 mg p.r.n. Continue prazosin 1 mg q.h.s.; patient says nightmares have resolved since Type 2 diabetes Continue with metformin and atorvastatin Recent A1c 6.1 Hypertension Previously taking lisinopril 5 mg daily Blood pressure stable If blood pressure is elevated restart lisinopril Patient educated on: diagnosis Informed Consent: understands Reason for continued inpatient stay Substantial Risk for: stable for discharge Time Spent With Patient Time: Total time managing care of this patient today ____ minutes.
[2024-11-16 20:00] VITALS: BP 109/70; PULSE 103; RESP 16; TEMP 36.8; O2SAT 99
[2024-11-16] MEDS: traZODone HCL 25 MG HALFTAB 75 MG PO (20:25)
[2024-11-16 20:26] VITALS: BP 109/70
[2024-11-17 08:14] VITALS: BP 103/74; PULSE 93; TEMP 37; O2SAT 97
[2024-11-17 08:22] LABS: Glucose, Whole Blood 94 mg/dL (60-115)
[2024-11-17] MEDS: Venlafaxine HCl ER 150 MG CAP.ER.24H PO (09:01)
--- NOTE | 2024-11-17 10:59 | PM.PSYDC ---
DS: Providers Provider Date of Service: 11/17/24 Date of admission: 11/03/24 14:27 Date of discharge: 11/17/24 Primary care physician: Bere Dolan MD Admitting clinician: Nataliia Bond Consults: 11/03/24 17:43 Consult to Hospitalist Routine Comment: Consulting Provider: [facility] Reason For Exam: New external admit for H+P Attending physician on discharge: Kaveh Donald DS: Diagnosis Discharge Diagnosis (1) Schizophrenia: Status: Acute (2) MDD (major depressive disorder), recurrent, severe, with psychosis: Status: Acute (3) Type 2 diabetes mellitus without complications: Status: Acute (4) Essential hypertension: Status: Acute DS: Medications Discharge Medications Home Medications: Home Medications ?Medication ?Instructions ?Recorded ?Confirmed metformin 500 mg tablet 1 tab PO BID 04/14/22 11/03/24 albuterol sulfate 90 mcg/actuation 2 puff inhalation Q4-6H PRN 12/02/22 11/03/24 aerosol inhaler Shortness Of Breath Or Wheezing cholecalciferol (vitamin D3) 25 25 mcg PO DAILY 12/02/22 11/03/24 mcg (1,000 unit) capsule (Vitamin D3) lidocaine-prilocaine 2.5 %-2.5 % 1 appl topical DAILY PRN Back Pain 12/02/22 11/03/24 topical cream multivitamin with folic acid 400 1 tab PO DAILY 12/02/22 12/02/22 mcg tablet (Daily-Keegan (with folic acid)) diclofenac sodium 1 % topical gel topical BID 01/05/23 econazole nitrate 1 % topical cream appl topical 06/29/23 ketoconazole 2 % shampoo topical 06/29/23 Previous Rx's ?Medication ?Instructions ?Recorded loratadine 10 mg tablet 10 mg PO DAILY #30 tabs 04/21/22 omeprazole 20 mg capsule,delayed 20 mg PO BID@0630,1630 30 days #60 12/05/22 release caps ondansetron 4 mg disintegrating 8 mg (2 x 4 mg) translingual Q6H 12/05/22 tablet PRN Continued Nausea And Vomiting 30 days #240 tabs thiamine HCl (vitamin B1) 100 mg 100 mg PO TID #90 tabs 04/11/24 tablet simethicone 125 mg chewable tablet 125 mg PO TID PRN for pain #90 tabs 10/03/24 (Gas Relief Extra Strength) dicyclomine 10 mg capsule 10 mg PO TID #90 caps 10/12/24 amitriptyline 100 mg tablet 100 mg PO BEDTIME 30 days #30 tabs 11/17/24 clonazepam 0.5 mg tablet 0.5 mg PO TID Anxiety 30 days #90 11/17/24 tabs docusate sodium 100 mg capsule 100 mg PO BID 30 days #60 caps 11/17/24 polyethylene glycol 3350 17 gram 17 g PO DAILY PRN Constipation 30 11/17/24 oral powder packet days #30 ea prazosin 1 mg capsule 1 mg PO BEDTIME 30 days #30 caps 11/17/24 quetiapine 200 mg tablet 400 mg (2 x 200 mg) PO BEDTIME 30 11/17/24 days #60 tabs trazodone 50 mg tablet 75 mg (1.5 x 50 mg) PO BEDTIME PRN 11/17/24 insomnia 30 days #45 tabs venlafaxine 150 mg 150 mg PO DAILY 30 days #30 caps 11/17/24 capsule,extended release 24 hr zolpidem 5 mg tablet 5 mg PO BEDTIME PRN Insomnia 30 11/17/24 days #30 tabs Mental Status Exam Mental Status Exam Narrative: Patient Appearance: Well Groomed, adequate hygiene Patient Behavior: Appropriate Level of Consciousness: Awake, alert Patient Orientation: Person, Place and Time, situational context Memory: grossly intact to recent events Psychomotor: no agitation or slowing Speech: normal rate, tone, volume Mood: ?good? Affect: Bright Thought Process: Goal Oriented Thought Content: denies SI/HI; focused on treatment questions Hallucinations: Denies AH Delusions: None evinced Insight/ Judgment: fair Data Data Completed and Pending Completed studies during hospitalization [Text1]: 11/11/24 11/12/24 11/12/24 07:55 08:16 08:53 Creatinine 0.94 Estim Creat Clear Calc 58.3 Estimated GFR > 60 POC Glucose 76 75 11/13/24 11/14/24 11/15/24 07:58 07:42 08:08 Creatinine Estim Creat Clear Calc Estimated GFR POC Glucose 76 78 95 11/16/24 11/17/24 07:35 08:18 Creatinine Estim Creat Clear Calc Estimated GFR POC Glucose 84 94 DS: Summary Hospital Course Hospital Course: HPI: patient is a 59 y.o female Polish speaking mostly with PMH of depression,anxiety, and schizophrenia presented to the ED with SIs and depression. Experiencing thoughts telling her to commit suicide but denies a specific plan. She has been compliant with medication. Patient also was assessed by [facility] from home: per [facility] record, report poor memory, decreased in sleep and appetite, increased in sadness and depression. Hospital course: 11/05 reports continued anxiety and depression with intermittent SI. No AH, which she says has resolved. Reviewed meds and she agrees to increase Venlafaxine -POC's stable, no hyperglycemia; if remains stable will dc POC's and continue w/ Metformin 11/06 Patient says she is a little better... Because she has a returned to appetite and slept better; however she says she remains quite depressed and still has intermittent SI. She says no current active SI but afraid it will develop as soon as she leaves. Denies any AVH. Discussed medications and she agrees to continue titration 11/07 continue tx 11/09: Cepacol lozenges ordered for cough. Her blood sugar has been stable, therefore, will decrease POC to once daily and d/c Lispro s/s at this time. Continue current treatment regimen. 11/10: Continue current treatment regimen. 11/11: Continue tx 11/12: will start Prazosin for nightmares 11/13: no changes today 11/14 Patient reports that anxiety and depression remain but there overall better. AH is also better and director underwriter sales reviewed history and she says AH is only ever present when she is feeling depressed or upset. Discussed medication regimen and given that AH is resolved and only seems to be associated with mood, she agrees to discontinue that bedtime Haldol to lower side effect risks. She also agrees to further increase her venlafaxine. Patient continues to have trouble sleeping and asks if trazodone can be increased. Nightmares have resolved since starting on prazosin -patient has a diagnosis of schizophrenia; not sure if her report of AH only present during depression/anxiety is accurate. However patient is already on Seroquel 400 mg and so discontinuing Haldol in effort to reduce polypharmacy and risks side effects 11/15 pt reports she is doing well, mood is good and no AH. Sleeping well and w/out nightmares. Pt feels medicaitons are helping and wants to continue w/ current regimen -no BM for a few days and agrees to mirrilax 11/16 remains doing well, and is in good mood with a noticeably brighter affect. She is feeling ready for discharge; denies psych symptoms; eating and sleeping well. Pt is not in imminent risk for harm to self/others and appropriate to return to community for tx Status at Discharge Functional status at discharge: independent ambulation Overall status at discharge: patient is back to baseline Time Spent with Patient Time attestation: Total time managing care of this patient today 40____ minutes. Time spent: Greater than 30 minutes Specific discharge activities: met with pt; discussed with team; charting, perscriptions Discharge Plan Discharge Anticipated Discharge Date/Time: 11/17/24 10:56 Patient Disposition: Home, Self-Care Discharge Diagnosis: Schizophrenia (R/o MDD w/ psychosis) Referrals: [facility] [Other] - 11/17/24 Referral Note: Visiting RN to restart on 11/17/24 Dr. Coronel: [facility] (psychiatry) [Other] - 11/28/24 11:20 am Referral Note: Hospital discharge appointment with psychiatric provider Appointment is in person at [facility] France Fernandez: [facility] (therapist) [Other] - 11/18/24 11:30 am Referral Note: Hospital discharge appointment Appointment will be by telephone with therapist [facility] Transportation [Other] - 11/22/24 9:00 am Referral Note: Rides to and from your home to the [facility] and then from [facility] to your home Thursday, , Thursday Rides have been scheduled to being 11/22/24 and will go until 11/22/25 [facility] Transportation Services [Other] - 11/17/24 11:30 am Referral Note: Transportation set to take you home from the hospital Transportation Vehicle is from [employer] Bere Dolan MD [Primary Care Provider, Medical] - 1 Week Discharge Medications: New prazosin 1 mg Capsule 1 mg PO BEDTIME 30 Days Qty: 30 0RF Protocol: Hold for SBP< HOLD for SBP < : 90 venlafaxine 150 mg Capsule,Extended Release 24hr 150 mg PO DAILY 30 Days Qty: 30 0RF zolpidem 5 mg Tablet 5 mg PO BEDTIME PRN (Reason: Insomnia) 30 Days Qty: 30 0RF polyethylene glycol 3350 17 gram Powder In Packet 17 g PO DAILY PRN (Reason: Constipation) 30 Days Qty: 30 0RF Continued thiamine HCl (vitamin B1) 100 mg tablet 100 mg PO TID Qty: 90 2RF simethicone [Gas Relief Extra Strength] 125 mg tablet,chewable 125 mg PO TID PRN (Reason: for pain) Qty: 90 2RF dicyclomine 10 mg capsule 10 mg PO TID Qty: 90 1RF metformin 500 mg tablet 1 tab PO BID loratadine 10 mg Tablet 10 mg PO DAILY Qty: 30 0RF lidocaine-prilocaine 2.5-2.5 % cream 1 appl topical DAILY PRN (Reason: Back Pain) albuterol sulfate 90 mcg/actuation HFA aerosol inhaler 2 puff inhalation Q4-6H PRN (Reason: Shortness Of Breath Or Wheezing) cholecalciferol (vitamin D3) [Vitamin D3] 25 mcg (1,000 unit) capsule 25 mcg PO DAILY multivitamin with folic acid [Daily-Keegan (with folic acid)] 400 mcg tablet 1 tab PO DAILY omeprazole 20 mg Capsule,Delayed Release(Dr/Ec) 20 mg PO BID@0630,1630 30 Days Qty: 60 0RF ondansetron 4 mg Tablet,Disintegrating 8 mg translingual Q6H PRN (Reason: Continued Nausea And Vomiting) 30 Days Qty: 240 0RF clonazepam 0.5 mg tablet 0.5 mg PO TID 30 Days Qty: 90 0RF quetiapine 200 mg tablet 400 mg PO BEDTIME 30 Days Qty: 60 0RF docusate sodium 100 mg capsule 100 mg PO BID 30 Days Qty: 60 3RF amitriptyline 100 mg tablet 100 mg PO BEDTIME 30 Days Qty: 30 0RF diclofenac sodium 1 % gel topical BID econazole nitrate 1 % cream topical ketoconazole 2 % shampoo topical Changed trazodone 50 mg tablet 75 mg PO BEDTIME PRN (Reason: insomnia) 30 Days Qty: 45 0RF Discontinued lisinopril 5 mg Tablet 5 mg PO DAILY Qty: 30 0RF Protocol: Hold for SBP< HOLD for SBP < : 90 haloperidol 0.5 mg tablet 0.5 mg PO BEDTIME metoclopramide HCl 10 mg tablet 10 mg PO QID PRN (Reason: nausea) bupropion HCl 150 mg tablet extended release 24 hr 150 mg PO DAILY desvenlafaxine succinate 50 mg tablet extended release 24 hr 50 mg PO DAILY eszopiclone 1 mg tablet 1 mg PO BEDTIME Discharge Orders: Discharge Order (Routine); Ordered 11/17/24 Ordered By: Kaveh Donald Diet: Diabetic diet Activity on Discharge: As tolerated Stand Alone Forms: Patient Portal Discharge page, Community Support Print Language: Polish Care Plan Goals: Maintain mood and safe behaviors Take medications as prescribed Practice coping skills Continue with outpatient providers and reach out to them as needed Health Concerns: Mood stability and behaviors Diabetes Hypertension GERD Plan of Treatment: Follow up with your PCP, psychiatric provider and other outpatient providers regarding above concerns Take medications as prescribed Assessment: Risk assessment at time of discharge:? Patient was interviewed prior to discharge and found to be fully oriented and without any SI or HI. Patient has improved insight and judgment and wants to continue treatment. Patient is not in imminent risk of harm to self or others and has a safety plan that includes presenting to the closest ER or calling 911 if feeling unsafe.? Patient has been observed closely by nursing and unit staff throughout admission; patient has not engaged in any behaviors that suggest dangerousness to self or others and has demonstrated appropriate behaviors and impulse control
== END 2024-11-17 11:25 | disposition home or self-care (01) | DRG 885 ==
PROVIDERS: Nurse Practitioner Psychiatric/Mental Health; Admitting Provider Psychiatry & Neurology Psychiatry; PCP Internal Medicine; Visit Provider Psychiatry & Neurology Psychiatry
DX: F20.9 Schizophrenia, unspecified (principal); R45.851 Suicidal ideations; E78.5 Hyperlipidemia, unspecified; F33.3 Major depressive disorder, recurrent, severe with psychotic symptoms; F17.210 Nicotine dependence, cigarettes, uncomplicated; I10 Essential (primary) hypertension; E11.9 Type 2 diabetes mellitus without complications; Z71.6 Tobacco abuse counseling; Z79.84 Long term (current) use of oral hypoglycemic drugs; Z79.899 Other long term (current) drug therapy
CPT/HCPCS: 36415; 80053; 80061; 82565; 82947; 83036; 84439; 84443

== ENCOUNTER → 2024-11-03 14:27 | Outpatient (BNV) | payer OTHER, SELFPAY | PROVIDERS: Admitting Provider Psychiatry & Neurology Psychiatry; PCP Internal Medicine; Visit Provider Nurse Practitioner Family | DX: E11.9 Type 2 diabetes mellitus without complications (principal) | CPT/HCPCS: 99221 ==

== ENCOUNTER → 2024-11-03 14:27 | Outpatient (BNV) | payer OTHER, SELFPAY | PROVIDERS: Admitting Provider Psychiatry & Neurology Psychiatry; PCP Internal Medicine; Visit Provider Nurse Practitioner Psychiatric/Mental Health | DX: F20.9 Schizophrenia, unspecified (principal); I10 Essential (primary) hypertension; E11.9 Type 2 diabetes mellitus without complications | CPT/HCPCS: 90792 ==

== ENCOUNTER 2025-02-09 11:00 | Outpatient (REF) | payer OTHER, SELFPAY ==
--- OUTSIDE RECORDS SUMMARY | 2025-02-09 16:57 | XMS_ITS | Encounter Summary ---
Author Organization [employer] Address [address] [place] [address] Care Team Providers Care Supervisor Word Processing Name Role Phone Bere Dolan MD Primary Care Provider [phone] Reason for Visit * Reason Comments Med Change Request Encounter Details Date Type Department Care Team (Late Contact Info) Description 11/14/2022 Refill [facility] [address] [place] [address] Bere Dolan MD [address] [place] [address] Social History Tobacco Use Types Packs/Day Years [...] Department Care Team (Late Contact Info) Description 07/21/2025 10:15 AM EDT Office Visit [facility] [address] [place] [address] Jimena Nielson documented as of this encounter Visit Diagnoses Not on filedocumented in this encounter Additional Health Concerns Assessment Noted Time PHQ-9 Depression Total Score: 18 023 1:28 PM EDT documented as of this encounter Care Teams Supervisor Word Processing Relationship Specialty Start Date End Date Bere Dolan MD [address] [place] [id number] PCP - General Internal Medicine 04/01/13 [facility] 10/30/14 documented as of this encounter
--- OUTSIDE RECORDS SUMMARY | 2025-02-09 16:57 | XMS_ITS | Encounter Summary ---
Author Organization [employer] Address [address] [place] [address] Care Team Providers Care Geophysical Prospecting Surveyor Name Role Phone Bere Dolan MD Primary Care Provider [phone] Encounter Details Date Type Department Care Team ([facility] Contact Info) Description 02/02/2023 Telephone [facility] [address] [place], [place] [id number] Bere Dolan MD [address] [place] [address] Social History Tobacco Use Types Packs/Day Years [...] was told will be prescribed eye drops. Dough Molder does not see any documentation. Please contact pt at [phone] ([place]) documented in this encounter Plan of Treatment Upcoming Encounters Date Type Department Care Team (Late st Contact Info) Description 07/21/2025 10:15 AM EDT Office Visit [facility] [address] [place] [address] Jimena Nielson documented as of this encounter Visit Diagnoses Not on filedocumented in this encounter Additional Health Concerns Assessment Noted Time PHQ-9 Depression Total Score: 13 023 9:35 AM EDT documented as of this encounter Care Teams Geophysical Prospecting Surveyor Relationship Specialty Start Date End Date Bere Dolan MD [address] [place] [id number] PCP - General Internal Medicine 04/01/13 [facility] 10/30/14 documented as of this encounter
--- OUTSIDE RECORDS SUMMARY | 2025-02-09 16:57 | XMS_ITS | Encounter Summary ---
Author Organization [employer] Address [address] [facility] 7t [place] [address] Care Team Providers Care Deer Farmer Name Role Phone Bere Dolan MD Primary Care Provider [phone] [phone] Reason for Visit * Reason Onset Date Comments FYI 12/10/2022 Encounter Details Date Type Department Care Team ([facility] Contact Info) Description 12/10/2022 Telephone [facility] CHC MED & PEDS [address] [place] [address] Bere Dolan MD 505 [place] [address] FYI Social History Tobacco Use Types Packs/Day [...] 10:02 AM EDT Tc from Leah at [facility] calling to inform provider pt was admitted at [facility] but is unsure of dates and diagnosis. Leah will see patient within 48 hours. If any question contact Leah at [phone] documented in this encounter Plan of Treatment Upcoming Encounters Date Type Department Care Team (Late st Contact Info) Description 07/21/2025 10:15 AM EDT Office Visit [facility] ADULT DENTAL [address] [place] [address] Jimena Nielson documented as of this encounter Visit Diagnoses Not on filedocumented in this encounter Additional Health Concerns Assessment Noted Time PHQ-9 Depression Total Score: 18 10/23/ 023 1:28 PM EDT documented as of this encounter Care Teams Deer Farmer Relationship Specialty Start Date End Date Bere Dolan MD [address] [place] [address] PCP - General Internal Medicine 04/01/13 [facility] 10/30/14 documented as of this encounter
--- OUTSIDE RECORDS SUMMARY | 2025-02-09 16:57 | XMS_ITS | Encounter Summary ---
Author Organization [employer] Address 75 [facility] 7t [place] [address] Care Team Providers Care Legger Press Operator Name Role Phone Bere Dolan MD Primary Care Provider [phone] [phone] Encounter Details Date Type Department Care Team (Late st Contact Info) Description 12/26/2022 Abstract [facility] MEDICINE [address] [place] [address] Bere Dolan MD [address] [place] [address] Social History Tobacco Use Types Packs/Day Years [...] Description 07/21/2025 10:15 AM EDT Office Visit [facility] ADULT DENTAL [address] [place] [address] Jimena Nielson documented as of this encounter Visit Diagnoses Not on filedocumented in this encounter Additional Health Concerns Assessment Noted Time PHQ-9 Depression Total Score: 13 023 9:35 AM EDT documented as of this encounter Care Teams Legger Press Operator Relationship Specialty Start Date End Date Bere Dolan MD [address] [place] [address] PCP - General Internal Medicine 04/01/13 [facility] 10/30/14 documented as of this encounter
--- OUTSIDE RECORDS SUMMARY | 2025-02-09 16:58 | XMS_ITS | Encounter Summary ---
Author Organization [employer] Address [address] [facility] 7t [place] [address] Care Team Providers Care Environmental Technician Name Role Phone Bere Dolan MD Primary Care Provider +1- [phone] Encounter Details Date Type Department Care Team [...] Description 07/21/2025 10:15 AM EDT Office Visit [facility] ADULT DENTAL [address] [place] [address] Jimena Nielson documented as of this encounter Visit Diagnoses Not on filedocumented in this encounter Care Teams Environmental Technician Relationship Specialty Start Date End Date Bere Dolan MD 505 [place] [address] PCP - General Internal Medicine 04/01/13 [facility] 10/30/14 documented as of this encounter
--- OUTSIDE RECORDS SUMMARY | 2025-02-09 16:58 | XMS_ITS | Encounter Summary ---
Author Organization [employer] Address [address] [facility] 7t [place] [address] Care Team Providers Care Animal Trapper Name Role Phone Bere Dolan MD Primary Care Provider +1- [phone] Encounter Details Date Type Department Care Team (Latest Contact Info) Description 09/21/2018 Abstract [facility] Dental, Provider, DDS Social History Tobacco [...] Description 07/21/2025 10:15 AM EDT Office Visit [facility] ADULT DENTAL [address] [place] [address] Jimena Nielson documented as of this encounter Visit Diagnoses Not on filedocumented in this encounter Care Teams Animal Trapper Relationship Specialty Start Date End Date Bere Dolan MD [address] [place] [address] PCP - General Internal Medicine 04/01/13 [facility] 10/30/14 documented as of this encounter
--- OUTSIDE RECORDS SUMMARY | 2025-02-09 16:58 | XMS_ITS | Encounter Summary ---
Author Organization [employer] Address [address] [facility] 7t [place] [address] Care Team Providers Care Parts Identifier Name Role Phone Bere Dolan MD Primary Care Provider [phone] Reason for Visit * Reason Comments Med Change Request Encounter Details Date Type Department Care Team ([facility] st Contact Info) Description 07/09/2023 Refill C [facility] MED & PEDS [address] [place], [place] [phone] Bere Dolan MD [address] [place] [address] Dry skin Social History Tobacco Use Types [...] Description 07/21/2025 10:15 AM EDT Office Visit [facility] ADULT D[facility]AL [address] [place] [address] Jimena Nielson documented as of this encounter Visit Diagnoses Diagnosis Dry skin Other symptoms involving skin and integumentary tissues documented in this encounter Additional Health Concerns Assessment Noted Time PHQ-9 Depression Total Score: 18 024 1:23 PM EST documented as of this encounter Care Teams Parts Identifier Relationship Specialty Start Date End Date Bere Dolan MD [address] [place] [address] PCP - General Internal Medicine 04/01/13 [facility] 10/30/14 documented as of this encounter
--- OUTSIDE RECORDS SUMMARY | 2025-02-09 16:59 | XMS_ITS | Encounter Summary ---
Author Organization [employer] Address 75 [facility] 7t [place] [address] Care Team Providers Care Prn Physical Therapist Name Role Phone Bere Dolan MD Primary Care Provider [phone] Reason for Visit * Reason Comments Med Refill Encounter Details Date Type Department Care Team ([facility] st Contact Info) Description 08/28/2023 Refill [facility] CHC MED & PEDS [address] [place], [place] [phone] Bere Dolan MD 505 [place] [address] Pruritus of vulva Social History Tobacco Use [...] Description 07/21/2025 10:15 AM EDT Office Visit [facility] ADULT DENTAL 505 [place] [address] Jimena Nielson documented as of this encounter Visit Diagnoses Diagnosis Pruritus of vulva Pruritus of genital organs documented in this encounter Additional Health Concerns Assessment Noted Time PHQ-9 Depression Total Score: 18 024 1:23 PM EST documented as of this encounter Care Teams Prn Physical Therapist Relationship Specialty Start Date End Date Bere Dolan MD [address] [place] [address] PCP - General Internal Medicine 04/01/13 [facility] 10/30/14 documented as of this encounter
--- OUTSIDE RECORDS SUMMARY | 2025-02-09 16:59 | XMS_ITS | Encounter Summary ---
Author Organization [employer] Address 75 [facility] 7t [place] [address] Care Team Providers Care Chair Pad Maker Name Role Phone Bere Dolan MD Primary Care Provider [phone] [phone] Encounter Details Date Type Department Care Team ([facility] st Contact Info) Description 09/30/2023 Orders Only [facility] CHC MED & PEDS 505 [place], [place] [phone] Bere Dolan MD [address] [place] [address] Social History Tobacco Use Types Packs/Day Years [...] Upcoming Encounters Date Type Department Care Team ([facility] st Contact Info) Description 07/21/2025 10:15 AM EDT Office Visit [facility] ADULT DENTAL [address] [place] [address] Jimena Nielson documented as of this encounter Visit Diagnoses Not on filedocumented in this encounter Additional Health Concerns Assessment Noted Time PHQ-9 Depression Total Score: 18 024 1:23 PM EST documented as of this encounter Care Teams Chair Pad Maker Relationship Specialty Start Date End Date Bere Dolan MD 505 [place] [address] PCP - General Internal Medicine 04/01/13 [facility] 10/30/14 documented as of this encounter
--- OUTSIDE RECORDS SUMMARY | 2025-02-09 16:59 | XMS_ITS | Encounter Summary ---
Author Organization [employer] Address [address] [facility] [address] 7[address] [place] [address] Care Team Providers Care Ice Maker Name Role Phone Bere Dolan MD Primary Care Provider [phone]- [phone] Encounter Details Date Type Department Care Team (Late Contact Info) Description 03/20/2022 Orders Only [facility] MED & PEDS [address] [place], [place] [phone] Pam Turpin LPN Social History Tobacco Use [...] Description 07/21/2025 10:15 AM EDT Office Visit [facility] ADULT DENTAL [address] [place] [address] Jimena Nielson documented as of this encounter Visit Diagnoses Not on filedocumented in this encounter Additional Health Concerns Assessment Noted Time PHQ-9 Depression Total Score: 9 02/21/20 1:59 PM EST documented as of this encounter Care Teams Ice Maker Relationship Specialty Start Date End Date Bere Dolan MD [address] [place] [address] PCP - General Internal Medicine 04/01/13 [facility] 10/30/14 documented as of this encounter
--- OUTSIDE RECORDS SUMMARY | 2025-02-09 16:59 | XMS_ITS | Encounter Summary ---
Author Organization [employer] Address 75 [facility] 7t [place] [address] Care Team Providers Care Batter Mixer Helper Name Role Phone Bere Dolan MD Primary Care Provider [phone]- [phone] Encounter Details Date Type Department Care Team (Latest Contact Info) Description 03/22/2020 Abstract [facility] Dental, Provider, DDS Social History [...] 07/21/2025 10:15 AM EDT Office Visit [facility] ADULT DENTAL [address] [place] [address] Jimena Nielson documented as of this encounter Visit Diagnoses Not on filedocumented in this encounter Care Teams Batter Mixer Helper Relationship Specialty Start Date End Date Bere Dolan MD 505 [place] [address] PCP - General Internal Medicine 04/01/13 [facility] 10/30/14 documented as of this encounter
--- OUTSIDE RECORDS SUMMARY | 2025-02-09 16:59 | XMS_ITS | Encounter Summary ---
Author Organization [employer] Address [address] [facility] 7t [place] [address] Care Team Providers Care Door Installer Name Role Phone Bere Dolan MD Primary Care Provider [phone]- [phone] Reason for Visit * Reason Comments Med Refill Encounter Details Date Type Department Care Team (Late Contact Info) Description 03/31/2022 Refill [facility] MED & PEDS [address] [place], [place] [phone] Bere Dolan MD 505 [place], [place] [phone] Seasonal allergic rhinitis due to other allergic [...] 10:15 AM EDT Office Visit [facility] ADULT DENTAL [address] [place], [place] [phone] Jimena Nielson documented as of this encounter Visit Diagnoses Diagnosis Seasonal allergic rhinitis due to other allergic trigger- Primary documented in this encounter Additional Health Concerns Assessment Noted Time PHQ-9 Depression Total Score: 9 02/21/20 22 1:59 PM EST documented as of this encounter Care Teams Door Installer Relationship Specialty Start Date End Date Bere Dolan MD [address] [place] [address] PCP - General Internal Medicine 04/01/13 [facility] 10/30/14 documented as of this encounter
--- OUTSIDE RECORDS SUMMARY | 2025-02-09 16:59 | XMS_ITS | Encounter Summary ---
Author Organization [employer] Address [address] [facility] 7t [place] [address] Care Team Providers Care Peripheral Vascular Tech Name Role Phone Bere Dolan MD Primary Care Provider [phone] Reason for Visit * Reason Comments Med Refill Encounter Details Date Type Department Care Team ([facility] st Contact Info) Description 08/27/2023 Refill [facility] CHC MED & PEDS [address] [place], [place] [phone] Bere Dolan MD 505 [place] [address] Social History Tobacco Use Types Packs/Day Years [...] Description 07/21/2025 10:15 AM EDT Office Visit [facility] ADULT DENTAL [address] [place] [address] Jimena Nielson documented as of this encounter Visit Diagnoses Not on filedocumented in this encounter Additional Health Concerns Assessment Noted Time PHQ-9 Depression Total Score: 18 024 1:23 PM EST documented as of this encounter Care Teams Peripheral Vascular Tech Relationship Specialty Start Date End Date Bere Dolan MD [address] [place] [address] PCP - General Internal Medicine 04/01/13 [facility] 10/30/14 documented as of this encounter
--- OUTSIDE RECORDS SUMMARY | 2025-02-09 17:00 | XMS_ITS | Encounter Summary ---
Author Organization [employer] Address 75 [facility] 7t [place] [address] Care Team Providers Care Purifying Plant Operator Name Role Phone Bere Dolan MD Primary Care Provider [phone] Encounter Details Date Type Department Care Team (Late st Contact Info) Description 11/03/2024 Orders Only [facility] [address] [place] [address] ProviderRasheed MD Social History Tobacco Use Types [...] Upcoming Encounters Date Type Department Care Team ([facility] st Contact Info) Description 07/21/2025 10:15 AM EDT Office Visit [facility] ADULT DENTAL [address] [place] [address] Jimena Nielson documented as of this encounter Procedures Procedure Name Priority Date/Time Associated Diagnosis Comments ECG 12-LEAD Routine 11/03/2024 4:03 PM EDT documented in this encounter Results * ECG 12 lead (11/03/2024 4:03 PM EDT) us Historical Provider ECG ORDERABLES Final Res ult documented in this encounter Visit Diagnoses Not on filedocumented in this encounter Additional Health Concerns Assessment Noted Time PHQ-9 Depression Total Score: 18 025 1:50 PM EST documented as of this encounter Care Teams Purifying Plant Operator Relationship Specialty Start Date End Date Bere Dolan MD [address] [place] [address] PCP - General Internal Medicine 04/01/13 [facility] 10/30/14 documented as of this encounter
--- OUTSIDE RECORDS SUMMARY | 2025-02-09 17:00 | XMS_ITS | Encounter Summary ---
Author Organization [employer] Address [address] [facility] [address] 7[address] [place] [address] Care Team Providers Care Tongue Carrier Name Role Phone Bere Dolan MD Primary Care Provider [phone] Encounter Details Date Type Department Care Team ([facility] st Contact Info) Description 11/13/2023 Orders Only [facility] MEDICINE [address] [place] [address] ProviderRasheed MD Social History Tobacco Use Types [...] Upcoming Encounters Date Type Department Care Team ([facility] st Contact Info) Description 07/21/2025 10:15 AM EDT Office Visit [facility] ADULT DENTAL 505 [place] [address] Jimena Nielson documented as of this encounter [...] documented as of this encounter Care Teams Tongue Carrier Relationship Specialty Start Date End Date Bere Dolan MD [address] [place] [address] PCP - General Internal Medicine 04/01/13 [facility] 10/30/14 documented as of this encounter
--- OUTSIDE RECORDS SUMMARY | 2025-02-09 17:00 | XMS_ITS | Clinical Summary ---
Author Organization [address] [facility] Address [address] [place] [address] Phone Care Team Providers Care Gameroom Technician Name Role Phone Bere Dolan MD Primary Care Provider +1 [phone] Allergies Active Allergy Reactions Criticality Noted Date Comments Aspirin 08/02/2024 Penicillins 08/02/2024 Medications buPROPion XL (WELLBUTRIN XL) 150 mg 24 hr tablet Take 1 tablet (150 mg total) by mouth 1 (one) time each day in the morning. Active dulaglutide (Trulicity) 1.5 mg/0.5 mL pen injector injection INJECT 1 PEN SUBCUTANEOUSLY ONCE WEEKLY IN ABDOMEN, THIGH OR UPPER ARM. ROTATE SITES 3 Active haloperidoL (HALDOL) 0.5 mg tablet Take 1 tablet (0.5 mg total) by mouth 1 (one) time each day in the evening. Active omeprazole (PriLOSEC) [address] capsule Take 1 capsule (20 mg total) by mouth 1 (one) time each day. Active QUEtiapine (SEROquel) 200 mg tablet Take 1 tablet (200 mg total) by mouth 2 (two) times a day. 5 Active metFORMIN (GLUCOPHAGE) 500 mg tablet TAKE 1 TABLET (500 MG) BY MOUTH WITH BREAKFAST AND WITH EVENING MEAL Active loratadine (CLARITIN) 10 mg tablet Take 1 tablet (10 mg total) by mouth 1 (one) time each day. 5 Active atorvastatin (LIPITOR) 40 mg tablet take [...] 1/2 tablet by mouth once per day. 5 Active diclofenac (VOLTAREN) 1 % topical gel APPLY TO AFFECTED AREA ON LOWER BACK 4 TIMES A DAY 5 Active losartan (COZAAR) 25 mg tablet take 1 tablet (25 mg) by mouth once per day. Active dicyclomine (BENTYL) 10 mg capsule take 1 tablet orally 3 times a day Active Gas Relief Extra Strength 125 mg chewable tablet Chew 1 tablet (125 mg total) 3 (three) times a day if needed. 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 ([facility] V24, [facility] V28) 11/03/2024 per N report PTSD (post-traumatic stress disorder) per N report Hyperlipidemia GERD (gastroesophageal reflux disease) per EMR BILL (generalized anxiety disorder) per EMR Schizophrenia ([facility] V24, [facility] V28) per EMR on [facility] visit Irritable bowel syndrome H/O gastric sleeve per record [facility], pt unsure date many years Social History [...] 05/07/1975 Cervical Cancer Screening: Pap Smear 1986 RSV Immunization Adult Patients (1 - Risk 50-74 years 1-dose series) 05/07/2015 Medicare Annual Wellness Visit 03/31/2023 Social Influencers of Health Screening 03/31/2023 Depression Screening 03/02/2024 Diabetes: Annual Urine Albumin-Creatinine Ratio (uACR) 05/17/2024 COVID-19 Vaccine ( season) 2024 09/19/2020, 08/30/2020 Influenza Vaccine (#1) 2024 , 11/28/2021, 12/27/2019, Additional history exists Diabetes: Blood Sugar Control Test (HGBA1C) 01/28/2025 07/28/2024, 04/28/2024 Diabetes: Annual GFR (Glomerular Filtration Rate) 11/02/2025 11/02/2024, 07/28/2024 DTaP,Tdap,and Td Vaccines (2 - Td or Tdap) 12/10/2025 12/11/2015 Colorectal Cancer Screening: FIT-DNA (Cologuard) 12/22/2025 12/22/2022 Cholesterol Screening (Lipid Panel) 07/28/2029 07/28/2024 Hepatitis B Vaccines Completed 12/21/2017, 12/11/2015, 11/06/2015 [...] Procedure Name Priority Date/Time Associated Diagnosis Comments COMPREHENSIVE METABOLIC PANEL STAT 11/02/2024 6:32 PM EDT from Last 3 Months or Most Recently Relevant to Health Maintenance Results * (ABNORMAL) Comprehensive metabolic panel (11/02/2024 6:32 PM EDT) Sodium 140 133 - 145 mmol/L LAB CHEMISTRY METHOD 11/02/2024 7:55 PM [facility] Potassium 4.4 3.5 - 5.5 mmol/L LAB CHEMISTRY METHOD 11/02/2024 7:55 PM [facility] Chloride 109 96 - 110 mmol/L LAB CHEMISTRY METHOD 11/02/2024 7:55 PM [facility] CO2 28 21 - 32 mmol/L LAB CHEMISTRY METHOD 11/02/2024 7:55 PM [facility] Anion Gap 3 3 - 11 LAB CHEMISTRY METHOD 11/02/2024 7:55 PM [facility] Glucose 107(H) 70 - 100 mg/dL LAB CHEMISTRY METHOD 11/02/2024 7:55 PM [facility] BUN 11 5 - 25 mg/dL LAB CHEMISTRY METHOD 11/02/2024 7:55 PM [facility] Creatinine 0.94 0.50 - 1.10 mg/dL LAB CHEMISTRY METHOD 11/02/2024 7:55 PM [facility] eGFR 70 >=60 mL/min/1. 73m2 LAB CHEMISTRY METHOD 11/02/2024 7:55 PM [facility] Comment:Calculation based on the Chronic Kidney Disease Epidemiology Collaboration (CKD-EPI) equation refit without adjustment for race. BUN/Creatinine Ratio 11.7 LAB CHEMISTRY METHOD 11/02/2024 7:55 PM [facility] Calcium 8.8 8.5 - 10.5 mg/dL LAB CHEMISTRY METHOD 11/02/2024 7:55 PM [facility] AST (SGOT) 31 10 - 42 unit/L LAB CHEMISTRY METHOD 11/02/2024 7:55 PM [facility] ALT (SGPT) 40 10 - 60 unit/L LAB CHEMISTRY METHOD 11/02/2024 7:55 PM [facility] Alkaline Phosphatase 85 42 - 121 unit/L LAB CHEMISTRY METHOD 11/02/2024 7:55 PM [facility] Total Protein 6.6 6.0 - 8.0 g/dL LAB CHEMISTRY METHOD 11/02/2024 7:55 PM [facility] Albumin 3.8 3.2 - 5.0 g/dL LAB CHEMISTRY METHOD 11/02/2024 7:55 PM [facility] Total Bilirubin 0.3 0.0 - 1.4 mg/dL LAB CHEMISTRY METHOD 11/02/2024 7:55 PM [facility] Blood Venous blood specimen / Unknown Venipuncture / Unknown 11/02/2024 6:32 PM EDT 11/02/2024 6:43 PM EDT us Kassandra Lorenz MD LAB BLOOD ORDERABLES Final Res ult [facility] [address] [place] [address], from Last 3 Months or Most Recently Relevant to Health Maintenance Insurance [facility] MEDICARE Member Subscriber Plan / Payer (Ef fective 2013-Present) Name:BINU WALL Relation to Subscriber:Self Name:Binu Wall N Payer ID:[id number] Group ID:[id number] Type:Not on file Address: [place] [address] [address] [phone] Care Teams Gameroom Technician Relationship Specialty Start Date End Date Beer Dolan MD [address] [place] [address] PCP - General Internal Medicine 05/17/24
--- OUTSIDE RECORDS SUMMARY | 2025-02-09 17:00 | XMS_ITS | Encounter Summary ---
Author Organization [employer] Address [address] [facility] 7t [place] [address] Care Team Providers Care Horseback Excavator Name Role Phone Bere Dolan MD Primary Care Provider +1- [phone] Encounter Details Date Type Department Care Team (Late Contact Info) Description 04/14/2022 Orders Only [facility] MEDICINE [address] [place], [place] [phone] Bere Dolan MD [address] [place], [place] [phone] Social History Tobacco Use Types Packs/Day Years [...] Description 07/21/2025 10:15 AM EDT Office Visit [facility] ADULT DENTAL [address] [place], [place] [phone] Jimena Nielson documented as of this encounter Visit Diagnoses Not on filedocumented in this encounter Additional Health Concerns Assessment Noted Time PHQ-9 Depression Total Score: 9 02/21/20 22 1:59 PM EST documented as of this encounter Care Teams Horseback Excavator Relationship Specialty Start Date End Date Bere Dolan MD [address] [place] [address] PCP - General Internal Medicine 04/01/13 [facility] 10/30/14 documented as of this encounter
--- OUTSIDE RECORDS SUMMARY | 2025-02-09 17:01 | XMS_ITS | Encounter Summary ---
Author Organization [employer] Address [address] [facility] [address]t [place] [address] Care Team Providers Care Aquaculture And Fisheries Professor Name Role Phone Bere Dolan MD Primary Care Provider [phone] Reason for Visit * Reason Onset Date Comments Hospital Follow-up 04/22/2022 Encounter Details Date Type Department Care Team ([facility] st Contact Info) Description 04/22/2022 Telephone [facility] MED & PEDS [address] [place], [place] [phone] Bere Dolan MD [address] [place] [address] Hospital Follow-up Social History Tobacco Use Types [...] HDF follow up appointment. Patient hospitalized at [facility] crisis 04/14/22 and discharged on 04/21/22. Patient advised will forward to team nurse for follow up and appointment scheduling. Pt would also like to speak about new medications. documented in this encounter Plan of Treatment Upcoming Encounters Date Type Department Care Team ([facility] st Contact Info) Description 07/21/2025 10:15 AM EDT Office Visit [facility] AD[facility] DENTAL [address] [place] [address] Jimena Nielson documented as of this encounter Visit Diagnoses Not on filedocumented in this encounter Additional Health Concerns Assessment Noted Time PHQ-9 Depression Total Score: 9 02/21/20 22 1:59 PM EST documented as of this encounter Care Teams Aquaculture And Fisheries Professor Relationship Specialty Start Date End Date Bere Dolan MD [address] [place] [address] PCP - General Internal Medicine 04/01/13 [facility] 10/30/14 documented as of this encounter
--- OUTSIDE RECORDS SUMMARY | 2025-02-09 17:01 | XMS_ITS | Encounter Summary ---
Author Organization [employer] Address [address] [facility] [address] [place] [address] Care Team Providers Care Neuropsychiatric Aide Name Role Phone Bere Dolan MD Primary Care Provider [phone] Reason for Visit * Reason Onset Date Comments Hospital Follow-up 11/17/2024 Encounter Details Date Type Department Care Team ([facility] st Contact Info) Description 11/17/2024 Telephone [facility] MED [facility]ED[facility] [address] [place] [address] Bere Dolan MD [address] [place] [address] Hospital Follow-up Social History Tobacco Use Types [...] encounter Miscellaneous Notes * Telephone Encounter - Leonid Piedra - 11/17/2024 4:08 PM EDT Tc from pt requesting a HDF appt. Hospital: [facility] Date of admission: 11/02/2024 Discharge date: 11/17/2025 Diagnosed: Severe Depression *Send message to [facility]ordin[facility] Contact pt at [phone] documented in this encounter Plan of Treatment Upcoming Encounters Date Type Department Care Team (Late st Contact Info) Description 07/21/2025 10:15 AM EDT Office Visit [facility] ADULT DENTAL [address] [place], [place] [phone] Jimena Nielson documented as of this encounter Visit Diagnoses Not on filedocumented in this encounter Additional Health Concerns Assessment Noted Time PHQ-9 Depression Total Score: 18 025 1:50 PM EST documented as of this encounter Care Teams Neuropsychiatric Aide Relationship Specialty Start Date End Date Bere Dolan MD [address] [place] [address] PCP - General Internal Medicine 04/01/13 [facility] 10/30/14 documented as of this encounter
--- OUTSIDE RECORDS SUMMARY | 2025-02-09 17:01 | XMS_ITS | Encounter Summary ---
Author Organization [employer] Address [address] [facility] [address] [place] [address] Care Team Providers Care Manager Hospice Name Role Phone Bere Dolan MD Primary Care Provider [phone] Encounter Details Date Type Department Care Team (Late st Contact Info) Description 06/29/2024 Orders Only [facility] [address] [place] [address] ProviderRasheed MD Social History Tobacco Use Types [...] Upcoming Encounters Date Type Department Care Team ([facility] st Contact Info) Description 07/21/2025 10:15 AM EDT Office Visit [facility] AD[facility] [address] [place] [address] Jimena Nielson documented as of this encounter [...] as of this encounter Care Teams Manager Hospice Relationship Specialty Start Date End Date Bere Dolan MD [address] [place] [address] PCP - General Internal Medicine 04/01/13 [facility] 10/30/14 documented as of this encounter
--- OUTSIDE RECORDS SUMMARY | 2025-02-09 17:01 | XMS_ITS | Encounter Summary ---
Author Organization [employer] Address [address] [facility] [address] [place] [address] Care Team Providers Care Digital Strategist Name Role Phone Bere Dolan MD Primary Care Provider [phone] Reason for Visit * Reason Comments Med Change Request Encounter Details Date Type Department Care Team (Late st Contact Info) Description 06/25/2022 Refill [facility] MEDICINE [address] [place], [place] [phone] Bere Dolan MD [address] [place], [place] [phone] Type 2 diabetes mellitus without complications (CMS/HCC) Social History Tobacco Use Types Packs/Day Years [...] Description 07/21/2025 10:15 AM EDT Office Visit [facility] CHC ADULT DENTAL [address] [place], [place] [phone] Jimena Nielson documented as of this encounter Visit Diagnoses Diagnosis Type 2 diabetes mellitus without complications (HCC) documented in this encounter Additional Health Concerns Assessment Noted Time PHQ-9 Depression Total Score: 17 05/06/ 023 1:12 PM EST documented as of this encounter Care Teams Digital Strategist Relationship Specialty Start Date End Date Bere Dolan MD [address] [place] [id number] PCP - General Internal Medicine 04/01/13 [facility] 10/30/14 documented as of this encounter
--- OUTSIDE RECORDS SUMMARY | 2025-02-09 17:01 | XMS_ITS | Encounter Summary ---
Author Organization [employer] Address [address] [facility] 7[address] [place] [address] Care Team Providers Care Desizing Machine Operator Head End Name Role Phone Bere Dolan MD Primary Care Provider [phone] Reason for Visit * Reason Onset Date Comments Lab Orders 02/07/2025 Encounter Details Date Type Department Care Team ([facility] st Contact Info) Description 02/07/2025 Telephone [facility] MEDICINE [address] [place] [address] Bere Dolan MD [address] [place] [id number] Lab Orders Social History Tobacco Use Types Packs/Day Years Used Date Smoking Tobacco: Some Days Cigarettes Passive Smoke Exposure: Never Smokeless Tobacco: Never Alcohol Use Standard Drinks/Week Comments Never 0 (1 standard drink = 0.6 oz pur e alcohol) Alcohol Answer Date Recorded Frequency of Alcohol Consumption Not on file 04/09/2023 Average Number of Drinks Not on file 024 Frequency of Binge Drinking Not on file 10/2023 Score 0 04/09/2023 Depression Answer Date Recorded Patient Health Questionnaire-9 Score 24 11/29/2024 Patient Health Questionnaire-9 Score 24 11/29/2024 Last PHQ-9: Questionnaire Data Not on file 0 11/29/2024 Housing Stability Answer Date Recorded What is [...] got money to buy more: Never True 11/29/2024 Within the past 12 months,th e food [...] Date Recorded Patient Health Questionnaire-2 Score 6 11/29/2024 Internet Access Answer Date Recorded Internet Access [...] Telephone Encounter - Kayce Cantrell RN - 02/08/2025 9:20 AM EST Order already active. * Telephone Encounter - Danielle Cortes - 02/07/2025 1:53 PM EST TC from pt requesting a TB test for program. PCP Dr. Dolan documented in this encounter Plan of Treatment Upcoming Encounters Date Type Department Care Team (Late st Contact Info) Description 07/21/2025 10:15 AM EDT Office Visit [facility] [address] [place], [place] [phone] Jimena Nielson documented as of this encounter Visit Diagnoses Diagnosis Encounter for PPD test documented in this encounter Additional Health Concerns Assessment Noted Time PHQ-9 Depression Total Score: 24 025 2:01 PM EDT documented as of this encounter Care Teams Desizing Machine Operator Head End Relationship Specialty Start Date End Date Bere Dolan MD [address] [place] [id number] PCP - General Internal Medicine 04/01/13 [facility] 10/30/14 documented as of this encounter
--- OUTSIDE RECORDS SUMMARY | 2025-02-09 17:01 | XMS_ITS | Clinical Summary ---
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 Liu MD LAB BLOOD ORDERABLES Final Resul t CONVERTED LEGACY LABS from Last 3 Months or Most Recently Relevant to Health Maintenance Insurance [facility] < 65 [place] SAL[place] [id number] [facility] Care Teams Material Specialist Relationship Specialty Start Date End Date Bere Dolan MD [address] [place] [id number] PCP - General Internal Medicine 04/01/13 [facility] 10/30/14
--- OUTSIDE RECORDS SUMMARY | 2025-02-09 17:01 | XMS_ITS | Encounter Summary ---
Author Organization [employer] Address [address] [facility] [address]t [place] [address] Care Team Providers Care Peer Counselor Name Role Phone Bere Dolan MD Primary Care Provider [phone] Encounter Details Date Type Department Care Team (Latest Contact Info) Description 07/29/2024 Orders Only [facility] MED & PEDS [address] [place], [place] [phone] Bere Dolan MD [address] [place] [address] Hypercholesterolemia (Primary Dx); Primary hypertension Social History [...] Description 07/21/2025 10:15 AM EDT Office Visit [facility] [address] [place] [address] Jimena Nielson documented as of this encounter Visit Diagnoses Diagnosis Hypercholesterolemia- Primary Pure hypercholesterolemia Primary hypertension Unspecified essential hypertension documented in this encounter Additional Health Concerns Assessment Noted Time PHQ-9 Depression Total Score: 18 025 1:50 PM EST documented as of this encounter Care Teams Peer Counselor Relationship Specialty Start Date End Date Bere Dolan MD [address] [place] [address] PCP - General Internal Medicine 04/01/13 [facility] 10/30/14 documented as of this encounter
--- OUTSIDE RECORDS SUMMARY | 2025-02-09 17:01 | XMS_ITS | Clinical Summary ---
Author Organization [facility] Address [address] [place] [phone] Phone Care Team Providers Care Local Company Intermodal Truck Driver Name Role Phone Bere Dolan MD Primary [...] VACCINE (#1) 2024 COVID-19 VACCINE (1 - 2024-2 6 season) 2024 Adult Td,Tdap Booster 12/10/2025 12/11/2015 RSV VACCINE (1 - 1-dose 75+ series) 2040 HEPATITIS A VACCINES Aged Out No long [...] Date/Time Associated Diagnosis Comments BASIC METABOLIC PANEL (BMP) STAT 10/18/2022 1:57 PM EDT from Last 3 Months or Most Recently Relevant to Health Maintenance Results * Basic metabolic panel (10/18/2022 1:57 PM EDT) SODIUM 144 133 - 146 mmol/L [facility] CHLORIDE 108 96 - 108 mmol/L [facility] POTASSIUM 4.0 3.3 - 5.1 mmol/L [facility] CO2 27 21 - 35 mmol/L [facility] BUN 9 6 - 19 mg/dL [facility] CREATININE 0.80 0.5 - 1.5 mg/dL [facility] GLUCOSE 98 70 - 99 mg/dL [facility] CALCIUM 9.4 8.4 - 10.3 mg/dL [facility] EGFR 86 >59 mL/min/1.7 3m2 [facility] Comment:Estimated glomerular filtration rate calculated using the CKD-EPI refit equation. ANION GAP 13 10 - 20 mmol/L [facility] Blood 10/18/2022 1:57 PM EDT 10/18/2022 2:01 PM EDT us Connie Zayas PA-C LAB BLOOD BKR ORDERAB LES Final Result [facility] [address] [place] [address] from Last 3 Months or Most Recently Relevant to Health Maintenance Insurance [facility] [place] [id number] [facility] [place] [id number] [facility]AC[facility] [employer] CARE MEDICARE REPLACEMENT [facility] ONE CARE MEDICARE REPLACEMENT [facility] MEDICARE REPLACEMENT [place] SALAZAR [id number] Care Teams Local Company Intermodal Truck Driver Relationship Specialty Start Date End Date Bere Dolan MD PCP - General Internal Medicine 10/18/22 Additional Source Comments The information contained in this document represents components of the legal health record. It is not the complete legal health record.[facility]
--- OUTSIDE RECORDS SUMMARY | 2025-02-09 17:01 | XMS_ITS | Encounter Summary ---
Author Organization [employer] Address [address] [facility] 7t [place] [address] Care Team Providers Care Youth Pastor Name Role Phone Bere Dolan MD Primary Care Provider [phone] Encounter Details Date Type Department Care Team ([facility] st Contact Info) Description 12/26/2024 Orders Only [facility] MED & PEDS [address] [place], [place] [phone] Bere Dolan MD [address] [place] [address] Type 2 diabetes mellitus without complication, without long-term current use of insulin (HCC) (Primary Dx) Social History Tobacco Use Types [...] [facility] [address] [place] [address] Jimena Nielson Scheduled Orders Name Type Priority Associated Diagnoses Orde r Schedule T-SPOT .TB Lab Routine Type 2 diabetes mellitus without complication, without long-term current use of insulin (HCC) Expected: 12/26/2024 (Approximate), Expires: 12/26/2025 documented as of this encounter Visit Diagnoses Diagnosis Type 2 diabetes mellitus without complication, without long-term current use of insulin (HCC)- Primary documented in this encounter Additional Health Concerns Assessment Noted Time PHQ-9 Depression Total Score: 24 025 2:01 PM EDT documented as of this encounter Care Teams Youth Pastor Relationship Specialty Start Date End Date Bere Dolan MD [address] [place] [address] PCP - General Internal Medicine 04/01/13 [facility] 10/30/14 documented as of this encounter
--- OUTSIDE RECORDS SUMMARY | 2025-02-09 17:02 | XMS_ITS | Encounter Summary ---
Author Organization [id number] Address [address] [facility] [address] [place] [address] Care Team Providers Care Director Treasurer Name Role Phone Bere Dolan MD Primary Care Provider [phone] Encounter Details Date Type Department Care Team ([facility] st Contact Info) Description 08/30/2024 Orders Only [facility] [address] [place], [place] [phone] Bere Dolan MD [address] [place] [address] Social History Tobacco Use Types Packs/Day Years [...] 07/21/2025 10:15 AM EDT Office Visit [facility] [address] [place] [address] Jimena Nielson documented as of this encounter Visit Diagnoses Not on filedocumented in this encounter Additional Health Concerns Assessment Noted Time PHQ-9 Depression Total Score: 18 025 1:50 PM EST documented as of this encounter Care Teams Director Treasurer Relationship Specialty Start Date End Date Bere Dolan MD [address] [place] [address] PCP - General Internal Medicine 04/01/13 [facility] 10/30/14 documented as of this encounter
--- OUTSIDE RECORDS SUMMARY | 2025-02-09 17:02 | XMS_ITS | Encounter Summary ---
Author Organization [employer] Address [address] [facility] [address]t [place] [address] Care Team Providers Care Computer Network Engineer Name Role Phone Bere Dolan MD Primary Care Provider [phone] Encounter Details Date Type Department Care Team (Late st Contact Info) Description 08/11/2024 Orders Only [facility] [address] [place] [address] ProviderRasheed MD Social History Tobacco Use Types [...] Upcoming Encounters Date Type Department Care Team ([facility] st Contact Info) Description 07/21/2025 10:15 AM EDT Office Visit [facility] [address] [place] [address] Jimena Nielson documented as of this encounter [...] documented as of this encounter Care Teams Computer Network Engineer Relationship Specialty Start Date End Date Bere Dolan MD [address] [place] [address] PCP - General Internal Medicine 04/01/13 [facility] 10/30/14 documented as of this encounter
[2025-02-12 05:08] LABS: TS Negative Control Passed; TS Panel A 0; TS Panel B 0; TS Positive Control Passed; TSpotTB Negative (Negative)
== END 2025-02-09 11:01 | disposition home or self-care (01) ==
LOC: HO.CHCLDS 11:00
PROVIDERS: Visit Provider Internal Medicine
DX: E11.9 Type 2 diabetes mellitus without complications (principal); Z11.1 Encounter for screening for respiratory tuberculosis
CPT/HCPCS: 36415; 86481